=== PATIENT | male | born 1960 | race Two or more races ===

== ENCOUNTER 2020-07-09 10:08 | Outpatient (REF) | payer OTHER, SELFPAY ==
--- NOTE | 2020-07-09 10:15 | XR_ITS ---
EXAMINATION: XR SHOULDER, RIGHT CLINICAL INFORMATION: Right shoulder pain. COMPARISON: None. TECHNIQUE: Right shoulder is imaged in 4 views. FINDINGS: There is no fracture, dislocation, destructive process. Bony mineralization appears normal. The glenohumeral joint is unremarkable. The acromioclavicular alignment is normal. External rotation view shows some fine spurring in the greater tuberosity with questionable calcific tendinosis versus chondrocalcinosis articular cartilage superior humeral head. There is a tiny subcortical cyst greater tuberosity. XR/XR shoulder RT min 2V IMPRESSION: Fine spurring greater tuberosity with minor calcification and tiny cortical cyst. Findings may be associated with rotator cuff degeneration.
== END 2020-07-09 10:09 | disposition home or self-care (01) ==
LOC: HO.XRAY 10:08
PROVIDERS: PCP Internal Medicine Geriatric Medicine; Visit Provider Internal Medicine Geriatric Medicine
DX: M25.511 Pain in right shoulder (principal)
CPT/HCPCS: 73030

== ENCOUNTER 2020-09-03 11:10 | Outpatient (REF) | payer OTHER, SELFPAY | END 2020-09-03 11:11 | disposition home or self-care (01) | LOC: HO.HAP 11:10 | PROVIDERS: Visit Provider Internal Medicine Geriatric Medicine | DX: Z46.1 Encounter for fitting and adjustment of hearing aid (principal) | CPT/HCPCS: V5266 ==

== ENCOUNTER 2020-09-19 07:48 | Outpatient (REF) | payer OTHER, SELFPAY ==
--- NOTE | 2020-09-20 12:19 | MHC.AU.P13 ---
Adult Audiological Evaluation Date of Visit: 09/19/20 Optometric Technologist Used: Not Applicable Reason for Appointment: Audiologic re-evaluation to determine possible change in hearing ability. Kong reports several months ago he experienced left ear pain and was getting feedback from the left hearing aid. Due to the pain and feedback, he stopped wearing the left aid for a period of time until the ear pain resolved. Unfortunately he misplaced the left aid and has been unable to find the hearing aid. New hearing aid are needed. Previous Hearing Test Results: Borderline normal to mild low frequency, dropping to severe high frequency sensorineural hearing loss with the left ear being poorer at 250 and 500 Hz. 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 Unable to remove all cerumen today Tympanometry: Tympanometry performed due to: To assess integrity of the middle ear system Right Ear: Normal Middle Ear System (Type A) Left Ear: Normal Middle Ear System (Type A) Hearing Evaluation: Transducer(s) Used: Insert Earphones Bone Conduction Method: Conventional Audiometry Stimuli Used: Pure Tones Right Ear: Description of Hearing: Borderline normal thresholds at 250 and 500 Hz dropping to a severe high frequency sensorineural hearing loss Left Ear: Description of Hearing: Moderate sloping to severe mixed hearing loss Speech Recognition Threshold (SRT): Method Used: Monitored Live Voice Stimuli Used: Spondee Words Right Ear: 35 dB HL Left Ear: 50 dB HL Word Discrimination: Method: Recorded Lists Word Lists Used: NU-6 Right Ear: 88% at 85 dB HL Left Ear: 92% at 95 dB HL Most Comfortable Level (MCL): Right Ear: 85 dB HL Left Ear: 95 dB HL Comparison: Compared to the most recent evaluation: Thresholds have decreased in the left ear. Interpretation of Results: The low frequency conductive decrease for the left ear may be related to the remaining cerumen in that ear. Recommendations: Audiological re-evaluation in one year. Trial with amplification is recommended. Medical clearance from a physician is required before fitting. Hearing Aid Fitting will be scheduled when all materials arrive. Follow-up with physician for cerumen removal. Hearing aid maintenance performed today. * Advise cerumen removal for the left ear by a physician. When cerumen is removed, Kong needs to call this office to schedule an appointment for a Pure Tone Check and Earmold Impressions. Sending prior authorization for new hearing aids to insurance. When all paperwork and approval are received, will order the hearing aids and schedule a Hearing Aid Fitting appointment Diagnosis: Primary Diagnosis: H90.3 Bilateral Sensorineural Hearing Loss Secondary Diagnosis: H61.23 Impacted Cerumen, Bilateral Services Performed: Comprehensive Audiological Evaluation (CPT 39509) Tympanometry (CPT 26160) Signature: Provider: Dylon Botello, CCC-A
--- NOTE | 2020-09-20 12:22 | MHC.AU.MED ---
Medical Clearance for Hearing Instrumentation Date: 09/20/20 Patient Name: Kong Hogue Date of : 1960 Primary Care Provider: Referring Provider: Terrence Quintanilla MD We have seen your patient on 09/19/20 and have determined that they are a candidate for amplification (See accompanying report). Specifically, they would benefit from: Hearing aid use in both ears There is a statute that addresses Medical Evaluation Requirements prior to fitting a patient with a hearing aid. According to [place] statute 265 CMR:6.03(1), (a) General. Except as provided in 265 CMR 6.03(1)(b), a judicial assistant shall not sell a hearing aid unless the prospective user has presented to the judicial assistant a written statement signed by a licensed physician that states that the patient's hearing loss has been medically evaluated and the patient may be considered a candidate for a hearing aid. The medical evaluation must have taken place within the preceding six months. Please note: Due to the [place] Statute referenced above, we cannot accept a signature other than that of a licensed physician. PHOTOGRAPHER NEWS and PA signatures cannot be accepted. I am in agreement with the above recommendation. There is no medical contraindication for hearing instrumentation. Physician Signature Date Physician Name (Printed)
== END 2020-09-19 07:49 | disposition home or self-care (01) ==
LOC: HO.SH 07:48
PROVIDERS: Visit Provider Internal Medicine Geriatric Medicine
DX: H91.90 Unspecified hearing loss, unspecified ear (principal)
CPT/HCPCS: 92557; 92567; 92592; 99499

== ENCOUNTER 2020-09-28 09:32 | Outpatient (REF) | payer OTHER, SELFPAY ==
--- NOTE | 2020-09-28 12:51 | MHC.AU.MED ---
Medical Clearance for Hearing Instrumentation Date: 09/28/20 Patient Name: Kong Hogue Date of : 1960 Primary Care Provider: Referring Provider: Terrence Quintanilla MD We have seen your patient on 09/28/20 and have determined that they are a candidate for amplification (See accompanying report). Specifically, they would benefit from: Hearing aid use in the right ear Hearing aid use in the left ear Hearing aid use in both ears There is a statute that addresses Medical Evaluation Requirements prior to fitting a patient with a hearing aid. According to [place] statute 265 CMR:6.03(1), (a) General. Except as provided in 265 CMR 6.03(1)(b), a net development manager shall not sell a hearing aid unless the prospective user has presented to the net development manager a written statement signed by a licensed physician that states that the patient's hearing loss has been medically evaluated and the patient may be considered a candidate for a hearing aid. The medical evaluation must have taken place within the preceding six months. Please note: Due to the [place] Statute referenced above, we cannot accept a signature other than that of a licensed physician. STEMMER MACHINE and PA signatures cannot be accepted. I am in agreement with the above recommendation. There is no medical contraindication for hearing instrumentation. Physician Signature Date Physician Name (Printed)
--- NOTE | 2020-09-28 12:52 | MHC.AU.HAS ---
Hearing Aid Evaluation Date of Visit: 09/28/20 Ekg/Ecg Technician Used: Not Applicable Historical Information: Description of Hearing: Moderate to severe mixed hearing loss bilaterally. Pure tone check was performed today for the left ear following cerumen removal withe thresholds int he low frequencies improving 5-10 dB. Current personal amplification information, if applicable: Virto V 50-312, Left aid recently lost. No longer under warranty Summary: Due to the degree of hearing loss, as well as the significant communication trouble and difficulties understanding speech on the telephone, advise new binaural hearing aids with bluetooth capability as part of the remediation process. Hearing Aid Prescription: Based on the individual?s shared listening needs, communication environments, dexterity, desire for connectivity, and personal preferences, the following prescription for amplification has been made: Right ear: Public Service Officer: Phonak Model: Virto M 70-312 Battery Size: 312 Color: Mei Left ear: Left ear prescription to be same as Right Hearing Aid above: Public Service Officer: Phonak Model: Virto M 70-312 Battery Size: 312 Color: Mei Plan of Care: Patient wishes to purchase hearing aids as prescribed Action Taken/Action Needed: Earmold Impressions Taken Prior authorization to be requested Medical Clearance to be requested from PCP/ENT Hearing Fitting to be scheduled when materials arrive Primary Diagnosis: H90.6 Mixed Hearing Loss, Bilateral Signature: Provider: Dylon Botello, [facility]
== END 2020-09-28 09:33 | disposition home or self-care (01) ==
LOC: HO.HAP 09:32
PROVIDERS: Visit Provider Internal Medicine Geriatric Medicine
DX: Z46.1 Encounter for fitting and adjustment of hearing aid (principal); H90.6 Mixed conductive and sensorineural hearing loss, bilateral
CPT/HCPCS: 92591; V5275

== ENCOUNTER → 2020-10-22 07:52 | Outpatient (BNVA) | payer OTHER, SELFPAY | PROVIDERS: Visit Provider Internal Medicine Endocrinology, Diabetes & Metabolism | DX: E05.20 Thyrotoxicosis with toxic multinodular goiter without thyrotoxic crisis or storm (principal); E55.9 Vitamin D deficiency, unspecified | CPT/HCPCS: 99212 ==

== ENCOUNTER 2020-10-22 08:24 | Outpatient (REF) | payer OTHER, SELFPAY ==
[2020-10-22 11:07] LABS: Free T4 (Free Thyroxine) 0.88 ng/dL (0.71-1.85); Thyroid Stimulating Hormone 0.93 uIU/mL (0.32-4.0)
[2020-10-23 09:11] LABS: Triiodothyronine T3 Total 104 ng/dL (76-181)
== END 2020-10-22 08:25 | disposition home or self-care (01) ==
LOC: HO.10HDL 08:24
PROVIDERS: Visit Provider Internal Medicine Endocrinology, Diabetes & Metabolism
DX: E05.20 Thyrotoxicosis with toxic multinodular goiter without thyrotoxic crisis or storm (principal)
CPT/HCPCS: 36415; 84439; 84443; 84480

== ENCOUNTER 2020-11-02 09:39 | Outpatient (REF) | payer OTHER, SELFPAY | END 2020-11-02 09:40 | disposition home or self-care (01) | LOC: HO.HAP 09:39 | PROVIDERS: Visit Provider Internal Medicine Geriatric Medicine | DX: Z46.1 Encounter for fitting and adjustment of hearing aid (principal) | CPT/HCPCS: 92595; V5011; V5020; V5160; V5259 ==

== ENCOUNTER → 2020-11-15 08:09 | Outpatient (BNVA) | payer OTHER, SELFPAY | PROVIDERS: PCP Internal Medicine Geriatric Medicine; Visit Provider Urology | DX: Z13.89 Encounter for screening for other disorder (principal) | CPT/HCPCS: Q3014 ==

== ENCOUNTER 2020-11-20 12:15 | Outpatient (REF) | payer OTHER, SELFPAY | END 2020-11-20 12:16 | disposition home or self-care (01) | LOC: HO.HAP 12:15 | PROVIDERS: Visit Provider Pediatrics | DX: Z13.89 Encounter for screening for other disorder (principal) ==

== ENCOUNTER 2020-11-27 08:38 | Outpatient (REF) | payer OTHER, SELFPAY ==
[2020-11-27 13:38] LABS: Urine Cytology See Pathology rpt
== END 2020-11-27 08:39 | disposition home or self-care (01) ==
LOC: HO.LNP 08:38
PROVIDERS: PCP Internal Medicine Geriatric Medicine; Visit Provider Urology
DX: N40.0 Benign prostatic hyperplasia without lower urinary tract symptoms (principal); N52.9 Male erectile dysfunction, unspecified; R39.15 Urgency of urination; E55.9 Vitamin D deficiency, unspecified; E05.20 Thyrotoxicosis with toxic multinodular goiter without thyrotoxic crisis or storm; Z87.891 Personal history of nicotine dependence
CPT/HCPCS: 52000; 81002; 88112; 99212

== ENCOUNTER 2020-12-04 12:05 | Outpatient (REF) | payer OTHER, SELFPAY | END 2020-12-04 12:06 | disposition home or self-care (01) | LOC: HO.HAP 12:05 | PROVIDERS: Visit Provider Internal Medicine Geriatric Medicine | DX: Z13.89 Encounter for screening for other disorder (principal) ==

== ENCOUNTER 2020-12-21 12:19 | Outpatient (REF) | payer OTHER, SELFPAY | END 2020-12-21 12:20 | disposition home or self-care (01) | LOC: HO.HAP 12:19 | PROVIDERS: Visit Provider Internal Medicine Geriatric Medicine | DX: Z13.89 Encounter for screening for other disorder (principal) ==

== ENCOUNTER 2021-04-06 12:49 | Emergency (ER) | payer OTHER, SELFPAY ==
[2021-04-06 12:57] VITALS: BP 154/99; PULSE 82; RESP 18; TEMP 36.4; O2SAT 99; BMI 24.3
--- NOTE | 2021-04-06 14:44 | ED.GENADULT ---
HPI - General Adult General Chief complaint: General Medical Stated complaint: gout in knee Time Seen by Provider: 04/06/21 14:43 Source: patient Mode of arrival: ambulatory Limitations: no limitations History of Present Illness HPI narrative: 61-year-old male presents for redness swelling and warmth of left knee that started 4 days ago. Patient states this feels like gout, and he has had gout in this leg in the past. No fevers, patient is feeling well otherwise, no nausea, no vomiting, no chest pain, no shortness of breath. Related Data Home Medications Medication Instructions Recorded Confirmed lithium carbonate 300 mg 300 mg PO BID 10/22/20 10/22/20 tablet,extended release omega-3 fatty acids 1,000 mg 1,000 mg PO BEDTIME 10/22/20 10/22/20 capsule tadalafil 20 mg tablet 20 mg PO DAILY PRN 10/22/20 10/22/20 carbamide peroxide 6.5 % ear drops 0 drp OTIC (EARS) 11/15/20 diclofenac sodium 1 % topical gel 2 g TOPICAL BID 11/15/20 lisinopril 5 mg tablet 5 mg PO DAILY 11/15/20 Previous Rx's Medication Instructions Recorded cholecalciferol (vitamin D3) 25 25 mcg PO DAILY 90 Days #90 cap 10/22/20 mcg (1,000 unit) capsule methimazole 5 mg tablet 2.5 mg PO DAILY 90 Days #45 tab 10/22/20 tolterodine 4 mg capsule,extended 4 mg PO .Q.a.m. 30 Days #30 cap 11/15/20 release 24 hr oxybutynin chloride 15 mg 15 mg PO DAILY 90 Days #90 tab 11/27/20 tablet,extended release 24 hr prednisone 10 mg tablet 10 mg PO DAILY 12 Days #39 tab 04/06/21 Allergies Allergy/AdvReac Type Severity Reaction Status Date / Time No Known Allergies Allergy Verified 04/06/21 12:56 Review of Systems Constitutional: Constitutional: Denies body ache(s), Denies chills, Denies fatigue, Denies fever(s), Denies headache(s), Denies malaise and Denies weakness ENT: Denies vertigo, Denies dizziness, Denies headache(s) and Denies throat swelling Cardiovascular: Cardiovascular: Denies chest pain, Denies syncope, Denies leg edema, Denies lightheadedness, Denies Loss of Consciousness, Denies palpitations and Denies dyspnea Respiratory: Respiratory: Denies chest congestion, Denies cough and Denies dyspnea Gastrointestinal: Gastrointestinal: Reports abdominal pain, Denies hematochezia, Denies constipation, Denies diarrhea and Denies vomiting Musculoskeletal: Musculoskeletal: Reports arthralgias and Reports joint swelling Integumentary/Breasts: Comments: Redness and warmth over her left knee Neurologic: Denies confusion, Denies vertigo, Denies dizziness, Denies syncope, Denies headache(s) and Denies weakness Psychiatric: Psychiatric: Denies anxiety, Denies confusion and Denies depression Endocrine: Endocrine: Denies fatigue and Denies palpitations Allergic/Immunologic: Allergic/Immunologic: Denies throat swelling PMFSH Past Medical History Medical History Abdominal wall mass Bipolar disorder BPH w/o urinary obs/LUTS Erectile dysfunction Gout Myelopathy Toxic multinodular goiter Vitamin D deficiency Surgical History History of surgery Family History Family History Father Dementia Mother Diabetes Social History Social History Advance Directives: No Advance Directives Information Provided: Yes Physical Exam Vital Signs: Vital Signs: Last Vital Signs Temp 97.6 F 04/06/21 12:57 Pulse 82 04/06/21 12:57 Resp 18 04/06/21 12:57 BP 154/99 H 04/06/21 12:57 Pulse Ox 99 04/06/21 12:57 Body Mass Index 24.3 Const: General: No confusion Nutritional Appearance: well nourished Orientation/consciousness: No confusion Limitations: no limitations Eyes: Pupils: Equal, round and reactive pupils present Neck: Neck: Yes full ROM, Yes no lymphadenopathy and Yes supple Resp: Effort & Inspection: normal respiratory effort and able to speak in complete sentences Auscultation: clear to auscultation bilaterally, no crackles, no rales, no rhonchi and no wheezes Cardio: Rate: regular rate Rhythm: regular rhythm Heart sounds: S1 normal heart sound present and S2 normal heart sound present GI: Inspection: Yes normal to inspection Palpation (GI): Soft to palpation, nontender, no guarding and not rigid Percussion: Yes normal to percussion Auscultation: normal bowel sounds Skin: Other: Redness and warmth over left knee, no appreciable effusion Neuro: General: No confusion Cranial nerves: Yes Equal, round and reactive pupils present Extrem: Other: Patient can fully flex and extend his left knee Left lower extremity: full ROM, normal capillary refill and knee Details: tenderness, swelling and normal ROM Psych: Appearance: grossly normal Affect: normal affect Attitude: cooperative Thought process: Normal thought process present Course Course Course Narrative: 61-year-old male presents for pain in his left knee that feels like gout that he has gotten in his left leg before. Patient has full range of motion of his left knee. Left knee is exquisitely tender to touch, as red and swollen and warm. This looks like gout. However discussed with patient that if he is not better in 2 days, he must return to the emergency room, because this also could be infectious in nature. Patient verbalized agreement and understanding. The patient prednisone taper, counseled him to follow up with primary care provider Discharge Plan Discharge Clinical Impression: Gout Qualifiers: Gout site: knee Gout etiology: idiopathic Chronicity: acute Laterality: left Qualified Code(s): M10.062 - Idiopathic gout, left knee Patient Disposition: Home, Self-Care Instructions: Gout (ED) Additional Instructions: Please return to emergency room if you have fevers, if you cannot bend your knee, if you feel sick, or if you are not better in the next 2-3 days. Please fill the prescription for prednisone and take it as prescribed for the entire course. Please call your primary care provider for follow-up appointment, they may prescribe you medicine that will stop gout when it starts. As we discussed, this does not appear to be an infected knee, but please come back if you feel ill, have fevers, or cannot bend her knee Prescriptions: New prednisone 10 mg tablet 10 mg PO DAILY 12 Days Qty: 39 RF: 0 No Action tadalafil 20 mg tablet 20 mg PO DAILY PRNRF: 0 omega-3 fatty acids 1,000 mg capsule 1,000 mg PO BEDTIME RF: 0 lithium carbonate 300 mg tablet extended release 300 mg PO BID RF: 0 methimazole 5 mg tablet 2.5 mg PO DAILY 90 Days Qty: 45 RF: 2 cholecalciferol (vitamin D3) 25 mcg (1,000 unit) capsule 25 mcg PO DAILY 90 Days Qty: 90 RF: 3 tolterodine 4 mg capsule,extended release 24hr 4 mg PO .Q.a.m. 30 Days Qty: 30 RF: 1 oxybutynin chloride 15 mg tablet extended release 24 hr 15 mg PO DAILY 90 Days Qty: 90 RF: 2 Interventions: ED Discharge Assessment Last Done: 04/06/21 15:25 Discharge Date/Time: 04/06/21 15:26
== END 2021-04-06 15:26 | disposition home or self-care (01) ==
PROVIDERS: Emergency Provider Emergency Medicine Emergency Medical Services; PCP Internal Medicine Geriatric Medicine
DX: M10.062 Idiopathic gout, left knee (principal); M25.562 Pain in left knee; Z79.899 Other long term (current) drug therapy
CPT/HCPCS: 99283

== ENCOUNTER 2021-06-13 14:13 | Outpatient (REF) | payer OTHER, SELFPAY | END 2021-06-13 14:14 | disposition home or self-care (01) | LOC: HO.HAP 14:13 | PROVIDERS: Visit Provider Internal Medicine Geriatric Medicine | DX: Z46.1 Encounter for fitting and adjustment of hearing aid (principal); H90.3 Sensorineural hearing loss, bilateral | CPT/HCPCS: V5266 ==

== ENCOUNTER 2021-08-09 09:43 | Outpatient (REF) | payer SELFPAY | END 2021-08-09 09:44 | disposition home or self-care (01) | LOC: HO.HAP 09:43 | PROVIDERS: Visit Provider Internal Medicine Geriatric Medicine | DX: Z13.89 Encounter for screening for other disorder (principal) ==

== ENCOUNTER → 2021-08-29 12:15 | Outpatient (BNVA) | payer OTHER, SELFPAY | PROVIDERS: PCP Internal Medicine Geriatric Medicine; Visit Provider Internal Medicine | DX: E05.20 Thyrotoxicosis with toxic multinodular goiter without thyrotoxic crisis or storm (principal); E55.9 Vitamin D deficiency, unspecified; Z79.899 Other long term (current) drug therapy | CPT/HCPCS: 99212 ==

== ENCOUNTER 2021-08-30 10:35 | Outpatient (REF) | payer OTHER, SELFPAY ==
[2021-08-30 12:30] LABS: Albumin Level 4.3 g/dL (3.5-5.0); Phosphorus 2.6 mg/dL (2.7-4.5)
[2021-08-30 12:41] LABS: Free T4 (Free Thyroxine) 1.04 ng/dL (0.71-1.85); Thyroid Stimulating Hormone 0.44 uIU/mL (0.32-4.0); Vitamin D 25-OH Total 40.5 ng/mL (>30)
[2021-08-31 09:47] LABS: Thyroglobulin Antibodies <1 IU/mL (< or = 1); Thyroid Peroxidase Antibodies 1 IU/mL (<9)
[2021-08-31 10:02] LABS: Triiodothyronine T3 Total 109 ng/dL (76-181)
[2021-09-02 19:06] LABS: Thyrotropin Receptor Antibody <1.00 IU/L (<=2.00)
[2021-09-03 14:21] LABS: Calcium (PTHI) 9.8 mg/dL (8.6-10.3); PTHI 70 pg/mL (14-64)
[2021-09-04 15:56] LABS: Thyroid Stimulating Immunoglob <89 % baseline (<140)
== END 2021-08-30 10:36 | disposition home or self-care (01) ==
LOC: HO.LAB 10:35
PROVIDERS: Visit Provider Internal Medicine
DX: E05.20 Thyrotoxicosis with toxic multinodular goiter without thyrotoxic crisis or storm (principal); E55.9 Vitamin D deficiency, unspecified
CPT/HCPCS: 36415; 82040; 82306; 83520; 83970; 84100; 84439; 84443; 84445; 84480; 86376; 86800

== ENCOUNTER → 2021-09-03 15:09 | Outpatient (BNVA) | payer OTHER, SELFPAY | PROVIDERS: Visit Provider Urology | DX: N40.1 Benign prostatic hyperplasia with lower urinary tract symptoms (principal); R39.15 Urgency of urination | CPT/HCPCS: Q3014 ==

== ENCOUNTER 2021-09-30 15:02 | Outpatient (REF) | payer OTHER, SELFPAY ==
--- NOTE | ~2021-09-30 | US_ITS ---
EXAMINATION: US THYROID CLINICAL INFORMATION: Thyrotoxicosis with diffuse goiter without thyrotoxic crisis or storm. COMPARISON: Ultrasound soft tissue head/neck thyroid dated 12/26/2019 and 01/26/2019. TECHNIQUE: Linear transducer grayscale and color Doppler examination with attention to the region of the thyroid. FINDINGS: SIZE: Measurements of the thyroid lobes and nodules are given in sagittal, anteroposterior and transverse dimensions respectively. Right Thyroid Lobe: 6.7 x 2.2 x 2.7 cm, volume 21.1 mL. Previously 6.1 x 2.7 x 2.8 cm, volume 23.9 mL. Parenchyma: The gland echotexture is homogeneous. Thyroid vascularity is normal. Left Thyroid Lobe: 5.9 x 2.7 x 2.3 cm, volume 19.0 mL. Previously 6.0 x 2.4 x 2.8 cm, volume 20.4 mL. Parenchyma: The gland echotexture is homogeneous. Thyroid vascularity is normal. Isthmus: 0.4 cm in maximum AP dimension. Previously 0.6 cm. Estimated total number of nodules greater than or equal to 1 cm: 1. Seed Tester nodules are described as follows: 1. Location: Right inferior. Size: 0.6 x 0.3 x 0.5 cm, volume 0.05 mL. Previously: 0.6 x 0.3 x 0.6 cm, volume 0.06 mL. Nodule characteristics: Composition: Solid (2). Echogenicity: Hypoechoic (2). Shape: Not taller than wide (0). Margins: Ill-defined (0). Echogenic Foci: None (0). ACR TI-RADS total points: 4 ACR TI-RADS category: 4 Significant change in size (>/= 20% in 2 dimensions and minimal increase of 2 mm or 50% or greater increase in volume): None Change in features: None Change in ACR TI-RADS risk category: Not applicable 2. Location: Right inferior. Size: 0.4 x 0.3 x 0.3 cm, volume 0.02 mL. Previously: 0.4 x 0.3 x 0.4 cm, volume 0.03 mL. Nodule characteristics: Composition: Solid (2). Echogenicity: Anechoic (0). Shape: Not taller than wide (0). Margins: Ill-defined (0). Echogenic Foci: None (0). ACR TI-RADS total points: 2 ACR TI-RADS category: 2 Significant change in size (>/= 20% in 2 dimensions and minimal increase of 2 mm or 50% or greater increase in volume): None Change in features: None Change in ACR TI-RADS risk category: Not applicable 3. Location: Right inferior. Size: 1.6 x 1.5 x 1.7 cm, volume 2.1 mL. Previously: 2.0 x 1.1 x 1.5 cm, volume 1.7 mL. Nodule characteristics: Composition: Mixed cystic and solid (1). Echogenicity: Isoechoic (1). Shape: Not taller than wide (0). Margins: Smooth (0). Echogenic Foci: None (0). ACR TI-RADS total points: 2 ACR TI-RADS category: 2 Significant change in size (>/= 20% in 2 dimensions and minimal increase of 2 mm or 50% or greater increase in volume): None Change in features: Not applicable Change in ACR TI-RADS risk category: Not applicable 4. Location: Right inferior. Size: 0.7 x 0.5 x 0.6 cm, volume 0.1 mL. Previously: 0.4 x 0.5 x 0.6 cm, volume 0.06 mL. Nodule characteristics: Composition: Cystic(0). ACR TI-RADS total points: 0 ACR TI-RADS category: 1 Significant change in size (>/= 20% in 2 dimensions and minimal increase of 2 mm or 50% or greater increase in volume): None Change in features: None Change in ACR TI-RADS risk category: Not applicable 5. Location: Left superior. Size: 0.6 x 0.5 x 0.3 cm, volume 0.45 mL. Previously: Not documented on the prior study. Nodule characteristics: Composition: Cystic(0). ACR TI-RADS total points: 0 ACR TI-RADS category: 1 NODES: No lymphadenopathy is seen in the tissue surrounding the thyroid gland. US/US thyroid IMPRESSION: Enlarged thyroid gland with multiple thyroid nodules five on the right and one on the left. None of the nodules are suspicious at this time. Recommend continued follow-up. ACR TI-RADS RECOMMENDATION REFERENCE: Ultrasound-guided fine-needle aspiration, followup ultrasound, no further follow up. * TR1 (0 point) and TR 2 (2 points): No FNA or follow up * TR3 (3 points): FNA if more than or equal to 2.5 cm in maximum dimension, followup ultrasound in 1, 3 and 5 years if 1.5 to 2.4 cm in maximum dimension. * TR4 (4-6 points): FNA if more than or equal to 1.5 cm in maximum dimension, followup ultrasound in 1, 2, 3 and 5 years if 1 to 1.4 cm in maximum dimension. * TR5 (more than or equal to 7 points): FNA if more than or equal to 1 cm in maximum dimension, followup ultrasound every year for 5 years if 0.5 to 0.9 cm in maximum dimension. * TR3, TR4 or TR5 nodules that are below the size threshold for follow up receive no follow up.
== END 2021-09-30 15:03 | disposition home or self-care (01) ==
LOC: HO.US 15:02
PROVIDERS: Visit Provider Internal Medicine
DX: E05.20 Thyrotoxicosis with toxic multinodular goiter without thyrotoxic crisis or storm (principal)
CPT/HCPCS: 76536

== ENCOUNTER → 2021-11-04 10:40 | Outpatient (BNVA) | payer MEDICARE, MEDICAID, SELFPAY | PROVIDERS: PCP Internal Medicine Geriatric Medicine; Visit Provider Internal Medicine | DX: Z13.89 Encounter for screening for other disorder (principal) ==

== ENCOUNTER 2021-11-14 08:11 | Outpatient (REF) | payer MEDICARE, MEDICAID, SELFPAY ==
[2021-11-14 13:52] LABS: Alanine Aminotransferase 29 U/L (0-40); Albumin Level 4.1 g/dL (3.5-5.0); Alkaline Phosphatase 72 U/L (39-117); Anion Gap 13 (12-20); Aspartate Amino Transferase 22 U/L (5-37); Bilirubin Total 1.2 mg/dL (0.0-1.0); Blood Urea Nitrogen 15 mg/dL (9-16); Calcium 9.7 mg/dL (8.4-10.2); Carbon Dioxide 26 mmol/L (22-29); Chloride 105 mmol/L (96-108); Estimated Glomerular Filt Rate 57; Glucose Random 102 mg/dL (60-115); Phosphorus 2.6 mg/dL (2.7-4.5); Potassium 4.2 mmol/L (3.3-5.1); Sodium 140 mmol/L (135-145); Total Protein 6.8 g/dL (6.5-8.0)
[2021-11-14 14:12] LABS: Free T4 (Free Thyroxine) 1.03 ng/dL (0.71-1.85); Vitamin D 25-OH Total 35.2 ng/mL (>30)
[2021-11-15 12:46] LABS: Calcium (PTHI) 9.4 mg/dL (8.6-10.3); PTHI 90 pg/mL (16-77)
[2021-11-16 01:46] LABS: Triiodothyronine T3 Total 109 ng/dL (76-181)
[2021-11-18 22:07] LABS: Prot Elec - Albumin 4.1 g/dL (3.8-4.8); Prot Elec - Alpha1 0.2 g/dL (0.2-0.3); Prot Elec - Alpha2 0.6 g/dL (0.5-0.9); Prot Elec - Beta 1 0.4 g/dL (0.4-0.6); Prot Elec - Beta 2 0.4 g/dL (0.2-0.5); Prot Elec - Total Protein 6.7 g/dL (6.1-8.1)
== END 2021-11-14 08:12 | disposition home or self-care (01) ==
LOC: HO.LAB 08:11
PROVIDERS: PCP Internal Medicine Geriatric Medicine; Visit Provider Internal Medicine
DX: E05.20 Thyrotoxicosis with toxic multinodular goiter without thyrotoxic crisis or storm (principal); E21.3 Hyperparathyroidism, unspecified; E55.9 Vitamin D deficiency, unspecified
CPT/HCPCS: 36415; 80053; 82306; 83970; 84100; 84165; 84439; 84443; 84480; Q3014

== ENCOUNTER 2021-11-21 07:40 | Outpatient (REF) | payer MEDICARE, MEDICAID, SELFPAY ==
[2021-11-21 08:20] LABS: Creatinine, mg/dL 92.52
[2021-11-21 08:35] LABS: Creatinine, 24Hr Urine 0.8 G/Day (1.0-2.0); Total Volume 24 Hour Urine 900 mL
[2021-11-23 16:40] LABS: Calcium, 24 Hr Urine 77 mg/24 h; Calcium/Creatinine Ratio 91 mg/g creat (30-210); Creatinine 24Hr Urine 0.84 g/24 h (0.50-2.15)
== END 2021-11-21 07:41 | disposition home or self-care (01) ==
LOC: HO.LNP 07:40
PROVIDERS: Visit Provider Internal Medicine
DX: E21.3 Hyperparathyroidism, unspecified (principal)
CPT/HCPCS: 82340; 82570

== ENCOUNTER 2021-11-26 12:21 | Outpatient (REF) | payer MEDICARE, MEDICAID, SELFPAY | END 2021-11-26 12:22 | disposition home or self-care (01) | LOC: HO.HAP 12:21 | PROVIDERS: Visit Provider Internal Medicine Geriatric Medicine | DX: Z46.1 Encounter for fitting and adjustment of hearing aid (principal); H90.3 Sensorineural hearing loss, bilateral | CPT/HCPCS: V5266 ==

== ENCOUNTER → 2022-01-08 19:45 | Outpatient (REF) | payer MEDICARE, MEDICAID, SELFPAY | LOC: HO.SL 19:45 | PROVIDERS: Visit Provider Nurse Practitioner Family | DX: G47.00 Insomnia, unspecified (principal); R06.81 Apnea, not elsewhere classified | CPT/HCPCS: 95810 ==

== ENCOUNTER 2022-01-09 13:15 | Emergency (ER) | payer MEDICARE, MEDICAID, SELFPAY ==
[2022-01-09 13:47] VITALS: BP 169/66; PULSE 92; RESP 18; TEMP 36.7; O2SAT 97; BMI 27.5
[2022-01-09 14:22] LABS: Lithium 0.76 mmol/L (0.60-1.20)
--- NOTE | 2022-01-09 14:40 | ED_ITS ---
HPI - General Adult General Chief complaint: Psychiatric Symptoms Stated complaint: shakes /medical /crisis Time Seen by Provider: 01/09/22 14:40 Source: patient and family (daughter) Mode of arrival: ambulatory Limitations: no limitations History of Present Illness HPI narrative: Patient is a 61 year old male presenting to the emergency department today with insomnia. Patient states that a month ago, he went from 600mg lithium to 300mg and then he started to have issues sleeping. His psychiatrist then increased him back to 600mg and he is still having difficulty sleeping. Patient states that he has an appointment with his psychiatrist to address this issue next Thursday however, he is having increased anxiousness and is concerned he is going to have another manic episode. Patient denies any dizziness, lightheadedness, abdominal pain, nausea, vomiting, fever, chills, blurry vision, double vision, loss of vision, chest pain, difficulty breathing, shortness of breath, back pain, night sweats, pain with urination, increased urinary frequency, increased urinary urgency, blood in his urine or stool, syncope or a near syncopal episode, recent trauma or falls, bowel incontinence, bladder incontinence, bowel retention, bladder retention, or any other complaints at this time. Onset (ago): day(s) Severity: mild Relieving factors: none Exacerbating factors: none Associated symptoms: denies other symptoms Treatments prior to arrival: none Related Data Home Medications Medication Instructions Recorded Confirmed omega-3 fatty acids 1,000 mg 1,000 mg PO BEDTIME 10/22/20 11/14/21 capsule tadalafil 20 mg tablet 20 mg PO DAILY PRN 10/22/20 11/14/21 carbamide peroxide 6.5 % ear drops 0 drp otic (ears) 11/15/20 11/14/21 diclofenac sodium 1 % topical gel 2 g topical BID 11/15/20 11/14/21 lisinopril 5 mg tablet 5 mg PO DAILY 11/15/20 11/14/21 lithium carbonate 300 mg 300 mg PO DAILY 11/04/21 11/14/21 tablet,extended release Previous Rx's Medication Instructions Recorded oxybutynin chloride 10 mg 10 mg PO DAILY 90 days #90 tabs 09/03/21 tablet,extended release 24 hr cholecalciferol (vitamin D3) 25 25 mcg PO DAILY 90 days #90 caps 10/16/21 mcg (1,000 unit) capsule methimazole 5 mg tablet 2.5 mg PO DAILY 90 days #45 tabs 11/14/21 lorazepam 2 mg tablet (Ativan) 2 mg PO BEDTIME PRN sleep #3 tabs 01/09/22 Allergies Allergy/AdvReac Type Severity Reaction Status Date / Time No Known Allergies Allergy Verified 11/14/21 10:44 Review of Systems Constitutional: Constitutional: Reports no additional constitutional complaints, Denies chills, Denies fever(s) and Denies night sweats Eyes: Eyes: Reports no additional eye complaints, Denies blurry vision, Denies change in vision, Denies diplopia, Denies eye discharge, Denies loss of vision and Denies eye pain ENT: Denies dizziness Cardiovascular: Cardiovascular: Reports no additional cardiovascular complaints, Denies chest pain, Denies lightheadedness, Denies Loss of Consciousness and Denies dyspnea Respiratory: Respiratory: Reports no additional respiratory complaints and Denies dyspnea Gastrointestinal: Gastrointestinal: Reports no additional gastrointestinal complaints, Denies abdominal pain, Denies melena, Denies hematochezia, Denies change in bowel habits and Denies change in stool character Genitourinary: Genitourinary: Reports no additional male genitourinary complaints, Denies hematuria, Denies oliguria, Denies difficulty urinating, Denies dysuria, Denies urinary frequency, Denies urinary hesitancy, Denies urinary incontinence and Denies urinary urgency Musculoskeletal: Musculoskeletal: Reports no additional musculoskeletal complaints, Denies numbness and Denies tingling Neurologic: Denies dizziness, Denies loss of vision, Denies numbness and Denies tingling Psychiatric: Psychiatric: Reports no additional psychiatric complaints and Reports abnormal sleep pattern Endocrine: Endocrine: Reports no additional endocrine complaints Hematologic/Lymphatic: Hematologic/Lymphatic: Reports no additional hematologic/lymphatic complaints Allergic/Immunologic: Allergic/Immunologic: Reports no additional allergic/immunologic complaints [facility] Past Medical History Attestation statement: The following information was validated with the patient. Source: old records reviewed Medical History Abdominal wall mass Bipolar disorder BPH w/o urinary obs/LUTS Elevated blood pressure reading in office with white coat syndrome, with diagnosis of hypertension Erectile dysfunction Frequency of urination Gout Hearing problem Hyperparathyroidism Myelopathy Toxic multinodular goiter Vitamin D deficiency Surgical History History of surgery Family History Family History Father Dementia Mother Diabetes Social History Social History Alcohol intake: never Patient Tobacco Use Status: Former Tobacco user Advance Directives: No Advance Directives Information Provided: No Physical Exam ED Vital Signs: Vital Signs - 24 hr 01/09/22 13:47 Temperature 98.0 F Pulse Rate 92 Respiratory Rate 18 Blood Pressure 169/66 H Pulse Oximetry 97 Oxygen Delivery Method Room Air BMI result Body Mass Index 27.5 Const General: cooperative, no acute distress, alert and awake Nutritional Appearance: well nourished Orientation/consciousness: patient oriented x3 Limitations: no limitations HENMT Head: Yes normal to inspection and Yes atraumatic Ears: hearing grossly normal bilaterally and external ears normal General nose exam: Normal external nose present, no nasal discharge noted and no epistaxis Face and sinus: Yes normal facial exam, No abrasion and No laceration Mouth: Normal oral and palatal mucosa present, no drooling and no muffled voice Eyes General: appearance normal, both eyes and all related structures Periorbital: periorbital findings normal Eyelids: Yes eyelids normal Conjunctivae: conjunctivae normal Pupils: Equal, round and reactive pupils present EOM: EOMs intact bilaterally Neck Neck: Yes normal visual inspection, Yes full ROM and Yes no lymphadenopathy Chest Chest palpation & inspection: normal inspection of the chest Resp Effort & Inspection: normal respiratory effort and able to speak in complete sentences Auscultation: clear to auscultation bilaterally Cardio Rate: regular rate Rhythm: regular rhythm GI Inspection: Yes normal to inspection Neuro General: patient oriented x3 and moves all extremities Cranial nerves: Yes Equal, round and reactive pupils present Cognition (Neuro): normal cognition Motor exam (neuro): 5/5 motor strength present throughout Sensory Exam: Normal double simultaneous stimulation for sensation Coordination: [id number] test normal Extrem General: Yes normal to inspection, Yes full ROM and Yes capillary refill normal Psych Appearance: grossly normal Mental Status: mental status grossly normal Affect: normal affect Attitude: cooperative Thought process: Normal thought process present Thought content: Normal thought content present Insight: Good insight present (Psych) Medical Decision Making MDM Narrative Medical decision making narrative: Patient is a 61 year old male presenting to the emergency department today with insomnia. Patient's physical exam was unremarkable. Patient's lithium level was normal. I explained my physical exam findings as well as all test results to the patient and the patient's daughter. I answered all questions asked by the patient and the patient's daughter. I explained to the patient and his daughter that I was concerned about his lack of sleep and would prescribe just 3 tablets of Lorazepam to help him sleep over the next few nights. I explained to the patient and his daughter that this is not a python consultant solution and is a dangerous medication. I explained to them that they must keep the appointment with psychiatry and follow up with them for an appropriate python consultant solution. I stressed the importance of the patient taking his medication as prescribed. I stressed the importance of the patient following up with his primary care provider and psychiatrist. I stressed the importance of the patient returning to the emergency department immediately if his symptoms were to worsen or if he were to develop any dizziness, shortness of breath, difficulty breathing, chest pain, blurry vision, loss of vision, nausea, vomiting, abdominal pain, fever, chills, back pain, or any other complaints. Patient and the patient's daughter verbalized agreement and understanding with this treatment plan and discharge. Differential Diagnosis Differential Diagnosis: anxiety, insomnia Medical Records Medical records reviewed: Yes I reviewed the patient's medical records. Lab Data Lab results reviewed: Yes I reviewed the patient's lab results. Labs: Lab Results 01/09/22 Range/Units 14:01 [place] 0.76 (0.60-1.20) mmol/L Discharge Plan Discharge Clinical Impression: Insomnia Patient Disposition: Home, Self-Care Instructions: Insomnia (ED) Additional Instructions: Follow up with your primary care provider and psychiatrist. Return to the emergency department immediately if your symptoms worsen or if you develop any dizziness, shortness of breath, difficulty breathing, chest pain, blurry vision, loss of vision, nausea, vomiting, abdominal pain, fever, chills, back pain, or any other complaints. Prescriptions: New lorazepam [Ativan] 2 mg tablet 2 mg PO BEDTIME PRN (Reason: sleep) Qty: 3 0RF No Action cholecalciferol (vitamin D3) 25 mcg (1,000 unit) capsule 25 mcg PO DAILY 90 Days Qty: 90 0RF methimazole 5 mg tablet 2.5 mg PO DAILY 90 Days Qty: 45 10RF tadalafil 20 mg tablet 20 mg PO DAILY PRN omega-3 fatty acids 1,000 mg capsule 1,000 mg PO BEDTIME lithium carbonate 300 mg tablet extended release 300 mg PO DAILY diclofenac sodium 1 % gel 2 g topical BID carbamide peroxide 6.5 % drops 0 drp otic (ears) lisinopril 5 mg tablet 5 mg PO DAILY oxybutynin chloride 10 mg tablet extended release 24 hr 10 mg PO DAILY 90 Days Qty: 90 1RF Referrals: Terrence Quintanilla MD [Primary Care Provider] - (Follow up with your primary care provider. ) Interventions: ED Discharge Assessment Last Done: 01/09/22 15:21 Print Language: Albanian
== END 2022-01-09 15:21 | disposition home or self-care (01) ==
PROVIDERS: Emergency Provider Emergency Medicine; PCP Internal Medicine Geriatric Medicine
DX: G47.00 Insomnia, unspecified (principal); F41.9 Anxiety disorder, unspecified; F31.9 Bipolar disorder, unspecified; Z79.899 Other long term (current) drug therapy
CPT/HCPCS: 36415; 80178; 99283

== ENCOUNTER → 2022-02-13 13:48 | Outpatient (BNVA) | payer MEDICARE, MEDICAID, SELFPAY | PROVIDERS: PCP Internal Medicine Geriatric Medicine; Visit Provider Internal Medicine | DX: E05.20 Thyrotoxicosis with toxic multinodular goiter without thyrotoxic crisis or storm (principal); E21.3 Hyperparathyroidism, unspecified; E55.9 Vitamin D deficiency, unspecified | CPT/HCPCS: 99212 ==

== ENCOUNTER 2022-02-21 09:55 | Outpatient (REF) | payer MEDICARE, MEDICAID, SELFPAY ==
[2022-02-21 11:23] LABS: Alanine Aminotransferase 39 U/L (0-40); Albumin Level 4.3 g/dL (3.5-5.0); Alkaline Phosphatase 75 U/L (39-117); Anion Gap 15 (12-20); Aspartate Amino Transferase 25 U/L (5-37); Bilirubin Total 0.8 mg/dL (0.0-1.0); Blood Urea Nitrogen 11 mg/dL (9-16); Calcium 9.6 mg/dL (8.4-10.2); Carbon Dioxide 26 mmol/L (22-29); Chloride 104 mmol/L (96-108); Estimated Glomerular Filt Rate 59; Glucose Random 101 mg/dL (60-115); Phosphorus 3.3 mg/dL (2.7-4.5); Potassium 4.5 mmol/L (3.3-5.1); Sodium 140 mmol/L (135-145); Total Protein 7.2 g/dL (6.5-8.0)
[2022-02-21 11:44] LABS: Free T4 (Free Thyroxine) 0.91 ng/dL (0.71-1.85); Thyroid Stimulating Hormone 1.46 uIU/mL (0.32-4.0); Vitamin D 25-OH Total 34.8 ng/mL (>30)
[2022-02-24 17:06] LABS: Calcium (PTHI) 9.7 mg/dL (8.6-10.3); PTHI 87 pg/mL (16-77)
== END 2022-02-21 09:56 | disposition home or self-care (01) ==
LOC: HO.LAB 09:55
PROVIDERS: PCP Internal Medicine Geriatric Medicine; Visit Provider Internal Medicine
DX: E05.20 Thyrotoxicosis with toxic multinodular goiter without thyrotoxic crisis or storm (principal); E21.3 Hyperparathyroidism, unspecified; E55.9 Vitamin D deficiency, unspecified
CPT/HCPCS: 36415; 80053; 82306; 83970; 84100; 84439; 84443

== ENCOUNTER 2022-03-19 09:49 | Outpatient (REF) | payer MEDICARE, MEDICAID, SELFPAY | END 2022-03-19 09:50 | disposition home or self-care (01) | LOC: HO.LAB 09:49 | PROVIDERS: PCP Internal Medicine Geriatric Medicine; Visit Provider Internal Medicine | DX: Z13.89 Encounter for screening for other disorder (principal) ==

== ENCOUNTER 2022-05-29 09:38 | Outpatient (REF) | payer MEDICARE, MEDICAID, SELFPAY ==
[2022-05-29 14:17] LABS: Alanine Aminotransferase 41 U/L (0-40); Albumin Level 4.3 g/dL (3.5-5.0); Alkaline Phosphatase 72 U/L (39-117); Anion Gap 14 (12-20); Aspartate Amino Transferase 26 U/L (5-37); Bilirubin Total 1.6 mg/dL (0.0-1.0); Blood Urea Nitrogen 14 mg/dL (9-16); Calcium 9.9 mg/dL (8.4-10.2); Carbon Dioxide 25 mmol/L (22-29); Chloride 106 mmol/L (96-108); Estimated Glomerular Filt Rate 59; Glucose Random 103 mg/dL (60-115); Phosphorus 3.5 mg/dL (2.7-4.5); Potassium 4.6 mmol/L (3.3-5.1); Sodium 140 mmol/L (135-145); Thyroid Stimulating Hormone 1.65 uIU/mL (0.32-4.0); Total Protein 7.1 g/dL (6.5-8.0); Vitamin D 25-OH Total 41.1 ng/mL (>30)
[2022-05-30 12:22] LABS: PTHI 69 pg/mL (16-77)
== END 2022-05-29 09:39 | disposition home or self-care (01) ==
LOC: HO.LAB 09:38
PROVIDERS: PCP Internal Medicine Geriatric Medicine; Visit Provider Internal Medicine
DX: E55.9 Vitamin D deficiency, unspecified (principal); E21.3 Hyperparathyroidism, unspecified; E05.20 Thyrotoxicosis with toxic multinodular goiter without thyrotoxic crisis or storm
CPT/HCPCS: 36415; 80053; 82306; 83970; 84100; 84439; 84443

== ENCOUNTER 2022-06-03 09:09 | Outpatient (REF) | payer MEDICARE, MEDICAID, SELFPAY ==
[2022-06-03 10:26] LABS: Alanine Aminotransferase 37 U/L (0-40); Albumin Level 4.4 g/dL (3.5-5.0); Alkaline Phosphatase 75 U/L (39-117); Aspartate Amino Transferase 24 U/L (5-37); Bilirubin Direct 0.5 mg/dL (0.0-0.5); Bilirubin Total 1.5 mg/dL (0.0-1.0); Total Protein 7.1 g/dL (6.5-8.0)
== END 2022-06-03 09:10 | disposition home or self-care (01) ==
LOC: HO.LAB 09:09
PROVIDERS: PCP Internal Medicine Geriatric Medicine; Visit Provider Internal Medicine
DX: E05.20 Thyrotoxicosis with toxic multinodular goiter without thyrotoxic crisis or storm (principal)
CPT/HCPCS: 36415; 80076

== ENCOUNTER 2022-06-03 09:47 | Outpatient (REF) | payer MEDICARE, MEDICAID, SELFPAY | END 2022-06-03 09:48 | disposition home or self-care (01) | LOC: HO.HAP 09:47 | PROVIDERS: Visit Provider Internal Medicine Endocrinology, Diabetes & Metabolism | DX: Z46.1 Encounter for fitting and adjustment of hearing aid (principal); H90.3 Sensorineural hearing loss, bilateral | CPT/HCPCS: V5266 ==

== ENCOUNTER 2022-08-07 08:46 | Outpatient (REF) | payer MEDICARE, MEDICAID, SELFPAY ==
--- NOTE | 2022-08-07 10:08 | MHC.AU.HA3 ---
Hearing Instrument Follow-Up- Binaural Date of Visit: 08/07/22 Right Ear: Make, Model, Color, Serial Number: Elo Oakley [id number] SN: [id number] Color: Mei Software Reverse Engineer Repair Warranty: 11/18/2023 Software Reverse Engineer Loss and Damage Warranty: 11/18/2023 [facility] Service Plan: 11/02/2021 Battery Size: 312 Type of Wax Guard: CeruStop Dispensed By: [facility] Date of Fittin11/02/2020 Left Ear: Make, Model, Color, Serial Number: Elo Oakley [id number] SN: [id number] Color: Mei Software Reverse Engineer Repair Warranty: 11/18/2023 Software Reverse Engineer Loss and Damage Warranty: 11/18/2023 [facility] Service Plan: 11/02/2021 Battery Size: 312 Type of Wax Guard: CeruStop Dispensed By: [facility] Date of Fittin11/02/2020 Follow-Up Summary: Kong returned for routine hearing aid maintenance and reprogramming following an updated hearing evaluation. Cleaned both hearing aids, vacuumed microphones, and replaced both wax guards. A listening check demonstrated that the hearing aids are in good working order. Provided Kong with a vent heavy cleaner at his request; however, explained that he cannot thread the heavy cleaner all the way through the vent due to the vent plug needed to help manage feedback. Reran feedback career development manager and reprogrammed the hearing aids to today's audio, which showed a significant decrease of hearing in his left ear. Kong noted significant improvement in sound quality in office. Recommendations: Hearing instrument maintenance in 6 months, or sooner if needed. Please contact our clinic with any questions or concerns. Diagnosis Code(s): Primary Diagnosis: H90.3 Bilateral Sensorineural Hearing Loss Signature: Provider: Ottoniel Thomas, [facility]
== END 2022-08-07 08:47 | disposition home or self-care (01) ==
LOC: HO.SH 08:46
PROVIDERS: Visit Provider Internal Medicine Geriatric Medicine
DX: Z01.118 Encounter for examination of ears and hearing with other abnormal findings (principal); H90.3 Sensorineural hearing loss, bilateral
CPT/HCPCS: 92557; 92567; 92593; 99499

== ENCOUNTER 2022-08-07 14:50 | Outpatient (REF) | payer MEDICARE, MEDICAID, SELFPAY ==
[2022-08-07 18:15] LABS: Alanine Aminotransferase 36 U/L (0-40); Albumin Level 4.3 g/dL (3.5-5.0); Alkaline Phosphatase 73 U/L (39-117); Anion Gap 12 (12-20); Aspartate Amino Transferase 26 U/L (5-37); Bilirubin Total 0.7 mg/dL (0.0-1.0); Blood Urea Nitrogen 7 mg/dL (9-16); Calcium 9.9 mg/dL (8.4-10.2); Carbon Dioxide 26 mmol/L (22-29); Chloride 106 mmol/L (96-108); Estimated Glomerular Filt Rate > 60; Glucose Random 70 mg/dL (60-115); Phosphorus 2.1 mg/dL (2.7-4.5); Sodium 140 mmol/L (135-145); Total Protein 7.2 g/dL (6.5-8.0)
[2022-08-07 18:34] LABS: Prostate Specific Antigen 1.52 ng/mL (<0.05-4.0); Thyroid Stimulating Hormone 1.15 uIU/mL (0.32-4.0)
[2022-08-07 18:37] LABS: Free T4 (Free Thyroxine) 0.97 ng/dL (0.71-1.85); Vitamin D 25-OH Total 35.3 ng/mL (>30)
[2022-08-10 15:03] LABS: Triiodothyronine T3 Total 123 ng/dL (76-181)
[2022-08-11 13:23] LABS: Calcium (PTHI) 9.9 mg/dL (8.6-10.3); PTHI 99 pg/mL (16-77)
[2022-08-11 14:13] LABS: Thyroglobulin Antibodies <1 IU/mL (< or = 1); Thyroid Peroxidase Antibodies 1 IU/mL (<9)
[2022-08-13 08:39] LABS: Thyrotropin Receptor Antibody <1.00 IU/L (<=2.00)
[2022-08-13 16:07] LABS: Thyroid Stimulating Immunoglob <89 % baseline (<140)
== END 2022-08-07 14:51 | disposition home or self-care (01) ==
LOC: HO.LAB 14:50
PROVIDERS: Urology; PCP Internal Medicine Geriatric Medicine; Visit Provider Internal Medicine
DX: Z12.5 Encounter for screening for malignant neoplasm of prostate (principal); N13.8 Other obstructive and reflux uropathy; N40.1 Benign prostatic hyperplasia with lower urinary tract symptoms; E05.20 Thyrotoxicosis with toxic multinodular goiter without thyrotoxic crisis or storm; E55.9 Vitamin D deficiency, unspecified; E21.3 Hyperparathyroidism, unspecified
CPT/HCPCS: 36415; 80053; 82306; 83520; 83970; 84100; 84153; 84439; 84443; 84445; 84480; 86376; 86800; 99212

== ENCOUNTER → 2022-08-20 12:53 | Outpatient (BNVA) | payer MEDICARE, MEDICAID, SELFPAY | PROVIDERS: PCP Internal Medicine Geriatric Medicine; Visit Provider Internal Medicine | DX: E80.6 Other disorders of bilirubin metabolism (principal); E80.4 Gilbert syndrome | CPT/HCPCS: 99202 ==

== ENCOUNTER 2022-09-03 10:58 | Outpatient (REF) | payer MEDICARE, MEDICAID, SELFPAY ==
[2022-09-03 17:10] LABS: Urine Cytology See Pathology rpt
== END 2022-09-03 10:59 | disposition home or self-care (01) ==
LOC: HO.LAB 10:58
PROVIDERS: PCP Internal Medicine Geriatric Medicine; Visit Provider Urology
DX: R31.29 Other microscopic hematuria (principal); N40.1 Benign prostatic hyperplasia with lower urinary tract symptoms; R39.15 Urgency of urination; N52.9 Male erectile dysfunction, unspecified
CPT/HCPCS: 51798; 88112; 99212

== ENCOUNTER 2022-09-23 13:45 | Outpatient (REF) | payer MEDICARE, MEDICAID, SELFPAY | END 2022-09-23 13:46 | disposition home or self-care (01) | LOC: HO.HAP 13:45 | PROVIDERS: Visit Provider Internal Medicine Geriatric Medicine | DX: Z46.1 Encounter for fitting and adjustment of hearing aid (principal); Z90.3 Acquired absence of stomach [part of] | CPT/HCPCS: V5266 ==

== ENCOUNTER 2022-09-23 13:48 | Outpatient (REF) | payer MEDICARE, MEDICAID, SELFPAY ==
--- NOTE | ~2022-09-23 | US_ITS ---
EXAMINATION: US ABDOMEN COMPLETE CLINICAL INFORMATION: Other disorders of bilirubin metabolism. COMPARISON: CT abdomen and pelvis with contrast dated 12/21/2014. TECHNIQUE: Real-time imaging of the abdominal viscera. FINDINGS: PANCREAS: Visualized portions of the pancreas are unremarkable. The pancreatic tail is obscured by bowel gas. ABDOMINAL AORTA: The mid and distal segments are normal in caliber. INFERIOR VENA CAVA: Visualized portions are normal. LIVER: The liver is normal in size. The liver contour is normal. Diffuse increased echogenicity. No focal hepatic lesion. There is no intrahepatic biliary duct dilatation seen. GALLBLADDER: Normal. The gallbladder is physiologically distended without evidence of stones, sludge, polyps, wall thickening or pericholecystic fluid. COMMON BILE DUCT: Normal in caliber measuring 0.4 cm in diameter. RIGHT KIDNEY: Normal. No hydronephrosis. No renal calculi or focal parenchymal lesions. The kidney measures 10.8 cm in maximum dimension. LEFT KIDNEY: Normal. No hydronephrosis. No renal calculi or focal parenchymal lesions. The kidney measures 11.6 cm in maximum dimension. SPLEEN: Normal. The spleen measures 11.3 cm in maximum dimension. FREE FLUID: None. US/US abdomen complete IMPRESSION: Diffuse increased echogenicity of the hepatic parenchyma. This is a nonspecific finding but most commonly on the basis of diffuse hepatocellular disease such as hepatic steatosis.
== END 2022-09-23 13:49 | disposition home or self-care (01) ==
LOC: HO.US 13:48
PROVIDERS: PCP Internal Medicine Geriatric Medicine; Visit Provider Internal Medicine
DX: E80.6 Other disorders of bilirubin metabolism (principal)
CPT/HCPCS: 76700

== ENCOUNTER 2022-10-30 09:14 | Outpatient (REF) | payer MEDICARE, MEDICAID, SELFPAY ==
[2022-10-30 10:47] LABS: Alanine Aminotransferase 39 U/L (0-40); Albumin Level 4.3 g/dL (3.5-5.0); Alkaline Phosphatase 69 U/L (39-117); Anion Gap 13 (12-20); Aspartate Amino Transferase 24 U/L (5-37); Blood Urea Nitrogen 15 mg/dL (9-16); Calcium 9.6 mg/dL (8.4-10.2); Carbon Dioxide 25 mmol/L (22-29); Chloride 107 mmol/L (96-108); Estimated Glomerular Filt Rate 56; Glucose Random 91 mg/dL (60-115); Phosphorus 2.3 mg/dL (2.7-4.5); Potassium 4.8 mmol/L (3.3-5.1); Sodium 140 mmol/L (135-145); Total Protein 6.8 g/dL (6.5-8.0)
[2022-10-30 11:09] LABS: Free T4 (Free Thyroxine) 0.96 ng/dL (0.71-1.85); Thyroid Stimulating Hormone 1.58 uIU/mL (0.32-4.0)
[2022-11-01 08:58] LABS: Triiodothyronine T3 Total 114 ng/dL (76-181)
[2022-11-03 15:29] LABS: Calcium (PTHI) 9.8 mg/dL (8.6-10.3); PTHI 60 pg/mL (16-77)
== END 2022-10-30 09:15 | disposition home or self-care (01) ==
LOC: HO.LAB 09:14
PROVIDERS: PCP Internal Medicine Geriatric Medicine; Visit Provider Internal Medicine
DX: E21.3 Hyperparathyroidism, unspecified (principal); E05.20 Thyrotoxicosis with toxic multinodular goiter without thyrotoxic crisis or storm; E55.9 Vitamin D deficiency, unspecified
CPT/HCPCS: 36415; 80053; 82306; 83970; 84100; 84439; 84443; 84480

== ENCOUNTER 2023-01-04 17:08 | Emergency (ER) | payer MEDICARE, MEDICAID, SELFPAY ==
--- NOTE | ~2023-01-04 | XR_ITS ---
EXAMINATION: XR KNEE, RIGHT CLINICAL INFORMATION: Knee pain COMPARISON: None available. TECHNIQUE: Four views of the right knee. FINDINGS: A small to moderate joint effusion is present. Bones and soft tissues are otherwise unremarkable . No fracture . Alignment is anatomic. Joint spaces are well maintained. No abnormal soft tissue calcification. XR/XR knee RT 3V IMPRESSION: Small to moderate joint effusion. No evidence of an acute osseous injury.
[2023-01-04 18:33] VITALS: BP 148/83; PULSE 79; RESP 16; TEMP 36.7; O2SAT 99; BMI 22.1
[2023-01-04 19:41] LABS: MANUAL DIFF FLAG NO
[2023-01-04 19:43] LABS: Basophils Absolute Auto 0.1 X10*3/uL (0.0-0.2); Basophils Percent Auto 0.6 % (0-2); Eosinophils Absolute Auto 0.2 X10*3/uL (0.0-0.4); Eosinophils Percent Auto 1.5 % (0-4); Hematocrit 47.9 % (42.0-52.0); Hemoglobin 15.8 g/dl (14.0-18.0); Imm Gran Abs Auto 0.06 X10*3/uL (0.00-0.03); Imm Gran Pct Auto 0.5 % (0.0-0.4); Lymphocytes Absolute Auto 2.2 X10*3/uL (1.2-4.9); Lymphocytes Percent Auto 19.5 % (20-40); Mean Corpuscular Hemoglobin 29.9 pg (27.0-33.0); Mean Corpuscular Volume 90.7 fL (80.0-98.0); Mean Platelet Volume 7.7 fL (9.4-12.4); Monocytes Absolute Auto 1.2 X10*3/uL (0.1-1.2); Monocytes Percent Auto 11.1 % (2-11); Neutrophils Absolute Auto 7.4 x10*3/uL (2.0-8.3); Neutrophils Percent Auto 66.8 % (45-73); Platelet Count 354 X10*3/uL (160-400); Red Blood Count 5.28 X10*6/uL (4.60-5.80); Red Cell Distribution Width 12.7 % (11.0-16.0)
[2023-01-04 20:12] LABS: Alanine Aminotransferase 46 U/L (0-40); Albumin Level 4.1 g/dL (3.5-5.0); Alkaline Phosphatase 74 U/L (39-117); Anion Gap 13 (12-20); Aspartate Amino Transferase 37 U/L (5-37); Bilirubin Total 0.9 mg/dL (0.0-1.0); Blood Urea Nitrogen 17 mg/dL (9-16); Calcium 10.6 mg/dL (8.4-10.2); Carbon Dioxide 26 mmol/L (22-29); Chloride 105 mmol/L (96-108); Creatinine Clr Calc Pharmacy 51.2; Estimated Glomerular Filt Rate 51; Glucose Random 82 mg/dL (60-115); Magnesium 2.3 mg/dL (1.6-2.6); Sodium 139 mmol/L (135-145); Total Protein 7.7 g/dL (6.5-8.0)
[2023-01-04 20:14] LABS: Lithium 0.65 mmol/L (0.60-1.20)
--- NOTE | 2023-01-04 21:21 | ED_ITS ---
HPI - Weakness General Chief complaint: Weakness Stated complaint: Not feeling well/trembles in hands and feet Time Seen by Provider: 01/04/23 21:09 History of Present Illness HPI Narrative: Year old male present today with having 2 month history of weakness. Patient has a history of being lithium. Been compliant with medication. History of bipolar. Patient denies any chest pain. Denies any new medication. Denies any nausea vomiting. Positive pain to the right knee which is fairly chronic. There is no trauma. Patient feels that His knees feel weak. There is no back pain. There is no bowel urinary incontinence. There is no nausea no vomiting. There is no chest pain. There is no bloody stool. There has been no fever no chills. There has been no coughing , chills or upper respiratory symptoms. Patient is from home. Related Data Home Medications Medication Instructions Recorded Confirmed omega-3 fatty acids 1,000 mg 1,000 mg PO BEDTIME 10/22/20 09/03/22 capsule tadalafil 20 mg tablet 20 mg PO DAILY PRN 10/22/20 09/03/22 lithium carbonate 300 mg 600 mg PO DAILY 08/20/22 09/03/22 tablet,extended release Previous Rx's Medication Instructions Recorded lorazepam 2 mg tablet (Ativan) 2 mg PO BEDTIME PRN sleep #3 tabs 01/09/22 calcium carb,cit ER 600 mg-vit D3 1 tab PO BID 30 days #60 tabs 03/10/22 12.5 mcg (500 unit) tablet,ext.rel (Citracal-D3 Slow Release) cholecalciferol (vitamin D3) 25 25 mcg PO DAILY 90 days #90 caps 03/31/22 mcg (1,000 unit) capsule oxybutynin chloride 15 mg 15 mg PO DAILY 90 days #90 tabs 10/22/22 tablet,extended release 24 hr Allergies Allergy/AdvReac Type Severity Reaction Status Date / Time No Known Allergies Allergy Verified 01/04/23 18:33 Review of Systems Review of Systems: positive generalized malaise ongoing for 2 months Yes all other systems are reviewed and are negative [facility] Past Medical History Attestation statement: The following information was validated with the patient. Medical History Abdominal wall mass Bipolar disorder BPH w/o urinary obs/LUTS Elevated blood pressure reading in office with white coat syndrome, with diagnosis of hypertension Erectile dysfunction Frequency of urination Gout Hearing problem Hyperbilirubinemia Hyperparathyroidism Myelopathy Toxic multinodular goiter Vitamin D deficiency Surgical History History of surgery Family History Family History Father Dementia Mother Diabetes Social History Social History Household Members: Family and Children Household Members Other:: , daughters, grand children Alcohol intake: never Patient Tobacco Use Status: Former Tobacco user Advance Directives: No Advance Directives Information Provided: No Physical Exam Vital Signs: Vital Signs: Last Vital Signs Temp 97.7 F 01/04/23 22:25 Pulse 80 01/04/23 22:25 Resp 14 01/04/23 22:25 BP 133/78 01/04/23 22:25 Pulse Ox 99 01/04/23 22:25 O2 Del Method Room Air 01/04/23 22:25 BMI result Body Mass Index 22.1 Appearance: Alert. Oriented X3. No acute distress. Eyes: Pupils equal, round and reactive to light. ENT: Pharynx normal. Neck: Normal inspection. Neck supple. No lymph nodes noted. No crepitus CVS: Normal heart rate and rhythm. Pulses normal. Normal S1 and S2 Respiratory: No respiratory distress. Breath sounds normal. No Wheezing. No rales Abdomen: Soft and nontender. No rigidity. No distention. good BS x4 Skin: Skin warm and dry. Normal skin color. Normal skin turgor. Extremities: No lower extremity edema. Neurovascular intact to all extremities. No Lacerations. No Rash Neuro: Oriented X 3. No motor deficit. No sensory deficit. Moving all extermities. No slurred speech. Ambulates with normal gait. Bcrkxb-[id number] intact. Rapid alternating movement intact. Medical Decision Making Medical Decision Making MDM Narrative: patient neurologically intact. Electrolytes was normal. Patient's lithium level is therapeutic. TSH is normal there is no evidence for hypothyroid or hyperthyroid. Symptoms been ongoing for 2 months. X-ray of the knee showed no acute evidence of fracture. Likely related to gout or osteoarthritis. No redness no swelling. Will discharge patient home. Close follow-up on an outpatient basis Differential Diagnosis weakness, elevated lithium, hyperthyroid, electrolyte abnormalities, gout Lab Data MDM Lab Attestation statement: I reviewed the patient's lab results. 01/04/23 19:38 01/04/23 19:38 Labs: Lab Results 01/04/23 01/04/23 01/04/23 Range/Units 19:38 19:38 19:38 WBC 11.0 H (4.8-10.8) X10*3/uL RBC 5.28 (4.60-5.80) X10*6/uL Hgb 15.8 (14.0-18.0) g/dl Hct 47.9 (42.0-52.0) % MCV 90.7 (80.0-98.0) fL MCH 29.9 (27.0-33.0) pg MCHC 33.0 (31.0-36.0) g/dl RDW 12.7 (11.0-16.0) % Plt Count 354 (160-400) X10*3/uL MPV 7.7 L (9.4-12.4) fL Immature Gran % (Auto) 0.5 H (0.0-0.4) % Neut % (Auto) 66.8 (45-73) % Lymph % (Auto) 19.5 L (20-40) % [place] % (Auto) 11.1 H (2-11) % Eos % (Auto) 1.5 (0-4) % Baso % (Auto) 0.6 (0-2) % Lymph # (Auto) 2.2 (1.2-4.9) X10*3/uL [place] # (Auto) 1.2 (0.1-1.2) X10*3/uL Eos # (Auto) 0.2 (0.0-0.4) X10*3/uL Baso # (Auto) 0.1 (0.0-0.2) X10*3/uL Abs Immat Gran (auto) 0.06 H (0.00-0.03) X10*3/uL Absolute Neuts (auto) 7.4 (2.0-8.3) x10*3/uL Absolute Nucleated RBC 0.000 (0.0-0.012) X10*3/uL Nucleated RBC % (auto) 0.0 (0.0-0.2) /100WBC Sodium 139 (135-145) mmol/L Potassium 5.0 (3.3-5.1) mmol/L Chloride 105 (96-108) mmol/L Carbon Dioxide 26 (22-29) mmol/L Anion Gap 13 (12-20) BUN 17 H (9-16) mg/dL Creatinine 1.40 (0.5-1.4) mg/dL Estim Creat Clear Calc 51.2 Estimated GFR 51 Random Glucose 82 (60-115) mg/dL Calcium 10.6 H D (8.4-10.2) mg/dL Magnesium 2.3 (1.6-2.6) mg/dL Total Bilirubin 0.9 (0.0-1.0) mg/dL AST 37 (5-37) U/L ALT 46 H (0-40) U/L Alkaline Phosphatase 74 (39-117) U/L Total Protein 7.7 (6.5-8.0) g/dL Albumin 4.1 (3.5-5.0) g/dL TSH 0.69 (0.32-4.0) uIU/mL [place] 0.65 (0.60-1.20) mmol/L Independent Interpretation I performed an independent interpretation of an: Plain X-Ray Interpretation: x-ray the knee was grossly negative Radiology Impression Discussion of test interpretation with radiology: I have reviewed the radiologist's reading. Chronic Conditions bipolar Discharge Plan Discharge Clinical Impression: Dizziness Patient Disposition: Home, Self-Care Instructions: Dizziness (ED) Prescriptions: No Action calcium carb and citrate-vitD3 [Citracal-D3 Slow Release] 600 mg-12.5 mcg (500 unit) tablet extended release 1 tab PO BID 30 Days Qty: 60 11RF cholecalciferol (vitamin D3) 25 mcg (1,000 unit) capsule 25 mcg PO DAILY 90 Days Qty: 90 11RF oxybutynin chloride 15 mg tablet extended release 24hr 15 mg PO DAILY 90 Days Qty: 90 1RF lorazepam [Ativan] 2 mg tablet 2 mg PO BEDTIME PRN (Reason: sleep) Qty: 3 0RF tadalafil 20 mg tablet 20 mg PO DAILY PRN omega-3 fatty acids 1,000 mg capsule 1,000 mg PO BEDTIME lithium carbonate 300 mg tablet extended release 600 mg PO DAILY Referrals: Gina Yañez MD [Primary Care Provider] - 01/06/23
[2023-01-04 22:25] VITALS: BP 133/78; PULSE 80; RESP 14; TEMP 36.5; O2SAT 99
--- NOTE | 2023-01-04 22:30 | PC.NURSE ---
late entry- this rn to bedside. vss. pt at bedside. pt hungarian speaking
[2023-01-04 23:39] LABS: Thyroid Stimulating Hormone 0.69 uIU/mL (0.32-4.0)
--- NOTE | 2023-01-04 23:57 | PC.NURSE ---
discharge orders placed dr lynn attempted to discuss discharge plan with pt. pt eloped prior to discharge. supervisor propellant charge loading aware
== END 2023-01-05 00:03 | disposition left against medical advice (07) ==
PROVIDERS: Emergency Provider Emergency Medicine Emergency Medical Services; PCP Internal Medicine
DX: R42 Dizziness and giddiness (principal); M25.561 Pain in right knee; Z87.891 Personal history of nicotine dependence; Z79.899 Other long term (current) drug therapy
CPT/HCPCS: 36415; 73562; 80053; 80178; 83735; 84443; 85025; 99284

== ENCOUNTER 2023-01-20 10:05 | Outpatient (REF) | payer MEDICARE, MEDICAID, SELFPAY ==
--- NOTE | 2023-01-20 14:32 | MHC.AU.HA3 ---
Hearing Instrument Follow-Up- Binaural Date of Visit: 01/20/23 Right Ear: Make, Model, Color, Serial Number: Elo Oakley [id number] SN: [id number] Color: Mei Youth Director Repair Warranty: 11/18/2023 Youth Director Loss and Damage Warranty: 11/18/2023 [facility] Service Plan: 11/02/2021 Battery Size: 312 Type of Wax Guard: CeruStop Dispensed By: [facility] Date of Fittin11/02/2020 Left Ear: Make, Model, Color, Serial Number: Elo Oakley [id number] SN: [id number] Color: Mei Youth Director Repair Warranty: 11/18/2023 Youth Director Loss and Damage Warranty: 11/18/2023 [facility] Service Plan: 11/02/2021 Battery Size: 312 Type of Wax Guard: CeruStop Dispensed By: [facility] Date of Fittin11/02/2020 Follow-Up Summary: Patient dropped off both hearing aids, reporting they were . Both wax guards were blocked. Replaced wax guards, and hearing aids are now amplifying clearly. A crack was visible in the left shell. It will be sent to [facility] for repair under warranty. The right hearing aid can be picked up. Recommendations: Will contact patient to say he can hot die picker the right hearing aid, and we will call him when the left side returns. Diagnosis Code(s): Primary Diagnosis: H90.3 Bilateral Sensorineural Hearing Loss Signature: Provider: Ottoniel Rose, [facility]
== END 2023-01-20 10:06 | disposition home or self-care (01) ==
LOC: HO.HAP 10:05
PROVIDERS: Visit Provider Internal Medicine
DX: Z46.1 Encounter for fitting and adjustment of hearing aid (principal)
CPT/HCPCS: V5266

== ENCOUNTER 2023-01-21 12:24 | Outpatient (REF) | payer MEDICARE, MEDICAID, SELFPAY | END 2023-01-21 12:25 | disposition home or self-care (01) | LOC: HO.HAP 12:24 | PROVIDERS: Visit Provider Internal Medicine | DX: Z13.89 Encounter for screening for other disorder (principal) ==

== ENCOUNTER 2023-01-30 12:39 | Outpatient (REF) | payer MEDICARE, MEDICAID, SELFPAY | END 2023-01-30 12:40 | disposition home or self-care (01) | LOC: HO.HAP 12:39 | PROVIDERS: Visit Provider Internal Medicine | DX: Z13.89 Encounter for screening for other disorder (principal) ==

== ENCOUNTER 2023-03-02 08:21 | Outpatient (AMB) | payer MEDICARE, MEDICAID, SELFPAY ==
--- NOTE | 2023-03-02 08:22 | MHC.OFFVIS ---
Intake Intake Visit Reasons: F/U Hyperparathyroidism and Hyperthyroidism Intake Note: Hyperparathyroidism and Hyperthyroidism follow up visit. Dry End Operator Required: No Allergies No Known Allergies Allergy (Verified 03/02/23 08:45) Medication List - Last Reconciled 03/02/23 by Hannah Mcfarland, acetaminophen 500 mg PO Q8H PRN amoxicillin 500 mg PO Q8H calcium carb and citrate-vitD3 600 mg-12.5 mcg (500 unit) ER (Citracal-D3 Slow Release) 1 tab PO BID 30 days cholecalciferol (vitamin D3) 25 mcg PO DAILY 90 days colchicine (gout) 0 mg PO hydroxyzine HCl 50 mg PO BEDTIME lisinopril 5 mg PO DAILY lithium carbonate ER 600 mg PO DAILY omega-3 fatty acids 1,000 mg PO BEDTIME oxybutynin chloride ER 15 mg PO DAILY 90 days propranolol ER 60 mg PO DAILY quetiapine 25 mg PO BEDTIME tadalafil 20 mg PO DAILY PRN HPI HPI Comments History of Present Illness Details 63 YO Male with a PMHx of 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 He was previously followed by Dr. Ledbetter. He was initially diagnosed with hyperthyroidism in 2015, although his TSH was suppressed since back in 2002. In 2015 he underwent a thyroid uptake and scan with uptake WNL, but a pattern consistent with a toxic MNG. TSH was in the hyperthyroid range at that time. He underwent I131 ablation with 2.85 mCi of I131 on 06/09/2016. Not surprisingly, this was not successful and he remained hyperthyroid since that time, and has continued on daily methimazole 2.5 mg PO daily. He for unknown reasons underwent an additional thyroid uptake and scan in 2017, with results showing homogenously increased uptake of >40% at 24 hours. His TSI, TRAB and TPO antibodies are all negative. Dr. Ledbetter did attempt FNA biopsy of his RLP 2.0 cm thyroid nodule. This was unsuccessful. He also remains on lithium daily, and did have elevated PTH levels. He was started on Calcium citrate 1 tab PO BID and repeat labs were WNL. He states he has minimal calcium or dairy in his diet, not even 1 serving per day. He states he feels well today and has no complaints. He denies any compressive symptoms. He denies any symptoms of hyper or hypothyroidism. He is tolerating methimazole well without the development of rash, jaundice or frequent infection. Thyroid US: 09/30/2021 Right Thyroid Lobe: 6.7 x 2.2 x 2.7 cm, volume 21.1 mL. Previously 6.1 x 2.7 x 2.8 cm, volume 23.9 mL. Parenchyma: The gland echotexture is homogeneous. Thyroid vascularity is normal. Left Thyroid Lobe: 5.9 x 2.7 x 2.3 cm, volume 19.0 mL. Previously 6.0 x 2.4 x 2.8 cm, volume 20.4 mL. Parenchyma: The gland echotexture is homogeneous. Thyroid vascularity is normal. Isthmus: 0.4 cm in maximum AP dimension. Previously 0.6 cm. Estimated total number of nodules greater than or equal to 1 cm: 1. [place] Clerk nodules are described as follows: 1.? Location: Right inferior. ?? ? Size: 0.6 x 0.3 x 0.5 cm, volume 0.05 mL. ?? ? Previously: 0.6 x 0.3 x 0.6 cm, volume 0.06 mL. ?? ? Nodule characteristics: ?? ? Composition: Solid (2). ?? ? Echogenicity: Hypoechoic (2). ?? ? Shape: Not taller than wide (0). ?? ? Margins: Ill-defined (0). ?? ? Echogenic Foci: None (0). ? ACR TI-RADS total points: 4 ?? ? ACR TI-RADS category: 4 ? Significant change in size (>/= 20% in 2 dimensions and minimal increase of 2 mm or 50% or greater increase in volume): None ?? ? Change in features: None ?? ? Change in ACR TI-RADS risk category: Not applicable 2.? Location: Right inferior. ?? ? Size: 0.4 x 0.3 x 0.3 cm, volume 0.02 mL. ?? ? Previously: 0.4 x 0.3 x 0.4 cm, volume 0.03 mL. ?? ? Nodule characteristics: ?? ? Composition: Solid (2). ?? ? Echogenicity: Anechoic (0). ?? ? Shape: Not taller than wide (0). ?? ? Margins: Ill-defined (0). ?? ? Echogenic Foci: None (0).? ACR TI-RADS total points: 2 ?? ? ACR TI-RADS category: 2 ? Significant change in size (>/= 20% in 2 dimensions and minimal increase of 2 mm or 50% or greater increase in volume): None ?? ? Change in features: None ?? ? Change in ACR TI-RADS risk category: Not applicable 3.? Location: Right inferior. ?? ? Size: 1.6 x 1.5 x 1.7 cm, volume 2.1 mL. ?? ? Previously: 2.0 x 1.1 x 1.5 cm, volume 1.7 mL. ?? ? Nodule characteristics: ?? ? Composition: Mixed cystic and solid (1). ?? ? Echogenicity: Isoechoic (1). ?? ? Shape: Not taller than wide (0). ?? ? Margins: Smooth (0). ?? ? Echogenic Foci: None (0). ? ACR TI-RADS total points: 2 ?? ? ACR TI-RADS category: 2 ? Significant change in size (>/= 20% in 2 dimensions and minimal increase of 2 mm or 50% or greater increase in volume): None ?? ? Change in features: Not applicable ?? ? Change in ACR TI-RADS risk category: Not applicable 4.? Location: Right inferior. ?? ? Size: 0.7 x 0.5 x 0.6 cm, volume 0.1 mL. ?? ? Previously: 0.4 x 0.5 x 0.6 cm, volume 0.06 mL. ?? ? Nodule characteristics: ?? ? Composition: Cystic(0). ?? ? ACR TI-RADS total points: 0 ?? ? ACR TI-RADS category: 1 ? Significant change in size (>/= 20% in 2 dimensions and minimal increase of 2 mm or 50% or greater increase in volume): None ?? ? Change in features: None ?? ? Change in ACR TI-RADS risk category: Not applicable 5.? Location: Left superior. ?? ? Size: 0.6 x 0.5 x 0.3 cm, volume 0.45 mL. ?? ? Previously: Not documented on the prior study. ?? ? Nodule characteristics: ?? ? Composition: Cystic(0). ?? ? ACR TI-RADS total points: 0 ?? ? ACR TI-RADS category: 1 NODES: No lymphadenopathy is seen in the tissue surrounding the thyroid gland. Thyroid Uptake and Scan: 01/17/2016 FINDINGS: The uptake is 3.9% at 3 hours and 14.1% at 23 hours. The radioiodine uptake is normal. The radio pertechnetate thyroid scintigram shows the thyroid gland to be mildly enlarged approximately 1-1/2 times normal in size. There is marked heterogeneity within the gland, with multiple small rounded foci of relatively increased activity present bilaterally, and was relatively decreased activity present in the regions between these foci. A dominant focus is not present. A single radioiodine image obtained at the time of the 24 hour uptake measurement is similar in appearance to the radio pertechnetate image, but because of the small amount of activity within the gland, detail is not well delineated. IMPRESSION: In the clinical setting of a low TSH, these findings are most consistent with a toxic multinodular goiter (Bland's disease). The radioiodine uptake is normal. Thyroid UPTAKE AND sCAN: 11/19/2017 FINDINGS: The uptake is 17.1% at 4 hours and 46.9% at 24 hours. The radioiodine uptake is moderately elevated. The radiopertechnetate thyroid scintigram demonstrates the thyroid gland to be moderately enlarged, approximately 3 times normal in size. There is homogeneous distribution of activity within the gland with minimal heterogeneity present in the upper pole of the left lobe, an equivocal finding. A faint pyramidal lobe is visualized attaching 2 the upper pole of the right lobe. No other focal abnormalities are noted. The trapping function is moderately to markedly increased diffusely. A single anterior radioiodine image obtained at the time of the 24-hour uptake similar in appearance to the radio pertechnetate image. The thyroid ultrasound dated 06/30/2017 shows the gland to be similar in size several nodules present bilaterally, the largest measuring 1.6 x 0.9 x 1.6 cm in the lower pole of the right lobe. This is not delineated on this radionuclide scan. All the other nodules were subcentimeter in size, in which is small to be resolved on this radionuclide scan. IMPRESSION: Moderately enlarged diffuse goiter. The radioiodine uptake is moderately elevated, but in the absence of suppressed TSH levels, this is nonspecific and could be due to Graves' disease or North's thyroiditis. If this patient was recently treated with antithyroid drugs, these findings would be more consistent with Graves' disease. Nodules visualized on the previous ultrasound study are not apparent on these radionuclide images, but only the nodule identified in the right lower pole was large enough to be resolved on this radionuclide scan. Labs: Laboratory Tests 01/04/23 19:38 TSH 0.69 PFSH Medical History Abdominal wall mass Bipolar disorder BPH w/o urinary obs/LUTS Elevated blood pressure reading in office with white coat syndrome, with diagnosis of hypertension Erectile dysfunction Frequency of urination Gout Hearing problem Hyperbilirubinemia Hyperparathyroidism Myelopathy Toxic multinodular goiter Vitamin D deficiency Surgical History History of surgery Family History Father Dementia Mother Diabetes Social History Household Members: Family and Children Household Members Other:: , daughters, grand children Alcohol intake: never Patient Tobacco Use Status: Former Tobacco user Assessment & Plan Assessment & Plan (1) Toxic multinodular goiter: Code(s): E05.20 - Thyrotoxicosis with toxic multinodular goiter without thyrotoxic crisis or storm Plan: Patient with a toxic MNG which was diagnosed in 2015. He received I131 ablation with only 2.85 mCi of I131 which was unsuccessful. He remained on methimazole 2.5 mg daily, but this was stopped as of his last visit. His repeat TFTs remained at goal and he denies any symptoms of hyperthyroidism. Images of his thyroid US dated 09/30/2021 were independently reviewed. He does have a RLP 1.7 cm thyroid nodule which may actually be a parathyroid adenoma. He will F/U with Dr. Dash in 6 weeks time to determine if FNA biopsy is indicated. All of his questions were answered. He is in agreement with this plan of care. I spent 20 minutes in reviewing the record, seeing the patient and documenting in the medical record, including 5 minutes on the phone with the Patient. (2) Vitamin D deficiency: Code(s): E55.9 - Vitamin D deficiency, unspecified Plan: Will assess for hyperparathyroidism and Vitamin D deficiency. He is on [place] therapy. (3) Hyperparathyroidism: Code(s): E21.3 - Hyperparathyroidism, unspecified Plan: This was likely secondary as it has resolved on calcium supplementation. Telehealth Telehealth Location of provider rendering services: practice address Location of patient: address on file Patient Identification confirmed using: Name, : Yes Telehealth method: voice only Patient verbally consented to treatment: Yes Patient verbally consented to billing insurance company: Yes Patient informed of any privacy concerns related to visit: Yes Coding Level of Care Code Tele Est Pt Level 3 (48783) Diagnoses Toxic multinodular goiter E05.20 Vitamin D deficiency E55.9 Hyperparathyroidism E21.3
== END 2023-03-02 14:39 | disposition home or self-care (01) ==
LOC: HO.ENCR 08:21
PROVIDERS: PCP Internal Medicine; Visit Provider Internal Medicine
DX: E05.20 Thyrotoxicosis with toxic multinodular goiter without thyrotoxic crisis or storm (principal); E55.9 Vitamin D deficiency, unspecified; E21.3 Hyperparathyroidism, unspecified
CPT/HCPCS: 99441

== ENCOUNTER → 2023-03-02 08:21 | Outpatient (BNVA) | payer MEDICARE, MEDICAID, SELFPAY | PROVIDERS: PCP Internal Medicine; Visit Provider Internal Medicine ==

== ENCOUNTER 2023-03-05 12:47 | Outpatient (REF) | payer MEDICARE, MEDICAID, SELFPAY ==
[2023-03-05 17:16] LABS: Vitamin B12 436 pg/mL (200-900)
[2023-03-06 03:47] LABS: Syphilis Screen Nonreactive (Nonreactive)
[2023-03-06 21:13] LABS: Lyme Abs Screen <0.90 index
== END 2023-03-05 12:48 | disposition home or self-care (01) ==
LOC: HO.LAB 12:47
PROVIDERS: PCP Internal Medicine Geriatric Medicine; Visit Provider Psychiatry & Neurology Neurology
DX: G93.40 Encephalopathy, unspecified (principal)
CPT/HCPCS: 36415; 82607; 86617; 86618; 86780

== ENCOUNTER 2023-04-14 13:01 | Outpatient (REF) | payer MEDICARE, MEDICAID, SELFPAY | END 2023-04-14 13:02 | disposition home or self-care (01) | LOC: HO.HAP 13:01 | PROVIDERS: Visit Provider Internal Medicine Geriatric Medicine | DX: Z46.1 Encounter for fitting and adjustment of hearing aid (principal) | CPT/HCPCS: 92593; 99499 ==

== ENCOUNTER 2023-04-15 14:00 | Outpatient (REF) | payer SELFPAY | END 2023-04-15 14:01 | disposition home or self-care (01) | LOC: HO.HAP 14:00 | PROVIDERS: Visit Provider Internal Medicine Geriatric Medicine | DX: Z46.1 Encounter for fitting and adjustment of hearing aid (principal); H90.3 Sensorineural hearing loss, bilateral | CPT/HCPCS: 92593 ==

== ENCOUNTER 2023-04-30 11:16 | Outpatient (REF) | payer MEDICARE, MEDICAID, SELFPAY ==
--- NOTE | ~2023-04-30 | MR_ITS ---
EXAMINATION: MR BRAIN WITHOUT CONTRAST CLINICAL INFORMATION: Encephalopathy. COMPARISON: Head CT dated 03/16/2018. TECHNIQUE: Multiplanar, multisequence imaging of the brain was performed without contrast. FINDINGS: There are mild areas of encephalomalacia from chronic infarction affecting the cortical fang matter of the high right frontoparietal lobes in the right MCA vascular territory. Mild ex vacuo dilatation of the right lateral ventricle evident as a result of regional parenchymal volume loss. No diffusion abnormalities are identified to suggest an acute infarct. No mass effect or midline shift is seen. No extra-axial fluid collections are seen. The brainstem and cerebellum are normal. The gradient refocused acquisition is normal. The craniovertebral junction, marrow signal, and midline structures are normal. The right internal carotid artery is reduced in caliber as compared to the normal left internal carotid artery. The right MCA vasculature also appears reduced in caliber. The dural venous sinus flow voids are maintained. There is mild ethmoid sinus mucosal thickening. A small dependent right mastoid effusion is noted. MR/MR head/brain wo con IMPRESSION: No acute intracranial process. Chronic right MCA territorial infarction with mild scattered areas of encephalomalacia in the cortical fang matter of the right frontoparietal lobes. Reduced caliber of the right internal carotid artery and right MCA vasculature.
== END 2023-04-30 11:17 | disposition home or self-care (01) ==
LOC: HO.MRI 11:16
PROVIDERS: PCP Internal Medicine Geriatric Medicine; Visit Provider Psychiatry & Neurology Neurology
DX: G93.40 Encephalopathy, unspecified (principal)
CPT/HCPCS: 70551

== ENCOUNTER 2023-05-20 11:07 | Outpatient (AMB) | payer MEDICARE, MEDICAID, SELFPAY ==
--- NOTE | 2023-05-20 11:09 | MHC.OFFVIS ---
Intake Vital Signs 05/20/23 11:13 Weight 183 lb 10.321 oz BP 152/80 H Blood Pressure Location Lt brachial Position Sitting Pulse 71 Pulse Source Pulse Oximeter Intake Visit Reasons: Hyperparathyroidism and Hyperthyroidism Intake Note: Patient present today for Hyperparathyroidism and Hyperthyroidism follow up. 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 He was previously followed by Dr. Ledbetter. The patient last saw Dr. Veloz on 03/02/2023 He was initially diagnosed with hyperthyroidism in 2015, although his TSH was suppressed since back in 2002. In 2015 he underwent a thyroid uptake and scan with uptake WNL, but a pattern consistent with a toxic MNG. TSH was in the hyperthyroid range at that time. He underwent I131 ablation with 2.85 mCi of I131 on 06/09/2016. Not surprisingly, this was not successful and he remained hyperthyroid since that time, and has continued on daily methimazole 2.5 mg PO daily. He for unknown reasons underwent an additional thyroid uptake and scan in 2017, with results showing homogenously increased uptake of >40% at 24 hours. His TSI, TRAB and TPO antibodies are all negative. Dr. Ledbetter did attempt FNA biopsy of his RLP 2.0 cm thyroid nodule. This was unsuccessful. He also remains on lithium daily, and did have elevated PTH levels. He was started on Calcium citrate 1 tab PO BID and repeat labs were WNL. He states he has minimal calcium or dairy in his diet, not even 1 serving per day. He states he feels well today and has no complaints. He denies any compressive symptoms. He denies any symptoms of hyper or hypothyroidism. He is tolerating methimazole well without the development of rash, jaundice or frequent infection. Thyroid US: 09/30/2021 Right Thyroid Lobe: 6.7 x 2.2 x 2.7 cm, volume 21.1 mL. Previously 6.1 x 2.7 x 2.8 cm, volume 23.9 mL. Parenchyma: The gland echotexture is homogeneous. Thyroid vascularity is normal. Left Thyroid Lobe: 5.9 x 2.7 x 2.3 cm, volume 19.0 mL. Previously 6.0 x 2.4 x 2.8 cm, volume 20.4 mL. Parenchyma: The gland echotexture is homogeneous. Thyroid vascularity is normal. Isthmus: 0.4 cm in maximum AP dimension. Previously 0.6 cm. Estimated total number of nodules greater than or equal to 1 cm: 1. Reconditioner nodules are described as follows: 1.? Location: Right inferior. ?? ? Size: 0.6 x 0.3 x 0.5 cm, volume 0.05 mL. ?? ? Previously: 0.6 x 0.3 x 0.6 cm, volume 0.06 mL. ?? ? Nodule characteristics: ?? ? Composition: Solid (2). ?? ? Echogenicity: Hypoechoic (2). ?? ? Shape: Not taller than wide (0). ?? ? Margins: Ill-defined (0). ?? ? Echogenic Foci: None (0). ? ACR TI-RADS total points: 4 ?? ? ACR TI-RADS category: 4 ? Significant change in size (>/= 20% in 2 dimensions and minimal increase of 2 mm or 50% or greater increase in volume): None ?? ? Change in features: None ?? ? Change in ACR TI-RADS risk category: Not applicable 2.? Location: Right inferior. ?? ? Size: 0.4 x 0.3 x 0.3 cm, volume 0.02 mL. ?? ? Previously: 0.4 x 0.3 x 0.4 cm, volume 0.03 mL. ?? ? Nodule characteristics: ?? ? Composition: Solid (2). ?? ? Echogenicity: Anechoic (0). ?? ? Shape: Not taller than wide (0). ?? ? Margins: Ill-defined (0). ?? ? Echogenic Foci: None (0).? ACR TI-RADS total points: 2 ?? ? ACR TI-RADS category: 2 ? Significant change in size (>/= 20% in 2 dimensions and minimal increase of 2 mm or 50% or greater increase in volume): None ?? ? Change in features: None ?? ? Change in ACR TI-RADS risk category: Not applicable 3.? Location: Right inferior. ?? ? Size: 1.6 x 1.5 x 1.7 cm, volume 2.1 mL. ?? ? Previously: 2.0 x 1.1 x 1.5 cm, volume 1.7 mL. ?? ? Nodule characteristics: ?? ? Composition: Mixed cystic and solid (1). ?? ? Echogenicity: Isoechoic (1). ?? ? Shape: Not taller than wide (0). ?? ? Margins: Smooth (0). ?? ? Echogenic Foci: None (0). ? ACR TI-RADS total points: 2 ?? ? ACR TI-RADS category: 2 ? Significant change in size (>/= 20% in 2 dimensions and minimal increase of 2 mm or 50% or greater increase in volume): None ?? ? Change in features: Not applicable ?? ? Change in ACR TI-RADS risk category: Not applicable 4.? Location: Right inferior. ?? ? Size: 0.7 x 0.5 x 0.6 cm, volume 0.1 mL. ?? ? Previously: 0.4 x 0.5 x 0.6 cm, volume 0.06 mL. ?? ? Nodule characteristics: ?? ? Composition: Cystic(0). ?? ? ACR TI-RADS total points: 0 ?? ? ACR TI-RADS category: 1 ? Significant change in size (>/= 20% in 2 dimensions and minimal increase of 2 mm or 50% or greater increase in volume): None ?? ? Change in features: None ?? ? Change in ACR TI-RADS risk category: Not applicable 5.? Location: Left superior. ?? ? Size: 0.6 x 0.5 x 0.3 cm, volume 0.45 mL. ?? ? Previously: Not documented on the prior study. ?? ? Nodule characteristics: ?? ? Composition: Cystic(0). ?? ? ACR TI-RADS total points: 0 ?? ? ACR TI-RADS category: 1 NODES: No lymphadenopathy is seen in the tissue surrounding the thyroid gland. Thyroid Uptake and Scan: 01/17/2016 FINDINGS: The uptake is 3.9% at 3 hours and 14.1% at 23 hours. The radioiodine uptake is normal. The radio pertechnetate thyroid scintigram shows the thyroid gland to be mildly enlarged approximately 1-1/2 times normal in size. There is marked heterogeneity within the gland, with multiple small rounded foci of relatively increased activity present bilaterally, and was relatively decreased activity present in the regions between these foci. A dominant focus is not present. A single radioiodine image obtained at the time of the 24 hour uptake measurement is similar in appearance to the radio pertechnetate image, but because of the small amount of activity within the gland, detail is not well delineated. IMPRESSION: In the clinical setting of a low TSH, these findings are most consistent with a toxic multinodular goiter ([place]'s disease). The radioiodine uptake is normal. Thyroid UPTAKE AND sCAN: 11/19/2017 FINDINGS: The uptake is 17.1% at 4 hours and 46.9% at 24 hours. The radioiodine uptake is moderately elevated. The radiopertechnetate thyroid scintigram demonstrates the thyroid gland to be moderately enlarged, approximately 3 times normal in size. There is homogeneous distribution of activity within the gland with minimal heterogeneity present in the upper pole of the left lobe, an equivocal finding. A faint pyramidal lobe is visualized attaching 2 the upper pole of the right lobe. No other focal abnormalities are noted. The trapping function is moderately to markedly increased diffusely. A single anterior radioiodine image obtained at the time of the 24-hour uptake similar in appearance to the radio pertechnetate image. The thyroid ultrasound dated 06/30/2017 shows the gland to be similar in size several nodules present bilaterally, the largest measuring 1.6 x 0.9 x 1.6 cm in the lower pole of the right lobe. This is not delineated on this radionuclide scan. All the other nodules were subcentimeter in size, in which is small to be resolved on this radionuclide scan. IMPRESSION: Moderately enlarged diffuse goiter. The radioiodine uptake is moderately elevated, but in the absence of suppressed TSH levels, this is nonspecific and could be due to Graves' disease or North's thyroiditis. If this patient was recently treated with antithyroid drugs, these findings would be more consistent with Graves' disease. Nodules visualized on the previous ultrasound study are not apparent on these radionuclide images, but only the nodule identified in the right lower pole was large enough to be resolved on this radionuclide scan. Labs: Laboratory Tests 01/04/23 19:38 TSH 0.69 PFSH Medical History Abdominal wall mass Bipolar disorder BPH w/o urinary obs/LUTS Elevated blood pressure reading in office with white coat syndrome, with diagnosis of hypertension Erectile dysfunction Frequency of urination Gout Hearing problem Hyperbilirubinemia Hyperparathyroidism Myelopathy Toxic multinodular goiter Vitamin D deficiency Surgical History History of surgery Family History Father Dementia Mother Diabetes Social History Household Members: Family and Children Household Members Other:: , daughters, grand children Alcohol intake: never Patient Tobacco Use Status: Former Tobacco user Physical Exam Vital Signs: Last Vital Signs Pulse 71 05/20/23 11:13 BP 152/80 H 05/20/23 11:13 Const Other: Thyroid gland is of normal size weighs about 15 g. There are no thyroid nodules palpated Assessment & Plan Assessment & Plan (1) Toxic multinodular goiter: Code(s): E05.20 - Thyrotoxicosis with toxic multinodular goiter without thyrotoxic crisis or storm Plan: 63-year-old male with history of toxic multinodular goiter status post iodine 131 therapy 2016 with euthyroidism. Patient has a right lower pole nodule with attempted biopsy in the past that was unsuccessful. Plan is to talk to the patient via certified court/medical interpreter about potential biopsy of the right lower pole nodule. After a discussion with the patient's , we decided to sent to [facility] to Dr. Guzman for possible FNA guided biopsy of right lower pole nodule (2) Hyperparathyroidism: Code(s): E21.3 - Hyperparathyroidism, unspecified Plan: Secondary hyperparathyroidism now resolved with vitamin Dand calcium supplementation Orders: Referrals Endocrinology Referral E05.20 - Thyrotoxicosis with toxic multinodular goiter without thyrotoxic crisis or storm Coding Level of Care Code Est Pt Level 3 (64626) Diagnoses Toxic multinodular goiter E05.20 Hyperparathyroidism E21.3
[2023-05-20 11:13] VITALS: BP 152/80; PULSE 71
== END 2023-05-20 14:06 | disposition home or self-care (01) ==
PROVIDERS: PCP Internal Medicine Geriatric Medicine; Visit Provider Internal Medicine Endocrinology, Diabetes & Metabolism
DX: E05.20 Thyrotoxicosis with toxic multinodular goiter without thyrotoxic crisis or storm (principal); E21.3 Hyperparathyroidism, unspecified
CPT/HCPCS: 99213

== ENCOUNTER → 2023-05-20 11:07 | Outpatient (BNVA) | payer MEDICARE, MEDICAID, SELFPAY | PROVIDERS: PCP Internal Medicine Geriatric Medicine; Visit Provider Internal Medicine Endocrinology, Diabetes & Metabolism | DX: E05.20 Thyrotoxicosis with toxic multinodular goiter without thyrotoxic crisis or storm (principal); E21.3 Hyperparathyroidism, unspecified | CPT/HCPCS: 99212 ==

== ENCOUNTER 2023-05-25 11:45 | Outpatient (REF) | payer MEDICARE, MEDICAID, SELFPAY ==
[2023-05-25 14:05] LABS: Appearance Urine Clear; Color Urine Yellow; Glucose Urine UA Negative (Negative); Leukocyte Esterase Urine Negative (Negative); Nitrite Urine Negative (Negative); UMIC TRIGGER UACC YES; Urine Blood Trace (Negative); Urine Ketones Negative (Negative); Urine Protein Negative (Neg-Trace)
[2023-05-25 14:09] LABS: Bacteria Urine None Seen (None Seen); Hyaline Casts Urine 0-2 /LPF (0-2); Squamous Epithelial Cell Urine 0-2 /HPF (0-2); WBC Urine 0-5 /HPF (0-5)
== END 2023-05-25 11:46 | disposition home or self-care (01) ==
LOC: HO.HHCL 11:45
PROVIDERS: Visit Provider Internal Medicine Geriatric Medicine
DX: N40.0 Benign prostatic hyperplasia without lower urinary tract symptoms (principal)
CPT/HCPCS: 81001

== ENCOUNTER 2023-05-29 10:17 | Outpatient (REF) | payer MEDICARE, MEDICAID, SELFPAY ==
[2023-05-29 12:44] LABS: Blood Urea Nitrogen 13 mg/dL (9-16); Cholesterol 123 mg/dL (<200); Estimated Glomerular Filt Rate > 60; HDL Cholesterol 28 mg/dL (>40); LDL Cholesterol Calculated 75 mg/dL (<100); Triglycerides 103 mg/dL (<150)
== END 2023-05-29 10:18 | disposition home or self-care (01) ==
LOC: HO.LAB 10:17
PROVIDERS: PCP Internal Medicine Geriatric Medicine; Visit Provider Psychiatry & Neurology Neurology
DX: I63.9 Cerebral infarction, unspecified (principal)
CPT/HCPCS: 36415; 80061; 82565; 84520

== ENCOUNTER 2023-06-09 11:54 | Outpatient (REF) | payer MEDICARE, MEDICAID, SELFPAY ==
[2023-06-09 13:21] LABS: Free T4 (Free Thyroxine) 0.98 ng/dL (0.71-1.85); Thyroid Stimulating Hormone 0.06 uIU/mL (0.32-4.0)
== END 2023-06-09 11:55 | disposition home or self-care (01) ==
LOC: HO.LAB 11:54
PROVIDERS: PCP Internal Medicine Geriatric Medicine; Visit Provider Internal Medicine Endocrinology, Diabetes & Metabolism
DX: E05.20 Thyrotoxicosis with toxic multinodular goiter without thyrotoxic crisis or storm (principal)
CPT/HCPCS: 36415; 84439; 84443

== ENCOUNTER 2023-06-10 14:01 | Outpatient (REF) | payer MEDICARE, MEDICAID, SELFPAY ==
[2023-06-10 16:45] LABS: Alanine Aminotransferase 21 U/L (0-40); Albumin Level 4.1 g/dL (3.5-5.0); Alkaline Phosphatase 75 U/L (39-117); Anion Gap 11 (12-20); Aspartate Amino Transferase 22 U/L (5-37); Bilirubin Total 0.9 mg/dL (0.0-1.0); Blood Urea Nitrogen 15 mg/dL (9-16); Calcium 9.9 mg/dL (8.4-10.2); Carbon Dioxide 26 mmol/L (22-29); Chloride 108 mmol/L (96-108); Estimated Glomerular Filt Rate > 60; Glucose Random 119 mg/dL (60-115); Potassium 3.9 mmol/L (3.3-5.1); Sodium 141 mmol/L (135-145); Total Protein 7.4 g/dL (6.5-8.0)
[2023-06-10 17:00] LABS: Lithium 0.24 mmol/L (0.60-1.20)
== END 2023-06-10 14:02 | disposition home or self-care (01) ==
LOC: HO.HHCL 14:01
PROVIDERS: Internal Medicine Geriatric Medicine; Visit Provider Nurse Practitioner Family
DX: F31.70 Bipolar disorder, currently in remission, most recent episode unspecified (principal); I10 Essential (primary) hypertension; Z79.899 Other long term (current) drug therapy
CPT/HCPCS: 36415; 80053; 80178

== ENCOUNTER 2023-06-16 14:18 | Outpatient (AMB) | payer MEDICARE, MEDICAID, SELFPAY ==
--- NOTE | 2023-06-16 14:43 | MHC.OFFVIS ---
Intake Vital Signs 06/16/23 14:46 Height 5 ft 9 in Weight 185 lb 2 oz BMI 27.3 BP 150/72 H Blood Pressure Location Lt brachial Position Sitting Intake Visit Reasons: skin cyst mid back Intake Note: Patient is seen in office for evaluation and treatment of a skin cyst of the mid back. 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: No Accompanied by: Self / Same As Patient Allergies No Known Allergies Allergy (Verified 06/16/23 14:43) Medication List - Last Reconciled 06/16/23 by Panfilo Mccollum MD acetaminophen 500 mg PO Q8H PRN amlodipine 10 mg PO DAILY cholecalciferol (vitamin D3) 25 mcg PO DAILY 90 days [Citracal D Slow Rel Tab 80 1 tab PO BID] colchicine 0 mg PO hydroxyzine HCl 50 mg PO BEDTIME lisinopril 5 mg PO DAILY lisinopril 5 mg PO DAILY lithium carbonate 300 mg PO DAILY lithium carbonate ER 600 mg PO DAILY methimazole 2.5 mg (1/2 x 5 mg) PO DAILY omega-3 fatty acids 1,000 mg PO BEDTIME propranolol ER 60 mg PO DAILY quetiapine 25 mg PO BEDTIME tadalafil 20 mg PO DAILY PRN HPI HPI Comments History of Present Illness Details 63-year-old male patient presenting with a 1 year history of an enlarging cyst in the upper mid back. He has some discomfort when laying down on the cyst but otherwise reports no significant pain, bleeding or discharge. He denies a previous history of infection at this site. He denies a previous history of similar cysts in other parts of his body. He is requesting excision. [facility] Medical History Hyperbilirubinemia Hyperparathyroidism Hearing problem Frequency of urination Elevated blood pressure reading in office with white coat syndrome, with diagnosis of hypertension Gout Vitamin D deficiency Toxic multinodular goiter Bipolar disorder Erectile dysfunction BPH w/o urinary obs/LUTS Abdominal wall mass Myelopathy Surgical History History of surgery Family History Father Dementia Mother Diabetes Social History Household Members: Family and Children Household Members Other:: , daughters, grand children Alcohol intake: never Patient Tobacco Use Status: Former Tobacco user Review of Systems Const All systems reviewed & are unremarkable except as noted in HPI and below Denies chills, Denies fever(s), Denies headache(s), Denies poor appetite and Denies weakness ENT Denies headache(s) Card Denies chest pain, Denies irregular heart rhythm, Denies palpitations and Denies dyspnea Resp Denies cough, Denies excessive phlegm production and Denies dyspnea GI Denies abdominal pain, Denies bloating, Denies change in bowel habits, Denies constipation, Denies heartburn, Denies diarrhea, Denies nausea and Denies vomiting Denies difficulty urinating and Denies urinary frequency Musc Denies back pain, Denies muscle weakness and Denies numbness Skin/Breast Denies changing lesions and Denies unusual bruising Neuro Denies headache(s), Denies numbness, Denies paresthesias and Denies weakness Psych Denies anxiety and Denies depression Endo Denies palpitations Jack/Lymph Denies lymphadenopathy Physical Exam Const General: cooperative and no acute distress Nutritional Appearance: well nourished Orientation/consciousness: patient oriented x3 Limitations: no limitations HEENT Head: Yes normocephalic and Yes atraumatic Ears: hearing grossly normal bilaterally Resp Effort & Inspection: normal respiratory effort, no audible wheezes, no cough and no respiratory distress Cardio Jugular venous distension: no JVD GI Inspection: Yes normal to inspection Back/Spine/Pelvis Back/spine/pelvis image: 1. 2 cm epidermal inclusion cyst with no overlying redness or tenderness. Central punctum identified. Skin Other: Warm, dry, no rash Neuro General: patient oriented x3 Extrem General: Yes no clubbing, cyanosis or edema Assessment & Plan Assessment & Plan (1) Epidermal inclusion cyst: Code(s): L72.0 - Epidermal cyst Plan 63-year-old male patient presenting with an enlarging epidermal inclusion cyst of the upper midback. He has requested excision the lesion. On examination is measures approximately 2 cm in diameter and is nontender to palpation. There is no evidence of acute infection. I recommended an excision under local anesthesia as a office procedure. After discussion of procedure, risks, and alternatives, he consents to the surgery. Coding Level of Care Code New Pt Level 4 (97699) Diagnoses Epidermal inclusion cyst L72.0
[2023-06-16 14:46] VITALS: BP 150/72; BMI 27.3
== END 2023-06-16 14:54 | disposition home or self-care (01) ==
PROVIDERS: PCP Internal Medicine Geriatric Medicine; Visit Provider Surgery
DX: L72.0 Epidermal cyst (principal)
CPT/HCPCS: 99204

== ENCOUNTER → 2023-06-16 14:18 | Outpatient (BNVA) | payer MEDICARE, MEDICAID, SELFPAY | PROVIDERS: PCP Internal Medicine Geriatric Medicine; Visit Provider Surgery | DX: L72.0 Epidermal cyst (principal) | CPT/HCPCS: 99202 ==

== ENCOUNTER 2023-06-30 13:32 | Outpatient (REF) | payer SELFPAY | END 2023-06-30 13:33 | disposition home or self-care (01) | LOC: HO.HAP 13:32 | PROVIDERS: Visit Provider Internal Medicine Geriatric Medicine | DX: Z46.1 Encounter for fitting and adjustment of hearing aid (principal); H90.3 Sensorineural hearing loss, bilateral | CPT/HCPCS: V5266 ==

== ENCOUNTER 2023-07-10 10:47 | Outpatient (AMB) | payer MEDICARE, MEDICAID, SELFPAY ==
[2023-07-10 10:47] VITALS: BP 126/78; BMI 27.0
--- NOTE | 2023-07-10 10:47 | A.OFFVIS_ITS ---
Intake Vital Signs 3 07/10/23 10:47 Height 5 ft 9 in Weight 182 lb 15.739 oz BMI 27.0 BP 126/78 Blood Pressure Location Lt brachial Position Sitting Intake Visit Reasons: Exc skin cyst mid back-in office Intake Note: Patient is seen for office procedure, excision of skin cyst of the mid back. Pt c/o: reports no changes at this time. Air Tester Required: Yes Air Tester Language: Bond Underwriter Name: Blaise Information Interpreted: non-clinical & clinical Accompanied by: Self / Same As Patient Allergies No Known Allergies Allergy (Verified 07/10/23 11:01) Medication List - Last Reconciled 07/10/23 by Panfilo Mccollum MD acetaminophen 500 mg PO Q8H PRN amlodipine 10 mg PO DAILY cholecalciferol (vitamin D3) 25 mcg PO DAILY 90 days [Citracal D Slow Rel Tab 80 1 tab PO BID] colchicine 0 mg PO hydroxyzine HCl 50 mg PO BEDTIME lisinopril 5 mg PO DAILY lisinopril 5 mg PO DAILY lithium carbonate 300 mg PO DAILY lithium carbonate ER 600 mg PO DAILY methimazole 2.5 mg (1/2 x 5 mg) PO DAILY omega-3 fatty acids 1,000 mg PO BEDTIME propranolol ER 60 mg PO DAILY quetiapine 25 mg PO BEDTIME tadalafil 20 mg PO DAILY PRN HPI HPI Comments 2 History of Present Illness0 Details 63-year-old male patient returning today for excision of an epidermal inclusion cyst of the midback. Denies any changes since his last visit. After discussion of the procedure, risks, and alternatives, he consents to the excision of midback inclusion cyst. [facility] Medical History Hyperbilirubinemia Hyperparathyroidism Hearing problem Frequency of urination Elevated blood pressure reading in office with white coat syndrome, with diagnosis of hypertension Gout Vitamin D deficiency Toxic multinodular goiter Bipolar disorder Erectile dysfunction BPH w/o urinary obs/LUTS Abdominal wall mass Myelopathy Surgical History History of removal of cyst (~07/10/23) History of surgery Family History Father Dementia Mother Diabetes Social History Household Members: Family and Children Household Members Other:: , daughters, grand children Alcohol intake: never Patient Tobacco Use Status: Former Tobacco user Physical Exam Vital Signs: Last Vital Signs BP 126/78 07/10/23 10:47 BMI result Body Mass Index 27.0 Back/Spine/Pelvis Back/spine/pelvis image: 2 1. 2 cm epidermal inclusion cyst midback to the left midline Office Procedures Excision Details: Preoperative diagnosis: Epidermal inclusion cyst upper mid back Postoperative diagnosis: Same Procedure: Excision of epidermal inclusion cyst upper mid back Surgeon: Panfilo Mccollum MD Communication Skills Instructor: None Anesthesia: Lidocaine 1% with epinephrine Indications for procedure: 63-year-old male patient presenting with a gradually enlarging epidermal inclusion cyst of the upper mid back measuring approximately 2 cm in diameter. Operative findings: 2 cm epidermal inclusion cyst without evidence of abscess. Specimen: Epidermal inclusion cyst midback Estimated blood loss: 5 mL Complications: None Procedure details: The patient was placed in a supine position in the procedure room. The site of surgery was confirmed by the patient in the upper mid back. After assuring informed consent the skin was prepped with Betadine and draped in a sterile fashion. Local was then infiltrated circumferentially around the lesion. An elliptical incision oriented transversely was then created around the cyst. This carried out through subcutaneous tissue and around the cyst wall. Sharp dissection was continued around the cyst and the cyst excised completely. This was then sent to pathology for further examination. Light pressure was held to maintain hemostasis. Dermis was then reapproximated using interrupted 3-0 Polysorb sutures. Skin was closed using interrupted 4-0 nylon sutures. Sterile dressings consisting of 2 x 2 gauze and Tegaderm were then applied. The patient tolerated the procedure well. Sponge, instrument, needle counts reported as correct. The patient was discharged in stable condition. [id number]-lusgg/arms/legs 1.1-2cm Procedure code (CPT) selection complete Assessment & Plan Assessment & Plan (1) Epidermal inclusion cyst: Code(s): L72.0 - Epidermal cyst Plan 63-year-old male patient status post excision of an epidermal inclusion cyst of the upper midback. He tolerated the procedure well and will return in 1 week for suture removal. He was instructed to remove the Tegaderm dressing in 3 days. He is welcome to call sooner for any concerns. Orders: Orders 2 Surgical Today L72.0 - Epidermal cyst Coding Level of Care Code Procedure Only Diagnoses Epidermal inclusion cyst L72.0 CPT Codes Trunk/Arms/Legs - CPT: 06955-eutfn/arms/legs 1.1-2cm ([id number])
== END 2023-07-10 11:34 | disposition home or self-care (01) ==
PROVIDERS: PCP Internal Medicine Geriatric Medicine; Visit Provider Surgery
DX: L72.0 Epidermal cyst (principal)
CPT/HCPCS: 11402

== ENCOUNTER 2023-07-10 10:47 | Outpatient (REF) | payer MEDICARE, MEDICAID, SELFPAY | END 2023-07-10 10:48 | disposition home or self-care (01) | LOC: HO.LNP 10:47 | PROVIDERS: PCP Internal Medicine Geriatric Medicine; Visit Provider Surgery | DX: L72.0 Epidermal cyst (principal) | CPT/HCPCS: 11402; 88304 ==

== ENCOUNTER 2023-07-16 13:20 | Outpatient (REF) | payer MEDICARE, MEDICAID, SELFPAY | END 2023-07-16 13:21 | disposition home or self-care (01) | LOC: HO.US 13:20 | PROVIDERS: PCP Internal Medicine Geriatric Medicine; Visit Provider Internal Medicine Endocrinology, Diabetes & Metabolism | DX: E05.20 Thyrotoxicosis with toxic multinodular goiter without thyrotoxic crisis or storm (principal) | CPT/HCPCS: 76536 ==

== ENCOUNTER 2023-07-17 10:29 | Outpatient (AMB) | payer MEDICARE, MEDICAID, SELFPAY ==
--- NOTE | 2023-07-17 10:45 | MHC.OFFVIS ---
Intake Vital Signs 07/17/23 10:52 Height 5 ft 9 in Weight 183 lb 4 oz BMI 27.1 BP 136/61 Blood Pressure Location Lt brachial Position Sitting Pulse 70 Intake Visit Reasons: s/p excision skin cyst mid back Intake Note: Pt is seen in office for post op assessment post excision of skin cyst of the mid back. Pt c/o:denies any concerns at the time of visit, sutures removed at visit off proc:07/10/23 Pharmacist In Charge Owner Required: No Accompanied by: Spouse Allergies No Known Allergies Allergy (Verified 07/17/23 10:52) HPI HPI Comments History of Present Illness Details Patient returns following excision of a epidermal inclusion cyst of the midback. He tolerated the procedure well and returns today for suture removal. Pathology confirmed an epidermal inclusion cyst. [facility] Medical History (Updated 07/17/23 @ 11:01 by Panfilo Mccollum MD) Hyperbilirubinemia Hyperparathyroidism Hearing problem Frequency of urination Elevated blood pressure reading in office with white coat syndrome, with diagnosis of hypertension Gout Vitamin D deficiency Toxic multinodular goiter Bipolar disorder Erectile dysfunction BPH w/o urinary obs/LUTS Abdominal wall mass Myelopathy Surgical History (Updated 07/15/23 @ 17:02 by RADHA Rahman) History of removal of cyst (07/10/23) History of surgery Family History Father Dementia Mother Diabetes Social History Household Members: Family and Children Household Members Other:: , daughters, grand children Alcohol intake: never Patient Tobacco Use Status: Former Tobacco user Physical Exam Const General: comfortable and no acute distress Nutritional Appearance: well nourished Orientation/consciousness: patient oriented x3 Resp Effort & Inspection: normal respiratory effort Back/Spine/Pelvis Other: Excision site in the mid back is clean and intact. There is some inflammatory changes consistent with prior surgery. Sutures removed and Steri-Strips applied. Neuro General: patient oriented x3 Extrem General: Yes no clubbing, cyanosis or edema Assessment & Plan Assessment & Plan (1) Epidermal inclusion cyst: Code(s): L72.0 - Epidermal cyst Plan 63-year-old male patient status post excision of an epidermal inclusion cyst returning 1 week for suture removal. His wounds are well healed without evidence of infection. He should follow up as needed. Coding Level of Care Code Global (55105) Diagnoses Epidermal inclusion cyst L72.0
[2023-07-17 10:52] VITALS: BP 136/61; PULSE 70; BMI 27.1
== END 2023-07-17 10:56 | disposition home or self-care (01) ==
PROVIDERS: PCP Internal Medicine Geriatric Medicine; Visit Provider Surgery
DX: L72.0 Epidermal cyst (principal)
CPT/HCPCS: 99024

== ENCOUNTER → 2023-07-17 10:29 | Outpatient (BNVA) | payer MEDICARE, MEDICAID, SELFPAY | PROVIDERS: PCP Internal Medicine Geriatric Medicine; Visit Provider Surgery | DX: Z48.817 Encounter for surgical aftercare following surgery on the skin and subcutaneous tissue (principal); Z98.890 Other specified postprocedural states | CPT/HCPCS: 99212 ==

== ENCOUNTER 2023-07-29 07:33 | Outpatient (REF) | payer MEDICARE, MEDICAID, SELFPAY ==
--- NOTE | ~2023-07-29 | CT_ITS ---
EXAMINATION: CT HEAD WITHOUT CONTRAST CT ANGIOGRAM HEAD CT ANGIOGRAM NECK CLINICAL INFORMATION: Reason for Exam CEREBRAL INFARCTION COMPARISON: MR brain 04/30/2023 TECHNIQUE: Initial noncontrast dry wall installations mechanic imaging of the head and neck was performed. Noncontrast head CT was also performed. Test bolus sequences followed by intravenous administration 70 mL of Omnipaque 350. Helical imaging was performed in the axial plane from the aortic arch to the skull vertex. Delayed postcontrast imaging of the head was also performed. The data was processed at the electroneurodiagnostic technologist's workstation for generation of MIP sequences. Angled MIPs and volume rendered reformatted images were also generated at an offline 3D workstation. Stenoses are assessed in accordance with Talbot et al. Quantification of Carotid Stenosis on CT Angiography. AJR 2006. 27(1):13-19. This CT examination was performed using dose optimization techniques as appropriate, variously including the following: *Automated exposure control *Adjustment of mA and/or kV according to patient size (this includes techniques or standardized protocols for targeted exams where dose is matched to indication/reason for exam; i.e. extremities or head) *Use of iterative reconstruction technique DLP: 3124 mGy-cm FINDINGS: CT HEAD: There is no evidence of acute intracranial hemorrhage. No mass-effect or ventricular shift is noted. No acute, territorial loss of fang-white differentiation. Hypodensity in the right MCA territory corresponding to encephalomalacia on prior MRI. The ventricles and sulci are appropriate in size and configuration for the patient's stated age. No abnormal intracranial enhancement. No depressed calvarial fracture. Trace scattered paranasal sinus mucosal thickening. Soft tissue in the external auditory canals, likely cerumen. The mastoid air cells are well-aerated. CTA HEAD: Anterior circulation: Right internal carotid artery: Diffuse mildly diminished caliber compared to the left. Right middle cerebral artery: Occluded M1 segment with numerous small collateral vessels noted. There is preserved, but diffusely diminished flow throughout the M2 and M3 segments Right anterior cerebral artery: Partially occluded A1 segment with surrounding small collateral vessels noted. Left internal carotid artery: No hemodynamically significant stenosis. Patent posterior communicating artery. Left middle cerebral artery: No hemodynamically significant stenosis. Left anterior cerebral artery: No hemodynamically significant stenosis. Posterior circulation: Right vertebral artery: No hemodynamically significant stenosis. Left vertebral artery: No hemodynamically significant stenosis. Basilar artery: No hemodynamically significant stenosis. Right posterior cerebral artery: No hemodynamically significant stenosis. Left posterior cerebral artery: No hemodynamically significant stenosis. No high flow vascular malformation or significant aneurysmal dilatation is visualized. The major dural venous sinuses are grossly within normal limits given arterial technique. CTA NECK: Aortic arch: Normal anatomy. Right common carotid artery: No hemodynamically significant stenosis. Right proximal internal carotid artery: Noncalcified atherosclerosis at the carotid bulb without flow-limiting stenosis. Right mid/distal internal carotid artery: No hemodynamically significant stenosis. Left common carotid artery: No hemodynamically significant stenosis. Left proximal internal carotid artery: Atherosclerosis without significant stenosis. Left mid/distal internal carotid artery: No hemodynamically significant stenosis. Right vertebral artery: No hemodynamically significant stenosis. Left vertebral artery: No hemodynamically significant stenosis. CT NECK: Hypodense right thyroid nodule measuring up to 1.5 cm. Additional subcentimeter hypodense nodule along the left thyroid isthmus. Findings are better characterized on prior dedicated thyroid ultrasound. Multilevel degenerative changes of the cervical spine. CT/CT angio head neck IMPRESSION: CT HEAD: No acute intracranial hemorrhage or territorial loss of fang-white differentiation. Redemonstrated encephalomalacia/gliosis in the right middle cerebral artery territory. CTA NECK: Atherosclerosis at the right greater than left carotid bulbs without flow-limiting stenosis. CTA HEAD: Diffuse mildly diminished caliber of the right internal carotid artery compared to the left. There is occlusion of the right M1 segment and proximal right A1 segment with multiple pial collateral vessels noted suggesting chronic occlusion with moyamoya pattern collateralization. There is preserved, but diffusely diminished flow throughout the right MCA territory. Results discussed with Dr. Martines at 11:30 on 07/30/23.
[2023-07-29] MEDS: iohexoL 350 MG/ML 75 ML INFUS..BTL 70 ML IV (08:52)
[2023-07-29 13:54] LABS: Creatinine POC 0.6 mg/dL (0.5-1.4); GFR POC > 60
== END 2023-07-29 07:34 | disposition home or self-care (01) ==
LOC: HO.CT 07:33
PROVIDERS: PCP Internal Medicine Geriatric Medicine; Visit Provider Psychiatry & Neurology Neurology
DX: Z86.73 Personal history of transient ischemic attack (TIA), and cerebral infarction without residual deficits (principal)
CPT/HCPCS: 70496; 70498; 82565; Q9967

== ENCOUNTER 2023-08-19 12:28 | Outpatient (REF) | payer MEDICARE, MEDICAID, SELFPAY ==
--- NOTE | ~2023-08-19 | US_ITS ---
EXAMINATION: US VENOUS ULTRASOUND WITH DOPPLER LOWER EXTREMITY, BILATERAL CLINICAL INFORMATION: Bilateral leg edema COMPARISON: None available. TECHNIQUE: Ultrasound of the deep veins is performed from the hip to the calf with compression sonography and color and pulse Doppler assessment. Spectral analysis with color-flow imaging is performed. FINDINGS: RIGHT: There is normal venous compression and respiratory variation and augmented flow. The visualized common femoral vein, superficial femoral vein, profunda femoral vein, popliteal vein, and the trifurcation region shows no evidence of deep venous thrombosis. There is no significant popliteal fossa cyst. LEFT: There is normal venous compression and respiratory variation and augmented flow. The visualized common femoral vein, superficial femoral vein, profunda femoral vein, popliteal vein, and the trifurcation region shows no evidence of deep venous thrombosis. There is no significant popliteal fossa cyst. If the patient's symptoms persist, followup ultrasound in 5 days 7 days might be of value to exclude proximal propagation from a non-visualized calf vein. US/US venous duplex LE BI IMPRESSION: No DVT demonstrated in the right and left lower extremity.
[2023-08-19 15:17] LABS: B Type Natriuretic Peptide 99 pg/mL (<100)
[2023-08-19 15:35] LABS: Creatinine Urine 59.78 mg/dL; Microalbum/Creatinine Ratio Ur 138.8 ug/mg cr (<30)
[2023-08-19 15:37] LABS: Anion Gap 9 (12-20); Blood Urea Nitrogen 7 mg/dL (9-16); Calcium 9.4 mg/dL (8.4-10.2); Carbon Dioxide 30 mmol/L (22-29); Chloride 107 mmol/L (96-108); Estimated Glomerular Filt Rate > 60; Glucose Random 95 mg/dL (60-115); Sodium 142 mmol/L (135-145)
== END 2023-08-19 12:29 | disposition home or self-care (01) ==
LOC: HO.US 12:28
PROVIDERS: PCP Internal Medicine Geriatric Medicine; Visit Provider Internal Medicine Geriatric Medicine
DX: R60.0 Localized edema (principal); I10 Essential (primary) hypertension
CPT/HCPCS: 36415; 80048; 82043; 82570; 83880; 93970

== ENCOUNTER 2023-09-04 13:12 | Outpatient (AMB) | payer MEDICARE, MEDICAID, SELFPAY ==
--- NOTE | 2023-09-04 13:33 | A.OFFVIS_ITS ---
Intake Intake Visit Reasons: 1Y PVR Intake Note: Patient presents today for a follow-up Meds- Tadalafil Allergies to Antibiotic- No Known Allergies Blood Thinner- None Post Void Residual:176 Patient Symptoms: Patient stated he is having frequent leaking, and he thinks is caused because he is been put in other non GI medications. I reviewed the medication list with patient and he is unsure what medications he is taking or does not remember the names of the medications. Edge Trimmer Required: No Accompanied by: Self / Same As Patient Allergies No Known Allergies Allergy (Verified 09/04/23 13:41) HPI HPI Comments History of Present Illness Details Kong is a very pleasant male. He is a patient of Dr Quintanilla. He is seen for the following issues - erectile dysfunction - lower urinary tract symptoms - urinary urgency frequency Yearly follow-up PVR 150 cc Had stroke 5 months ago was taken off oxybutynin Restart with terazosin Erectile dysfunction Effective management with Cialis 5 mg daily Had discussed use of vacuum pump for penile shortening No longer an issue - had cancer Lower urinary tract symptoms Laser procedure on prostate 2017 Did develop urgency frequency Background bipolar with long-term lithium Prior medications - tolterodine not effective PSA 08/04 1.52 Current medications oxybutynin 10 mg daily Cystoscopy 2020 open bladder neck with minimal erythema in bladder [facility] Medical History (Updated 07/17/23 @ 11:01 by Panfilo Mccollum MD) Hyperbilirubinemia Hyperparathyroidism Hearing problem Frequency of urination Elevated blood pressure reading in office with white coat syndrome, with diagnosis of hypertension Gout Vitamin D deficiency Toxic multinodular goiter Bipolar disorder Erectile dysfunction BPH w/o urinary obs/LUTS Abdominal wall mass Myelopathy Surgical History History of removal of cyst (07/10/23) History of surgery Family History Father Dementia Mother Diabetes Social History Household Members: Family and Children Household Members Other:: , daughters, grand children Alcohol intake: never Patient Tobacco Use Status: Former Tobacco user Review of Systems Const Denies chills and Denies fever(s) Card Reports no additional complaints and Denies syncope Resp Denies cough GI Denies abdominal pain and Denies heartburn Reports as per HPI and Denies change in libido Neuro Denies syncope Psych Denies change in libido Endo Denies change in libido Physical Exam Const General: cooperative, healthy appearing, comfortable and no acute distress Orientation/consciousness: patient oriented x3 HEENT Face and sinus: Yes normal facial exam Mouth: moist mucous membranes Neck Neck: Yes normal visual inspection, Yes full ROM and Yes trachea midline Chest Chest palpation & inspection: normal inspection of the chest Resp Effort & Inspection: normal respiratory effort, able to speak in complete sentences and no respiratory distress GI Inspection: Yes normal to inspection Back/Spine/Pelvis Cervical Spine: normal cervical lordosis Thoracic/Lumbar Spine: thoracic and lumbar spine normal to inspection Skin General skin exam: no rashes or lesions noted Neuro General: patient oriented x3, gait normal, tone normal and moves all extremities Extrem General: Yes normal to inspection and Yes capillary refill normal Office Procedures Post Void Residual Post Residual Void Post Void Residual (PVR): 176 [id number] Void Residual by ultrasound Assessment & Plan Assessment & Plan (1) BPH w/o urinary obs/LUTS: Code(s): N40.0 - Benign prostatic hyperplasia without lower urinary tract symptoms (2) Erectile dysfunction: Code(s): N52.9 - Male erectile dysfunction, unspecified Plan Trial alpha-nely Three-month follow-up Orders: Orders AMB Post Void Residual by ultrasound Today N40.0 - Benign prostatic hyperplasia without lower urinary tract symptoms, R33.9 - Retention of urine, unspecified Medications: New terazosin 5 mg PO BEDTIME 30 caps 2RF 30 days N40.0 - Benign prostatic hyperplasia without lower urinary tract symptoms, N40.1 - Benign prostatic hyperplasia with lower urinary tract symptoms, R35.0 - Frequency of micturition Patient Instructions: Imaging studies, laboratory and physical exam results were discussed and reviewed in detail. No major barriers to patient understanding were identified. An opportunity to ask questions regarding the treatment plan was provided. All questions were answered. The patient expressed understanding and agreement with the above treatment plan. The patient is aware they should contact our office by phone for worsening of their current condition or the appearance of new urologic symptoms. Compliance is encouraged with any medications and followup testing that is ordered. It is a privilege to participate in the urologic care of your patient. If you have any questions or concerns regarding treatment for the above conditions, or other urologic issues, please do not hesitate to contact me. The office telephone contact is [phone]. This note is constructed using voice recognition software. While every effort has been made to ensure accuracy lapper errors may have been included. Yours sincerely, Dr Mal Nelson MD, [facility] - Urology Providers of Expert, Compassionate Care for the Genitourinary System Coding Level of Care Code Est Pt Level 4 (90749) Diagnoses BPH w/o urinary obs/LUTS N40.0 Erectile dysfunction N52.9 CPT Codes Post Residual Void - PVR CPT Code: 36907-Btmi Void Residual by ultrasound ([id number])
== END 2023-09-04 13:50 | disposition home or self-care (01) ==
PROVIDERS: Visit Provider Urology
DX: N40.0 Benign prostatic hyperplasia without lower urinary tract symptoms (principal); N52.9 Male erectile dysfunction, unspecified
CPT/HCPCS: 99213

== ENCOUNTER → 2023-09-04 13:12 | Outpatient (BNVA) | payer MEDICARE, MEDICAID, SELFPAY | PROVIDERS: Visit Provider Urology | DX: N40.0 Benign prostatic hyperplasia without lower urinary tract symptoms (principal); N52.9 Male erectile dysfunction, unspecified | CPT/HCPCS: 51798; 99212 ==

== ENCOUNTER 2023-09-22 13:56 | Outpatient (REF) | payer MEDICARE, MEDICAID, SELFPAY | END 2023-09-22 13:57 | disposition home or self-care (01) | LOC: HO.HAP 13:56 | PROVIDERS: Visit Provider Internal Medicine Geriatric Medicine | DX: Z46.1 Encounter for fitting and adjustment of hearing aid (principal); H90.3 Sensorineural hearing loss, bilateral | CPT/HCPCS: 92593; 99499 ==

== ENCOUNTER → 2023-10-20 09:37 | Outpatient (REF) | payer MEDICARE, MEDICAID, SELFPAY | LOC: HO.SL 09:37 | PROVIDERS: PCP Internal Medicine Geriatric Medicine; Visit Provider Internal Medicine Geriatric Medicine | DX: G47.33 Obstructive sleep apnea (adult) (pediatric) (principal) | CPT/HCPCS: 95806 ==

== ENCOUNTER → 2023-10-20 19:00 | Outpatient (BNV) | payer MEDICARE, MEDICAID, SELFPAY | PROVIDERS: PCP Internal Medicine Geriatric Medicine; Visit Provider Internal Medicine | DX: G47.33 Obstructive sleep apnea (adult) (pediatric) (principal) | CPT/HCPCS: 95806 ==

== ENCOUNTER 2023-11-25 12:44 | Outpatient (REF) | payer MEDICARE, MEDICAID, SELFPAY ==
--- NOTE | ~2023-11-25 | US_ITS ---
Ultrasound-guided thyroid nodule fine needle aspiration Indication: Right lobe thyroid nodule Procedure: Informed consent was obtained from the patient prior to the procedure. During this process, the procedure and potential alternatives were explained, along with the intended outcome and benefits. The risks of the procedure, as well as the risks of not doing the procedure, were discussed. The patient was given the opportunity to ask questions regarding the procedure and appeared competent to make medical decisions. A signed consent form which documents this discussion was placed in the medical record. A timeout was performed in the room. The patient was placed in a supine position with the neck extended. The right side of the neck and chest was prepped and draped in routine sterile fashion. 1% lidocaine was used as anesthetic. Under real-time ultrasound guidance, a 25-gauge needle was placed into the nodule and aspiration was performed. A total of 3 aspirations were performed. The specimens were placed in CytoLyt and and the Affirma bottle. Postprocedure images showed no hematoma. A Band-Aid was applied to the access site. The patient tolerated the procedure well with no immediate complications. Permanent ultrasound images were archived to the procedure. US/US biopsy thyroid Impression: Right thyroid nodule fine-needle aspiration This procedure was performed by Martín Bailon PA-C, and directly supervised by Dr. Hickey
[2023-11-25] MEDS: Lidocaine HCl 1 % MPF 5 ML VIAL SUBCUT (14:36)
== END 2023-11-25 12:45 | disposition home or self-care (01) ==
LOC: HO.US 12:44
PROVIDERS: PCP Internal Medicine Geriatric Medicine; Visit Provider Internal Medicine Endocrinology, Diabetes & Metabolism
DX: E05.20 Thyrotoxicosis with toxic multinodular goiter without thyrotoxic crisis or storm (principal)
CPT/HCPCS: 10005; 88173; 88305

== ENCOUNTER → 2023-11-25 12:47 | Outpatient (BNV) | payer MEDICARE, MEDICAID, SELFPAY | PROVIDERS: PCP Internal Medicine Geriatric Medicine; Visit Provider Physician Assistant Surgical | DX: E04.1 Nontoxic single thyroid nodule (principal) | CPT/HCPCS: 10005 ==

== ENCOUNTER 2023-12-04 12:57 | Outpatient (AMB) | payer MEDICARE, MEDICAID, SELFPAY ==
--- NOTE | 2023-12-04 13:42 | A.OFFVIS_ITS ---
Intake Visit Reasons: 3m/PVR Intake Note: Patient presents today for a follow-up PVR Meds- Tadalafil Allergies to Antibiotic- No Known Allergies Blood Thinner- None Post Void Residual: 43 mL Fuselage Framer Required: No Accompanied by: Self / Same As Patient Allergies No Known Allergies Allergy (Verified 12/16/23 14:45) HPI Comments Details: Kong is a very pleasant male. He is a patient of Dr Quintanilla. He is seen for the following issues - erectile dysfunction - lower urinary tract symptoms - urinary urgency frequency Prior PVR 150 cc, Current PVR 40 cc Good response to terazosin 10 mg Still with urinary urgency Trial Toviaz Erectile dysfunction Effective management with Cialis 5 mg daily Had discussed use of vacuum pump for penile shortening No longer an issue - had cancer Lower urinary tract symptoms Laser procedure on prostate 2016 Did develop urgency frequency Background bipolar with long-term lithium PSA 08/04 1.52 Prior medications oxybutynin 10 mg daily, tolterodine Cystoscopy 2020 open bladder neck with minimal erythema in bladder PFSH Medical History Hyperbilirubinemia Hyperparathyroidism Hearing problem Frequency of urination Elevated blood pressure reading in office with white coat syndrome, with diagnosis of hypertension Gout Vitamin D deficiency Toxic multinodular goiter Bipolar disorder Erectile dysfunction BPH w/o urinary obs/LUTS Abdominal wall mass Myelopathy Surgical History History of removal of cyst (07/10/23) History of surgery Family History Father Dementia Mother Diabetes Social History Household Members: Family and Children Household Members Other:: , daughters, grand children Alcohol intake: never Patient Tobacco Use Status: Former Tobacco user Review of Systems Const Denies chills and Denies fever(s) Card Reports no additional complaints and Denies syncope Resp Denies cough GI Denies abdominal pain and Denies heartburn Reports as per HPI and Denies change in libido Neuro Denies syncope Psych Denies change in libido Endo Denies change in libido Physical Exam Const General: cooperative, healthy appearing, comfortable and no acute distress Orientation/consciousness: patient oriented x3 HEENT Face and sinus: Yes normal facial exam Mouth: moist mucous membranes Neck Neck: Yes normal visual inspection, Yes full ROM and Yes trachea midline Chest Chest palpation & inspection: normal inspection of the chest Resp Effort & Inspection: normal respiratory effort, able to speak in complete sentences and no respiratory distress GI Inspection: Yes normal to inspection Back/Spine/Pelvis Cervical Spine: normal cervical lordosis Thoracic/Lumbar Spine: thoracic and lumbar spine normal to inspection Skin General skin exam: no rashes or lesions noted Neuro General: patient oriented x3, gait normal, tone normal and moves all extremities Extrem General: Yes normal to inspection and Yes capillary refill normal Office Procedures Post Void Residual Post Residual Void Post Void Residual (PVR): 43 [id number] Void Residual by ultrasound Assessment & Plan Assessment & Plan (1) Bladder instability: Code(s): N32.89 - Other specified disorders of bladder Category: Medical Plan Trial Toviaz Orders: Orders AMB Post Void Residual by ultrasound 12/04/23 N39.8 - Other specified disorders of urinary system Medications: New fesoterodine ER (Toviaz) 4 mg PO DAILY 30 tabs 1RF 30 days N32.89 - Other specified disorders of bladder, N39.41 - Urge incontinence Patient Instructions: Imaging studies, laboratory and physical exam results were discussed and reviewed in detail. No major barriers to patient understanding were identified. An opportunity to ask questions regarding the treatment plan was provided. All questions were answered. The patient expressed understanding and agreement with the above treatment plan. The patient is aware they should contact our office by phone for worsening of their current condition or the appearance of new urologic symptoms. Compliance is encouraged with any medications and followup testing that is ordered. It is a privilege to participate in the urologic care of your patient. If you have any questions or concerns regarding treatment for the above conditions, or other urologic issues, please do not hesitate to contact me. The office telephone contact is [phone]. This note is constructed using voice recognition software. While every effort has been made to ensure accuracy learning and development officer errors may have been included. Yours sincerely, Dr Mal Nelson MD, [facility] - Urology Providers of Expert, Compassionate Care for the Genitourinary System Coding Level of Care Code Est Pt Level 4 (13464) Diagnoses Bladder instability N32.89 CPT Codes Post Residual Void - PVR CPT Code: 12757-[id number] Void Residual by ultrasound ([id number])
== END 2023-12-04 14:29 | disposition home or self-care (01) ==
PROVIDERS: PCP Internal Medicine Geriatric Medicine; Visit Provider Urology
DX: N32.89 Other specified disorders of bladder (principal)
CPT/HCPCS: 99214

== ENCOUNTER → 2023-12-04 12:57 | Outpatient (BNVA) | payer MEDICARE, MEDICAID, SELFPAY | PROVIDERS: PCP Internal Medicine Geriatric Medicine; Visit Provider Urology | DX: N32.89 Other specified disorders of bladder (principal) | CPT/HCPCS: 51798; 99212 ==

== ENCOUNTER 2023-12-14 09:47 | Outpatient (REF) | payer MEDICARE, MEDICAID, SELFPAY ==
[2023-12-14 10:01] LABS: MANUAL DIFF FLAG NO
[2023-12-14 10:44] LABS: Basophils Percent Auto 0.5 % (0-2); Eosinophils Absolute Auto 0.2 X10*3/uL (0.0-0.4); Eosinophils Percent Auto 2.4 % (0-4); Hematocrit 48.3 % (42.0-52.0); Hemoglobin 16.1 g/dl (14.0-18.0); Imm Gran Abs Auto 0.03 X10*3/uL (0.00-0.03); Imm Gran Pct Auto 0.3 % (0.0-0.4); Lymphocytes Absolute Auto 2.2 X10*3/uL (1.2-4.9); Lymphocytes Percent Auto 25.7 % (20-40); Mean Corpuscular HGB Conc 33.3 g/dl (31.0-36.0); Mean Corpuscular Hemoglobin 29.6 pg (27.0-33.0); Mean Corpuscular Volume 88.8 fL (80.0-98.0); Mean Platelet Volume 8.4 fL (9.4-12.4); Monocytes Absolute Auto 0.8 X10*3/uL (0.1-1.2); Monocytes Percent Auto 9.6 % (2-11); Neutrophils Absolute Auto 5.3 x10*3/uL (2.0-8.3); Neutrophils Percent Auto 61.5 % (45-73); Platelet Count 276 X10*3/uL (160-400); Red Blood Count 5.44 X10*6/uL (4.60-5.80); Red Cell Distribution Width 13.4 % (11.0-16.0); White Blood Count 8.7 X10*3/uL (4.8-10.8)
[2023-12-14 11:27] LABS: Alanine Aminotransferase 28 U/L (0-40); Albumin Level 4.2 g/dL (3.5-5.0); Alkaline Phosphatase 92 U/L (39-117); Aspartate Amino Transferase 20 U/L (5-37); Bilirubin Direct 0.5 mg/dL (0.0-0.5); Bilirubin Total 1.9 mg/dL (0.0-1.0); Total Protein 7.2 g/dL (6.5-8.0)
[2023-12-14 11:30] LABS: Free T4 (Free Thyroxine) 1.18 ng/dL (0.71-1.85); Thyroid Stimulating Hormone 0.11 uIU/mL (0.32-4.0)
[2023-12-16 08:29] LABS: Triiodothyronine T3 Free 3.6 pg/mL (2.3-4.2)
== END 2023-12-14 09:48 | disposition home or self-care (01) ==
LOC: HO.LAB 09:47
PROVIDERS: PCP Internal Medicine Geriatric Medicine; Visit Provider Internal Medicine Endocrinology, Diabetes & Metabolism
DX: E05.20 Thyrotoxicosis with toxic multinodular goiter without thyrotoxic crisis or storm (principal)
CPT/HCPCS: 36415; 80076; 84439; 84443; 84481; 85025

== ENCOUNTER 2023-12-16 14:31 | Outpatient (AMB) | payer MEDICARE, MEDICAID, SELFPAY ==
[2023-12-16 14:36] VITALS: BP 140/78; PULSE 88; BMI 27.8
--- NOTE | 2023-12-16 14:36 | MHC.OFFVIS ---
Vital Signs 12/16/23 14:36 Height 5 ft 9 in Weight 188 lb 4.396 oz BMI 27.8 BP 140/78 H Blood Pressure Location Lt brachial Position Sitting Pulse 88 Pulse Source Pulse Oximeter Intake Visit Reasons: FNA results/lvm Intake Note: Patient present today for FNA results follow up visit. Mattress Filling Machine Tender Required: Yes Mattress Filling Machine Tender Language: Cupola Liner Name: Sj Information Interpreted: non-clinical & clinical Accompanied by: Self / Same As Patient Allergies No Known Allergies Allergy (Verified 12/16/23 14:45) Medication List - Last Reconciled 12/16/23 by Ulises Dash MD acetaminophen 500 mg PO Q8H PRN amlodipine 10 mg PO DAILY cholecalciferol (vitamin D3) 25 mcg PO DAILY 90 days [Citracal D Slow Rel Tab 80 1 tab PO BID] colchicine 0 mg PO fesoterodine ER (Toviaz) 4 mg PO DAILY 30 days hydroxyzine HCl 50 mg PO BEDTIME lisinopril 5 mg PO DAILY lisinopril 5 mg PO DAILY lithium carbonate 300 mg PO DAILY lithium carbonate ER 600 mg PO DAILY methimazole 2.5 mg (1/2 x 5 mg) PO DAILY omega-3 fatty acids 1,000 mg PO BEDTIME propranolol ER 60 mg PO DAILY quetiapine 25 mg PO BEDTIME tadalafil 20 mg PO DAILY PRN terazosin 5 mg PO BEDTIME 30 days HPI Comments Details: 63 YO Male with a PMHx of 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 He was initially diagnosed with hyperthyroidism in 2015, although his TSH was suppressed since back in 2002. In 2015 he underwent a thyroid uptake and scan with uptake WNL, but a pattern consistent with a toxic MNG. TSH was in the hyperthyroid range at that time. He underwent I131 ablation with 2.85 mCi of I131 on 06/09/2016. Not surprisingly, this was not successful and he remained hyperthyroid since that time, and has continued on daily methimazole 2.5 mg PO daily. He for unknown reasons underwent an additional thyroid uptake and scan in 2017, with results showing homogenously increased uptake of >40% at 24 hours. His TSI, TRAB and TPO antibodies are all negative. Dr. Ledbetter did attempt FNA biopsy of his RLP 2.0 cm thyroid nodule. This was unsuccessful. He also remains on lithium daily, and did have elevated PTH levels. He was started on Calcium citrate 1 tab PO BID and repeat labs were WNL. He states he has minimal calcium or dairy in his diet, not even 1 serving per day. He states he feels well today and has no complaints. He denies any compressive symptoms. He denies any symptoms of hyper or hypothyroidism. He is tolerating methimazole well without the development of rash, jaundice or frequent infection. Thyroid US: 09/30/2021 Right Thyroid Lobe: 6.7 x 2.2 x 2.7 cm, volume 21.1 mL. Previously 6.1 x 2.7 x 2.8 cm, volume 23.9 mL. Parenchyma: The gland echotexture is homogeneous. Thyroid vascularity is normal. Left Thyroid Lobe: 5.9 x 2.7 x 2.3 cm, volume 19.0 mL. Previously 6.0 x 2.4 x 2.8 cm, volume 20.4 mL. Parenchyma: The gland echotexture is homogeneous. Thyroid vascularity is normal. Isthmus: 0.4 cm in maximum AP dimension. Previously 0.6 cm. Estimated total number of nodules greater than or equal to 1 cm: 1. Orthopedic Nurse Practitioner nodules are described as follows: 1.? Location: Right inferior. ?? ? Size: 0.6 x 0.3 x 0.5 cm, volume 0.05 mL. ?? ? Previously: 0.6 x 0.3 x 0.6 cm, volume 0.06 mL. ?? ? Nodule characteristics: ?? ? Composition: Solid (2). ?? ? Echogenicity: Hypoechoic (2). ?? ? Shape: Not taller than wide (0). ?? ? Margins: Ill-defined (0). ?? ? Echogenic Foci: None (0). ? ACR TI-RADS total points: 4 ?? ? ACR TI-RADS category: 4 ? Significant change in size (>/= 20% in 2 dimensions and minimal increase of 2 mm or 50% or greater increase in volume): None ?? ? Change in features: None ?? ? Change in ACR TI-RADS risk category: Not applicable 2.? Location: Right inferior. ?? ? Size: 0.4 x 0.3 x 0.3 cm, volume 0.02 mL. ?? ? Previously: 0.4 x 0.3 x 0.4 cm, volume 0.03 mL. ?? ? Nodule characteristics: ?? ? Composition: Solid (2). ?? ? Echogenicity: Anechoic (0). ?? ? Shape: Not taller than wide (0). ?? ? Margins: Ill-defined (0). ?? ? Echogenic Foci: None (0).? ACR TI-RADS total points: 2 ?? ? ACR TI-RADS category: 2 ? Significant change in size (>/= 20% in 2 dimensions and minimal increase of 2 mm or 50% or greater increase in volume): None ?? ? Change in features: None ?? ? Change in ACR TI-RADS risk category: Not applicable 3.? Location: Right inferior. ?? ? Size: 1.6 x 1.5 x 1.7 cm, volume 2.1 mL. ?? ? Previously: 2.0 x 1.1 x 1.5 cm, volume 1.7 mL. ?? ? Nodule characteristics: ?? ? Composition: Mixed cystic and solid (1). ?? ? Echogenicity: Isoechoic (1). ?? ? Shape: Not taller than wide (0). ?? ? Margins: Smooth (0). ?? ? Echogenic Foci: None (0). ? ACR TI-RADS total points: 2 ?? ? ACR TI-RADS category: 2 ? Significant change in size (>/= 20% in 2 dimensions and minimal increase of 2 mm or 50% or greater increase in volume): None ?? ? Change in features: Not applicable ?? ? Change in ACR TI-RADS risk category: Not applicable 4.? Location: Right inferior. ?? ? Size: 0.7 x 0.5 x 0.6 cm, volume 0.1 mL. ?? ? Previously: 0.4 x 0.5 x 0.6 cm, volume 0.06 mL. ?? ? Nodule characteristics: ?? ? Composition: Cystic(0). ?? ? ACR TI-RADS total points: 0 ?? ? ACR TI-RADS category: 1 ? Significant change in size (>/= 20% in 2 dimensions and minimal increase of 2 mm or 50% or greater increase in volume): None ?? ? Change in features: None ?? ? Change in ACR TI-RADS risk category: Not applicable 5.? Location: Left superior. ?? ? Size: 0.6 x 0.5 x 0.3 cm, volume 0.45 mL. ?? ? Previously: Not documented on the prior study. ?? ? Nodule characteristics: ?? ? Composition: Cystic(0). ?? ? ACR TI-RADS total points: 0 ?? ? ACR TI-RADS category: 1 NODES: No lymphadenopathy is seen in the tissue surrounding the thyroid gland. Thyroid Uptake and Scan: 01/17/2016 FINDINGS: The uptake is 3.9% at 3 hours and 14.1% at 23 hours. The radioiodine uptake is normal. The radio pertechnetate thyroid scintigram shows the thyroid gland to be mildly enlarged approximately 1-1/2 times normal in size. There is marked heterogeneity within the gland, with multiple small rounded foci of relatively increased activity present bilaterally, and was relatively decreased activity present in the regions between these foci. A dominant focus is not present. A single radioiodine image obtained at the time of the 24 hour uptake measurement is similar in appearance to the radio pertechnetate image, but because of the small amount of activity within the gland, detail is not well delineated. IMPRESSION: In the clinical setting of a low TSH, these findings are most consistent with a toxic multinodular goiter (Rogelio's disease). The radioiodine uptake is normal. Thyroid UPTAKE AND sCAN: 11/19/2017 FINDINGS: The uptake is 17.1% at 4 hours and 46.9% at 24 hours. The radioiodine uptake is moderately elevated. The radiopertechnetate thyroid scintigram demonstrates the thyroid gland to be moderately enlarged, approximately 3 times normal in size. There is homogeneous distribution of activity within the gland with minimal heterogeneity present in the upper pole of the left lobe, an equivocal finding. A faint pyramidal lobe is visualized attaching 2 the upper pole of the right lobe. No other focal abnormalities are noted. The trapping function is moderately to markedly increased diffusely. A single anterior radioiodine image obtained at the time of the 24-hour uptake similar in appearance to the radio pertechnetate image. The thyroid ultrasound dated 06/30/2017 shows the gland to be similar in size several nodules present bilaterally, the largest measuring 1.6 x 0.9 x 1.6 cm in the lower pole of the right lobe. This is not delineated on this radionuclide scan. All the other nodules were subcentimeter in size, in which is small to be resolved on this radionuclide scan. IMPRESSION: Moderately enlarged diffuse goiter. The radioiodine uptake is moderately elevated, but in the absence of suppressed TSH levels, this is nonspecific and could be due to Graves' disease or North's thyroiditis. If this patient was recently treated with antithyroid drugs, these findings would be more consistent with Graves' disease. Nodules visualized on the previous ultrasound study are not apparent on these radionuclide images, but only the nodule identified in the right lower pole was large enough to be resolved on this radionuclide scan. Labs: Laboratory Tests 01/04/23 19:38 TSH 0.69 PFSH Medical History Hyperbilirubinemia Hyperparathyroidism Hearing problem Frequency of urination Elevated blood pressure reading in office with white coat syndrome, with diagnosis of hypertension Gout Vitamin D deficiency Toxic multinodular goiter Bipolar disorder Erectile dysfunction BPH w/o urinary obs/LUTS Abdominal wall mass Myelopathy Surgical History History of removal of cyst (07/10/23) History of surgery Family History Father Dementia Mother Diabetes Social History Household Members: Family and Children Household Members Other:: , daughters, grand children Alcohol intake: never Patient Tobacco Use Status: Former Tobacco user Physical Exam Vital Signs: Last Vital Signs Pulse 88 12/16/23 14:36 BP 140/78 H 12/16/23 14:36 BMI result Body Mass Index 27.8 Const Other: Thyroid gland is of normal size weighs about 15 g. There are no thyroid nodules palpated Assessment & Plan Assessment & Plan (1) Toxic multinodular goiter: Code(s): E05.20 - Thyrotoxicosis with toxic multinodular goiter without thyrotoxic crisis or storm Category: Medical Plan: 63-year-old male with history of toxic multinodular goiter status post iodine 131 therapy 2016 with euthyroidism. Status post FNA of right lower pole nodule with benign cytology. Recent TSH level was suppressed on methimazole 2.5 mg Plan is to increase the methimazole to 5 mg. We will recheck thyroid function studies, liver enzymes as well as CBC in 4 weeks time and adjust methimazole. Went over potential treatment options including continuation methimazole versus radioactive iodine vs surgery and the patient is opting stay on the methimazole the current time Orders: Orders Triiodothyronine T3 Free 4 Weeks E05.20 - Thyrotoxicosis with toxic multinodular goiter without thyrotoxic crisis or storm Complete Blood Count Auto Diff 4 Weeks E05.20 - Thyrotoxicosis with toxic multinodular goiter without thyrotoxic crisis or storm Free T4 (Free Thyroxine) 4 Weeks E05.20 - Thyrotoxicosis with toxic multinodular goiter without thyrotoxic crisis or storm Thyroid Stimulating Hormone 4 Weeks E05.20 - Thyrotoxicosis with toxic multinodular goiter without thyrotoxic crisis or storm Liver Panel 4 Weeks E05.20 - Thyrotoxicosis with toxic multinodular goiter without thyrotoxic crisis or storm Medications: Changed From methimazole 2.5 mg (1/2 x 5 mg) PO DAILY 45 tabs 9RF E05.20 - Thyrotoxicosis with toxic multinodular goiter without thyrotoxic crisis or storm To methimazole 5 mg PO DAILY 30 tabs 9RF E05.20 - Thyrotoxicosis with toxic multinodular goiter without thyrotoxic crisis or storm Coding Level of Care Code Est Pt Level 3 (80153) Diagnoses Toxic multinodular goiter E0.
== END 2023-12-16 15:08 | disposition home or self-care (01) ==
PROVIDERS: PCP Internal Medicine Geriatric Medicine; Visit Provider Internal Medicine Endocrinology, Diabetes & Metabolism
DX: E05.20 Thyrotoxicosis with toxic multinodular goiter without thyrotoxic crisis or storm (principal)
CPT/HCPCS: 99213

== ENCOUNTER → 2023-12-16 14:31 | Outpatient (BNVA) | payer MEDICARE, MEDICAID, SELFPAY | PROVIDERS: PCP Internal Medicine Geriatric Medicine; Visit Provider Internal Medicine Endocrinology, Diabetes & Metabolism | DX: E05.20 Thyrotoxicosis with toxic multinodular goiter without thyrotoxic crisis or storm (principal) | CPT/HCPCS: 99212 ==

== ENCOUNTER 2024-01-08 08:08 | Outpatient (REF) | payer MEDICARE, MEDICAID, SELFPAY ==
--- NOTE | 2024-01-08 11:23 | MHC.AU.HA3 ---
Hearing Instrument Follow-Up- Binaural Date of Visit: 01/08/24 Right Ear: Make, Model, Color, Serial Number: Elo Oakley [id number] SN: [id number] Color: Mei Preflight Mechanic Repair Warranty: 11/18/2023 Preflight Mechanic Loss and Damage Warranty: 11/18/2023 [facility] Service Plan: 11/02/2021 Battery Size: 312 Type of Wax Guard: CeruStop Dispensed By: [facility] Date of Fittin11/02/2020 Left Ear: Make, Model, Color, Serial Number: Elo Oakley [id number] SN: [id number] Color: Mei Preflight Mechanic Repair Warranty: 11/18/2023 Preflight Mechanic Loss and Damage Warranty: 11/18/2023 [facility] Service Plan: 11/02/2021 Battery Size: 312 Type of Wax Guard: CeruStop Dispensed By: [facility] Date of Fittin11/02/2020 Follow-Up Summary: Returned for updated hearing test and routine hearing aid maintenance. Could not perform hearing test due to occluding cerumen in left ear. Recommend wax removal by PCP then rescheduling hearing test. In meantime, cleaned both hearing aids. Replaced wax guards. Right hearing aid had hole in shell, had been using scotch tape over it. Patched in office with band-aid and fotoblast gel. Explained unsure how long it will last but able to use in the meantime, as hearing aid out of warranty. *After appointment, eddie Triana no longer has an insurance plan that covers hearing aid services. Did not charge for today's cleaning. Will need to discuss fees for services at next appointment. Recommendations: Hearing instrument follow-up or maintenance as needed. Please contact our clinic with any questions or concerns. Diagnosis Code(s): Primary Diagnosis: H90.3 Bilateral Sensorineural Hearing Loss Signature: Provider: Ottoniel Thomas, [facility]
== END 2024-01-08 08:09 | disposition home or self-care (01) ==
LOC: HO.SH 08:08
PROVIDERS: Visit Provider Internal Medicine Geriatric Medicine
DX: Z01.118 Encounter for examination of ears and hearing with other abnormal findings (principal); H90.3 Sensorineural hearing loss, bilateral
CPT/HCPCS: 92567

== ENCOUNTER 2024-01-20 08:28 | Outpatient (REF) | payer MEDICARE, MEDICAID, SELFPAY ==
--- NOTE | 2024-01-20 09:32 | MHC.AU.HA3 ---
Hearing Instrument Follow-Up- Binaural Date of Visit: 01/20/24 Right Ear: Make, Model, Color, Serial Number: Elo Oakley [id number] SN: [id number] Color: Mei Visual Supervisor Repair Warranty: 11/18/2023 Visual Supervisor Loss and Damage Warranty: 11/18/2023 [facility] Service Plan: 11/02/2021 Battery Size: 312 Type of Wax Guard: CeruStop Dispensed By: [facility] Date of Fittin11/02/2020 Left Ear: Make, Model, Color, Serial Number: Elo Oakley [id number] SN: [id number] Color: Mei Visual Supervisor Repair Warranty: 11/18/2023 Visual Supervisor Loss and Damage Warranty: 11/18/2023 [facility] Service Plan: 11/02/2021 Battery Size: 312 Type of Wax Guard: CeruStop Dispensed By: [facility] Date of Fittin11/02/2020 Follow-Up Summary: Routine hearing test following left-sided cerumen removal. Hearing is stable. Discussed insurance ([employer]) which does not cover hearing aid services. Kong is unsure why his insurance changed. Hearing aids recently repaired and cleaned on 01/08/2024 so Kong opted to forgo any hearing aid services today. Advised that any future appointments for hearing aid services will incur a [id number]. He reported he will look into his insurance and try to change it to a plan that covers hearing aid services. Recommendations: Hearing instrument follow-up or maintenance as needed. Please contact our clinic with any questions or concerns. Diagnosis Code(s): Primary Diagnosis: H90.3 Bilateral Sensorineural Hearing Loss Signature: Provider: Ottoniel Thomas, [facility]
== END 2024-01-20 08:29 | disposition home or self-care (01) ==
LOC: HO.SH 08:28
PROVIDERS: Visit Provider Internal Medicine Geriatric Medicine
DX: Z01.118 Encounter for examination of ears and hearing with other abnormal findings (principal); H90.3 Sensorineural hearing loss, bilateral
CPT/HCPCS: 92552; 92556; 92567

== ENCOUNTER 2024-02-03 12:58 | Outpatient (AMB) | payer MEDICARE, MEDICAID, SELFPAY ==
--- NOTE | 2024-02-03 13:09 | MHC.OFFVIS ---
Intake Visit Reasons: 2M Follow Up-PVR Intake Note: Patient is Present for PVR/Med Review Urology Med: Toviaz, Terazosin, Tadalafil Antibiotic Allergy:None Blood Thinner:None Last PVR: 43 Todays PVR: 54 Patient has been on toviaz for a month and states that medication is working well Allergies No Known Allergies Allergy (Verified 02/03/24 13:15) HPI Comments Details: Kong is a very pleasant male. He is a patient of Dr Quintanilla. He is seen for the following issues - erectile dysfunction - lower urinary tract symptoms - urinary urgency frequency Two month follow-up urge frequency Good response to Toviaz Continue with terazosin and tadalafil for erection Erectile dysfunction Effective management with Cialis 5 mg daily Had discussed use of vacuum pump for penile shortening No longer an issue - had cancer Lower urinary tract symptoms Laser procedure on prostate 2016 Did develop urgency frequency Background bipolar with long-term lithium PSA 08/04 1.52 Prior medications oxybutynin 10 mg daily, tolterodine Cystoscopy 2020 open bladder neck with minimal erythema in bladder PFSH Medical History Hyperbilirubinemia Hyperparathyroidism Hearing problem Frequency of urination Elevated blood pressure reading in office with white coat syndrome, with diagnosis of hypertension Gout Vitamin D deficiency Toxic multinodular goiter Bipolar disorder Erectile dysfunction BPH w/o urinary obs/LUTS Abdominal wall mass Myelopathy Surgical History History of removal of cyst (07/10/23) History of surgery Family History Father Dementia Mother Diabetes Social History Household Members: Family and Children Household Members Other:: , daughters, grand children Alcohol intake: never Patient Tobacco Use Status: Former Tobacco user Review of Systems Const Denies chills and Denies fever(s) Card Reports no additional complaints and Denies syncope Resp Denies cough GI Denies abdominal pain and Denies heartburn Reports as per HPI and Denies change in libido Neuro Denies syncope Psych Denies change in libido Endo Denies change in libido Physical Exam Const General: cooperative, healthy appearing, comfortable and no acute distress Orientation/consciousness: patient oriented x3 HEENT Face and sinus: Yes normal facial exam Mouth: moist mucous membranes Neck Neck: Yes normal visual inspection, Yes full ROM and Yes trachea midline Chest Chest palpation & inspection: normal inspection of the chest Resp Effort & Inspection: normal respiratory effort, able to speak in complete sentences and no respiratory distress GI Inspection: Yes normal to inspection Back/Spine/Pelvis Cervical Spine: normal cervical lordosis Thoracic/Lumbar Spine: thoracic and lumbar spine normal to inspection Skin General skin exam: no rashes or lesions noted Neuro General: patient oriented x3, gait normal, tone normal and moves all extremities Extrem General: Yes normal to inspection and Yes capillary refill normal Office Procedures Post Void Residual Post Residual Void Post Void Residual (PVR): 54 [id number] Void Residual by ultrasound Assessment & Plan Assessment & Plan (1) Bladder instability: Code(s): N32.89 - Other specified disorders of bladder Category: Medical (2) Urinary urgency: Code(s): R39.15 - Urgency of urination Category: Medical (3) BPH w/o urinary obs/LUTS: Code(s): N40.0 - Benign prostatic hyperplasia without lower urinary tract symptoms Category: Medical (4) Erectile dysfunction: Code(s): N52.9 - Male erectile dysfunction, unspecified Category: Medical Plan Six-month follow-up Orders: Orders AMB Post Void Residual by ultrasound Today R39.15 - Urgency of urination Medications: Changed From terazosin 5 mg PO BEDTIME 30 days 30 caps 2RF N40.0 - Benign prostatic hyperplasia without lower urinary tract symptoms, N40.1 - Benign prostatic hyperplasia with lower urinary tract symptoms, R35.0 - Frequency of micturition To terazosin 5 mg PO BEDTIME 90 days 90 caps 1RF N40.0 - Benign prostatic hyperplasia without lower urinary tract symptoms, N40.1 - Benign prostatic hyperplasia with lower urinary tract symptoms, R35.0 - Frequency of micturition From fesoterodine ER (Toviaz) 4 mg PO DAILY 30 days 30 tabs 1RF N32.89 - Other specified disorders of bladder, N39.41 - Urge incontinence To fesoterodine ER (Toviaz) 4 mg PO DAILY 90 days 90 tabs 1RF N32.89 - Other specified disorders of bladder, N39.41 - Urge incontinence Patient Instructions: Imaging studies, laboratory and physical exam results were discussed and reviewed in detail. No major barriers to patient understanding were identified. An opportunity to ask questions regarding the treatment plan was provided. All questions were answered. The patient expressed understanding and agreement with the above treatment plan. The patient is aware they should contact our office by phone for worsening of their current condition or the appearance of new urologic symptoms. Compliance is encouraged with any medications and followup testing that is ordered. It is a privilege to participate in the urologic care of your patient. If you have any questions or concerns regarding treatment for the above conditions, or other urologic issues, please do not hesitate to contact me. The office telephone contact is [phone]. This note is constructed using voice recognition software. While every effort has been made to ensure accuracy heel nailing machine operator errors may have been included. Yours sincerely, Dr Mal Nelson MD, [facility] - Urology Providers of Expert, Compassionate Care for the Genitourinary System Coding Level of Care Code Est Pt Level 3 (41916) Diagnoses Bladder instability N32.89 Urinary urgency R39.15 BPH w/o urinary obs/LUTS N40.0 Erectile dysfunction N52.9 CPT Codes Post Residual Void - PVR CPT Code: 65489-Zcqd Void Residual by ultrasound ([id number])
== END 2024-02-03 13:38 | disposition home or self-care (01) ==
PROVIDERS: PCP Internal Medicine Geriatric Medicine; Visit Provider Urology
DX: N32.89 Other specified disorders of bladder (principal); R39.15 Urgency of urination; N40.0 Benign prostatic hyperplasia without lower urinary tract symptoms; N52.9 Male erectile dysfunction, unspecified
CPT/HCPCS: 99213

== ENCOUNTER → 2024-02-03 12:58 | Outpatient (BNVA) | payer MEDICARE, MEDICAID, SELFPAY | PROVIDERS: PCP Internal Medicine Geriatric Medicine; Visit Provider Urology | DX: N32.89 Other specified disorders of bladder (principal); N40.0 Benign prostatic hyperplasia without lower urinary tract symptoms; N52.9 Male erectile dysfunction, unspecified; R39.15 Urgency of urination | CPT/HCPCS: 51798; 99212 ==

== ENCOUNTER 2024-04-14 14:41 | Outpatient (AMB) | payer MEDICARE, MEDICAID, SELFPAY ==
--- NOTE | 2024-04-14 14:43 | MHC.OFFVIS ---
Vital Signs 04/14/24 14:44 Height 5 ft 9 in Weight 196 lb 3.382 oz BMI 29.0 BP 160/80 H Blood Pressure Location Lt brachial Position Sitting Pulse 80 Pulse Source Pulse Oximeter Intake Visit Reasons: toxic multinodular goiter Intake Note: Patient present today for toxic multi nodular goiter office visit. [employer] Head Required: No Accompanied by: Daughter Allergies No Known Allergies Allergy (Verified 04/14/24 14:47) Medication List - Last Reconciled 04/14/24 by Ulises Dash MD acetaminophen 500 mg PO Q8H PRN amlodipine 10 mg PO DAILY cholecalciferol (vitamin D3) 25 mcg PO DAILY 90 days [Citracal D Slow Rel Tab 80 1 tab PO BID] colchicine 0 mg PO fesoterodine ER (Toviaz) 4 mg PO DAILY 90 days hydroxyzine HCl 50 mg PO BEDTIME lisinopril 5 mg PO DAILY lisinopril 5 mg PO DAILY lithium carbonate 300 mg PO DAILY lithium carbonate ER 600 mg PO DAILY methimazole 5 mg PO DAILY omega-3 fatty acids 1,000 mg PO BEDTIME propranolol ER 60 mg PO DAILY quetiapine 25 mg PO BEDTIME tadalafil 20 mg PO DAILY PRN terazosin 5 mg PO BEDTIME 90 days HPI Comments Details: 64 YO Male with a PMHx of 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 He was initially diagnosed with hyperthyroidism in 2015, although his TSH was suppressed since back in 2002. In 2015 he underwent a thyroid uptake and scan with uptake WNL, but a pattern consistent with a toxic MNG. TSH was in the hyperthyroid range at that time. He underwent I131 ablation with 2.85 mCi of I131 on 06/09/2016. Not surprisingly, this was not successful and he remained hyperthyroid since that time, and has continued on daily methimazole 2.5 mg PO daily. He for unknown reasons underwent an additional thyroid uptake and scan in 2017, with results showing homogenously increased uptake of >40% at 24 hours. His TSI, TRAB and TPO antibodies are all negative. Dr. Ledbetter did attempt FNA biopsy of his RLP 2.0 cm thyroid nodule. This was unsuccessful. He also remains on lithium daily, and did have elevated PTH levels. He was started on Calcium citrate 1 tab PO BID and repeat labs were WNL. He states he has minimal calcium or dairy in his diet, not even 1 serving per day. He states he feels well today and has no complaints. He denies any compressive symptoms. He denies any symptoms of hyper or hypothyroidism. He is tolerating methimazole well without the development of rash, jaundice or frequent infection. Thyroid US: 09/30/2021 Right Thyroid Lobe: 6.7 x 2.2 x 2.7 cm, volume 21.1 mL. Previously 6.1 x 2.7 x 2.8 cm, volume 23.9 mL. Parenchyma: The gland echotexture is homogeneous. Thyroid vascularity is normal. Left Thyroid Lobe: 5.9 x 2.7 x 2.3 cm, volume 19.0 mL. Previously 6.0 x 2.4 x 2.8 cm, volume 20.4 mL. Parenchyma: The gland echotexture is homogeneous. Thyroid vascularity is normal. Isthmus: 0.4 cm in maximum AP dimension. Previously 0.6 cm. Estimated total number of nodules greater than or equal to 1 cm: 1. Belt Brander nodules are described as follows: 1.? Location: Right inferior. ?? ? Size: 0.6 x 0.3 x 0.5 cm, volume 0.05 mL. ?? ? Previously: 0.6 x 0.3 x 0.6 cm, volume 0.06 mL. ?? ? Nodule characteristics: ?? ? Composition: Solid (2). ?? ? Echogenicity: Hypoechoic (2). ?? ? Shape: Not taller than wide (0). ?? ? Margins: Ill-defined (0). ?? ? Echogenic Foci: None (0). ? ACR TI-RADS total points: 4 ?? ? ACR TI-RADS category: 4 ? Significant change in size (>/= 20% in 2 dimensions and minimal increase of 2 mm or 50% or greater increase in volume): None ?? ? Change in features: None ?? ? Change in ACR TI-RADS risk category: Not applicable 2.? Location: Right inferior. ?? ? Size: 0.4 x 0.3 x 0.3 cm, volume 0.02 mL. ?? ? Previously: 0.4 x 0.3 x 0.4 cm, volume 0.03 mL. ?? ? Nodule characteristics: ?? ? Composition: Solid (2). ?? ? Echogenicity: Anechoic (0). ?? ? Shape: Not taller than wide (0). ?? ? Margins: Ill-defined (0). ?? ? Echogenic Foci: None (0).? ACR TI-RADS total points: 2 ?? ? ACR TI-RADS category: 2 ? Significant change in size (>/= 20% in 2 dimensions and minimal increase of 2 mm or 50% or greater increase in volume): None ?? ? Change in features: None ?? ? Change in ACR TI-RADS risk category: Not applicable 3.? Location: Right inferior. ?? ? Size: 1.6 x 1.5 x 1.7 cm, volume 2.1 mL. ?? ? Previously: 2.0 x 1.1 x 1.5 cm, volume 1.7 mL. ?? ? Nodule characteristics: ?? ? Composition: Mixed cystic and solid (1). ?? ? Echogenicity: Isoechoic (1). ?? ? Shape: Not taller than wide (0). ?? ? Margins: Smooth (0). ?? ? Echogenic Foci: None (0). ? ACR TI-RADS total points: 2 ?? ? ACR TI-RADS category: 2 ? Significant change in size (>/= 20% in 2 dimensions and minimal increase of 2 mm or 50% or greater increase in volume): None ?? ? Change in features: Not applicable ?? ? Change in ACR TI-RADS risk category: Not applicable 4.? Location: Right inferior. ?? ? Size: 0.7 x 0.5 x 0.6 cm, volume 0.1 mL. ?? ? Previously: 0.4 x 0.5 x 0.6 cm, volume 0.06 mL. ?? ? Nodule characteristics: ?? ? Composition: Cystic(0). ?? ? ACR TI-RADS total points: 0 ?? ? ACR TI-RADS category: 1 ? Significant change in size (>/= 20% in 2 dimensions and minimal increase of 2 mm or 50% or greater increase in volume): None ?? ? Change in features: None ?? ? Change in ACR TI-RADS risk category: Not applicable 5.? Location: Left superior. ?? ? Size: 0.6 x 0.5 x 0.3 cm, volume 0.45 mL. ?? ? Previously: Not documented on the prior study. ?? ? Nodule characteristics: ?? ? Composition: Cystic(0). ?? ? ACR TI-RADS total points: 0 ?? ? ACR TI-RADS category: 1 NODES: No lymphadenopathy is seen in the tissue surrounding the thyroid gland. Thyroid Uptake and Scan: 01/17/2016 FINDINGS: The uptake is 3.9% at 3 hours and 14.1% at 23 hours. The radioiodine uptake is normal. The radio pertechnetate thyroid scintigram shows the thyroid gland to be mildly enlarged approximately 1-1/2 times normal in size. There is marked heterogeneity within the gland, with multiple small rounded foci of relatively increased activity present bilaterally, and was relatively decreased activity present in the regions between these foci. A dominant focus is not present. A single radioiodine image obtained at the time of the 24 hour uptake measurement is similar in appearance to the radio pertechnetate image, but because of the small amount of activity within the gland, detail is not well delineated. IMPRESSION: In the clinical setting of a low TSH, these findings are most consistent with a toxic multinodular goiter (Ellston's disease). The radioiodine uptake is normal. Thyroid UPTAKE AND sCAN: 11/19/2017 FINDINGS: The uptake is 17.1% at 4 hours and 46.9% at 24 hours. The radioiodine uptake is moderately elevated. The radiopertechnetate thyroid scintigram demonstrates the thyroid gland to be moderately enlarged, approximately 3 times normal in size. There is homogeneous distribution of activity within the gland with minimal heterogeneity present in the upper pole of the left lobe, an equivocal finding. A faint pyramidal lobe is visualized attaching 2 the upper pole of the right lobe. No other focal abnormalities are noted. The trapping function is moderately to markedly increased diffusely. A single anterior radioiodine image obtained at the time of the 24-hour uptake similar in appearance to the radio pertechnetate image. The thyroid ultrasound dated 06/30/2017 shows the gland to be similar in size several nodules present bilaterally, the largest measuring 1.6 x 0.9 x 1.6 cm in the lower pole of the right lobe. This is not delineated on this radionuclide scan. All the other nodules were subcentimeter in size, in which is small to be resolved on this radionuclide scan. IMPRESSION: Moderately enlarged diffuse goiter. The radioiodine uptake is moderately elevated, but in the absence of suppressed TSH levels, this is nonspecific and could be due to Graves' disease or North's thyroiditis. If this patient was recently treated with antithyroid drugs, these findings would be more consistent with Graves' disease. Nodules visualized on the previous ultrasound study are not apparent on these radionuclide images, but only the nodule identified in the right lower pole was large enough to be resolved on this radionuclide scan. Labs: Laboratory Tests 01/04/23 19:38 TSH 0.69 Currently on 5 mg of methimazole for several mos PFSH Medical History Hyperbilirubinemia Hyperparathyroidism Hearing problem Frequency of urination Elevated blood pressure reading in office with white coat syndrome, with diagnosis of hypertension Gout Vitamin D deficiency Toxic multinodular goiter Bipolar disorder Erectile dysfunction BPH w/o urinary obs/LUTS Abdominal wall mass Myelopathy Surgical History History of removal of cyst (07/10/23) History of surgery Family History Father Dementia Mother Diabetes Social History Household Members: Family and Children Household Members Other:: , daughters, grand children Alcohol intake: never Patient Tobacco Use Status: Former Tobacco user Physical Exam Const Other: Thyroid gland is of normal size weighs about 15 g. There are no thyroid nodules palpated Assessment & Plan Assessment & Plan (1) Toxic multinodular goiter: Code(s): E05.20 - Thyrotoxicosis with toxic multinodular goiter without thyrotoxic crisis or storm Category: Medical Plan: 63-year-old male with history of toxic multinodular goiter status post iodine 131 therapy 2016 with euthyroidism. Status post FNA of right lower pole nodule with benign cytology. Recent TSH level was suppressed 3 mos ago on methimazole 5 mg Plan is to recheck thyroid function studies, liver enzymes adjust methimazole. Went over potential treatment options including continuation methimazole versus radioactive iodine vs surgery and the patient is opting stay on the methimazole the current time. We will schedule patient for follow-up ultrasound with Dr. Baig library information technician to join our practice with expertise a thyroid ultrasound to determine if right nodule needs biopsy Coding Level of Care Code Est Pt Level 3 (44378) Diagnoses Toxic multinodular goiter E05.20
[2024-04-14 14:44] VITALS: BP 160/80; PULSE 80; BMI 29.0
== END 2024-04-14 15:01 | disposition home or self-care (01) ==
PROVIDERS: PCP Internal Medicine Geriatric Medicine; Visit Provider Internal Medicine Endocrinology, Diabetes & Metabolism
DX: E05.20 Thyrotoxicosis with toxic multinodular goiter without thyrotoxic crisis or storm (principal)
CPT/HCPCS: 99213

== ENCOUNTER → 2024-04-14 14:41 | Outpatient (BNVA) | payer MEDICARE, MEDICAID, SELFPAY | PROVIDERS: PCP Internal Medicine Geriatric Medicine; Visit Provider Internal Medicine Endocrinology, Diabetes & Metabolism | DX: E05.20 Thyrotoxicosis with toxic multinodular goiter without thyrotoxic crisis or storm (principal); E03.9 Hypothyroidism, unspecified | CPT/HCPCS: 99212 ==

== ENCOUNTER 2024-04-18 11:05 | Outpatient (REF) | payer MEDICARE, MEDICAID, SELFPAY ==
[2024-04-18 12:22] LABS: Alanine Aminotransferase 33 U/L (0-40); Albumin Level 4.3 g/dL (3.5-5.0); Alkaline Phosphatase 94 U/L (39-117); Aspartate Amino Transferase 24 U/L (5-37); Bilirubin Direct 0.4 mg/dL (0.0-0.5); Bilirubin Total 1.2 mg/dL (0.0-1.0); Total Protein 7.5 g/dL (6.5-8.0)
[2024-04-18 12:37] LABS: Free T4 (Free Thyroxine) 0.89 ng/dL (0.71-1.85); Thyroid Stimulating Hormone 0.84 uIU/mL (0.32-4.0)
[2024-04-18 12:39] LABS: ~HepC Num1 0.18 S/CO (0.00-0.79); ~Hepatitis C Antibody Nonreactive (Nonreactive)
[2024-04-19 08:49] LABS: Triiodothyronine T3 Free 3.4 pg/mL (2.3-4.2)
== END 2024-04-18 11:06 | disposition home or self-care (01) ==
LOC: HO.LAB 11:05
PROVIDERS: Absent Provider Internal Medicine Endocrinology, Diabetes & Metabolism; PCP Internal Medicine Geriatric Medicine; Visit Provider Internal Medicine Geriatric Medicine
DX: E05.20 Thyrotoxicosis with toxic multinodular goiter without thyrotoxic crisis or storm (principal); Z11.59 Encounter for screening for other viral diseases
CPT/HCPCS: 36415; 80076; 84439; 84443; 84481; 86803

== ENCOUNTER 2024-06-13 13:07 | Outpatient (REF) | payer MEDICARE, MEDICAID, SELFPAY | END 2024-06-13 13:08 | disposition home or self-care (01) | LOC: HO.HAP 13:07 | PROVIDERS: Visit Provider Internal Medicine Geriatric Medicine | DX: Z13.89 Encounter for screening for other disorder (principal) ==

== ENCOUNTER 2024-06-15 11:35 | Outpatient (REF) | payer SELFPAY | END 2024-06-15 11:36 | disposition home or self-care (01) | LOC: HO.SH 11:35 | PROVIDERS: Visit Provider Internal Medicine Geriatric Medicine | DX: Z01.118 Encounter for examination of ears and hearing with other abnormal findings (principal); H90.3 Sensorineural hearing loss, bilateral | CPT/HCPCS: 92593 ==

== ENCOUNTER 2024-06-16 13:35 | Outpatient (AMB) | payer MEDICARE, MEDICAID, SELFPAY ==
[2024-06-16 13:37] VITALS: BP 126/72; PULSE 79; BMI 29.5
--- NOTE | 2024-06-16 13:37 | A.OFFVIS_ITS ---
Vital Signs 3 06/16/24 13:37 Height 5 ft 9 in Weight 199 lb 8.293 oz BMI 29.5 BP 126/72 Blood Pressure Location Lt brachial Position Sitting Pulse 79 Pulse Source Pulse Oximeter Intake Visit Reasons: MNG-confirmed Intake Note: Patient present today for MNG office visit. Notereader Required: No Accompanied by: Self / Same As Patient Allergies No Known Allergies Allergy (Verified 06/16/24 13:40) Medication List - Last Reconciled 06/16/24 by Amarilys Baig MD acetaminophen 500 mg PO Q8H PRN amlodipine 10 mg PO DAILY cholecalciferol (vitamin D3) 25 mcg PO DAILY 90 days [Citracal D Slow Rel Tab 80 1 tab PO BID] colchicine 0 mg PO fesoterodine ER (Toviaz) 4 mg PO DAILY 90 days hydroxyzine HCl 50 mg PO BEDTIME lisinopril 5 mg PO DAILY lisinopril 5 mg PO DAILY lithium carbonate 300 mg PO DAILY lithium carbonate ER 600 mg PO DAILY methimazole 5 mg PO DAILY omega-3 fatty acids 1,000 mg PO BEDTIME propranolol ER 60 mg PO DAILY quetiapine 25 mg PO BEDTIME tadalafil 20 mg PO DAILY PRN tadalafil 5 mg PO DAILY 30 days terazosin 5 mg PO BEDTIME 90 days HPI Comments Details: 64 YO Male with a PMHx of 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 HPI from prior visit He was initially diagnosed with hyperthyroidism in 2015, although his TSH was suppressed since back in 2002. In 2015 he underwent a thyroid uptake and scan with uptake WNL, but a pattern consistent with a toxic MNG. TSH was in the hyperthyroid range at that time. He underwent I131 ablation with 2.85 mCi of I131 on 06/09/2016. Not surprisingly, this was not successful and he remained hyperthyroid since that time, and has continued on daily methimazole daily. He for unknown reasons underwent an additional thyroid uptake and scan in 2017, with results showing homogenously increased uptake of >40% at 24 hours. His TSI, TRAB and TPO antibodies are all negative. Dr. Ledbetter did attempt FNA biopsy of his RLP 2.0 cm thyroid nodule. Notes dont mention what year, This was unsuccessful. Most recent thyroid ultrasound in July 2023 showed increase in the size of the right inferior nodule now measuring 1.9 cm in the maximum dimension up from 1.6 cm in the maximum dimension, status post FNA in November 2023, with benign cytology. He also remains on lithium daily, and did have elevated PTH levels. He was started on Calcium citrate 1 tab PO BID and repeat labs were WNL. Calcium levels most recently 09/05 normal Drinks milk every day, cheese 5 times a week , yogurt no Currently on methimazole 5 mg daily He states he feels well today. Reports some chnage in bowel movements has to defecaye after food . No palpitations. No tremors. Gained 10 lbs since summer 2023 He denies any compressive symptoms. He is tolerating methimazole well without the development of rash, jaundice or frequent infection. Laboratory Tests 08/30/21 08/07/22 06/09/23 10:50 15:43 12:04 Calcium Albumin TSH 0.06 L Free T4 0.98 Free T3 Thyroid Stim Immunoglob <89 <89 Thyroglobulin Antibody <1 <1 Thyroid Peroxidase Ab 1 1 TSH Receptor Ab <1.00 <1.00 06/10/23 08/19/23 12/14/23 14:06 13:51 09:59 Calcium 9.9 D 9.4 Albumin 4.1 TSH 0.11 L Free T4 1.18 Free T3 3.6 Thyroid Stim Immunoglob Thyroglobulin Antibody Thyroid Peroxidase Ab TSH Receptor Ab 04/18/24 11:12 Calcium Albumin TSH 0.84 Free T4 0.89 Free T3 3.4 Thyroid Stim Immunoglob Thyroglobulin Antibody Thyroid Peroxidase Ab TSH Receptor Ab Imaging US THYROID Jul 2023 CLINICAL INFORMATION: Thyrotoxicosis with toxic multinodular goiter without thyrotoxic crisis or storm. COMPARISON: Ultrasound soft tissue head/neck thyroid dated 09/30/2021 and 12/26/2019, 05/31/2018 TECHNIQUE: Linear transducer grayscale and color Doppler examination with attention to the region of the thyroid. FINDINGS: SIZE: Measurements of the thyroid lobes and nodules are given in sagittal, anteroposterior and transverse dimensions respectively. Right Thyroid Lobe: 6.3 x 2.6 x 3.1 cm, volume 26 mL. Previously 6.7 x 2.2 x 2.7 cm, volume 21.1 mL. Parenchyma: The gland echotexture is homogeneous. Thyroid vascularity is normal. Left Thyroid Lobe: 5.5 x 2.7 x 2.7 cm, volume 22 mL. Previously 5.9 x 2.7 x 2.3 cm, volume 19 mL. Parenchyma: The gland echotexture is homogeneous. Thyroid vascularity is normal. Isthmus: 0.4 cm in maximum AP dimension. Previously 0.4 cm. Estimated total number of nodules greater than or equal to 1 cm: 1. Lasting Room Machine Operator nodules are described as follows: 1. Location: Isthmus. Size: 0.8 x 0.4 x 0.8 cm, volume 0.14 mL. Previously: Not seen on the previous study. Nodule characteristics: Composition: Cystic(0). ACR TI-RADS total points: 0 ACR TI-RADS category: 1 2. Location: Right mid. Size: 0.4 x 0.2 x 0.4 cm, volume 0.016 mL. Previously: Not seen on the previous study. Nodule characteristics: Composition: Solid (2). Echogenicity: Isoechoic (1). Shape: Not taller than wide (0). Margins: Ill-defined (0). Echogenic Foci: None (0). ACR TI-RADS total points: 3 ACR TI-RADS category: 3 3. Location: Right inferior. Size: 0.5 x 0.3 x 0.4 cm, volume 0.03 mL. Previously: Not seen on the previous study. Nodule characteristics: Composition: Mixed cystic and solid (1). Echogenicity: Isoechoic (1). Shape: Not taller than wide (0). Margins: Ill-defined (0). Echogenic Foci: None (0). ACR TI-RADS total points: 2 ACR TI-RADS category: 2 4. Location: Right inferior. Size: 1.9 x 1.3 x 1.8 cm, volume 2.4 mL. Previously: 1.6 x 1.5 x 1.7 cm, volume 2.1 mL. This measured 1.6 x 0.9 x 1.6 cm in 2018. Nodule characteristics: Composition: Mixed cystic and solid (1). Echogenicity: Hypoechoic (2). Shape: Not taller than wide (0). Margins: Smooth (0). Echogenic Foci: None (0). ACR TI-RADS total points: 3 ACR TI-RADS category: 3 Significant change in size (>/= 20% in 2 dimensions and minimal increase of 2 mm or 50% or greater increase in volume): Recent prior however increased from remote prior. Change in features: No not when accounting for differences in interobserver variability as previously appeared slightly hypoechoic. NODES: No lymphadenopathy is seen in the tissue surrounding the thyroid gland. US/US thyroid IMPRESSION: A 1.9 cm TR 3 right thyroid nodule is not increased in size from recent prior however is increased in size from remote prior therefore consider one-year follow-up thyroid ultrasound. Thyroid US: 09/30/2021 Right Thyroid Lobe: 6.7 x 2.2 x 2.7 cm, volume 21.1 mL. Previously 6.1 x 2.7 x 2.8 cm, volume 23.9 mL. Parenchyma: The gland echotexture is homogeneous. Thyroid vascularity is normal. Left Thyroid Lobe: 5.9 x 2.7 x 2.3 cm, volume 19.0 mL. Previously 6.0 x 2.4 x 2.8 cm, volume 20.4 mL. Parenchyma: The gland echotexture is homogeneous. Thyroid vascularity is normal. Isthmus: 0.4 cm in maximum AP dimension. Previously 0.6 cm. Estimated total number of nodules greater than or equal to 1 cm: 1. Lasting Room Machine Operator nodules are described as follows: 1.? Location: Right inferior. ?? ? Size: 0.6 x 0.3 x 0.5 cm, volume 0.05 mL. ?? ? Previously: 0.6 x 0.3 x 0.6 cm, volume 0.06 mL. ?? ? Nodule characteristics: ?? ? Composition: Solid (2). ?? ? Echogenicity: Hypoechoic (2). ?? ? Shape: Not taller than wide (0). ?? ? Margins: Ill-defined (0). ?? ? Echogenic Foci: None (0). ? ACR TI-RADS total points: 4 ?? ? ACR TI-RADS category: 4 ? Significant change in size (>/= 20% in 2 dimensions and minimal increase of 2 mm or 50% or greater increase in volume): None ?? ? Change in features: None ?? ? Change in ACR TI-RADS risk category: Not applicable 2.? Location: Right inferior. ?? ? Size: 0.4 x 0.3 x 0.3 cm, volume 0.02 mL. ?? ? Previously: 0.4 x 0.3 x 0.4 cm, volume 0.03 mL. ?? ? Nodule characteristics: ?? ? Composition: Solid (2). ?? ? Echogenicity: Anechoic (0). ?? ? Shape: Not taller than wide (0). ?? ? Margins: Ill-defined (0). ?? ? Echogenic Foci: None (0).? ACR TI-RADS total points: 2 ?? ? ACR TI-RADS category: 2 ? Significant change in size (>/= 20% in 2 dimensions and minimal increase of 2 mm or 50% or greater increase in volume): None ?? ? Change in features: None ?? ? Change in ACR TI-RADS risk category: Not applicable 3.? Location: Right inferior. ?? ? Size: 1.6 x 1.5 x 1.7 cm, volume 2.1 mL. ?? ? Previously: 2.0 x 1.1 x 1.5 cm, volume 1.7 mL. ?? ? Nodule characteristics: ?? ? Composition: Mixed cystic and solid (1). ?? ? Echogenicity: Isoechoic (1). ?? ? Shape: Not taller than wide (0). ?? ? Margins: Smooth (0). ?? ? Echogenic Foci: None (0). ? ACR TI-RADS total points: 2 ?? ? ACR TI-RADS category: 2 ? Significant change in size (>/= 20% in 2 dimensions and minimal increase of 2 mm or 50% or greater increase in volume): None ?? ? Change in features: Not applicable ?? ? Change in ACR TI-RADS risk category: Not applicable 4.? Location: Right inferior. ?? ? Size: 0.7 x 0.5 x 0.6 cm, volume 0.1 mL. ?? ? Previously: 0.4 x 0.5 x 0.6 cm, volume 0.06 mL. ?? ? Nodule characteristics: ?? ? Composition: Cystic(0). ?? ? ACR TI-RADS total points: 0 ?? ? ACR TI-RADS category: 1 ? Significant change in size (>/= 20% in 2 dimensions and minimal increase of 2 mm or 50% or greater increase in volume): None ?? ? Change in features: None ?? ? Change in ACR TI-RADS risk category: Not applicable 5.? Location: Left superior. ?? ? Size: 0.6 x 0.5 x 0.3 cm, volume 0.45 mL. ?? ? Previously: Not documented on the prior study. ?? ? Nodule characteristics: ?? ? Composition: Cystic(0). ?? ? ACR TI-RADS total points: 0 ?? ? ACR TI-RADS category: 1 NODES: No lymphadenopathy is seen in the tissue surrounding the thyroid gland. Thyroid Uptake and Scan: 01/17/2016 FINDINGS: The uptake is 3.9% at 3 hours and 14.1% at 23 hours. The radioiodine uptake is normal. The radio pertechnetate thyroid scintigram shows the thyroid gland to be mildly enlarged approximately 1-1/2 times normal in size. There is marked heterogeneity within the gland, with multiple small rounded foci of relatively increased activity present bilaterally, and was relatively decreased activity present in the regions between these foci. A dominant focus is not present. A single radioiodine image obtained at the time of the 24 hour uptake measurement is similar in appearance to the radio pertechnetate image, but because of the small amount of activity within the gland, detail is not well delineated. IMPRESSION: In the clinical setting of a low TSH, these findings are most consistent with a toxic multinodular goiter (Rogelio's disease). The radioiodine uptake is normal. Thyroid UPTAKE AND sCAN: 11/19/2017 FINDINGS: The uptake is 17.1% at 4 hours and 46.9% at 24 hours. The radioiodine uptake is moderately elevated. The radiopertechnetate thyroid scintigram demonstrates the thyroid gland to be moderately enlarged, approximately 3 times normal in size. There is homogeneous distribution of activity within the gland with minimal heterogeneity present in the upper pole of the left lobe, an equivocal finding. A faint pyramidal lobe is visualized attaching 2 the upper pole of the right lobe. No other focal abnormalities are noted. The trapping function is moderately to markedly increased diffusely. A single anterior radioiodine image obtained at the time of the 24-hour uptake similar in appearance to the radio pertechnetate image. The thyroid ultrasound dated 06/30/2017 shows the gland to be similar in size several nodules present bilaterally, the largest measuring 1.6 x 0.9 x 1.6 cm in the lower pole of the right lobe. This is not delineated on this radionuclide scan. All the other nodules were subcentimeter in size, in which is small to be resolved on this radionuclide scan. IMPRESSION: Moderately enlarged diffuse goiter. The radioiodine uptake is moderately elevated, but in the absence of suppressed TSH levels, this is nonspecific and could be due to Graves' disease or North's thyroiditis. If this patient was recently treated with antithyroid drugs, these findings would be more consistent with Graves' disease. Nodules visualized on the previous ultrasound study are not apparent on these radionuclide images, but only the nodule identified in the right lower pole was large enough to be resolved on this radionuclide scan. [facility] Medical History Hyperbilirubinemia Hyperparathyroidism Hearing problem Frequency of urination Elevated blood pressure reading in office with white coat syndrome, with diagnosis of hypertension Gout Vitamin D deficiency Toxic multinodular goiter Bipolar disorder Erectile dysfunction BPH w/o urinary obs/LUTS Abdominal wall mass Myelopathy Surgical History History of removal of cyst (07/10/23) History of surgery Family History Father Dementia Mother Diabetes Social History Household Members: Family and Children Household Members Other:: , daughters, grand children Alcohol intake: never Patient Tobacco Use Status: Former Tobacco user Physical Exam Vital Signs: Last Vital Signs Pulse 79 06/16/24 13:37 BP 126/72 06/16/24 13:37 BMI result Body Mass Index 29.5 Assessment & Plan Assessment & Plan (1) Toxic multinodular goiter: Code(s): E05.20 - Thyrotoxicosis with toxic multinodular goiter without thyrotoxic crisis or storm Category: Medical Plan: 64-year-old male with history of toxic multinodular goiter status post iodine 131 therapy 2016 who failed radioactive iodine ablation and subsequently has been on methimazole currently at 5 mg daily. Given he has been on therapy with methimazole for about 8 years now, I discussed with him definitive therapy options radioactive iodine versus surgery. Given that he has failed radioactive iodine ablation in the past, I recommended total thyroidectomy to him. We also discussed the option of continuing on methimazole. He is interested in meeting with a surgeon to discuss possible surgery. I will place refer for Dr. Kenisha Garcia at [facility] in [place]. Otherwise he is euthyroid on methimazole 5 mg daily. We will continue for now. Plan to repeat labs before his follow up in 4 months. Given he is on lithium I will also check his calcium, PTH levels. We will also check a vitamin-D level as he might need neck surgery. Status post FNA in November 2023 of right lower pole nodule with benign cytology. The following were discussed as potential side effects of methimazole: - Serious skin rashes - nausea, vomiting, or severe hepatic injury - Agranulocytosis: a rare side effect of methimazole involves a severe decrease in the production of white blood cells. This condition is extremely serious, but affects only one out of every 200 to 500 people who take an antithyroid drug. Agranulocytosis more commonly occurs within the first three months of starting treatment with an antithyroid drug, but can occur at any time. If patient develops a fever (temperature above 100.5F), or other signs or symptoms of infection, she should stop taking the tapazole and immediately have a complete blood count (CBC) done. Serious and potentially life threatening infections, or even , can occur before agranulocytosis resolves. However, once the antithyroid drug is stopped, agranulocytosis usually resolves within a week. - Arthralgias, myalgias - Renal: Nephritis - Fever Patient will stop medication and call our office if these occur. Plan: -referral placed to Dr. Kenisha Garcia to be evaluated for total thyroidectomy -continue methimazole 5 mg daily -ordered TSH, free T4, LFTs, CBC with diff to be done prior to 4 months appointment Plan I spent 30 minutes in reviewing the record, seeing the patient and documenting in the medical record. Orders: Orders 2 Free T4 (Free Thyroxine) 4 Months E05.20 - Thyrotoxicosis with toxic multinodular goiter without thyrotoxic crisis or storm Complete Blood Count Auto Diff 4 Months E05.20 - Thyrotoxicosis with toxic multinodular goiter without thyrotoxic crisis or storm Liver Panel 4 Months E05.20 - Thyrotoxicosis with toxic multinodular goiter without thyrotoxic crisis or storm Albumin Level 4 Months E05.20 - Thyrotoxicosis with toxic multinodular goiter without thyrotoxic crisis or storm Calcium 4 Months E05.20 - Thyrotoxicosis with toxic multinodular goiter without thyrotoxic crisis or storm Thyroid Stimulating Hormone 4 Months E05.20 - Thyrotoxicosis with toxic multinodular goiter without thyrotoxic crisis or storm Parathyroid Hormone Intact 4 Months E05.20 - Thyrotoxicosis with toxic multinodular goiter without thyrotoxic crisis or storm Vitamin D 25-OH Total 4 Months E05.20 - Thyrotoxicosis with toxic multinodular goiter without thyrotoxic crisis or storm, E55.9 - Vitamin D deficiency, unspecified Referrals 2 General Surgery Referral E05.20 - Thyrotoxicosis with toxic multinodular goiter without thyrotoxic crisis or storm Patient Instructions: Continue taking 2-3 servings fo calcium rich foods daily such as milk, cheese , yogurt Meet with Dr. Garcia at [facility] to talk about thyroid surgery Continue methimazole 5 mg daily If you get scheduled for surgery pls let our office know Otherwise follow up in 4 months with blood work 3-4 days before your appointment , orders are at the lab If you ever have fever, flu like symptoms , sore throat or rash or nausea or vomiting, stop methimazole and call our office during office hours Contin?e tomando 2 o 3 porciones diarias de alimentos ricos en calcio, vanda leche, queso y yogur. Re?nase con el Dr. Garcia en [facility] para hablar sobre la cirug?a de tiroides Continuar con metimazol 5 mg al d?a. Si tiene mikey cirug?a programada, inf?rmeselo a nuestra oficina. De lo contrario, candelaria un seguimiento en 4 meses con an?lisis de mariya 3-4 d?as antes de willard morena, las ?rdenes est?n en el laboratorio. Si alguna vez tiene fiebre, s?ntomas similares a los de la estelae, dolor de garganta, sarpullido, n?useas o v?mitos, suspenda el metimazol y llame a nuestra oficina jamison el horario de oficina. Coding Level of Care Code Est Pt Level 4 (62025) Diagnoses Toxic multinodular goiter E05.20 Time Spent (min) 30
== END 2024-06-16 14:32 | disposition home or self-care (01) ==
PROVIDERS: PCP Internal Medicine Geriatric Medicine; Visit Provider Student in an Organized Health Care Education/Training Program
DX: E05.20 Thyrotoxicosis with toxic multinodular goiter without thyrotoxic crisis or storm (principal)
CPT/HCPCS: 99214

== ENCOUNTER → 2024-06-16 13:35 | Outpatient (BNVA) | payer MEDICARE, MEDICAID, SELFPAY | PROVIDERS: PCP Internal Medicine Geriatric Medicine; Visit Provider Student in an Organized Health Care Education/Training Program | DX: E05.20 Thyrotoxicosis with toxic multinodular goiter without thyrotoxic crisis or storm (principal); E55.9 Vitamin D deficiency, unspecified | CPT/HCPCS: 99212 ==

== ENCOUNTER 2024-07-05 10:00 | Outpatient (REF) | payer MEDICARE, MEDICAID, SELFPAY ==
[2024-07-05 11:09] LABS: MANUAL DIFF FLAG NO
[2024-07-05 11:11] LABS: Basophils Percent Auto 0.5 % (0-2); Eosinophils Absolute Auto 0.1 X10*3/uL (0.0-0.4); Eosinophils Percent Auto 1.4 % (0-4); Hematocrit 45.8 % (42.0-52.0); Hemoglobin 15.6 g/dl (14.0-18.0); Imm Gran Abs Auto 0.03 X10*3/uL (0.00-0.03); Imm Gran Pct Auto 0.4 % (0.0-0.4); Lymphocytes Absolute Auto 2.3 X10*3/uL (1.2-4.9); Lymphocytes Percent Auto 27.3 % (20-40); Mean Corpuscular HGB Conc 34.1 g/dl (31.0-36.0); Mean Corpuscular Hemoglobin 29.6 pg (27.0-33.0); Mean Corpuscular Volume 86.9 fL (80.0-98.0); Mean Platelet Volume 8.7 fL (9.4-12.4); Monocytes Absolute Auto 0.6 X10*3/uL (0.1-1.2); Monocytes Percent Auto 7.2 % (2-11); Neutrophils Absolute Auto 5.4 x10*3/uL (2.0-8.3); Neutrophils Percent Auto 63.2 % (45-73); Platelet Count 257 X10*3/uL (160-400); Red Blood Count 5.27 X10*6/uL (4.60-5.80); White Blood Count 8.6 X10*3/uL (4.8-10.8)
[2024-07-05 11:53] LABS: Alanine Aminotransferase 36 U/L (0-40); Alkaline Phosphatase 83 U/L (39-117); Anion Gap 10 (12-20); Aspartate Amino Transferase 30 U/L (5-37); Bilirubin Total 1.1 mg/dL (0.0-1.0); Blood Urea Nitrogen 17 mg/dL (9-16); Calcium 8.9 mg/dL (8.4-10.2); Carbon Dioxide 23 mmol/L (22-29); Chloride 111 mmol/L (96-108); Cholesterol 91 mg/dL (<200); Estimated Glomerular Filt Rate > 60; Glucose Random 120 mg/dL (60-115); HDL Cholesterol 26 mg/dL (>40); LDL Cholesterol Calculated 51 mg/dL (<100); Potassium 4.3 mmol/L (3.3-5.1); Sodium 140 mmol/L (135-145); Triglycerides 74 mg/dL (<150)
[2024-07-05 11:59] LABS: Lithium 0.15 mmol/L (0.60-1.20)
== END 2024-07-05 10:01 | disposition home or self-care (01) ==
LOC: HO.HHCL 10:00
PROVIDERS: Visit Provider Internal Medicine Geriatric Medicine
DX: E05.90 Thyrotoxicosis, unspecified without thyrotoxic crisis or storm (principal); F31.9 Bipolar disorder, unspecified; I10 Essential (primary) hypertension; Z79.899 Other long term (current) drug therapy
CPT/HCPCS: 36415; 80053; 80061; 80178; 85025

== ENCOUNTER 2024-07-26 09:29 | Outpatient (REF) | payer MEDICARE, MEDICAID, SELFPAY ==
--- NOTE | ~2024-07-26 | US_ITS ---
EXAMINATION: BILATERAL CAROTID ULTRASOUND WITH DOPPLER HISTORY: CEREBRAL INFARCTION COMPARISON: There are no prior studies for comparison. TECHNIQUE: Real time and Color and Spectral doppler ultrasonography of the carotid and vertebral arteries was performed in multiple planes. FINDINGS: There is mild noncalcified plaque at the right carotid bulb. VERTEBRAL FLOW DIRECTION: Antegrade bilaterally. PEAK SYSTOLIC VELOCITIES (in cm/sec): RIGHT: CCA: Prox: 120 Dist: 72 ICA: Prox: 31 Mid: 70 Dist: 46 ICA/CCA Ratio: 0.58 ECA: 117 Peak ICA EDV: 14 LEFT: CCA: Prox: 136 Dist: 89 ICA: Prox: 107 Mid: 114 Dist: 102 ICA/CCA Ratio: 0.4 ECA: 155 Peak ICA EDV: 42 US/US carotid duplex BI IMPRESSION: Findings consistent with 1-29% stenosis of the proximal internal carotid arteries by criteria similar to NASCET. Electronically signed by: Ulises Portillo MD 07/27/2024 09:02 AM EST
== END 2024-07-26 09:30 | disposition home or self-care (01) ==
LOC: HO.US 09:29
PROVIDERS: PCP Internal Medicine Geriatric Medicine; Visit Provider Psychiatry & Neurology Neurology
DX: I65.23 Occlusion and stenosis of bilateral carotid arteries (principal); I63.9 Cerebral infarction, unspecified
CPT/HCPCS: 93880

== ENCOUNTER → 2024-07-26 09:31 | Outpatient (BNV) | payer MEDICARE, MEDICAID, SELFPAY | PROVIDERS: PCP Internal Medicine Geriatric Medicine; Visit Provider Radiology Diagnostic Radiology | DX: I63.9 Cerebral infarction, unspecified (principal) | CPT/HCPCS: 93880 ==

== ENCOUNTER 2024-09-13 13:54 | Outpatient (REF) | payer SELFPAY ==
--- OUTSIDE RECORDS SUMMARY | 2024-09-13 17:31 | XMS_ITS | Encounter Summary ---
Author Organization [employer] Address [address] [facility] [address] [place] [address] Care Team Providers Care Metal Bonding Helper Name Role Phone Name, Terrence YOON Primary Care Provider [phone] Jimmy Lua Unavailable Unavailable Reason for Visit * Reason Comments Med Refill Encounter Details Date Type Department Care Team (Late Contact Info) Description 04/07/2023 Refill [facility] [address] [place], [place] [phone] Jimmy Lua FNP Bipolar affective disorder in remission (CMS/FORMERLY [facility]) Social History Tobacco Use Types Packs/Day Years Used Date Smoking Tobacco: Former Cigarettes Passive Smoke Exposure: Never Smokeless Tobacco: Never Alcohol Use Standard Drinks/Week Comments Never 0 (1 standard drink = 0.6 oz pur e alcohol) Depression Answer Date Recorded Patient Health Questionnaire-9 Score 3 03/26/2023 Depression Answer Date Recorded Patient Health Questionnaire-2 Score 2 03/26/2023 Sex and Gender Information Value Date Recorded Sex Assigned at Male 05/12/2022 10:25 AM EDT Legal Sex Male 10:25 AM EDT Gender Identity Male 05/12/2022 10:25 AM EDT Sexual Orientation Straight 05/12/2022 10 :25 AM EDT documented as of this encounter Plan of Treatment Upcoming Encounters Date Type Department Care Team (Late Contact Info) Description 10/05/2024 3:00 PM EDT Office Visit [facility] [address] [place], [place] [phone] Ulises Saunders DDS [address] [place], [place] [phone] 12/16/2024 3:00 PM EDT Office Visit [facility] [address] [place] [address] Brandon Adkinsaris [address] [place] [address] documented as of this encounter Visit Diagnoses Diagnosis Bipolar affective disorder in remission (CMS/HCC) documented in this encounter Additional Health Concerns Assessment Noted Time PHQ-9 Depression Total Score: 3 03/26/20 23 11:40 AM EDT documented as of this encounter Care Teams Metal Bonding Helper Relationship Specialty Start Date End Date Name, MD Terrence [address] [place] [address] PCP - General Family Medicine 09/14/15 Jimmy Lua FNP [address] [place] [id number] Nurse Practitioner Family Medicine 05/26/23 documented as of this encounter
--- OUTSIDE RECORDS SUMMARY | 2024-09-13 17:31 | XMS_ITS | Encounter Summary ---
Author Organization [employer] [facility] Address [address] [facility] [address] [place] [address] Care Team Providers Care Editorial Assistant Name Role Phone Name, Terrence YOON Primary Care Provider [phone] Jimmy Lua Unavailable Unavailable Encounter Details Date Type Department Care Team (Late st Contact Info) Description 01/06/2023 Orders Only [facility] [address] [place] [address] Karmen Ulrich LPN Social History Tobacco Use Types Packs/Day Years Used Date Smoking Tobacco: Never Passive Smoke Exposure: Never Smokeless Tobacco: Never PHQ-2 Answer Date Recorded Patient Health Questionnaire-2 Score 0 10/20/2022 Sex and Gender Information Value Date Recorded Sex Assigned at Male 05/12/2022 10:25 AM EDT Legal Sex Male 10:25 AM EDT Gender Identity Male 05/12/2022 10:25 AM EDT Sexual Orientation Straight 05/12/2022 10 :25 AM EDT documented as of this encounter Plan of Treatment Upcoming Encounters Date Type Department Care Team (Late st Contact Info) Description 10/05/2024 3:00 PM EDT Office Visit [facility] [address] [place] [address] Ulises Saunders DDS [address] [place], [place] [phone] 12/16/2024 3:00 PM EDT Office Visit [facility] [address] [place] [address] Aliyah Adkins [address] [place] [address] documented as of this encounter Visit Diagnoses Not on filedocumented in this encounter Additional Health Concerns Assessment Noted Time PHQ-9 Depression Total Score: 0 10/21/19 23 2:06 PM EDT documented as of this encounter Care Teams Editorial Assistant Relationship Specialty Start Date End Date Name, MD Terrence [address] [place] [address] PCP - General Family Medicine 09/14/15 Jimmy Lua FNP [address] [place] [address] Nurse Practitioner Family Medicine 05/26/23 documented as of this encounter
--- OUTSIDE RECORDS SUMMARY | 2024-09-13 17:31 | XMS_ITS | Encounter Summary ---
Author Organization [employer] Address [address] [facility] [address] [place] [address] Care Team Providers Care Osteopathy Doctor Name Role Phone Name, Terrence YOON Primary Care Provider [phone] Jimmy Lua Unavailable Unavailable Reason for Visit * Reason Onset Date Comments October recalls 09/06/2024 Encounter Details Date Type Department Care Team (Late st Contact Info) Description 09/06/2024 Telephone [facility] [address] [place] [address] Tracy Wright [place] October recalls Social History Tobacco Use Types Packs/Day Years Used Date Smoking Tobacco: Former Cigarettes Passive Smoke Exposure: Never Smokeless Tobacco: Never Alcohol Use Standard Drinks/Week Comments Never 0 (1 standard drink = 0.6 oz pur e alcohol) Depression Answer Date Recorded Patient Health Questionnaire-9 Score 0 09/22/2023 Patient Health Questionnaire-9 Score 0 09/22/2023 Last PHQ-9: Questionnaire Data Not on file 0 09/22/2023 Housing Stability Answer Date Recorded What is your housing situation today? I have vinh iqbal 06/28/[address] you li ve. Do you have problems with any of the following? None of the above 06/28/2024 Food Insecurity Answer Date Recorded Within the past 12 months, y ou worried that your food would run out before you got money to buy more: Never True 06/28/2024 Within the past 12 months,th e food you bought just didn't last and you didn't have enough money to get more: Never True Transportation Answer Date Recorded In the past 12 months, has l ack of transportation kept you from medical appts, meetings, work or from getting things needed for daily living? No 06/28/2024 Utilities Answer Date Recorded In the past 12 months, has t he electric, gas, oil or water company threatened to shut off services in your home? No 06/28/2024 Depression Answer Date Recorded Patient Health Questionnaire-2 Score 0 09/22/2023 Internet Access Answer Date Recorded Internet Access Q1 Yes 06/28/2024 Internet Access Q2 Not on file 06/28/2024 Sex and Gender Information Value Date Recorded Sex Assigned at Male 05/12/2022 10:25 AM EDT Legal Sex Male 10:25 AM EDT Gender Identity Male 05/12/2022 10:25 AM EDT Sexual Orientation Straight 05/12/2022 10 :25 AM EDT documented as of this encounter Miscellaneous Notes * Telephone Encounter - Tracy Wright [place] - 09/06/2024 1:46 PM EST Telephone call to patient to schedule a recall appointment. No answer, Left voicemail to return call to clinic.. Recall letter sent. Visit type: Follow up Appointment notes: HTN due: October With: Name Please schedule appointment above if patient returns call documented in this encounter Plan of Treatment Upcoming Encounters Date Type Department Care Team (Late st Contact Info) Description 10/05/2024 3:00 PM EDT Office Visit [facility] [address] [place] [address] Ulises Saunders DDS [address] [place] [address] 12/16/2024 3:00 PM EDT Office Visit [facility] [address] [place] [address] Aliyah Adkins [address] [place] [address] documented as of this encounter Visit Diagnoses Not on filedocumented in this encounter Additional Health Concerns Assessment Noted Time PHQ-9 Depression Total Score: 0 09/22/19 24 11:18 AM EDT documented as of this encounter Care Teams Osteopathy Doctor Relationship Specialty Start Date End Date Name, MD Terrence [address] [place] [address] PCP - General Family Medicine 09/14/15 Jimmy Lua FNP [address] [place] [address] Nurse Practitioner Family Medicine 05/26/23 documented as of this encounter
--- OUTSIDE RECORDS SUMMARY | 2024-09-13 17:31 | XMS_ITS | Encounter Summary ---
Author Organization [employer] Address [address] [facility] [address] [place] [address] Care Team Providers Care Road Worker Name Role Phone Name, Terrence YOON Primary Care Provider [phone] Jimmy Lua Unavailable Unavailable Reason for Visit * Reason Comments [place] post and core #20 Encounter Details Date Type Department Care Team ([facility] st Contact Info) Description 08/19/2024 8:00 AM EST Office Visit [facility] [address] [place] [address] Opal Al DDS [address] [place] [address] Dental caries (Primary Dx); Full coverage crown needed for root canal-treated tooth Social History Tobacco Use Types Packs/Day Years [...] AM EDT documented as of this encounter Last Filed Vital Signs Vital Sign Reading Time Taken Comments Blood Pressure 140/82 08/19/2024 8:07 AM EST Pulse 69 08/19/2024 8:07 AM EST Temperature - - Respiratory Rate - - Oxygen Saturation - - Inhaled Oxygen Concentration - - Weight - - Height - - Body Mass Index - - documented in this encounter Progress Notes * Opal Al, LISSA - 08/19/2024 8:00 AM EST Patient ID: Kong Hogue is a 64 y.o. male. Time Out: Timeout Date: 08/19/24, Timeout Time: 810 (post core and crown #20) Location: [facility] Tooth: #20 Procedure: [place] and Post & Core Verified the above with patient, assistant restaurant general manager, and provider. Confirmed via patient's chart, intraorally and by radiographs. Acid Patroller: not applicable Chief Complaint Patient presents with [place] post and core #20 Medical Hx: Vitals: Blood pressure (!) 140/82, pulse 69. Medications, Med Hx reviewed with patient and updated in chart. Consent Obtained: The risks, benefits, indications, potential complications, and alternatives were explained to the patient and informed consent was obtained with good understanding. Treatment Provided: Dental procedures in this visit D2954 - PREFABRICATED POST AND CORE IN ADDITION TO CROWN 20 (Completed) Service provider: Opal Al DDS Billing provider: Opal Al DDS D2700.1 - CROWN PREP 20 (Completed) Service provider: Opal Al DDS Billing provider: Opal Al DDS [id number] - INTRAORAL - PERIAPICAL FIRST RADIOGRAPHIC IMAGE (Completed) Service provider: Opal Al DDS Billing provider: Opal Al DDS [id number] - ADJUNCTIVE GENERAL SERVICES - PROFESSIONAL VISITS - CASE PRESENTATION, SUBSEQUENT TO DETAILED AND EXTENSIVE TREATMENT PLANNING (Completed) Service provider: Opal Al DDS Billing provider: Opal Al DDS Topical: 20% Benzocaine Anesthesia: 2% Lidocaine (Xylocaine) w/ 1:100,000 epinephrine Number of Cartridges: 1 Injection Type: Buccal infiltration, Long buccal nerve block, and LI nerve infiltration Confirmed profound anesthesia. Isolation: high speed suction and cotton rolls Post and Core: Temporary yazidism removed. Canal length: 26 mm Teddy-percha removed using Goodwin Troup Post space made: 15 mm Peeso reamer used size: 0-yellow Post type used: Flexipost Post size used: 0-yellow PA taken to confirm post size and length. Irrigation: Chlorhexidine Post space dried using paper points. Etch: 37% Phosphoric Acid Etch Castaneda: I-Castaneda Post cemented with: Relyx Unicem Core: Filtek [place] Flowable Composite PA taken to confirm fit. Occlusion checked with articulating paper and adjustments made as needed. Core smoothed and polished. [place] Prep: Prepared tooth for: Ceramic crown Gingival Retraction: Traxodent and Retraction cap Final Impression taken with: [employer] Body Bite Registration taken with: Gillian BARTLETT Provisional fabricated with: Paradigm Temp Material and cemented with: TempBond Shade: A3.5 Lab used: [facility] Lab Due Date: 09/01/2024 POI given to patient with instructions for homecare, to avoid sticky or crunchy foods, and to call if temp crown becomes dislodged. All questions answered. Patient tolerated procedure well, and was discharged alert, oriented, and in stable condition. NV: [place] sales and in home delivery specialist: TANYA Rey Dentist: Opal Al DDS documented in this encounter Plan of Treatment Upcoming Encounters Date Type Department Care Team (Late st Contact Info) Description 10/05/2024 3:00 PM EDT Office Visit [facility] [address] [place] [address] Ulises Saunders DDS [address] [place] [address] 12/16/2024 3:00 PM EDT Office Visit [facility] [address] [place] [address] Aliyah Adkins [address] [place] [address] Scheduled Orders Name Type Priority Associated Diagnoses Orde r Schedule DENTAL LAB FIXED Dental Routine Ordered: 08/19/2024 documented as of this encounter Procedures Procedure Name Priority Date/Time Associated Diagnosis Comments 20 CROWN PREP Routine 08/19/2024 8:00 AM EST Dental caries Full coverage crown needed for root canal-treated tooth 20 PREFABRICATED POST AND CORE IN ADDITION TO CROWN Routine 08/19/2024 8:00 AM EST Dental caries Full coverage crown needed for root canal-treated tooth INTRAORAL - PERIAPICAL FIRST RADIOGRAPHIC IMAGE Routine 08/19/2024 8:00 AM EST Dental caries Full coverage crown needed for root canal-treated tooth CASE PRESENTATION, DETAILED AND EXTENSIVE TREATMENT PLANNING Routine 08/19/2024 8:00 AM EST Dental caries Full coverage crown needed for root canal-treated tooth documented in this encounter Visit Diagnoses Diagnosis Dental caries- Primary Unspecified dental caries Full coverage crown needed for root canal-treated tooth documented in this encounter Additional Health Concerns Assessment Noted Time PHQ-9 Depression Total Score: 0 09/22/19 24 11:18 AM EDT documented as of this encounter Care Teams Road Worker Relationship Specialty Start Date End Date Name, MD Terrence [address] [place] [id number] PCP - General Family Medicine 09/14/15 Jimmy Lua FNP [address] [place] [address] Nurse Practitioner Family Medicine 05/26/23 documented as of this encounter
--- OUTSIDE RECORDS SUMMARY | 2024-09-13 17:31 | XMS_ITS | Clinical Summary ---
Author Organization [employer] Address [address] [facility] [address] [place] [address] Care Team Providers Care Operating Room Manager Name Role Phone Name, Terrence YOON Primary Care Provider [phone] Jimmy Lua Unavailable Unavailable Allergies No known active allergies Medications * This document contains information received from the source organization and may not represent a complete record from that organization. Calcium-Magnesiu m-Vitamin D (CITRACAL CALCIUM+D PO) Take 1 tablet by mouth 2 times daily. 02/02/2023 Active oxybutynin XL (Ditropan-XL) 15 MG 24 hr tablet Take 15 mg by mouth in the morning. 01/14/2023 Active methIMAzole (Tapazole) 5 MG tablet Take 2.5 mg by mouth in the morning. 07/01/2023 Active Vitamin D High Potency 25 MCG (1000 UT) capsule TAKE 1 CAPSULE BY MOUTH EVERY MORNING 90 capsule 1 08/17/2023 Active hydrALAZINE (Apresoline) 25 MG tablet Take 1 tablet (25 mg) by mouth 2 times daily. 60 tablet 11 08/19/2023 Active lithium 300 MG tabletIndication s:Bipolar affective disorder in remission (CMS/HCC) Take 1 tablet (300 mg) by mouth Once daily. 90 tablet 3 11/26/2023 Active QUEtiapine (SEROquel) 25 MG tablet Take 3 tablets (75 mg) by mouth at bedtime. 270 tablet 3 11/26/2023 Active hydrOXYzine HCl (Atarax) 50 MG tablet TAKE 1 TABLET BY MOUTH DAILY AT BEDTIME NEEDED 60 tablet 2 02/16/2024 Active atorvastatin (Lipitor) 80 MG tabletIndication s:Cerebrovascula r accident (CVA), unspecified mechanism (CMS/HCC) Take 1 tablet (80 mg) by mouth Once per day. 30 tablet 11 06/03/2024 06/03/20 25 Active Active Problems Problem Noted Date Diagnosed Date Open fracture of tooth 05/13/2024 Cerebrovascular accident (CVA) 05/26/2023 Overview (05/26/2023): Patient has started on meds for secondary prevetion of CVA. He will continue on the baby ASA, I will double his lisinopril and started him on high dose atorvast Dental calculus 05/15/2023 Localized gingival recession, minimal 05/15/2023 Dental abscess 03/20/2023 Family history of dementia 02/25/2023 Memory problem 02/25/2023 Chronic gout without tophus 12/05/2022 Severe dental caries 09/29/2022 Bipolar affective disorder in remission 07/22/19 23 Assessment & Plan (11/26/2023 3:17 PM EDT): Had been stable on [place] 600 mg daily for a long time, seemed to continue well-controlled with decreased [place] 300 mg. However developed marked insomnia and hypomania. He resumed [place] 300 mg 2 tabs daily but developed tremor. Pt was extremely resistant to change in medications, but did agree to gradual uptaper of Seroquel now 75 mg at bedtime and decreased [place] 300 mg once at bedtime. Pt says the tremor has resolved and his mood is fine. Continue Seroquel 75 mg at bedtime, [place] 300 mg 1 at bedtime. Since this provider will be retiring, he will be transferred to new psychiatric prescriber. Meanwhile, prescriptions were sent for his medications with 1 year of refills. Any issues or concerns, contact [facility]. All his questions were answered. I have wished him well. Pt agrees with the plan. Assessment & Plan (09/22/2023 12:27 PM EDT): Had been stable on [place] 600 mg daily for a long time, seemed to continue well-controlled with decreased [place] 300 mg. However developed marked insomnia and hypomania. He resumed [place] 300 mg 2 tabs daily but developed tremor. Pt was extremely resistant to change in medications, but did agree to gradual uptaper of Seroquel now 75 mg at bedtime and decreased [place] 300 mg once at bedtime. Pt says the tremor has resolved and his mood is fine. Continue Seroquel 75 mg at bedtime, [place] 300 mg 1 at bedtime. On 06/25/2023 provider informed the patient and caregiver that I would be retiring, and we would make every effort to plan smooth transition of care. Meanwhile, F/U with me in 2 months. Pt agrees with the plan. Assessment & Plan (07/28/2023 1:35 PM EST): Had been stable on [place] 600 mg daily for a long time, seemed to continue well-controlled with decreased [place] 300 mg. However developed marked insomnia and hypomania. He resumed [place] 300 mg 2 tabs daily but developed tremor. Pt was extremely resistant to change in medications, but did agree to gradual uptaper of Seroquel now 75 mg at bedtime and decreased [place] 300 mg once at bedtime. Pt says the tremor has resolved and his mood is fine. Continue Seroquel 75 mg at bedtime, [place] 300 mg 1 at bedtime. On 06/25/2023 provider informed the patient and caregiver that I would be retiring, and we would make every effort to plan smooth transition of care. Meanwhile, F/U with me in 6-8 weeks. Pt agrees with the plan. Assessment & Plan (01/26/2023 9:45 AM EDT): Progress Note: Kong is a 62-year-old, [place] speaking male that was referred for a behavioral health consult in the walk in clinic. Kong was accompanied by his Cara. Kong reported a history of Bipolar (documented in the medical chart) and increased depression symptoms over the last 4 months (depressed mood, tearfulness, irritability, racing thoughts, decreased motivation, and frequent waking when asleep). Cara reported that Kong appears to be having nightmares when sleeping and will talk and scream in his sleep. She additionally reported Kong will stay in bed all day at times and expressed concern for the increased irritability. Kong endorsed concern for increased arm and leg tremors and his reported that he will often loose his balance and catch himself. Symptoms are affected by biopsychosocial stressors. Kong and Cara were engaged with active, reflective listening and open-ended questions. Assessed symptoms risks, and social supports with direct questions. Discussed current symptoms intensity and frequency. Emotions were normalized and validated. Reviewed medical record and discussed missed visits with psychopharmacology clinic and PCP. Cara reported that at those times she was out of the country and that Kong has a difficult time managing his schedule without her. Provided psychoeducation around Bipolar diagnosis and the importance of follow up care. Recommended OP therapy and Kong declined at this time. Planned for case consult with [facility] psychopharmacology clinic. Assessment: Patient with history of Bipolar (documented in the medical chart) and increased depression symptoms over the last 4 months (depressed mood, tearfulness, irritability, racing thoughts, decreased motivation, and frequent waking when asleep). Symptoms are in the context of bio-psychosocial stressors. Patient will benefit from OP therapy, referral was declined at this time. At this time Kong Hogue meets criteria for Visit Diagnoses: Problem List Items Addressed This Visit Other Bipolar affective disorder in remission (CMS/HCC) Patient ready to address current needs Yes Strengths-strong family support PLAN: 1. Follow up with [facility]: Recommended for follow-up: Post [facility] psychopharmacology consult 2. Patient goal is to reengage in medication management services 3. Behavioral Recommendations a. Break tasks down to smaller goals b. Slowly increase goals c. PTSD jed- deep breathing, progressive muscle relaxation Assessment & Plan (10/20/2022 3:33 PM EDT): Had been stable on [place] 600 mg daily for a long time, seemed to continue well-controlled with decreased [place] 300 mg. However developed marked insomnia and hypomania which is now improved with resumption of [place] 300 mg 2 tabs daily. Unfortunately, new onset of tremor has worsened, and he feels unstable. Although I explained that this could be a S/E of the lithium, he is absolutely certain he does not want to consider any med changes. Will have short term F/U 2-3 weeks. If symptoms worsen, seek care immediately. He agrees with the plan. Assessment & Plan (07/22/2022 3:11 PM EST): Had been stable on [place] 600 mg daily for a long time, seemed to continue well-controlled with decreased [place] 300 mg. However developed marked insomnia and hypomania which is now improved with resumption of [place] 300 mg 2 tabs daily. Had also been taking Quetiapine 25 mg at bedtime but that was not dispensed by the pharmacy since May and he is still doing well without it, with adequate sleep. Unfortunately has developed tremor of the right hand, which may be a S/E of the lithium. Will do labs arlen for [place] level and metabolic profile. Meanwhile continue medications as usual. F/U 2 months. He agrees with the plan. Hyperparathyroidism 02/19/2022 Hyperthyroidism 02/19/2022 Chronic infective otitis externa 10/16/2017 Vitamin D deficiency 06/26/2017 Multinodular goiter 01/08/2016 Essential hypertension 12/21/2015 Assessment & Plan (01/25/2023 5:32 PM EDT): ?? Initial and repeat BP elevation ?? Asymptomatic, no red flag symptoms ?? Consider relationship to current emotional distress ?? Continue with lisinopril 5mg daily ?? Continue with lifestyle interventions ?? Record BP readings at home and call office with 3+ elevations >140/90 mmHg ?? ED/urgent care precautions reviewed Bipolar affective disorder, current episode louise c 12/12/2015 Radicular pain 12/12/2015 Increased frequency of urination 11/29/2013 Erectile dysfunction 10/12/2013 Resolved Problems Problem Noted Date Diagnosed Date Resolved Date Bipolar disorder 09/06/2020 04/21/2024 Assessment & Plan (06/25/2023 11:46 AM EST): Had been stable on [place] 600 mg daily for a long time, seemed to continue well-controlled with decreased [place] 300 mg. However developed marked insomnia and hypomania. He resumed [place] 300 mg 2 tabs daily but developed tremor. Pt was extremely resistant to change in medications, but did agree to gradual uptaper of Seroquel now 75 mg at bedtime and decreased [place] 300 mg once at bedtime. Pt says the tremor has resolved and his mood is fine. His agrees that the tremor is now controlled, and his behavior is fine. Last time mentioned new onset abnormal movements of mouth, but that seems to have resolved. Continue Seroquel 75 mg at bedtime, [place] 300 mg 1 at bedtime. Today 06/25/2023 provider informed the patient and caregiver that I would be retiring in approx 1/2 year. F/U with me in 1 month. Pt and Caregiver agree with plan. Assessment & Plan (05/26/2023 11:33 AM EST): Had been stable on [place] 600 mg daily for a long time, seemed to continue well-controlled with decreased [place] 300 mg. However developed marked insomnia and hypomania. He resumed [place] 300 mg 2 tabs daily but developed tremor. Pt was extremely resistant to change in medications, but did agree to gradual uptaper of Seroquel now 75 mg at bedtime and decreased [place] 300 mg once at bedtime. Pt says the tremor has resolved, says it is better but not gone. Mood is clearly much improved. Today he mentions new onset of abnormal movements of mouth when starting to speak, has happened several times over the last week. This is concerning for possible S/E of the antipsychotic. He was also recently discovered to have had previous CVA(s), and PCP increased his lisinopril to 10 mg daily. Lisinopril has potential serious drug interaction with lithium, causing increased lithium levels. We have ordered lithium level and will consult PCP about possible alternate treatment for Htn. For now, continue Seroquel 75 mg at bedtime, [place] 300 mg 1 at bedtime. F/U with me in 1 month. Pt and Caregiver agree with plan. Assessment & Plan (03/26/2023 12:08 PM EDT): Had been stable on [place] 600 mg daily for a long time, seemed to continue well-controlled with decreased [place] 300 mg. However developed marked insomnia and hypomania. He resumed [place] 300 mg 2 tabs daily but developed tremor, which has persisted. Patient has simultaneously developed problems with memory and cognition, with concern for onset of Alzheimer's or other dementia. He has seen Neurologist Dr. Martines who ordered labs and imaging, but notes are not available in chart. Pt gave me permission to speak with his , who is his primary caregiver. She reports that his mood has improved with the increased Quetiapine 50 mg at bedtime, and he is less angry and aggressive. Memory is very problematical, and he has been overeating. At this time will increase again to Seroquel 75 mg at bedtime. He now understands that he will need to stop taking [place]. Will decrease to [place] 300 mg 1 at bedtime. F/U for Neurological evaluation as soon as can be arranged. F/U with me in 3 weeks. Pt and Caregiver agree with plan. Assessment & Plan (03/05/2023 12:35 PM EDT): Had been stable on [place] 600 mg daily for a long time, seemed to continue well-controlled with decreased [place] 300 mg. However developed marked insomnia and hypomania. He resumed [place] 300 mg 2 tabs daily but developed tremor, which has persisted. He also has experienced marked worsening of mood with anhedonia, tearfulness, low motivation. Patient has simultaneously developed problems with memory and cognition, with concern for onset of Alzheimer's or other dementia. He has seen Neurologist Dr. Martines who ordered labs and imaging, but notes are not available in chart. Pt gave me permission to speak with his , who is his primary caregiver. She reports that he has been taking the new Quetiapine 25 mg at bedtime wihtout problems, but sleep and behavior are still not good, and she is concerned that his anger may lead to aggressiveness. At this time will increase to Seroquel 50 mg at bedtime. Although the tremor is almost certainly r/t the [place], will not stop the [place] until mood is better controlled, so continue [place] 300 mg 2 at bedtime. For any safety concerns call 911. F/U with me in 3 weeks. Pt and Caregiver agree with plan. Assessment & Plan (01/27/2023 3:00 PM EDT): Had been stable on [place] 600 mg daily for a long time, seemed to continue well-controlled with decreased [place] 300 mg. However developed marked insomnia and hypomania. He resumed [place] 300 mg 2 tabs daily but developed tremor, which has persisted. He also has experienced marked worsening of mood with anhedonia, tearfulness, low motivation. Patient's presentation today is markedly incongruent with presentation at various [facility] and ED visits recently, and with reports of his , clinician, and providers. Pt expresses strong desire not to stop [place]. Suspect he is denying symptoms in order to discourage provider from changing his medication. Reviewed with the patient that the tremor was almost certainly a S/E of lithium. Also, his mood was not adequately controlled. In conjunction with patient, developed plan to start new medication: Seroquel 25 mg 1/2 tab at bedtime for a few nights then 1 full tab at bedtime. Continue [place] as usual for now. Expect to titrate up the Seroquel until mood was stable, then we would gradually decrease the [place]. He is agreeable to this plan. It was also reviewed with his . F/U 2-3 weeks. Call sooner as needed. He agrees with the plan. Assessment & Plan (01/25/2023 5:22 PM EDT): ?? Previously following in [facility] Psychopharm clinic with TIFF Lua. Last appt October 2022, pt did not show to appt in November 2022 ?? Continues on lithium 300mg BID ?? [place] level therapeutic during ED visit in December 2022 ?? Continues hydroxyzine 50mg at bedtime PRN ?? Previously prescribed Seroquel by PCP, No longer taking medication ?? Not currently following with therapist. Declines referral. Denies SI/HI/thoughts of self harm ?? BE conducted prior to today's appt by Britany Keenan, please see documentation for further details ?? Pt interested in re-establishing with pyschopharm clinic, will send a message to RADHA Barry ?? Safety planning reviewed Encounters Date Type Department Care Team Description 09/06/2024 Telephone [facility] [address] [place] [address] Tracy Wright MA October recalls 09/02/2024 9:30 AM EST Office Visit [facility] ADULT DENTAL [address] [place] [address] Opal Al, DDS Full coverage crown needed for root canal-treated tooth (Primary Dx) 08/19/2024 8:00 AM EST Office Visit [facility] [address] [place] [address] Fernandes-Soares, Opal, DDS Dental caries (Primary Dx); Full coverage crown needed for root canal-treated tooth 07/26/2024 Orders Only [facility] External Provider, [facility] 07/22/2024 10:00 AM EST Office Visit [facility] ADULT [facility] [address] [place] [address] Fernandes-Soares, Opal, DDS Dental caries (Primary Dx); Asymptomatic irreversible pulpitis 07/05/2024 10:00 AM EST Office Visit [facility] [address] [place] [id number] Terrence Quintanilla MD Essential hypertension (Primary Dx); Hyperthyroidism; On statin therapy; Bipolar affective disorder, remission status unspecified ([facility]); Encounter for immunization 07/05/2024 Travel 07/04/2024 Telephone [facility] [address] [place] [id number] Teresa Nciole MA Chart Prep 06/28/2024 Patient Outreach [facility] [address] [place] [address] Terrence Quintanilla MD Pre-visit Planning (SDOH negative, Tobacco screening negative. ) 06/16/2024 3:00 PM EST Office Visit [facility] ADULT [facility] [address] [place] [phone] Aliyah Adkins Dental plaque (Primary Dx); Localized gingival recession, minimal; Encounter for dental examination; Dental caries from Last 3 Months Immunizations Name Administration Dates Next Due Influenza High-dose Quadriva lent Preservative Free 05/25/2023 Influenza injectable quadriv alent IIV4 with preservative 03/31/2018,04/07/2017,04/23/2016,2014 Influenza injectable quadriv alent preservative free 04/19/2021,04/19/2020 Influenza, High Dose Seasona l, Preservative Free 07/05/2024 Influenza, IIV3, injectable 05/12/2014 Pneumococcal Conjugate PCV 20 03/28/2024 Tdap 03/03/2017 Zoster, Recombinant 11/28/2021,09/12/2021 Social History Tobacco Use Types Packs/Day Years Used Date Smoking Tobacco: Former Cigarettes Passive Smoke Exposure: Never Smokeless Tobacco: Never Tobacco Cessation:Counseling Given: Not Answered Alcohol Use Standard Drinks/Week Comments Never 0 (1 standard drink = 0.6 oz pur e alcohol) Depression Answer Date Recorded Patient Health Questionnaire-9 Score 0 09/22/2023 Patient Health Questionnaire-9 Score 0 09/22/2023 Last PHQ-9: Questionnaire Data Not on file 0 09/22/2023 Housing Stability Answer Date Recorded What is your housing situation today? I have vinh farida 06/28/[address] you li [...] Orientation Straight 05/12/2022 10 :25 AM EDT Last Filed Vital Signs Vital Sign Reading Time Taken Comments Blood Pressure 140/82 08/19/2024 8:07 AM EST Pulse 69 08/19/2024 8:07 AM EST Temperature 36.8 ??C (98.2 ??F) 07/05/2024 9:36 AM ES T Respiratory Rate 18 07/05/2024 9:36 AM EST Oxygen Saturation 98% 03/28/2024 11:10 AM EDT Inhaled Oxygen Concentration - - Weight 88.7 kg (195 lb 9.6 oz) 07/05/2024 9:36 A M EST Height 167.6 cm (5' 6 ) 07/05/2024 9:36 AM EST Body Mass Index 31.57 07/05/2024 9:36 AM EST Plan of Treatment Upcoming Encounters Date Type Department Care Team (Late st Contact Info) Description 10/05/2024 3:00 PM EDT Office Visit [facility] ADULT DENT[facility] [address] [place] [address] Ulises Saunders, DDS [address] [place] [address] 12/16/2024 3:00 PM EDT Office Visit [facility] ADULT [facility] [address] [place] [address] Lucille, Aliyah [address] [place] [address] Health Maintenance Due Date Last Done Comments CT Colonography 1958 FIT DNA/Cologuard 1958 FIT 1958 FOBT 1960 Sigmoidoscopy 1958 COVID-19 Vaccine ( season) 2024 05/22/2021, 11/17/2020, 10/27/2020 Depression Screening 09/21/2024 09/22/2023, 09/22/19 Dental Oral Exam 12/16/2024 06/16/2024, 02/11/2023 Dental Prophylaxis 12/16/2024 06/16/2024, 05/15/2023 SDOH Screening 06/28/2025 06/28/2024 Alcohol/Substance Use Screening 07/05/2025 07/05/2024 Tobacco Screening 09/02/2025 09/02/2024 Dental X-Ray: Bitewings 09/03/2025 09/02/19, 06/16/2024, 04/21/2024, Additional history exists Dental X-Ray: Full Mouth 03/21/2026 03/20/2023, 0808/2022 DTaP/Tdap/Td Vaccines (2 - Td or Tdap) 03/03/2027 03/03/2017 Colonoscopy 05/08/2029 05/08/2019 Colorectal Cancer Screening 05/08/2029 Lipid Panel 07/05/2029 07/05/2024, 09/18/2021 RSV Patients and Patients Aged 60 years or older (1 - 1-dose 75+ series) 2033 Zoster Vaccines Completed 11/28/2021, 09/12/2021 Pneumococcal Vaccine: 50+ Years Completed 03/28/2024 Hepatitis C Screening Completed 04/18/2024 Influenza Vaccine Completed 07/05/2024, , 04/19/2021, Additional history exists HIB Vaccines Aged Out No longer eligi ble based on patient's age to complete this topic HPV Vaccines Aged Out No longer eligi ble based on patient's age to complete this topic Hepatitis A Vaccines Aged Out No long er eligible based on patient's age to complete this topic Hepatitis B Vaccines Aged Out No long er eligible based on patient's age to complete this topic IPV Vaccines Aged Out No longer eligi ble based on patient's age to complete this topic Meningococcal Vaccine Aged Out No shana shilo eligible based on patient's age to complete this topic RSV under 20 months Aged Out No longe r eligible based on patient's age to complete this topic Rotavirus Vaccines Aged Out No longer eligible based on patient's age to complete this topic Procedures Procedure Name Priority Date/Time Associated Diagnosis Comments CASE PRESENTATION, DETAILED AND EXTENSIVE TREATMENT PLANNING Routine 09/02/2024 9:30 AM EST Full coverage crown needed for root canal-treated tooth BITEWING - SINGLE RADIOGRAPHIC IMAGE Routine 09/02/2024 9:30 AM EST Full coverage crown needed for root canal-treated tooth 20 CROWN - PORCELAIN/CERAMIC Routine 09/02/2024 9:30 AM EST Full coverage crown needed for root canal-treated tooth CASE PRESENTATION, DETAILED AND EXTENSIVE TREATMENT PLANNING Routine 08/19/2024 8:00 AM EST Dental caries Full coverage crown needed for root canal-treated tooth INTRAORAL - PERIAPICAL FIRST RADIOGRAPHIC IMAGE Routine 08/19/2024 8:00 AM EST Dental caries Full coverage crown needed for root canal-treated tooth 20 CROWN PREP Routine 08/19/2024 8:00 AM EST Dental caries Full coverage crown needed for root canal-treated tooth 20 PREFABRICATED POST AND CORE IN ADDITION TO CROWN Routine 08/19/2024 8:00 AM EST Dental caries Full coverage crown needed for root canal-treated tooth VASC US CAROTID ARTERY DUPLEX BILATERAL Routine 07/26/2024 9:36 AM EST 20 ENDODONTIC THERAPY, PREMOLAR TOOTH Routine 07/22/2024 10:00 AM EST Dental caries Asymptomatic irreversible pulpitis CASE PRESENTATION, DETAILED AND EXTENSIVE TREATMENT PLANNING Routine 07/22/2024 10:00 AM EST Dental caries Asymptomatic irreversible pulpitis LIPID PANEL, STANDARD Routine 07/05/2024 10:03 AM EST On statin therapy LITHIUM Routine 07/05/2024 10:03 AM EST Bipolar affective disorder, remission status unspecified (CMS/HCC) COMPREHENSIVE METABOLIC PANEL Routine 07/05/2024 10:03 AM EST Essential hypertension Hyperthyroidism On statin therapy CBC WITH AUTO DIFFERENTIAL Routine 07/05/2024 10:03 AM EST Hyperthyroidism Bipolar affective disorder, remission status unspecified (CMS/HCC) COMPREHENSIVE PERIODONTAL EVALUATION - NEW OR ESTABLISHED PATIENT Routine 06/16/2024 3:00 PM EST PERIODIC ORAL EVALUATION - ESTABLISHED PATIENT Routine 06/16/2024 3:00 PM EST CASE PRESENTATION, DETAILED AND EXTENSIVE TREATMENT PLANNING Routine 06/16/2024 3:00 PM EST Dental plaque Localized gingival recession, minimal ORAL HYGIENE INSTRUCTIONS Routine 06/16/2024 3:00 PM EST Dental plaque Localized gingival recession, minimal PROPHYLAXIS - ADULT Routine 06/16/2024 3 :00 PM EST Dental plaque Localized gingival recession, minimal INTRAORAL - PERIAPICAL EACH ADDITIONAL RADIOGRAPHIC IMAGE Routine 06/16/2024 3:00 PM EST Dental plaque Localized gingival recession, minimal INTRAORAL - PERIAPICAL EACH ADDITIONAL RADIOGRAPHIC IMAGE Routine 06/16/2024 3:00 PM EST Dental plaque Localized gingival recession, minimal INTRAORAL - PERIAPICAL FIRST RADIOGRAPHIC IMAGE Routine 06/16/2024 3:00 PM EST Dental plaque Localized gingival recession, minimal BITEWINGS - 4 RADIOGRAPHIC IMAGES Routine 06/16/2024 3:00 PM EST Dental plaque 10 ROOT CANAL Routine 06/16/2024 12:00 AM EST 7 MDL COMPOSITE FILLING Routine 06/16/2024 12:00 AM EST 17 O AMALGAM FILLING Routine 06/16/2024 12:00 AM EST 11 FIXED PARTIAL DENTURE - PONTIC Routine 06/16/2024 12:00 AM EST 12 FIXED PARTIAL DENTURE - ABUTMENT CROWN Routine 06/16/2024 12:00 AM EST 29 O AMALGAM FILLING Routine 06/16/2024 12:00 AM EST 10 FIXED PARTIAL DENTURE - ABUTMENT CROWN Routine 06/16/2024 12:00 AM EST HEPATITIS C AB W/REFL TO HCV RNA, QN, PCR Routine 04/18/2024 11:12 AM EDT Need for hepatitis C screening test PANORAMIC RADIOGRAPHIC IMAGE Routine 03/20/2023 2:30 PM EDT HM COLONOSCOPY Routine 05/08/2019 2:51 PM EDT from Last 3 Months or Most Recently Relevant to Health Maintenance Results * VASC US Carotid Artery Duplex Bilateral (07/26/2024 9:36 AM EST) 07/26/2024 9:36 AM EST Narrative [facility] - 07/27/2024 9:04 AM EST ? [facility] ?[address] ?[place] [address] ? Ultrasound Report ? Signed ? Patient: Mykel,Kong ?MR#: [id number] ?? 8 ? : 1960 ?Acct:[id number] ? Age/Sex: 64 / M ?ADM Date: 07/26/24 ? Loc: HO.US ? Attending Dr: Miryam Martines MD ? Ordering Physician: Miryam Martines MD ?? Date of Service: 07/26/24 ?? Procedure(s): US carotid duplex BI ?? Accession Number(s): [id number] ? cc: Miryam Martines MD; [place],Terrence YOON ? EXAMINATION: ??BILATERAL CAROTID ULTRASOUND WITH DOPPLER ? HISTORY: ??CEREBRAL INFARCTION ? COMPARISON: There are no prior studies for comparison. ? TECHNIQUE: Real time and Color and Spectral doppler ultrasonography of ?? the carotid and vertebral arteries was performed in multiple planes. ? FINDINGS: ??There is mild noncalcified plaque at the right carotid bulb. ? VERTEBRAL FLOW DIRECTION: Antegrade bilaterally. ? PEAK SYSTOLIC VELOCITIES (in cm/sec): ? RIGHT: ? CCA: ?? Prox: ??120 ?? Dist: ??72 ?? ICA: ?? Prox: 31 ?? Mid: 70 ?? Dist: 46 ? ICA/CCA Ratio: 0.58 ? ECA: ??117 ? Peak ICA EDV: 14 ? LEFT: ? CCA: ?? Prox: 136 ?? Dist: 89 ?? ICA: ?? Prox: 107 ?? Mid: 114 ?? Dist: 102 ? ICA/CCA Ratio: 0.4 ? ECA: ??155 ? Peak ICA EDV: 42 ? US/US carotid duplex BI ?? IMPRESSION: ?? Findings consistent with 1-29% stenosis of the proximal internal ?? carotid arteries by criteria similar to NASCET. ? Electronically signed by: ??Ulises Portillo MD ??07/27/2024 09:02 AM EST ? Dictated By: ?Ulises Portillo MD ? Signed By: ?<Electronically signed by Ulises Portillo MD in OV> ?07/27/24 0902 ? DD/ 0936 ? TD/TT: 07/26/24 0947 ? Bi Technical Lead: ? Procedure Note [place], [facility] - 07/27/[address] [address] Ultrasound Report Signed Patient: Anh Hogue#: [id number] 8 : 8Acct:[id number] Age/Sex: 64 / MADM Date: 07/26/24 Loc: HO. Attending Dr: Miryam Martines MD Ordering Physician: Miryam Martines MD Date of Service: 07/26/24 Procedure(s): US carotid duplex BI Accession Number(s): [id number] cc: Miryam Martines MD; Name,Terrence YOON EXAMINATION: BILATERAL CAROTID ULTRASOUND WITH DOPPLER HISTORY: CEREBRAL INFARCTION COMPARISON: There are no prior studies for comparison. TECHNIQUE: Real time and Color and Spectral doppler ultrasonography of the carotid and vertebral arteries was performed in multiple planes. FINDINGS: There is mild noncalcified plaque at the right carotid bulb. VERTEBRAL FLOW DIRECTION: Antegrade bilaterally. PEAK SYSTOLIC VELOCITIES (in cm/sec): RIGHT: CCA: Prox: 120 Dist: 72 ICA: Prox: 31 Mid: 70 Dist: 46 ICA/CCA Ratio: 0.58 ECA: 117 Peak ICA EDV: 14 LEFT: CCA: Prox: 136 Dist: 89 ICA: Prox: 107 Mid: 114 Dist: 102 ICA/CCA Ratio: 0.4 ECA: 155 Peak ICA EDV: 42 US/US carotid duplex BI IMPRESSION: Findings consistent with 1-29% stenosis of the proximal internal carotid arteries by criteria similar to NASCET. Electronically signed by: Ulises Portillo MD 07/27/2024 09:02 AM EST Dictated By: Ulises Portillo MD Signed By: <Electronically signed by Ulises Portillo MD in OV> 07/27/24 0902 DD/ TD/TT: 07/26/24 0947 Bi Technical Lead: [facility] External Provider CV VASC ULAR PROCEDURES Final Result [facility] [address] [place] [phone] * (ABNORMAL) CBC auto differential (07/05/2024 10:03 AM EST) White Blood Count 8.6 4.8 - 10.8 X10*3/uL [facility] Red Blood Count 5.27 4.60 - 5.80 X10*6/uL [facility] Hemoglobin 15.6 14.0 - 18.0 g/dl [facility] Hematocrit 45.8 42.0 - 52.0 % [facility] Mean Corpuscular Volume 86.9 80.0 - 98.0 fL [facility] Mean Corpuscular Hemoglobin 29.6 27.0 - 33.0 pg [facility] Mean Corpuscular HGB Conc 34.1 31.0 - 36.0 g/dl [facility] Red Cell Distribution Width 13.0 11.0 - 16.0 % [facility] Platelet Count 257 160 - 400 X10*3/uL [facility] Mean Platelet Volume 8.7(L) 9.4 - 12.4 fL [facility] Neutrophils Percent Auto 63.2 45 - 73 % [facility] Imm Gran Pct Auto 0.4 0.0 - 0.4 % [facility] Lymphocytes Percent Auto 27.3 20 - 40 % [facility] Monocytes Percent Auto 7.2 2 - 11 % [facility] Eosinophils Percent Auto 1.4 0 - 4 % [facility] Basophils Percent Auto 0.5 0 - 2 % [facility] NRBC Pct Auto 0.0 0.0 - 0.2 /100WBC [facility] Neutrophils Absolute Auto 5.4 2.0 - 8.3 x10*3/uL [facility] Imm Gran Abs Auto 0.03 0.00 - 0.03 X10*3/uL [facility] Lymphocytes Absolute Auto 2.3 1.2 - 4.9 X10*3/uL [facility] Monocytes Absolute Auto 0.6 0.1 - 1.2 X10*3/uL [facility] Eosinophils Absolute Auto 0.1 0.0 - 0.4 X10*3/uL [facility] Basophils Absolute Auto 0.0 0.0 - 0.2 X10*3/uL [facility] NRBC Abs Auto 0.000 0.0 - 0.012 X10*3/uL [facility] Blood Venous blood specimen / Unknown 07/05/2024 10:03 AM EST 07/05/2024 11:02 AM EST us Terrence Quintanilla MD LAB BLOOD ORDERABLES Final Resul t Performing Organization Address City/[facility]/ZIP Co de Phone Number [facility] [address] [place] [phone] * (ABNORMAL) [place] (07/05/2024 10:03 AM EST) [place] 0.15(L) 0.60 - 1.20 mmol/L [facility] Blood Venous blood specimen / Unknown 07/05/2024 10:03 AM EST 07/05/2024 11:02 AM EST us Terrence Quintanilla MD LAB BLOOD ORDERABLES Final Resul t Performing Organization Address City/[facility] Co de Phone Number [facility] [address] [place] [phone] * (ABNORMAL) Lipid Panel, Standard (07/05/2024 10:03 AM EST) Triglycerides 74 <150 mg/dL [facility] Comment:Desirable Triglyceri de: less than 150 mg/dLBorderline High Triglyceride 150-199 mg/dLHigh Triglyceride: 200-499 mg/dLVery High Triglyceride: greater than or equal to 5OO mg/dL Cholesterol 91 <200 mg/dL [facility] Comment:Desirable Cholestero l: less than 200 mg/dLBorderline High Cholesterol: 200-239 mg/dLHigh Cholesterol: greater than 239 mg/dL LDL Cholesterol Calculated 51 <100 mg/dL [facility] Comment:Desirable LDL: less than 100 mg/dLNear Optimal/Above Optimal LDL: 110- 129 mg/dLBorderline High LDL: 130-159 mg/dLHigh LDL: 160-189 mg/dLVery High LDL: greater than or equal to 190 mg/dL HDL Cholesterol 26(L) >40 mg/dL [facility] Comment:Desirable HDL: great er than 40 mg/dL Note: This HDL assay may give artificially low results in patients with liver disease. Blood Venous blood specimen / Unknown 07/05/2024 10:03 AM EST 07/05/2024 11:02 AM EST us Terrence Quintanilla MD LAB BLOOD ORDERABLES Final Resul t [facility] [address] [place] [address] [phone] * (ABNORMAL) Comprehensive Metabolic Panel (07/05/2024 10:03 AM EST) Sodium 140 135 - 145 mmol/L [facility] Potassium 4.3 3.3 - 5.1 mmol/L [facility] Chloride 111(H) 96 - 108 mmol/L [facility] Carbon Dioxide 23 22 - 29 mmol/L [facility] Anion Gap 10(L) 12 - 20 [facility] Urea Nitrogen (BUN) 17(H) 9 - 16 mg/dL [facility] Creatinine, Serum 1.14 0.5 - 1.4 mg/dL [facility] Estimated Glomerular Filt Rate >60 [facility] Comment:Chronic Kidney Disea se: Estimated GFR < 60 mL/min/1.72g4Xluogn Kidney Disease: Estimated GFR < 15 mL/min/1.73m2 Glucose 120(H) 60 - 115 mg/dL [facility] Calcium 8.9 8.4 - 10.2 mg/dL [facility] Bilirubin, Total 1.1(H) 0.0 - 1.0 mg/dL [facility] Aspartate Amino Transferase 30 5 - 37 U/L [facility] Alanine Aminotransferase 36 0 - 40 U/L [facility] Total Protein 7.0 6.5 - 8.0 g/dL [facility] Albumin Level 4.0 3.5 - 5.0 g/dL [facility] Alkaline Phosphatase 83 39 - 117 U/L [facility] Blood Venous blood specimen / Unknown 07/05/2024 10:03 AM EST 07/05/2024 11:02 AM EST us Terrence Quintanilla MD LAB BLOOD ORDERABLES Final Resul t Performing Organization Address [facility] Co de Phone Number [facility] [address] [place] [address] [phone] * Hepatitis C Antibody with Reflex to HCV, RNA, Quantitative, Real-Time PCR (04/18/2024 11:12 AM EDT) Hepatitis C Antibody Nonreactive Nonreactive [facility] Comment:Antibodies to HCV no t detected; does not exclude early acuteHCV infection. Blood Venous blood specimen / Unknown 04/18/2024 11:12 AM EDT 04/18/2024 11:17 AM EDT Terrence Quintanilla MD LAB BLOOD ORDERABLES Final Resul t Performing Organization Address [facility] Co de Phone Number [facility] [address] [place] [address] [phone] * Hm Colonoscopy (05/08/2019 2:51 PM EDT) Colonoscopy Normal Normal Narrative Airam Delgado - 05/08/2019 2:51 PM EDT Recommended 10 year follow up [facility] Provider HEALTH MAINTENANCE Final Result from Last 3 Months or Most Recently Relevant to Health Maintenance Insurance [facility] STANDARD MEDICARE HSN FULL DENTAL - HSN FULL (MEDICAID) Care Teams Operating Room Manager Relationship Specialty Start Date End Date Name, MD Terrence [address] [place] [address] PCP - General Family Medicine 09/14/15 Jimmy Lua FNP [address] [place] [address] Nurse Practitioner Family Medicine 05/26/23
--- OUTSIDE RECORDS SUMMARY | 2024-09-13 17:31 | XMS_ITS | Encounter Summary ---
Author Organization [employer] Address [address] [facility] [address] [place] [address] Care Team Providers Care Converting Technician Name Role Phone Name, Terrence YOON Primary Care Provider [phone] Jimmy Lua Unavailable Unavailable Encounter Details Date Type Department Care Team (Late st Contact Info) Description 10/01/2022 Orders Only [facility] [address] [place], [place] [phone] Kaity Seymour LPN Social History Tobacco Use Types Packs/Day Years Used Date Smoking Tobacco: Never Passive Smoke Exposure: Never Smokeless Tobacco: Never PHQ-2 Answer Date Recorded Patient Health Questionnaire-2 Score 0 07/22/2022 Sex and Gender Information Value Date Recorded Sex Assigned at Male 05/12/2022 10:25 AM EDT Legal Sex Male 10:25 AM EDT Gender Identity Male 05/12/2022 10:25 AM EDT Sexual Orientation Straight 05/12/2022 10 :25 AM EDT COVID-19 Exposure Response Date Recorded In the last 10 days, have yo u been in contact with someone who was confirmed or suspected to have Coronavirus/COVID-19? No / Unsure 09/29/2022 2:28 PM EDT documented as of this encounter Plan of Treatment Upcoming Encounters Date Type Department Care Team (Late st Contact Info) Description 10/05/2024 3:00 PM EDT Office Visit [facility] ADULT DENTAL [address] [place], [place] [phone] Ulises Saunders DDS [address] [place], [place] [phone] 12/16/2024 3:00 PM EDT Office Visit [facility] ADULT DENTAL [address] [place] [address] Aliyah Adkins [address] [place] [address] documented as of this encounter Visit Diagnoses Not on filedocumented in this encounter Additional Health Concerns Assessment Noted Time PHQ-9 Depression Total Score: 0 07/22/19 1:53 PM EST documented as of this encounter Care Teams Converting Technician Relationship Specialty Start Date End Date Name, MD Terrence [address] [place] [phone] PCP - General Family Medicine 09/14/15 Jimmy Lua FNP [address] [place] [phone] Nurse Practitioner Family Medicine 05/26/23 documented as of this encounter
--- OUTSIDE RECORDS SUMMARY | 2024-09-13 17:31 | XMS_ITS | Encounter Summary ---
Author Organization [employer] Address [address] [facility] [address]t [place] [address] Care Team Providers Care Receivable Executive Name Role Phone Name, Terrence YOON Primary Care Provider [phone] Jimmy Lua Unavailable Unavailable Reason for Visit * Reason Comments crown insert #20 Encounter Details Date Type Department Care Team ([facility] st Contact Info) Description 09/02/2024 9:30 AM EST Office Visit [facility] ADULT DENTAL [address] [place] [address] Opal Al DDS [address], [place] [phone] Full coverage crown needed for root canal-treated tooth (Primary Dx) Social History Tobacco Use Types Packs/Day Years [...] AM EDT documented as of this encounter Progress Notes * Opal Al DDS - 09/02/2024 9:30 AM EST Patient ID: Kong Hogue is a 64 y.o. male. Time Out: Timeout Date: 09/02/24, Timeout Time: 927 (crown insert) Location: [facility] Tooth: #20 Procedure: [place] delivery Verified the above with patient, engineer third assistant, and provider. Confirmed via patient's chart, intraorally and by radiographs. Can Reforming Machine Operator: not applicable Chief Complaint Patient presents with crown insert #20 Medical Hx: Vitals: There were no vitals taken for this visit. Medications, Med Hx reviewed with patient and updated in chart. Consent Obtained: The risks, benefits, indications, potential complications, and alternatives were explained to the patient and informed consent was obtained with good understanding. Treatment Provided: Dental procedures in this visit D2740 - CROWN - PORCELAIN/CERAMIC 20 (Completed) Service provider: Opal Al DDS Billing provider: Opal Al DDS [id number] - BITEWING - SINGLE RADIOGRAPHIC IMAGE (Completed) Service provider: Opal Al DDS Billing provider: Opal Al DDS [id number] - CASE PRESENTATION, DETAILED AND EXTENSIVE TREATMENT PLANNING (Completed) Service provider: Opal Al DDS Billing provider: Opal Al DDS Isolation: high speed suction and cotton rolls Removed Provisional and cleaned excess cement, pumiced tooth as needed. Tried on final spiritism Verified interproximal contacts and margins BW taken to confirm margins and contacts Occlusion adjusted as needed Tooth Treatment: 37% Phosphoric Acid Etch and Refrigerator Car Icer applied Cemented with: Relyx Unicem Cleaned excess cement, flossed Patient satisfied with comfort and esthetics. POI given. Patient discharged alert, oriented, and in stable condition NV: [employer] Manager: Zully Reese Dentist: Opal Al DDS documented in this encounter Plan of Treatment Upcoming Encounters Date Type Department Care Team (Late st Contact Info) Description 10/05/2024 3:00 PM EDT Office Visit [facility] ADULT DENTAL [address] [place] [address] Ulises Saunders DDS [address] [place] [address] 12/16/2024 3:00 PM EDT Office Visit [facility] ADULT DENT[facility] [address] [place] [address] Aliyah Adkins [address] [place] [address] documented as of this encounter Procedures Procedure Name Priority Date/Time Associated Diagnosis Comments 20 CROWN - PORCELAIN/CERAMIC Routine 09/02/2024 9:30 AM EST Full coverage crown needed for root canal-treated tooth CASE PRESENTATION, DETAILED AND EXTENSIVE TREATMENT PLANNING Routine 09/02/2024 9:30 AM EST Full coverage crown needed for root canal-treated tooth BITEWING - SINGLE RADIOGRAPHIC IMAGE Routine 09/02/2024 9:30 AM EST Full coverage crown needed for root canal-treated tooth documented in this encounter Visit Diagnoses Diagnosis Full coverage crown needed for root canal-treated tooth- Primary documented in this encounter Additional Health Concerns Assessment Noted Time PHQ-9 Depression Total Score: 0 03/12/20 24 11:18 AM EDT documented as of this encounter Care Teams Receivable Executive Relationship Specialty Start Date End Date Name, MD Terrence [address] [facility] [place] [address] PCP - General Family Medicine 09/14/15 Jimmy Lua FNP [address] [facility] [place] [address] Nurse Practitioner Family Medicine 05/26/23 documented as of this encounter
--- OUTSIDE RECORDS SUMMARY | 2024-09-13 17:31 | XMS_ITS | Encounter Summary ---
Author Organization [employer] Address [address] [facility] [address] [place] [address] Care Team Providers Care Fashion Artist Name Role Phone Name, Terrence YOON Primary Care Provider [phone] Jimmy Lua Unavailable Unavailable Encounter Details Date Type Department Care Team (Late st Contact Info) Description 11/28/2022 Abstract [facility] MEDICINE [address] [place] [address] Name, MD Terrence [address] [place] [address] Social History Tobacco Use Types Packs/Day Years [...] Description 10/05/2024 3:00 PM EDT Office Visit [facility] ADULT DENTAL [address] [place] [address] Ulises Saunders DDS [address] [place] [address] 12/16/2024 3:00 PM EDT Office Visit [facility] ADULT DENTAL [address] [place] [address] Aliyah Adkins [address] [place] [address] documented as of this encounter Procedures Procedure Name Priority Date/Time Associated Diagnosis Comments COLONOSCOPY Routine 05/08/2019 2:51 PM EDT documented in this encounter Results * Colonoscopy (05/08/2019 2:51 PM EDT) Colonoscopy Normal Normal Narrative Airam Delgado - 05/08/2019 2:51 PM EDT Recommended 10 year follow up Historical Provider HEALTH MAINTENANCE Final Result documented in this encounter Visit Diagnoses Not on filedocumented in this encounter Additional Health Concerns Assessment Noted Time PHQ-9 Depression Total Score: 0 10/21/19 23 2:06 PM EDT documented as of this encounter Care Teams Fashion Artist Relationship Specialty Start Date End Date Name, MD Terrence [address] [place] [address] PCP - General Family Medicine 09/14/15 Jimmy Lua FNP [address] [place] [address] Nurse Practitioner Family Medicine 05/26/23 documented as of this encounter
--- OUTSIDE RECORDS SUMMARY | 2024-09-13 17:31 | XMS_ITS | Encounter Summary ---
Author Organization [employer] Address [address] [facility] [address] [place] [address] Care Team Providers Care Lacquer Mixer Name Role Phone Name, Terrence YOON Primary Care Provider [phone] Jimmy Lua Unavailable Unavailable Reason for Visit * Reason Comments Med Refill Encounter Details Date Type Department Care Team ([facility] Contact Info) Description 05/29/2023 Refill [facility] MEDICINE [address] [place] [address] Name, MD Terrence [address] [place] [address] Social History Tobacco Use Types Packs/Day Years Used Date Smoking Tobacco: Former Cigarettes Passive Smoke Exposure: Never Smokeless Tobacco: Never Alcohol Use Standard Drinks/Week Comments Never 0 (1 standard drink = 0.6 oz pur e alcohol) Depression Answer Date Recorded Patient Health Questionnaire-9 Score 0 05/26/2023 Patient Health Questionnaire-9 Score 0 05/26/2023 Last PHQ-9: Questionnaire Data Not on file 1 07/26/2022 Housing Stability Answer Date Recorded What is your housing situation today? I have vinh iqbal 04/29/[address] you li ve. Do you have problems with any of the following? None of the above 04/29/2023 Food Insecurity Answer Date Recorded Within the past 12 months, y ou worried that your food would run out before you got money to buy more: Never True 04/29/2023 Within the past 12 months,th e food you bought just didn't last and you didn't have enough money to get more: Never True Transportation Answer Date Recorded In the past 12 months, has l ack of transportation kept you from medical appts, meetings, work or from getting things needed for daily living? No 04/29/2023 Utilities Answer Date Recorded In the past 12 months, has t he electric, gas, oil or water company threatened to shut off services in your home? No 04/29/2023 Depression Answer Date Recorded Patient Health Questionnaire-2 Score 0 05/26/2023 Sex and Gender Information Value Date Recorded Sex Assigned at Male 05/12/2022 10:25 AM EDT Legal Sex Male 10:25 AM EDT Gender Identity Male 05/12/2022 10:25 AM EDT Sexual Orientation Straight 05/12/2022 10 :25 AM EDT documented as of this encounter Plan of Treatment Upcoming Encounters Date Type Department Care Team (Late st Contact Info) Description 10/05/2024 3:00 PM EDT Office Visit [facility] ADULT DENTAL [address] [place] [address] Ulises Saunders DDS [address] [place] [address] 12/16/2024 3:00 PM EDT Office Visit [facility] ADULT DENTAL [address] [place] [address] Aliyah Adkins [address] [place] [address] documented as of this encounter Visit Diagnoses Not on filedocumented in this encounter Additional Health Concerns Assessment Noted Time PHQ-9 Depression Total Score: 0 05/26/20 23 10:22 AM EST documented as of this encounter Care Teams Lacquer Mixer Relationship Specialty Start Date End Date Name, MD Terrence [address] [place] [phone] PCP - General Family Medicine 09/14/15 Jimmy Lua FNP [address] [place] [phone] Nurse Practitioner Family Medicine 05/26/23 documented as of this encounter
--- OUTSIDE RECORDS SUMMARY | 2024-09-13 17:31 | XMS_ITS | Encounter Summary ---
Author Organization [employer] Address [address] [facility] [address] [place] [address] Care Team Providers Care Vegetable Grower Name Role Phone Name, Terrence YOON Primary Care Provider [phone] Jimmy Lua Unavailable Unavailable Reason for Visit * Reason Comments Med Refill Encounter Details Date Type Department Care Team ([facility] Contact Info) Description 06/02/2024 Refill [facility] [address] [place] [address] Name, MD Terrence [address] [place] [address] Cerebrovascular accident (CVA), unspecified mechanism (CMS/HCC) Social History Tobacco Use Types Packs/Day Years [...] is your housing situation today? I have vinhdenilson iqbal 04/29/[address] you [...] Recorded Patient Health Questionnaire-2 Score 0 09/22/2023 Sex and Gender Information Value Date Recorded Sex Assigned at Male 05/12/2022 10:25 AM EDT Legal Sex Male 10:25 AM EDT Gender Identity Male 05/12/2022 10:25 AM EDT Sexual Orientation Straight 05/12/2022 10 :25 AM EDT documented as of this encounter Plan of Treatment Upcoming Encounters Date Type Department Care Team (Late st Contact Info) Description 10/05/2024 3:00 PM EDT Office Visit [facility] [address] [place] [address] Ulises Saunders DDS [address] [place] [address] 12/16/2024 3:00 PM EDT Office Visit [facility] [address] [place] [address] LucilleAliyah [address] [place] [address] documented as of this encounter Visit Diagnoses Diagnosis Cerebrovascular accident (CVA), unspecified mechanism (CMS/HCC) documented in this encounter Additional Health Concerns Assessment Noted Time PHQ-9 Depression Total Score: 0 09/22/19 24 11:18 AM EDT documented as of this encounter Care Teams Vegetable Grower Relationship Specialty Start Date End Date Name, MD Terrence [address] [place] [id number] PCP - General Family Medicine 09/14/15 Jimmy Lua FNP [address] [place] [id number] Nurse Practitioner Family Medicine 05/26/23 documented as of this encounter
== END 2024-09-13 13:55 | disposition home or self-care (01) ==
LOC: HO.HAP 13:54
PROVIDERS: Visit Provider Internal Medicine Geriatric Medicine
DX: Z46.1 Encounter for fitting and adjustment of hearing aid (principal)
CPT/HCPCS: V5266

== ENCOUNTER 2024-09-14 13:39 | Outpatient (REF) | payer SELFPAY | END 2024-09-14 13:40 | disposition home or self-care (01) | LOC: HO.SH 13:39 | PROVIDERS: Visit Provider Internal Medicine Geriatric Medicine | DX: Z01.118 Encounter for examination of ears and hearing with other abnormal findings (principal); Z46.1 Encounter for fitting and adjustment of hearing aid; H90.3 Sensorineural hearing loss, bilateral | CPT/HCPCS: 92593 ==

== ENCOUNTER 2024-09-29 16:23 | Outpatient (REF) | payer SELFPAY ==
--- OUTSIDE RECORDS SUMMARY | 2024-09-29 18:06 | XMS_ITS | Clinical Summary ---
Author Organization [employer] Address [address] [facility] [address] [place] [address] Care Team Providers Care Tank House Supervisor Name Role Phone Name, Terrence YOON Primary Care Provider [phone] Jimmy Lua Unavailable Unavailable Allergies No known active allergies Medications * This document contains information received from the source organization and may not represent a complete record from that organization. Calcium-Magnesi um-Vitamin D (CITRACAL CALCIUM+D PO) Take 1 tablet by mouth 2 times daily. 3 Active oxybutynin XL (Ditropan-XL) 15 MG 24 hr tablet Take 15 mg by mouth in the morning. 3 Active methIMAzole (Tapazole) 5 MG tablet Take 2.5 mg by mouth in the morning. 3 Active Vitamin D High Potency 25 MCG (1000 UT) capsule TAKE 1 CAPSULE BY MOUTH EVERY MORNING 90 capsule 1 4 Active lithium 300 MG tabletIndicatio ns:Bipolar affective disorder in remission (CMS/HCC) Take 1 tablet (300 mg) by mouth Once daily. 90 tablet 3 4 Active QUEtiapine (SEROquel) 25 MG tablet Take 3 tablets (75 mg) by mouth at bedtime. 270 tablet 3 4 Active hydrOXYzine HCl (Atarax) 50 MG tablet TAKE 1 TABLET BY MOUTH DAILY AT BEDTIME NEEDED 60 tablet 2 4 Active atorvastatin (Lipitor) 80 MG tabletIndicatio ns:Cerebrovascu lar accident (CVA), unspecified mechanism (CMS/HCC) Take 1 tablet (80 mg) by mouth Once per day. 30 tablet 11 4 025 Active hydrALAZINE (Apresoline) 25 MG tablet TAKE 1 TABLET BY MOUTH TWICE DAILY 60 tablet 11 5 Active hydrALAZINE (Apresoline) 25 MG tablet Take 1 tablet (25 mg) by mouth 2 times daily. 60 tablet 11 4 025 Discontinued Active Problems Problem Noted Date Diagnosed Date Open fracture of tooth 05/13/2024 Cerebrovascular accident (CVA) 05/26/2023 Overview (05/26/2023): Patient has started on meds for secondary prevetion of CVA. He will continue on the baby ASA, I will double his lisinopril and started him on high dose atorvast Localized gingival recession, minimal 05/15/2023 Family history of dementia 02/25/2023 Memory problem 02/25/2023 Chronic gout without tophus 12/05/2022 Severe dental caries 09/29/2022 Bipolar affective disorder in remission 07/22/19 23 Assessment & Plan (11/26/2023 3:17 PM EDT): Had been stable on Seven Devils 600 mg daily for a long time, seemed to continue well-controlled with decreased Seven Devils 300 mg. However developed marked insomnia and hypomania. He resumed Seven Devils 300 mg 2 tabs daily but developed tremor. Pt was extremely resistant to change in medications, but did agree to gradual uptaper of Seroquel now 75 mg at bedtime and decreased Seven Devils 300 mg once at bedtime. Pt says the tremor has resolved and his mood is fine. Continue Seroquel 75 mg at bedtime, Seven Devils 300 mg 1 at bedtime. Since this provider will be retiring, he will be transferred to new psychiatric prescriber. Meanwhile, prescriptions were sent for his medications with 1 year of refills. Any issues or concerns, contact [facility]. All his questions were answered. I have wished him well. Pt agrees with the plan. Assessment & Plan (09/22/2023 12:27 PM EDT): Had been stable on Seven Devils 600 mg daily for a long time, seemed to continue well-controlled with decreased Seven Devils 300 mg. However developed marked insomnia and hypomania. He resumed Seven Devils 300 mg 2 tabs daily but developed tremor. Pt was extremely resistant to change in medications, but did agree to gradual uptaper of Seroquel now 75 mg at bedtime and decreased Seven Devils 300 mg once at bedtime. Pt says the tremor has resolved and his mood is fine. Continue Seroquel 75 mg at bedtime, Seven Devils 300 mg 1 at bedtime. On 06/25/2023 provider informed the patient and caregiver that I would be retiring, and we would make every effort to plan smooth transition of care. Meanwhile, F/U with me in 2 months. Pt agrees with the plan. Assessment & Plan (07/28/2023 1:35 PM EST): Had been stable on Seven Devils 600 mg daily for a long time, seemed to continue well-controlled with decreased Seven Devils 300 mg. However developed marked insomnia and hypomania. He resumed Seven Devils 300 mg 2 tabs daily but developed tremor. Pt was extremely resistant to change in medications, but did agree to gradual uptaper of Seroquel now 75 mg at bedtime and decreased Seven Devils 300 mg once at bedtime. Pt says the tremor has resolved and his mood is fine. Continue Seroquel 75 mg at bedtime, Seven Devils 300 mg 1 at bedtime. On 06/25/2023 provider informed the patient and caregiver that I would be retiring, and we would make every effort to plan smooth transition of care. Meanwhile, F/U with me in 6-8 weeks. Pt agrees with the plan. Assessment & Plan (01/26/2023 9:45 AM EDT): Progress Note: Kong is a 62-year-old, [place]an speaking male that was referred for a [...] this time. Planned for case consult with [facility] psychopharmacology clinic. Assessment: Patient with history of [...] Visit Other Bipolar affective disorder in remission ([facility]) Patient ready to address current needs Yes Strengths-strong family support PLAN: 1. Follow up with [facility]: Recommended for follow-up: Post [facility] psychopharmacology consult 2. Patient goal is to reengage in medication management services 3. Behavioral Recommendations a. Break tasks down to smaller goals b. Slowly increase goals c. PTSD jed- deep breathing, progressive muscle relaxation Assessment & Plan (10/20/2022 3:33 PM EDT): Had been stable on Seven Devils 600 mg daily for a long time, seemed to continue well-controlled with decreased Seven Devils 300 mg. However developed marked insomnia and hypomania which is now improved with resumption of Seven Devils 300 mg 2 tabs daily. Unfortunately, new [...] 3:11 PM EST): Had been stable on Seven Devils 600 mg daily for a long time, seemed to continue well-controlled with decreased Seven Devils 300 mg. However developed marked insomnia and hypomania which is now improved with resumption of Seven Devils 300 mg 2 tabs daily. Had also been taking Quetiapine 25 mg at bedtime but that was not dispensed by the pharmacy since May and he is still doing well without it, with adequate sleep. Unfortunately has developed tremor of the right hand, which may be a S/E of the lithium. Will do labs arlen for Seven Devils level and metabolic profile. Meanwhile continue medications as usual. F/U 2 months. He agrees with the plan. Hyperparathyroidism 02/19/2022 Hyperthyroidism 02/19/2022 Vitamin D deficiency 06/26/2017 Multinodular goiter 01/08/2016 [...] >140/90 mmHg ?? ED/urgent care precautions reviewed Radicular pain 12/12/2015 Erectile dysfunction 10/12/2013 Resolved Problems Problem Noted Date Diagnosed Date Resolved Date Dental calculus 05/15/2023 09/29/2024 Dental abscess 03/20/2023 09/29/2024 Bipolar disorder 09/06/2020 04/21/2024 Assessment & Plan (06/25/2023 11:46 AM EST): Had been stable on Seven Devils 600 mg daily for a long time, seemed to continue well-controlled with decreased Seven Devils 300 mg. However developed marked insomnia and hypomania. He resumed Seven Devils 300 mg 2 tabs daily but developed tremor. Pt was extremely resistant to change in medications, but did agree to gradual uptaper of Seroquel now 75 mg at bedtime and decreased Seven Devils 300 mg once at bedtime. Pt says the tremor has resolved and his mood is fine. His agrees that the tremor is now controlled, and his behavior is fine. Last time mentioned new onset abnormal movements of mouth, but that seems to have resolved. Continue Seroquel 75 mg at bedtime, Seven Devils 300 mg 1 at bedtime. Today 06/25/2023 provider informed the patient and caregiver that I would be retiring in approx 1/2 year. F/U with me in 1 month. Pt and Caregiver agree with plan. Assessment & Plan (05/26/2023 11:33 AM EST): Had been stable on Seven Devils 600 mg daily for a long time, seemed to continue well-controlled with decreased Seven Devils 300 mg. However developed marked insomnia and hypomania. He resumed Seven Devils 300 mg 2 tabs daily but developed tremor. Pt was extremely resistant to change in medications, but did agree to gradual uptaper of Seroquel now 75 mg at bedtime and decreased Seven Devils 300 mg once at bedtime. Pt says [...] now, continue Seroquel 75 mg at bedtime, Seven Devils 300 mg 1 at bedtime. F/U with me in 1 month. Pt and Caregiver agree with plan. Assessment & Plan (03/26/2023 12:08 PM EDT): Had been stable on Seven Devils 600 mg daily for a long time, seemed to continue well-controlled with decreased Seven Devils 300 mg. However developed marked insomnia and hypomania. He resumed Seven Devils 300 mg 2 tabs daily but developed [...] that he will need to stop taking Seven Devils. Will decrease to Seven Devils 300 mg 1 at bedtime. F/U for Neurological evaluation as soon as can be arranged. F/U with me in 3 weeks. Pt and Caregiver agree with plan. Assessment & Plan (03/05/2023 12:35 PM EDT): Had been stable on Seven Devils 600 mg daily for a long time, seemed to continue well-controlled with decreased Seven Devils 300 mg. However developed marked insomnia and hypomania. He resumed Seven Devils 300 mg 2 tabs daily but developed [...] the tremor is almost certainly r/t the Seven Devils, will not stop the Seven Devils until mood is better controlled, so continue Seven Devils 300 mg 2 at bedtime. For any safety concerns call 911. F/U with me in 3 weeks. Pt and Caregiver agree with plan. Assessment & Plan (01/27/2023 3:00 PM EDT): Had been stable on Seven Devils 600 mg daily for a long time, seemed to continue well-controlled with decreased Seven Devils 300 mg. However developed marked insomnia and hypomania. He resumed Seven Devils 300 mg 2 tabs daily but developed tremor, which has persisted. He also has experienced marked worsening of mood with anhedonia, tearfulness, low motivation. Patient's presentation today is markedly incongruent with presentation at various [facility] and ED visits recently, and with reports of his , clinician, and providers. Pt expresses strong desire not to stop Seven Devils. Suspect he is denying symptoms in order to discourage provider from changing his medication. Reviewed with the patient that the tremor was almost certainly a S/E of lithium. Also, his mood was not adequately controlled. In conjunction with patient, developed plan to start new medication: Seroquel 25 mg 1/2 tab at bedtime for a few nights then 1 full tab at bedtime. Continue Seven Devils as usual for now. Expect to titrate up the Seroquel until mood was stable, then we would gradually decrease the Seven Devils. He is agreeable to this plan. It was also reviewed with his . F/U 2-3 weeks. Call sooner as needed. He agrees with the plan. Assessment & Plan (01/25/2023 5:22 PM EDT): ?? Previously following in [facility] Psychopharm clinic with TIFF Lua. Last appt October 2022, pt did not show to appt in November 2022 ?? Continues on lithium 300mg BID ?? Seven Devils level therapeutic during ED visit in December [...] to RADHA Barry ?? Safety planning reviewed Chronic infective otitis externa 10/16/2017 09/29/2024 Bipolar affective disorder, current episode manic 12/12/2015 09/29/2024 Increased frequency of urination 11/29/2013 09/29/2024 Encounters Date Type Department Care Team Description 09/29/2024 4:00 PM EDT Office Visit [facility] [address] [place] [phone] Dizziness (Primary Dx); Other fatigue; Other symptoms and signs concerning food and fluid intake; Body mass index (BMI) 31.0-31.9, adult 09/29/2024 Telephone [facility] [address] [place] [phone] Kaity Amador DO Nurse Triage 09/20/[address] [address] Terrence Quintanilla MD 09/06/[address] [address] Tracy Wright MA October recalls 09/02/2024 9:30 AM EST Office Visit [facility] [address] [place] [address] Fernandes-Soares, Opal, DDS Full coverage crown needed for root canal-treated tooth (Primary Dx) 08/19/2024 8:00 AM EST Office Visit [facility] [address] [place] [phone] Fernandes-Soares, Opal, DDS Dental caries (Primary Dx); Full coverage crown needed for root canal-treated tooth 07/26/2024 Orders Only [facility] External Provider, [facility] 07/22/2024 10:00 AM EST Office Visit [facility] [address] [place] [phone] Fernandes-Soares, Opal, DDS Dental caries (Primary Dx); Asymptomatic irreversible pulpitis 07/05/2024 10:00 AM EST Office Visit [address] [address] Terrence Quintanilla MD Essential hypertension (Primary Dx); Hyperthyroidism; On statin therapy; Bipolar affective disorder, remission status unspecified ([facility]); Encounter for immunization 07/05/2024 Travel 07/04/[address] [address] Teresa Nicole MA Chart Prep from Last 3 Months Immunizations Name Administration [...] Sign Reading Time Taken Comments Blood Pressure 113/71 09/29/2024 4:16 PM EDT Pulse 80 09/29/2024 3:48 PM EDT Temperature 36.6 ??C (97.8 ??F) 09/29/2024 3:48 PM ED T Respiratory Rate 18 09/29/2024 3:48 PM EDT Oxygen Saturation 96% 09/29/2024 3:48 PM EDT Inhaled Oxygen Concentration - - Weight 88.7 kg (195 lb 9.6 oz) 07/05/2024 9:36 A M EST Height 167.6 cm (5' 6 ) 07/05/2024 9:36 AM EST Body Mass Index 31.57 07/05/2024 9:36 AM EST Plan of Treatment Upcoming Encounters Date Type Department Care Team (Late st Contact Info) Description 10/05/2024 3:00 PM EDT Office Visit [facility] [address] [place] [address] Ulises Saunders DDS [address] [place] [address] 12/15/2024 9:45 AM EDT Office Visit [facility] [address] [place] [address] Name, MD Terrence [address] [place] [address] 12/16/2024 3:00 PM EDT Office Visit [facility] [address] [place] [address] Aliyah Adkins [address] [place] [address] Health Maintenance Due Date Last Done Comments [...] exists Dental X-Ray: Full Mouth 03/21/2026 03/20/2023, 08/2022 DTaP/Tdap/Td Vaccines (2 - Td or Tdap) [...] Bipolar affective disorder, remission status unspecified (CMS/HCC) PROPHYLAXIS - ADULT Routine 06/16/2024 3 :00 PM EST Dental plaque Localized gingival recession, minimal PERIODIC ORAL EVALUATION - ESTABLISHED PATIENT Routine 06/16/2024 3:00 PM EST HEPATITIS C AB W/REFL TO HCV [...] AM EST) 07/26/2024 9:36 AM EST Narrative [facility] - 07/27/2024 9:04 AM EST ? [facility] ?[address] ?[place] [address] ? Ultrasound Report ? Signed ? Patient: Hogue,Kong ?MR#: [id number] ?? 8 ? : 1960 ?Acct:[id number] ? Age/Sex: 64 / M ?ADM Date: 07/26/24 ? Loc: HO.US ? Attending Dr: Miryam Martines MD ? Ordering Physician: Miryam Martines MD ?? Date of Service: 07/26/24 ?? Procedure(s): US carotid duplex BI ?? Accession Number(s): [id number] ? cc: Miryam Martines MD; Name,Terrence YOON ? EXAMINATION: ??BILATERAL CAROTID ULTRASOUND WITH [...] ??Ulises Portillo MD ??07/27/2024 09:02 AM EST ?? RP ? Dictated By: ?Ulises Portillo MD ? Signed By: ?<Electronically signed by Ulises Portillo MD in OV> ?07/27/24 0902 ? DD/ 0936 ? TD/TT: 07/26/2447 ? [employer] Supervisor: ? Procedure Note [place], Yulia - 07/27/2024 [place] [address] Ultrasound Report Signed Patient: Anh Hogue#: [id number] 8 : 8Acct:[id number] Age/Sex: 64 / MADM Date: 07/26/24 Loc: HO. Attending Dr: Miryam Martines MD Ordering Physician: Miryam Martines MD Date of Service: 07/26/24 Procedure(s): US carotid duplex BI Accession Number(s): [id number] cc: Miryam Martines MD; Name,Terrence YOON EXAMINATION: [...] Ulises Portillo MD 07/27/2024 09:02 AM EST RP Dictated By: Ulises Portillo MD Signed By: <Electronically signed by Ulises Portillo MD in OV> 07/27/[address] DD/ 5 TD/TT: 07/26/24946 [employer] Supervisor: [facility] External Provider CV VASC ULAR PROCEDURES Final Result [facility] [address] [place] [phone] * (ABNORMAL) CBC auto differential (07/05/2024 10:03 AM EST) White Blood Count 8.6 4.8 - 10.8 X10*3/uL [facility] Red Blood Count 5.27 4.60 - 5.80 X10*6/uL [facility] Hemoglobin 15.6 14.0 - 18.0 g/dl [facility] Hematocrit 45.8 42.0 - 52.0 % [facility] Mean Corpuscular Volume 86.9 80.0 - 98.0 fL [facility] Mean Corpuscular Hemoglobin 29.6 27.0 - 33.0 pg [facility] Mean Corpuscular HGB Conc 34.1 31.0 - 36.0 g/dl [facility] Red Cell Distribution Width 13.0 11.0 - 16.0 % [facility] Platelet Count 257 160 - 400 X10*3/uL [facility] Mean Platelet Volume 8.7(L) 9.4 - 12.4 fL [facility] Neutrophils Percent Auto 63.2 45 - 73 % [facility] Imm Gran Pct Auto 0.4 0.0 - 0.4 % [facility] Lymphocytes Percent Auto 27.3 20 - 40 % [facility] Monocytes Percent Auto 7.2 2 - 11 % [facility] Eosinophils Percent Auto 1.4 0 - 4 % [facility] Basophils Percent Auto 0.5 0 - 2 % [facility] NRBC Pct Auto 0.0 0.0 - 0.2 /100WBC [facility] Neutrophils Absolute Auto 5.4 2.0 - 8.3 x10*3/uL [facility] Imm Gran Abs Auto 0.03 0.00 - 0.03 X10*3/uL [facility] Lymphocytes Absolute Auto 2.3 1.2 - 4.9 X10*3/uL [facility] Monocytes Absolute Auto 0.6 0.1 - 1.2 X10*3/uL [facility] Eosinophils Absolute Auto 0.1 0.0 - 0.4 X10*3/uL [facility] Basophils Absolute Auto 0.0 0.0 - 0.2 X10*3/uL [facility] NRBC Abs Auto 0.000 0.0 - 0.012 X10*3/uL [facility] Blood Venous blood specimen / Unknown 07/05/2024 10:03 AM EST 07/05/2024 11:02 AM EST us Terrence Name LAB BLOOD ORDERABLES Final Resul t [facility] [address] [place] [address] [phone] * (ABNORMAL) Seven Devils (07/05/2024 10:03 AM EST) Seven Devils 0.15(L) 0.60 - 1.20 mmol/L [facility] Blood Venous blood specimen / Unknown 07/05/2024 10:03 AM EST 07/05/2024 11:02 AM EST us Terrence Quintanilla MD LAB BLOOD ORDERABLES Final Resul t Performing Organization Address [facility] de Phone Number [facility] [address] [place] [phone] * (ABNORMAL) Lipid Panel, Standard (07/05/2024 10:03 AM EST) Triglycerides 74 <150 mg/dL [facility] Comment:Desirable Triglyceri de: less than 150 mg/dLBorderline High Triglyceride 150-199 mg/dLHigh Triglyceride: 200-499 mg/dLVery High Triglyceride: greater than or equal to 5OO mg/dL Cholesterol 91 <200 mg/dL [facility] Comment:Desirable Cholestero l: less than 200 mg/dLBorderline High Cholesterol: 200-239 mg/dLHigh Cholesterol: greater than 239 mg/dL LDL Cholesterol Calculated 51 <100 mg/dL [facility] Comment:Desirable LDL: less than 100 mg/dLNear Optimal/Above Optimal LDL: 110- 129 mg/dLBorderline High LDL: 130-159 mg/dLHigh LDL: 160-189 mg/dLVery High LDL: greater than or equal to 190 mg/dL HDL Cholesterol 26(L) >40 mg/dL [facility] Comment:Desirable HDL: great er than 40 mg/dL Note: This HDL assay may give artificially low results in patients with liver disease. Blood Venous blood specimen / Unknown 07/05/2024 10:03 AM EST 07/05/2024 11:02 AM EST us Terrence Quintanilla MD LAB BLOOD ORDERABLES Final Resul t Performing Organization Address [facility] Co de Phone Number [facility] [address] [place] [phone] * (ABNORMAL) Comprehensive Metabolic Panel (07/05/2024 10:03 AM EST) Sodium 140 135 - 145 mmol/L [facility] Potassium 4.3 3.3 - 5.1 mmol/L [facility] Chloride 111(H) 96 - 108 mmol/L [facility] Carbon Dioxide 23 22 - 29 mmol/L [facility] Anion Gap 10(L) 12 - 20 [facility] Urea Nitrogen (BUN) 17(H) 9 - 16 mg/dL [facility] Creatinine, Serum 1.14 0.5 - 1.4 mg/dL [facility] Estimated Glomerular Filt Rate >60 [facility] Comment:Chronic Kidney Disea se: Estimated GFR < 60 mL/min/1.86b0Ruelsa Kidney Disease: Estimated GFR < 15 mL/min/1.73m2 Glucose 120(H) 60 - 115 mg/dL [facility] Calcium 8.9 8.4 - 10.2 mg/dL [facility] Bilirubin, Total 1.1(H) 0.0 - 1.0 mg/dL [facility] Aspartate Amino Transferase 30 5 - 37 U/L [facility] Alanine Aminotransferase 36 0 - 40 U/L [facility] Total Protein 7.0 6.5 - 8.0 g/dL [facility] Albumin Level 4.0 3.5 - 5.0 g/dL [facility] Alkaline Phosphatase 83 39 - 117 U/L [facility] Blood Venous blood specimen / Unknown 07/05/2024 10:03 AM EST 07/05/2024 11:02 AM EST us Terrence Name LAB BLOOD ORDERABLES Final Resul t [facility] [address] [place] [phone] * Hepatitis C Antibody with Reflex to HCV, RNA, Quantitative, Real-Time PCR (04/18/2024 11:12 AM EDT) Hepatitis C Antibody Nonreactive Nonreactive [facility] Comment:Antibodies to HCV no t detected; does not exclude early acuteHCV infection. Blood Venous blood specimen / Unknown 04/18/2024 11:12 AM EDT 04/18/2024 11:17 AM EDT us Terrence Quintanilla MD LAB BLOOD ORDERABLES Final Resul t [facility] [address] [place] [phone] [phone] * Hm Colonoscopy (05/08/2019 2:51 PM EDT) Colonoscopy Normal Normal Narrative Airam Delgado - 05/08/2019 2:51 PM EDT Recommended 10 year follow up us Historical Provider HEALTH MAINTENANCE Final Result from Last 3 Months or Most Recently Relevant to Health Maintenance Insurance [address] [place] [address] STANDARD MEDICARE [facility] FULL DENTAL - [facility] FULL (MEDICAID) Care Teams [employer] Supervisor Relationship Specialty Start Date End Date Name, MD Terrence [address] [place] [phone] PCP - General Family Medicine 09/14/15 Jimmy Lua FNP [address] [place] [phone] Nurse Practitioner Family Medicine 05/26/23
--- OUTSIDE RECORDS SUMMARY | 2024-09-29 18:06 | XMS_ITS | Encounter Summary ---
Author Organization [employer] Address 75 [facility] [address] 7t [place] [address] Care Team Providers Care Skiver Hand Name Role Phone Name, Terrence YOON Primary Care Provider [phone] Jimmy Lua Unavailable Unavailable Reason for Visit * Reason Onset Date Comments Nurse Triage 09/29/2024 Encounter Details Date Type Department Care Team ([facility] st Contact Info) Description 09/29/2024 Telephone [facility] WALK-IN CENTER [address] [place], [place] [phone] Kaity Amador DO 230 [place], [place] [phone] Nurse Triage Social History Tobacco Use Types Packs/Day Years [...] encounter Miscellaneous Notes * Telephone Encounter - Sarina Olivier RN - 09/29/2024 4:03 PM EDT orchid hand Assessment: Patient presents to walk-in center with dizziness x 2 weeks. Patient reports he feels off balance and as though he will fall when he is walking. Not positional in nature. No associated chest pain, palpitations, SOB, focal weakness. Compliant with all his medications, with the exception of hydralazine as he reports running out a couple days ago. His reports he had a stroke a few years ago. Last visit with PCP 07/05/2024 Vitals: BP 119/69 HR 80 RR 18 SpO2 96% on room air Temp 97.8 (oral) Plan: Report to Dr. Amador Provider in to see patient at this time documented in this encounter Plan of Treatment Upcoming Encounters Date Type Department Care Team (Late st Contact Info) Description 10/05/2024 3:00 PM EDT Office Visit [facility] ADULT DENTAL [address] [place], [place] [phone] Ulises Saunders DDS [address] [place], [place] [phone] 12/15/2024 9:45 AM EDT Office Visit [facility] MEDICINE [address] [place] [address] Name, MD Terrence [address] [place] [address] 12/16/2024 3:00 PM EDT Office Visit [facility] ADULT DENTAL [address] [place], [place] [phone] Brandon Adkinsaris [address] [place] [address] documented as of this encounter Visit Diagnoses Not on filedocumented in this encounter Additional Health Concerns Assessment Noted Time PHQ-9 Depression Total Score: 0 09/22/19 24 11:18 AM EDT documented as of this encounter Care Teams Skiver Hand Relationship Specialty Start Date End Date Name, MD Terrence [address] [place] [address] PCP - General Family Medicine 09/14/15 Jimmy Lua FNP [address] [place] [address] Nurse Practitioner Family Medicine 05/26/23 documented as of this encounter
--- OUTSIDE RECORDS SUMMARY | 2024-09-29 18:06 | XMS_ITS | Encounter Summary ---
Author Organization [employer] Address 75 [facility] 7t [place] [address] Care Team Providers Care Ems Driver Name Role Phone Name, Terrence YOON Primary Care Provider Jimmy Lua Unavailable Unavailable Encounter Details Date Type Department Care Team (Late st Contact Info) Description 10/01/2022 Orders Only [facility] CHC MED & PEDS [address] [place], [place] [phone] Kaity Seymour LPN Social History Tobacco Use [...] Description 10/05/2024 3:00 PM EDT Office Visit [facility] ADULT DENTAL 230 [place], [place] [phone] Ulises Saunders DDS [address] [place], [place] [phone] 12/15/2024 9:45 AM EDT Office Visit [facility] MEDICINE [address] [place] [address] Name, MD Terrence 230 [place] [address] 12/16/2024 3:00 PM EDT Office Visit [facility] ADULT DENTAL [address] [place] [address] Lucille, Aliyah [address] [place] [address] documented as of this encounter Visit Diagnoses Not on filedocumented in this encounter Additional Health Concerns Assessment Noted Time PHQ-9 Depression Total Score: 0 07/22/19 1:53 PM EST documented as of this encounter Care Teams Ems Driver Relationship Specialty Start Date End Date Name, MD Terrence [address] [place] [address] PCP - General Family Medicine 09/14/15 Jimmy Lua FNP [address] [place] [address] Nurse Practitioner Family Medicine 05/26/23 documented as of this encounter
--- OUTSIDE RECORDS SUMMARY | 2024-09-29 18:06 | XMS_ITS | Encounter Summary ---
Author Organization [employer] Address 75 [facility] 7t [place] [address] Care Team Providers Care Crop Ranch Hand Name Role Phone Name, Terrence YOON Primary Care Provider [phone] Jimmy Lua Unavailable Unavailable Reason for Visit * Reason Comments Med Refill Encounter Details Date Type Department Care Team ([facility] Contact Info) Description 06/02/[address] [facility] MEDICINE [address] [place] [address] Name, MD Terrence 230 [place] [address] Cerebrovascular accident (CVA), unspecified mechanism (CMS/HCC) Social [...] 3:00 PM EDT Office Visit [facility] ADULT DENTAL [address] [place] [address] Ulises Saunders DDS [address] [place] [address] 12/15/2024 9:45 AM EDT Office Visit [facility] MEDICINE [address] [place] [address] Terrence Quintanilla MD [address] [place] [address] 12/16/2024 3:00 PM EDT Office Visit [facility] ADULT DENTAL [address] [place] [address] Aliyah Adkins [address] [place] [address] documented as of this encounter Visit Diagnoses Diagnosis Cerebrovascular accident (CVA), unspecified mechanism (CMS/HCC) documented in this encounter Additional Health Concerns Assessment Noted Time PHQ-9 Depression Total Score: 0 09/22/19 24 11:18 AM EDT documented as of this encounter Care Teams Crop Ranch Hand Relationship Specialty Start Date End Date Terrence Quintanilla MD [address] [place] [address] PCP - General Family Medicine 09/14/15 Jimmy Lua FNP 230 [place] [address] Nurse Practitioner Family Medicine 05/26/23 documented as of this encounter
--- OUTSIDE RECORDS SUMMARY | 2024-09-29 18:06 | XMS_ITS | Encounter Summary ---
Author Organization [employer] Address [address] [facility] [address] 7t [place] [address] Care Team Providers Care Water Filtration Technician Name Role Phone Name, Terrence YOON Primary Care Provider [phone] Jimmy Lua Unavailable Unavailable Reason for Visit * Reason Onset Date Comments October recalls 09/06/2024 Encounter Details Date Type Department Care Team (Late st Contact Info) Description 09/06/2024 Telephone [facility] MEDICINE [address] [place] [address] Tracy Wright [place] October recalls Social History Tobacco Use Types [...] Upcoming Encounters Date Type Department Care Team ([facility] st Contact Info) Description 10/05/2024 3:00 PM EDT Office Visit [facility] ADULT DENTAL [address] [place] [address] Ulises Saunders DDS [address] [place] [address] 12/15/2024 9:45 AM EDT Office Visit [facility] MEDICINE [address] [place] [address] Name, MD Terrence 230 [place] [address] 12/16/2024 3:00 PM EDT Office Visit [facility] ADULT DENTAL [address] [place] [address] Aliyah Adkins [address] [place] [address] documented as of this encounter Visit Diagnoses Not on filedocumented in this encounter Additional Health Concerns Assessment Noted Time PHQ-9 Depression Total Score: 0 09/22/19 24 11:18 AM EDT documented as of this encounter Care Teams Water Filtration Technician Relationship Specialty Start Date End Date Name, MD Terrence 230 [place] [address] PCP - General Family Medicine 09/14/15 Jimmy Lua FNP 230 [place] [address] Nurse Practitioner Family Medicine 05/26/23 documented as of this encounter
--- OUTSIDE RECORDS SUMMARY | 2024-09-29 18:06 | XMS_ITS | Encounter Summary ---
Author Organization [employer] Address [address] [facility] [address] 7t [place] [address] Care Team Providers Care Welfare Adviser Name Role Phone Name, Terrence YOON Primary Care Provider [phone] Jimmy Lua Unavailable Unavailable Reason for Visit * Reason Comments Med Refill Encounter Details Date Type Department Care Team ([facility] st Contact Info) Description 09/20/2024 Refill [facility] MEDICINE [address] [place] [address] Name, MD Terrence 230 [place] [address] Social History Tobacco Use Types Packs/Day Years [...] EDT Office Visit [facility] ADULT DENTAL [address] [place] [address] Ulises Saunders DDS 230 [place] [address] 12/15/2024 9:45 AM EDT Office Visit [facility] MEDICINE [address] [place] [address] Terrence Quintanilla MD [address] [place] [address] 12/16/2024 3:00 PM EDT Office Visit [facility] ADULT DENTAL [address] [place] [address] Aliyah Adkins 230 [place] [address] documented as of this encounter Visit Diagnoses Not on filedocumented in this encounter Additional Health Concerns Assessment Noted Time PHQ-9 Depression Total Score: 0 09/22/19 24 11:18 AM EDT documented as of this encounter Care Teams Welfare Adviser Relationship Specialty Start Date End Date Terrence Quintanilla MD [address] [place] [address] PCP - General Family Medicine 09/14/15 Jimmy Lua FNP 230 [place] [address] Nurse Practitioner Family Medicine 05/26/23 documented as of this encounter
--- OUTSIDE RECORDS SUMMARY | 2024-09-29 18:06 | XMS_ITS | Encounter Summary ---
Author Organization [employer] Address [address] [facility] [address] 7t [place] [address] Care Team Providers Care Health Safety Engineer Name Role Phone Name, Terrence YOON Primary Care Provider [phone] Jimmy Lua Unavailable Unavailable Reason for Visit * Reason Comments Med Refill Encounter Details Date Type Department Care Team ([facility] Contact Info) Description 05/29/2023 Refill [facility] MEDICINE 230 [place] [address] Name, MD Terrence 230 [place] [address] Social History Tobacco Use Types Packs/Day Years [...] Description 10/05/2024 3:00 PM EDT Office Visit [facility] ADULT DENTAL [address] [place] [address] Ulises Saunders DDS [address] [place] [address] 12/15/2024 9:45 AM EDT Office Visit [facility] MEDICINE [address] [place] [address] NameTerrence MD [address] [place] [address] 12/16/2024 3:00 PM EDT Office Visit [facility] ADULT DENTAL [address] [place] [address] Aliyah Adkins [address] [place] [address] documented as of this encounter Visit Diagnoses Not on filedocumented in this encounter Additional Health Concerns Assessment Noted Time PHQ-9 Depression Total Score: 0 05/26/20 23 10:22 AM EST documented as of this encounter Care Teams Health Safety Engineer Relationship Specialty Start Date End Date NameTerrence MD [address] [place] [address] PCP - General Family Medicine 09/14/15 Jimmy Lua FNP 230 [place] [address] Nurse Practitioner Family Medicine 05/26/23 documented as of this encounter
--- OUTSIDE RECORDS SUMMARY | 2024-09-29 18:06 | XMS_ITS | Encounter Summary ---
Author Organization [facility] Address 75 [facility] 7t [place] [address] Care Team Providers Care Manager Statistical Programming Name Role Phone Name, Terrence YOON Primary Care Provider [phone] Jimmy Lua Unavailable Unavailable Encounter Details Date Type Department Care Team (Late st Contact Info) Description 01/06/2023 Orders Only [address] [address] Karmen Ulrich LPN Social History Tobacco Use [...] Description 10/05/2024 3:00 PM EDT Office Visit [facility] ADULT DENTAL [address] [place] [address] Ulises Saunders DDS 230 [place], [place] [phone] 12/15/2024 9:45 AM EDT Office Visit [facility] MEDICINE [address] [place] [address] Name, MD Terrence [address] [place] [address] 12/16/2024 3:00 PM EDT Office Visit [facility] ADULT DENTAL 230 [place], [place] [phone] Aliyah Adkins 230 [place], [place] [phone] documented as of this encounter Visit Diagnoses Not on filedocumented in this encounter Additional Health Concerns Assessment Noted Time PHQ-9 Depression Total Score: 0 10/21/19 2:06 PM EDT documented as of this encounter Care Teams Manager Statistical Programming Relationship Specialty Start Date End Date Name, MD Terrence [place], [place] [phone] PCP - General Family Medicine 09/14/15 Jimmy [place] [address] Nurse Practitioner Family Medicine 05/26/23 documented as of this encounter
--- OUTSIDE RECORDS SUMMARY | 2024-09-29 18:06 | XMS_ITS | Encounter Summary ---
Author Organization [email or web address] [facility] Address 75 [facility] 7t [place] [address] Care Team Providers Care Warm In Worker Name Role Phone NameTerrence MD Primary Care Provider [phone] Jimmy Lua Unavailable Unavailable Encounter Details Date Type Department Care Team (Late st Contact Info) Description 11/28/2022 Abstract [facility] MEDICINE [address] [place] [address] Terrence Quintanilla MD [address] [place] [address] Social History Tobacco Use Types Packs/Day Years [...] Description 10/05/2024 3:00 PM EDT Office Visit [facility] ADULT DENTAL [address] [place] [address] [phone] Ulises Saunders DDS 230 [place], [place] [phone] 12/15/2024 9:45 AM EDT Office Visit [facility] MEDICINE [address] [place] [address] Terrence Quintanilla MD 230 [facility] [place] [address] 12/16/2024 3:00 PM EDT Office Visit [facility] ADULT DENTAL [facility] [place], [place] [phone] Aliyah Adkins 230 [place] [address] documented as of this encounter Procedures Procedure Name Priority Date/Time Associated Diagnosis Comments HM COLONOSCOPY Routine 05/08/2019 2:51 PM EDT documented in this encounter Results * Hm Colonoscopy (05/08/2019 2:51 PM EDT) Colonoscopy Normal Normal Narrative Airam Delgado - 05/08/2019 2:51 PM EDT Recommended 10 year follow up us Historical Provider HEALTH MAINTENANCE Final Result documented in this encounter Visit Diagnoses Not on filedocumented in this encounter Additional Health Concerns Assessment Noted Time PHQ-9 Depression Total Score: 0 10/21/19 23 2:06 PM EDT documented as of this encounter Care Teams Warm In Worker Relationship Specialty Start Date End Date Name, MD Terrence [facility] [place] [address] PCP - General Family Medicine 09/14/15 [place] [address] Nurse Practitioner Family Medicine 05/26/23 documented as of this encounter
--- OUTSIDE RECORDS SUMMARY | 2024-09-29 18:06 | XMS_ITS | Encounter Summary ---
Author Organization [facility] Address 75 [facility] 7t [place] [address] Care Team Providers Care Repeat Photocomposing Machine Operator Name Role Phone Name, Terrence YOON Primary Care Provider [phone] Jimmy Lua Unavailable Unavailable Reason for Visit * Reason Comments crown insert #20 Encounter Details Date Type Department Care Team ([facility] st Contact Info) Description 09/02/2024 9:30 AM EST Office Visit [facility] ADULT DENTAL 230 [place] [address] Opal Al DDS [address] [place], [place] [phone] Full coverage crown needed for root canal-treated [...] 09/02/24, Timeout Time: 927 (crown insert) Location: [facility] Tooth: #20 Procedure: Roby delivery Verified the above with patient, assistant unit forester, and provider. Confirmed via patient's chart, intraorally and by radiographs. Boat Builder: not applicable Chief Complaint Patient presents with [...] pumiced tooth as needed. Tried on final denominational Verified interproximal contacts and margins BW taken to confirm margins and contacts Occlusion adjusted as needed Tooth Treatment: 37% Phosphoric Acid Etch and Skills Auditor applied Cemented with: Relyx Unicem Cleaned excess cement, flossed Patient satisfied with comfort and esthetics. POI given. Patient discharged alert, oriented, and in stable condition NV: Kb Saunders Open Hearth Furnace Operator Helper: Zully Reese Dentist: pOal Al DDS documented in this encounter Plan of Treatment Upcoming Encounters Date Type Department Care Team (Late st Contact Info) Description 10/05/2024 3:00 PM EDT Office Visit [facility] ADULT DENTAL [address] [place] [address] Ulises Saunders DDS [address] [place] [address] 12/15/2024 9:45 AM EDT Office Visit [facility] MEDICINE [address] [place] [address] Name, MD Terrence 230 [place] [address] 12/16/2024 3:00 PM EDT Office Visit [facility] ADULT DENTAL [address] [place] [address] Aliyah Adkins 230 [place] [address] documented as of this encounter Procedures Procedure [...] documented as of this encounter Care Teams Repeat Photocomposing Machine Operator Relationship Specialty Start Date End Date Name, MD Terrence 230 [place] [address] PCP - General Family Medicine 09/14/15 Jimmy Lua FNP 230 [place] [address] Nurse Practitioner Family Medicine 05/26/23 documented as of this encounter
--- OUTSIDE RECORDS SUMMARY | 2024-09-29 18:06 | XMS_ITS | Encounter Summary ---
Author Organization [employer] Address [address] [facility] [address] 7t [place] [address] Care Team Providers Care Planing Machine Operator Name Role Phone Name, Terrence YOON Primary Care Provider [phone] Jimmy Lua Unavailable Unavailable Reason for Visit * Reason Comments Dizziness Encounter Details Date Type Department Care Team ([facility] st Contact Info) Description 09/29/2024 4:00 PM EDT Office Visit [facility] WALK-IN CENTER [address] [place] [address] Dizziness (Primary Dx); Other fatigue; Other symptoms and signs concerning food and fluid intake; Body mass index (BMI) 31.0-31.9, adult Social History Tobacco Use Types Packs/Day Years [...] EDT Inhaled Oxygen Concentration - - Weight - - Height - - Body Mass Index - - documented in this encounter Plan of Treatment Upcoming Encounters Date Type Department Care Team (Late st Contact Info) Description 10/05/2024 3:00 PM EDT Office Visit [facility] ADULT DENTAL [address] [place] [address] Ulises Saunders DDS [address] [place] [address] 12/15/2024 9:45 AM EDT Office Visit [facility] MEDICINE [address] [place] [address] Name, MD Terrence 230 [place] [address] 12/16/2024 3:00 PM EDT Office Visit [facility] ADULT DENTAL [address] [place] [address] Aliyah Adkins [address] [place] [address] Scheduled Orders Name Type Priority Associated Diagnoses Orde r Schedule T4, Free Lab Routine Dizziness Other fatigue Expected: 09/29/2024 (Approximate), Expires: 09/29/2025 TSH Lab Routine Dizziness Other fatigue Expected: 09/29/2024 (Approximate), Expires: 09/29/2025 Vitamin D, 25-Hydroxy, Total, Immunoassay Lab Routine Dizziness Body mass index (BMI) 31.0-31.9, adult Expected: 09/29/2024 (Approximate), Expires: 09/29/2025 CBC Lab Routine Dizziness Expected: 09/29/2024, Expires: 09/29/2025 Basic Metabolic Panel Lab Routine Dizziness Expected: 09/29/2024 (Approximate), Expires: 09/29/2025 Vitamin B12 (Cobalamin) and Folate Panel, Serum Lab Routine Dizziness Expected: 09/29/2024, Expires: 09/29/2025 Ferritin Lab Routine Dizziness Other symptoms and signs concerning food and fluid intake Expected: 09/29/2024, Expires: 09/29/2025 Iron And Total Iron Binding Capacity Lab Routine Dizziness Other symptoms and signs concerning food and fluid intake Expected: 09/29/2024, Expires: 09/29/2025 documented as of this encounter Visit Diagnoses Diagnosis Dizziness- Primary Dizziness and giddiness Other fatigue Other symptoms and signs concerning food and fluid intake Body mass index (BMI) 31.0-31.9, adult documented in this encounter Additional Health Concerns Assessment Noted Time PHQ-9 Depression Total Score: 0 09/22/19 24 11:18 AM EDT documented as of this encounter Care Teams Planing Machine Operator Relationship Specialty Start Date End Date Name, MD Terrence 230 [place] [address] PCP - General Family Medicine 09/14/15 Jimmy Lua FNP 230 [place] [address] Nurse Practitioner Family Medicine 05/26/23 documented as of this encounter
--- OUTSIDE RECORDS SUMMARY | 2024-09-29 18:06 | XMS_ITS | Encounter Summary ---
Author Organization [employer] Address 75 [facility] 7t [place] [address] Care Team Providers Care Party Plan Dealer Name Role Phone Name, Terrence YOON Primary Care Provider [phone] Jimmy Lua Unavailable Unavailable Reason for Visit * Reason Comments Med Refill Encounter Details Date Type Department Care Team (Late Contact Info) Description 04/07/2023 Refill [facility] CHC MED & PEDS [address] [place], [place] [phone] Jimmy Lua FNP Bipolar affective disorder in remission (CMS/[facility]) Social History Tobacco Use Types Packs/Day Years [...] Description 10/05/2024 3:00 PM EDT Office Visit [facility] ADULT DENTAL 230 [place], [place] [phone] Ulises Saunders DDS 230 [place], [place] [phone] 12/15/2024 9:45 AM EDT Office Visit [facility] MEDICINE 230 [place] [address] Name, MD Terrence 230 [place] [address] 12/16/2024 3:00 PM EDT Office Visit [facility] ADULT DENTAL 230 [place] [address] Brandon Adkinsaris 230 [place] [address] documented as of this encounter Visit Diagnoses Diagnosis Bipolar affective disorder in remission (CMS/[facility]) documented in this encounter Additional Health Concerns Assessment Noted Time PHQ-9 Depression Total Score: 3 03/26/20 11:40 AM EDT documented as of this encounter Care Teams Party Plan Dealer Relationship Specialty Start Date End Date Name, MD Terrence [address] [place] [address] PCP - General Family Medicine 09/14/15 Jimym Lua FNP [address] [place] [address] Nurse Practitioner Family Medicine 05/26/23 documented as of this encounter
[2024-09-29 18:23] LABS: MANUAL DIFF FLAG NO
[2024-09-29 18:34] LABS: Basophils Absolute Auto 0.1 X10*3/uL (0.0-0.2); Basophils Percent Auto 0.7 % (0-2); Eosinophils Absolute Auto 0.1 X10*3/uL (0.0-0.4); Eosinophils Percent Auto 1.7 % (0-4); Hematocrit 48.5 % (42.0-52.0); Hemoglobin 16.2 g/dl (14.0-18.0); Imm Gran Abs Auto 0.04 X10*3/uL (0.00-0.03); Imm Gran Pct Auto 0.5 % (0.0-0.4); Lymphocytes Absolute Auto 2.6 X10*3/uL (1.2-4.9); Lymphocytes Percent Auto 30.1 % (20-40); Mean Corpuscular HGB Conc 33.4 g/dl (31.0-36.0); Mean Corpuscular Hemoglobin 29.1 pg (27.0-33.0); Mean Corpuscular Volume 87.2 fL (80.0-98.0); Mean Platelet Volume 8.5 fL (9.4-12.4); Monocytes Absolute Auto 0.8 X10*3/uL (0.1-1.2); Monocytes Percent Auto 9.3 % (2-11); Neutrophils Absolute Auto 4.9 x10*3/uL (2.0-8.3); Neutrophils Percent Auto 57.7 % (45-73); Platelet Count 292 X10*3/uL (160-400); Red Blood Count 5.56 X10*6/uL (4.60-5.80); Red Cell Distribution Width 12.9 % (11.0-16.0); White Blood Count 8.5 X10*3/uL (4.8-10.8)
[2024-09-29 19:16] LABS: Alanine Aminotransferase 52 U/L (0-40); Albumin Level 4.1 g/dL (3.5-5.0); Alkaline Phosphatase 88 U/L (39-117); Aspartate Amino Transferase 36 U/L (5-37); Bilirubin Direct 0.5 mg/dL (0.0-0.5); Bilirubin Total 1.6 mg/dL (0.0-1.0); Calcium 9.5 mg/dL (8.4-10.2); Parathyroid Hormone Intact 107.2 pg/mL (8.7-77.1); Total Protein 7.6 g/dL (6.5-8.0)
[2024-09-29 19:32] LABS: Free T4 (Free Thyroxine) 0.98 ng/dL (0.71-1.85); Vitamin D 25-OH Total 42.7 ng/mL (>30)
== END 2024-09-29 16:24 | disposition home or self-care (01) ==
LOC: HO.HHCL 16:23
PROVIDERS: Visit Provider Student in an Organized Health Care Education/Training Program
DX: E55.9 Vitamin D deficiency, unspecified (principal); E05.20 Thyrotoxicosis with toxic multinodular goiter without thyrotoxic crisis or storm
CPT/HCPCS: 36415; 80076; 82306; 82310; 83970; 84439; 84443; 85025

== ENCOUNTER 2024-10-13 12:46 | Outpatient (AMB) | payer MEDICARE, MEDICAID, SELFPAY ==
--- NOTE | 2024-10-13 12:48 | MHC.OFFVIS ---
Vital Signs 10/13/24 12:49 Height 5 ft 9 in Weight 194 lb 0.108 oz BMI 28.6 BP 116/72 Blood Pressure Location Rt brachial Position Sitting Pulse 71 Pulse Source Pulse Oximeter Pulse Oximetry (%) 97 Oxygen Delivery Method Room Air Intake Visit Reasons: MNG Intake Note: Patient present today for MNG office visit. Patient reports dizziness every day. Mold Blower Required: Yes Mold Blower Language: Anesthesiology Crna Services: Mold Blower Offered & Declined Accompanied by: Significant Other Allergies No Known Allergies Allergy (Verified 10/13/24 12:50) Medication List - Last Reconciled 10/13/24 by Amarilys Baig MD acetaminophen 500 mg PO Q8H PRN amlodipine 10 mg PO DAILY cholecalciferol (vitamin D3) 25 mcg PO DAILY 90 days [Citracal D Slow Rel Tab 80 1 tab PO BID] colchicine 0 mg PO fesoterodine ER (Toviaz) 4 mg PO DAILY 90 days hydroxyzine HCl 50 mg PO BEDTIME lisinopril 5 mg PO DAILY lisinopril 5 mg PO DAILY lithium carbonate 300 mg PO DAILY lithium carbonate ER 600 mg PO DAILY methimazole 5 mg PO DAILY omega-3 fatty acids 1,000 mg PO BEDTIME propranolol ER 60 mg PO DAILY quetiapine 25 mg PO BEDTIME tadalafil 5 mg PO DAILY 30 days tadalafil 20 mg PO DAILY PRN terazosin 5 mg PO BEDTIME 90 days HPI Comments Details: 64 YO Male with a PMHx of 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 HPI from prior visit He was initially diagnosed with hyperthyroidism in 2015, although his TSH was suppressed since back in 2002. In 2015 he underwent a thyroid uptake and scan with uptake WNL, but a pattern consistent with a toxic MNG. TSH was in the hyperthyroid range at that time. He underwent I131 ablation with 2.85 mCi of I131 on 06/09/2016. Not surprisingly, this was not successful and he remained hyperthyroid since that time, and has continued on daily methimazole daily. He for unknown reasons underwent an additional thyroid uptake and scan in 2017, with results showing homogenously increased uptake of >40% at 24 hours. His TSI, TRAB and TPO antibodies are all negative. Dr. Ledbetter did attempt FNA biopsy of his RLP 2.0 cm thyroid nodule. Notes dont mention what year, This was unsuccessful. Most recent thyroid ultrasound in July 2023 showed increase in the size of the right inferior nodule now measuring 1.9 cm in the maximum dimension up from 1.6 cm in the maximum dimension, status post FNA in November 2023, with benign cytology. He also remains on lithium daily, and did have elevated PTH levels. He was started on Calcium citrate 1 tab PO BID and repeat labs were WNL. Calcium levels most recently 09/05 normal Drinks milk every day, cheese 5 times a week , yogurt no Currently on methimazole 5 mg daily He states he feels well today. Reports some chnage in bowel movements has to defecaye after food . No palpitations. No tremors. Gained 10 lbs since summer 2023 He denies any compressive symptoms. He is tolerating methimazole well without the development of rash, jaundice or frequent infection. Interval history Accompanied by his today. Labs 09/29/2024 showed normal thyroid function, showed normal calcium of 9.5, albumin off 4.1, corrected calcium would be 9.4, PTH intact elevated at 107.2, vitamin-D of 42.7. Patient was seen by Dr. Kenisha Garcia at [facility] for surgical evaluation in July 2024, I do not have the visit notes available to me at the time of this visit, have requested them. Per patient he was given the option of surgery versus medical management and at this time he chooses to stay on methimazole and would like to defer surgery. Otherwise no loose stools. No palpitations, no tremors. Overall feels well. Physical exam General: sitting comfortably in no acute distress HEENT: normocephalic/atraumatic, EOM intact, moist oral mucosa Neck: supple, Cardiac: normal heart sounds Pulm: normal breath sounds B/L, no added breath sounds Abd: not distended, no tenderness Extremities: no edema, no signs of myxedema Neuro: AAO x3, Speech: normal, no facial droop, moving all 4 extremities Laboratory Tests 08/30/21 08/07/22 06/09/23 10:50 15:43 12:04 Calcium Albumin TSH 0.06 L Free T4 0.98 Free T3 Thyroid Stim Immunoglob <89 <89 Thyroglobulin Antibody <1 <1 Thyroid Peroxidase Ab 1 1 TSH Receptor Ab <1.00 <1.00 06/10/23 08/19/23 12/14/23 14:06 13:51 09:59 Calcium 9.9 D 9.4 Albumin 4.1 TSH 0.11 L Free T4 1.18 Free T3 3.6 Thyroid Stim Immunoglob Thyroglobulin Antibody Thyroid Peroxidase Ab TSH Receptor Ab 04/18/24 11:12 Calcium Albumin TSH 0.84 Free T4 0.89 Free T3 3.4 Thyroid Stim Immunoglob Thyroglobulin Antibody Thyroid Peroxidase Ab TSH Receptor Ab Laboratory Tests 09/29/24 16:25 Calcium 9.5 D Albumin 4.1 25-OH Vitamin D Total 42.7 TSH 0.70 Free T4 0.98 PTH Intact 107.2 H Imaging US THYROID Jul 2023 CLINICAL INFORMATION: Thyrotoxicosis with toxic multinodular goiter without thyrotoxic crisis or storm. COMPARISON: Ultrasound soft tissue head/neck thyroid dated 09/30/2021 and 12/26/2019, 05/31/2018 TECHNIQUE: Linear transducer grayscale and color Doppler examination with attention to the region of the thyroid. FINDINGS: SIZE: Measurements of the thyroid lobes and nodules are given in sagittal, anteroposterior and transverse dimensions respectively. Right Thyroid Lobe: 6.3 x 2.6 x 3.1 cm, volume 26 mL. Previously 6.7 x 2.2 x 2.7 cm, volume 21.1 mL. Parenchyma: The gland echotexture is homogeneous. Thyroid vascularity is normal. Left Thyroid Lobe: 5.5 x 2.7 x 2.7 cm, volume 22 mL. Previously 5.9 x 2.7 x 2.3 cm, volume 19 mL. Parenchyma: The gland echotexture is homogeneous. Thyroid vascularity is normal. Isthmus: 0.4 cm in maximum AP dimension. Previously 0.4 cm. Estimated total number of nodules greater than or equal to 1 cm: 1. Welfare Administrator nodules are described as follows: 1. Location: Isthmus. Size: 0.8 x 0.4 x 0.8 cm, volume 0.14 mL. Previously: Not seen on the previous study. Nodule characteristics: Composition: Cystic(0). ACR TI-RADS total points: 0 ACR TI-RADS category: 1 2. Location: Right mid. Size: 0.4 x 0.2 x 0.4 cm, volume 0.016 mL. Previously: Not seen on the previous study. Nodule characteristics: Composition: Solid (2). Echogenicity: Isoechoic (1). Shape: Not taller than wide (0). Margins: Ill-defined (0). Echogenic Foci: None (0). ACR TI-RADS total points: 3 ACR TI-RADS category: 3 3. Location: Right inferior. Size: 0.5 x 0.3 x 0.4 cm, volume 0.03 mL. Previously: Not seen on the previous study. Nodule characteristics: Composition: Mixed cystic and solid (1). Echogenicity: Isoechoic (1). Shape: Not taller than wide (0). Margins: Ill-defined (0). Echogenic Foci: None (0). ACR TI-RADS total points: 2 ACR TI-RADS category: 2 4. Location: Right inferior. Size: 1.9 x 1.3 x 1.8 cm, volume 2.4 mL. Previously: 1.6 x 1.5 x 1.7 cm, volume 2.1 mL. This measured 1.6 x 0.9 x 1.6 cm in 2018. Nodule characteristics: Composition: Mixed cystic and solid (1). Echogenicity: Hypoechoic (2). Shape: Not taller than wide (0). Margins: Smooth (0). Echogenic Foci: None (0). ACR TI-RADS total points: 3 ACR TI-RADS category: 3 Significant change in size (>/= 20% in 2 dimensions and minimal increase of 2 mm or 50% or greater increase in volume): Recent prior however increased from remote prior. Change in features: No not when accounting for differences in interobserver variability as previously appeared slightly hypoechoic. NODES: No lymphadenopathy is seen in the tissue surrounding the thyroid gland. US/US thyroid IMPRESSION: A 1.9 cm TR 3 right thyroid nodule is not increased in size from recent prior however is increased in size from remote prior therefore consider one-year follow-up thyroid ultrasound. Thyroid US: 09/30/2021 Right Thyroid Lobe: 6.7 x 2.2 x 2.7 cm, volume 21.1 mL. Previously 6.1 x 2.7 x 2.8 cm, volume 23.9 mL. Parenchyma: The gland echotexture is homogeneous. Thyroid vascularity is normal. Left Thyroid Lobe: 5.9 x 2.7 x 2.3 cm, volume 19.0 mL. Previously 6.0 x 2.4 x 2.8 cm, volume 20.4 mL. Parenchyma: The gland echotexture is homogeneous. Thyroid vascularity is normal. Isthmus: 0.4 cm in maximum AP dimension. Previously 0.6 cm. Estimated total number of nodules greater than or equal to 1 cm: 1. Welfare Administrator nodules are described as follows: 1.? Location: Right inferior. ?? ? Size: 0.6 x 0.3 x 0.5 cm, volume 0.05 mL. ?? ? Previously: 0.6 x 0.3 x 0.6 cm, volume 0.06 mL. ?? ? Nodule characteristics: ?? ? Composition: Solid (2). ?? ? Echogenicity: Hypoechoic (2). ?? ? Shape: Not taller than wide (0). ?? ? Margins: Ill-defined (0). ?? ? Echogenic Foci: None (0). ? ACR TI-RADS total points: 4 ?? ? ACR TI-RADS category: 4 ? Significant change in size (>/= 20% in 2 dimensions and minimal increase of 2 mm or 50% or greater increase in volume): None ?? ? Change in features: None ?? ? Change in ACR TI-RADS risk category: Not applicable 2.? Location: Right inferior. ?? ? Size: 0.4 x 0.3 x 0.3 cm, volume 0.02 mL. ?? ? Previously: 0.4 x 0.3 x 0.4 cm, volume 0.03 mL. ?? ? Nodule characteristics: ?? ? Composition: Solid (2). ?? ? Echogenicity: Anechoic (0). ?? ? Shape: Not taller than wide (0). ?? ? Margins: Ill-defined (0). ?? ? Echogenic Foci: None (0).? ACR TI-RADS total points: 2 ?? ? ACR TI-RADS category: 2 ? Significant change in size (>/= 20% in 2 dimensions and minimal increase of 2 mm or 50% or greater increase in volume): None ?? ? Change in features: None ?? ? Change in ACR TI-RADS risk category: Not applicable 3.? Location: Right inferior. ?? ? Size: 1.6 x 1.5 x 1.7 cm, volume 2.1 mL. ?? ? Previously: 2.0 x 1.1 x 1.5 cm, volume 1.7 mL. ?? ? Nodule characteristics: ?? ? Composition: Mixed cystic and solid (1). ?? ? Echogenicity: Isoechoic (1). ?? ? Shape: Not taller than wide (0). ?? ? Margins: Smooth (0). ?? ? Echogenic Foci: None (0). ? ACR TI-RADS total points: 2 ?? ? ACR TI-RADS category: 2 ? Significant change in size (>/= 20% in 2 dimensions and minimal increase of 2 mm or 50% or greater increase in volume): None ?? ? Change in features: Not applicable ?? ? Change in ACR TI-RADS risk category: Not applicable 4.? Location: Right inferior. ?? ? Size: 0.7 x 0.5 x 0.6 cm, volume 0.1 mL. ?? ? Previously: 0.4 x 0.5 x 0.6 cm, volume 0.06 mL. ?? ? Nodule characteristics: ?? ? Composition: Cystic(0). ?? ? ACR TI-RADS total points: 0 ?? ? ACR TI-RADS category: 1 ? Significant change in size (>/= 20% in 2 dimensions and minimal increase of 2 mm or 50% or greater increase in volume): None ?? ? Change in features: None ?? ? Change in ACR TI-RADS risk category: Not applicable 5.? Location: Left superior. ?? ? Size: 0.6 x 0.5 x 0.3 cm, volume 0.45 mL. ?? ? Previously: Not documented on the prior study. ?? ? Nodule characteristics: ?? ? Composition: Cystic(0). ?? ? ACR TI-RADS total points: 0 ?? ? ACR TI-RADS category: 1 NODES: No lymphadenopathy is seen in the tissue surrounding the thyroid gland. Thyroid Uptake and Scan: 01/17/2016 FINDINGS: The uptake is 3.9% at 3 hours and 14.1% at 23 hours. The radioiodine uptake is normal. The radio pertechnetate thyroid scintigram shows the thyroid gland to be mildly enlarged approximately 1-1/2 times normal in size. There is marked heterogeneity within the gland, with multiple small rounded foci of relatively increased activity present bilaterally, and was relatively decreased activity present in the regions between these foci. A dominant focus is not present. A single radioiodine image obtained at the time of the 24 hour uptake measurement is similar in appearance to the radio pertechnetate image, but because of the small amount of activity within the gland, detail is not well delineated. IMPRESSION: In the clinical setting of a low TSH, these findings are most consistent with a toxic multinodular goiter (Rockford's disease). The radioiodine uptake is normal. Thyroid UPTAKE AND sCAN: 11/19/2017 FINDINGS: The uptake is 17.1% at 4 hours and 46.9% at 24 hours. The radioiodine uptake is moderately elevated. The radiopertechnetate thyroid scintigram demonstrates the thyroid gland to be moderately enlarged, approximately 3 times normal in size. There is homogeneous distribution of activity within the gland with minimal heterogeneity present in the upper pole of the left lobe, an equivocal finding. A faint pyramidal lobe is visualized attaching 2 the upper pole of the right lobe. No other focal abnormalities are noted. The trapping function is moderately to markedly increased diffusely. A single anterior radioiodine image obtained at the time of the 24-hour uptake similar in appearance to the radio pertechnetate image. The thyroid ultrasound dated 06/30/2017 shows the gland to be similar in size several nodules present bilaterally, the largest measuring 1.6 x 0.9 x 1.6 cm in the lower pole of the right lobe. This is not delineated on this radionuclide scan. All the other nodules were subcentimeter in size, in which is small to be resolved on this radionuclide scan. IMPRESSION: Moderately enlarged diffuse goiter. The radioiodine uptake is moderately elevated, but in the absence of suppressed TSH levels, this is nonspecific and could be due to Graves' disease or North's thyroiditis. If this patient was recently treated with antithyroid drugs, these findings would be more consistent with Graves' disease. Nodules visualized on the previous ultrasound study are not apparent on these radionuclide images, but only the nodule identified in the right lower pole was large enough to be resolved on this radionuclide scan. [facility] Medical History Hyperbilirubinemia Hyperparathyroidism Hearing problem Frequency of urination Elevated blood pressure reading in office with white coat syndrome, with diagnosis of hypertension Gout Vitamin D deficiency Toxic multinodular goiter Bipolar disorder Erectile dysfunction BPH w/o urinary obs/LUTS Abdominal wall mass Myelopathy Surgical History History of removal of cyst (07/10/23) History of surgery Family History Father Dementia Mother Diabetes Social History Household Members: Family and Children Household Members Other:: , daughters, grand children Alcohol intake: never Patient Tobacco Use Status: Former Tobacco user Physical Exam Vital Signs: Last Vital Signs Pulse 71 10/13/24 12:49 BP 116/72 10/13/24 12:49 Pulse Ox 97 10/13/24 12:49 Oxygen Delivery Method Room Air 10/13/24 12:49 BMI result Body Mass Index 28.6 Assessment & Plan Assessment & Plan (1) Toxic multinodular goiter: Code(s): E05.20 - Thyrotoxicosis with toxic multinodular goiter without thyrotoxic crisis or storm Category: Medical Plan: 64-year-old male with history of toxic multinodular goiter status post iodine 131 therapy 2016 who failed radioactive iodine ablation and subsequently has been on methimazole currently at 5 mg daily. Given he has been on therapy with methimazole for about 8 years now, I discussed with him definitive therapy options radioactive iodine versus surgery. Given that he has failed radioactive iodine ablation in the past, I recommended total thyroidectomy to him. We also discussed the option of continuing on methimazole. He met with Dr. Kenisha Garcia at [facility] on 08/04/2023, I do not have the visit notes available to me at this time, however per patient he would like to defer surgery for now and stay on the medicine. Otherwise he is euthyroid on methimazole 5 mg daily. We will continue for now. Plan to repeat labs in 6 months. Given he is on lithium I also checked his calcium, PTH levels. Status post FNA in November 2023 of right lower pole nodule with benign cytology. Labs 09/29/2024 showed normal thyroid function, showed normal calcium of 9.5, albumin off 4.1, corrected calcium would be 9.4, PTH intact elevated at 107.2, vitamin-D of 42.7. I have recently noticed some variations in the PTH assay. Given he has normal calcium levels, I would like to verify his PTH level at another lab. The following were discussed as potential side effects of methimazole: - Serious skin rashes - nausea, vomiting, or severe hepatic injury - Agranulocytosis: a rare side effect of methimazole involves a severe decrease in the production of white blood cells. This condition is extremely serious, but affects only one out of every 200 to 500 people who take an antithyroid drug. Agranulocytosis more commonly occurs within the first three months of starting treatment with an antithyroid drug, but can occur at any time. If patient develops a fever (temperature above 100.5F), or other signs or symptoms of infection, she should stop taking the tapazole and immediately have a complete blood count (CBC) done. Serious and potentially life threatening infections, or even , can occur before agranulocytosis resolves. However, once the antithyroid drug is stopped, agranulocytosis usually resolves within a week. - Arthralgias, myalgias - Renal: Nephritis - Fever Patient will stop medication and call our office if these occur. Plan: -obtain office notes from Dr. Kenisha Garcia office visit from July 2024 -continue methimazole 5 mg daily -ordered calcium, albumin, PTH, creatinine to be done at [facility] [[email or web address]] -follow up in 8 weeks to discuss results Plan See above Orders: Orders Albumin Level Today E21.3 - Hyperparathyroidism, unspecified Calcium Today E21.3 - Hyperparathyroidism, unspecified Phosphorus Today E21.3 - Hyperparathyroidism, unspecified Parathyroid Hormone Intact Today E21.3 - Hyperparathyroidism, unspecified Creatinine Today E21.3 - Hyperparathyroidism, unspecified Calcium, Ionized Today E21.3 - Hyperparathyroidism, unspecified Medications: Refilled methimazole 5 mg PO DAILY 30 tabs 9RF E05.20 - Thyrotoxicosis with toxic multinodular goiter without thyrotoxic crisis or storm Patient Instructions: Continue methimazole 5 mg daily If you change your mind about surgery let us know Do blood work paper given at [facility] Follow up in 8 weeks to discuss results Coding Level of Care Code Est Pt Level 3 (62805) Diagnoses Toxic multinodular goiter E05.20
[2024-10-13 12:49] VITALS: BP 116/72; PULSE 71; O2SAT 97; BMI 28.6
--- OUTSIDE RECORDS SUMMARY | 2024-10-13 13:50 | XMS_ITS | Encounter Summary ---
Author Organization [employer] Address [address] [facility] [place] [address] Care Team Providers Care Meteorological Technician Name Role Phone Name, Terrence YOON Primary Care Provider [phone] Jimmy Lua Unavailable Unavailable Reason for Visit * Reason Comments Med Refill Encounter Details Date Type Department Care Team ([facility] Contact Info) Description 05/29/2023 Refill [facility] [address] [place] [address] Name, MD Terrence [address] [place] [address] Social History Tobacco Use Types Packs/Day Years [...] Care Team (Late st Contact Info) Description 12/15/2024 9:45 AM EDT Office Visit [facility] [address] [place] [phone] Name, MD Terrence [address] [place] [id number] 12/16/2024 3:00 PM EDT Office Visit [facility] [address] [place] [address] Aliyah Adkins [address] [place] [address] documented as of this encounter Visit Diagnoses Not on filedocumented in this encounter Additional Health Concerns Assessment Noted Time PHQ-9 Depression Total Score: 0 05/26/20 23 10:22 AM EST documented as of this encounter Care Teams Meteorological Technician Relationship Specialty Start Date End Date Name, MD Terrence [address] [place] [id number] PCP - General Family Medicine 09/14/15 Jimmy Lua FNP [address] [place] [id number] Nurse Practitioner Family Medicine 05/26/23 documented as of this encounter
--- OUTSIDE RECORDS SUMMARY | 2024-10-13 13:50 | XMS_ITS | Encounter Summary ---
Author Organization [employer] Address [address] [facility] [address] [place] [address] Care Team Providers Care Metal Mockup Maker Name Role Phone Name, Terrence YOON Primary Care Provider [phone] Jimmy Lua Unavailable Unavailable Reason for Visit * Reason Comments Med Refill Encounter Details Date Type Department Care Team (Late Contact Info) Description 04/07/2023 Refill [facility] [address] [place] [address] Jimmy Lua FNP Bipolar affective disorder in remission (CMS/[facility]) Social History Tobacco Use Types Packs/Day Years [...] Department Care Team (Late Contact Info) Description 12/15/2024 9:45 AM EDT Office Visit [facility] [address] [place], [place] [phone] Name, MD Terrence [address] [place] [address] 12/16/2024 3:00 PM EDT Office Visit [facility] [address] [place] [address] Aliyah Adkins [address] [place] [address] documented as of this encounter Visit Diagnoses Diagnosis Bipolar affective disorder in remission (CMS/[facility]) documented in this encounter Additional Health Concerns Assessment Noted Time PHQ-9 Depression Total Score: 3 03/26/20 11:40 AM EDT documented as of this encounter Care Teams Metal Mockup Maker Relationship Specialty Start Date End Date Name, MD Terrence [address] [place] [address] PCP - General Family Medicine 09/14/15 Jimmy Lua FNP [address] [place] [id number] Nurse Practitioner Family Medicine 05/26/23 documented as of this encounter
--- OUTSIDE RECORDS SUMMARY | 2024-10-13 13:50 | XMS_ITS | Encounter Summary ---
Author Organization [employer] [facility] Address [address] [facility] [address] [place] [address] Care Team Providers Care Networking Engineer Name Role Phone Name, Terrence YOON Primary Care Provider [phone] Jimmy Lua Unavailable Unavailable Encounter Details Date Type Department Care Team (Late st Contact Info) Description 01/06/2023 Orders Only [facility] [address] [place] [id number] Karmen Ulrich LPN Social History Tobacco Use [...] Description 12/15/2024 9:45 AM EDT Office Visit [facility] [address] [place] [address] Name, MD Terrence [address] [place] [address] 12/16/2024 3:00 PM EDT Office Visit [facility] [address] [place] [address] Aliyah Adkins [address] [place] [address] documented as of this encounter Visit Diagnoses Not on filedocumented in this encounter Additional Health Concerns Assessment Noted Time PHQ-9 Depression Total Score: 0 10/21/19 23 2:06 PM EDT documented as of this encounter Care Teams Networking Engineer Relationship Specialty Start Date End Date Name, MD Terrence [address] [place] [address] PCP - General Family Medicine 09/14/15 Jimmy Lua FNP [address] [place] [address] Nurse Practitioner Family Medicine 05/26/23 documented as of this encounter
--- OUTSIDE RECORDS SUMMARY | 2024-10-13 13:50 | XMS_ITS | Clinical Summary ---
Author Organization [employer] Address [address] [facility] 7t [place] [address] Care Team Providers Care Associate Professor Of Art Name Role Phone Name, Terrence YOON Primary Care Provider [phone] Jimmy Lua Unavailable Unavailable Allergies No known [...] problem 02/25/2023 Chronic gout without tophus 12/05/2022 Dental caries 09/29/2022 Bipolar affective disorder in remission 07/22/19 23 Assessment & Plan (11/26/2023 3:17 PM EDT): Had been stable on Chiawuli Tak 600 mg daily for a long time, seemed to continue well-controlled with decreased Chiawuli Tak 300 mg. However developed marked insomnia and hypomania. He resumed Chiawuli Tak 300 mg 2 tabs daily but developed tremor. Pt was extremely resistant to change in medications, but did agree to gradual uptaper of Seroquel now 75 mg at bedtime and decreased Chiawuli Tak 300 mg once at bedtime. Pt says the tremor has resolved and his mood is fine. Continue Seroquel 75 mg at bedtime, Chiawuli Tak 300 mg 1 at bedtime. Since this provider will be retiring, he will be transferred to new psychiatric prescriber. Meanwhile, prescriptions were sent for his medications with 1 year of refills. Any issues or concerns, contact [facility]. All his questions were answered. I have wished him well. Pt agrees with the plan. Assessment & Plan (09/22/2023 12:27 PM EDT): Had been stable on Chiawuli Tak 600 mg daily for a long time, seemed to continue well-controlled with decreased Chiawuli Tak 300 mg. However developed marked insomnia and hypomania. He resumed Chiawuli Tak 300 mg 2 tabs daily but developed tremor. Pt was extremely resistant to change in medications, but did agree to gradual uptaper of Seroquel now 75 mg at bedtime and decreased Chiawuli Tak 300 mg once at bedtime. Pt says the tremor has resolved and his mood is fine. Continue Seroquel 75 mg at bedtime, Chiawuli Tak 300 mg 1 at bedtime. On 06/25/2023 provider informed the patient and caregiver that I would be retiring, and we would make every effort to plan smooth transition of care. Meanwhile, F/U with me in 2 months. Pt agrees with the plan. Assessment & Plan (07/28/2023 1:35 PM EST): Had been stable on Chiawuli Tak 600 mg daily for a long time, seemed to continue well-controlled with decreased Chiawuli Tak 300 mg. However developed marked insomnia and hypomania. He resumed Chiawuli Tak 300 mg 2 tabs daily but developed tremor. Pt was extremely resistant to change in medications, but did agree to gradual uptaper of Seroquel now 75 mg at bedtime and decreased Chiawuli Tak 300 mg once at bedtime. Pt says the tremor has resolved and his mood is fine. Continue Seroquel 75 mg at bedtime, Chiawuli Tak 300 mg 1 at bedtime. On 06/25/2023 provider informed the patient and caregiver that I would be retiring, and we would make every effort to plan smooth transition of care. Meanwhile, F/U with me in 6-8 weeks. Pt agrees with the plan. Assessment & Plan (01/26/2023 9:45 AM EDT): Progress Note: Kong is a 62-year-old, Italian speaking male that was referred for a [...] this time. Planned for case consult with [facility] psychopharmacology clinic. Assessment: Patient with history of [...] Visit Other Bipolar affective disorder in remission (CMS/[facility]) Patient ready to address current needs Yes Strengths-strong family support PLAN: 1. Follow up with [facility]: Recommended for follow-up: Post [facility] psychopharmacology consult 2. Patient goal is to reengage in medication management services 3. Behavioral Recommendations a. Break tasks down to smaller goals b. Slowly increase goals c. PTSD jed- deep breathing, progressive muscle relaxation Assessment & Plan (10/20/2022 3:33 PM EDT): Had been stable on Chiawuli Tak 600 mg daily for a long time, seemed to continue well-controlled with decreased Chiawuli Tak 300 mg. However developed marked insomnia and hypomania which is now improved with resumption of Chiawuli Tak 300 mg 2 tabs daily. Unfortunately, new [...] 3:11 PM EST): Had been stable on Chiawuli Tak 600 mg daily for a long time, seemed to continue well-controlled with decreased Chiawuli Tak 300 mg. However developed marked insomnia and hypomania which is now improved with resumption of Chiawuli Tak 300 mg 2 tabs daily. Had also been taking Quetiapine 25 mg at bedtime but that was not dispensed by the pharmacy since May and he is still doing well without it, with adequate sleep. Unfortunately has developed tremor of the right hand, which may be a S/E of the lithium. Will do labs arlen for Chiawuli Tak level and metabolic profile. Meanwhile continue medications [...] 11:46 AM EST): Had been stable on Chiawuli Tak 600 mg daily for a long time, seemed to continue well-controlled with decreased Chiawuli Tak 300 mg. However developed marked insomnia and hypomania. He resumed Chiawuli Tak 300 mg 2 tabs daily but developed tremor. Pt was extremely resistant to change in medications, but did agree to gradual uptaper of Seroquel now 75 mg at bedtime and decreased Chiawuli Tak 300 mg once at bedtime. Pt says the tremor has resolved and his mood is fine. His agrees that the tremor is now controlled, and his behavior is fine. Last time mentioned new onset abnormal movements of mouth, but that seems to have resolved. Continue Seroquel 75 mg at bedtime, Chiawuli Tak 300 mg 1 at bedtime. Today 06/25/2023 provider informed the patient and caregiver that I would be retiring in approx 1/2 year. F/U with me in 1 month. Pt and Caregiver agree with plan. Assessment & Plan (05/26/2023 11:33 AM EST): Had been stable on Chiawuli Tak 600 mg daily for a long time, seemed to continue well-controlled with decreased Chiawuli Tak 300 mg. However developed marked insomnia and hypomania. He resumed Chiawuli Tak 300 mg 2 tabs daily but developed tremor. Pt was extremely resistant to change in medications, but did agree to gradual uptaper of Seroquel now 75 mg at bedtime and decreased Chiawuli Tak 300 mg once at bedtime. Pt says [...] now, continue Seroquel 75 mg at bedtime, Chiawuli Tak 300 mg 1 at bedtime. F/U with me in 1 month. Pt and Caregiver agree with plan. Assessment & Plan (03/26/2023 12:08 PM EDT): Had been stable on Chiawuli Tak 600 mg daily for a long time, seemed to continue well-controlled with decreased Chiawuli Tak 300 mg. However developed marked insomnia and hypomania. He resumed Chiawuli Tak 300 mg 2 tabs daily but developed [...] that he will need to stop taking Chiawuli Tak. Will decrease to Chiawuli Tak 300 mg 1 at bedtime. F/U for Neurological evaluation as soon as can be arranged. F/U with me in 3 weeks. Pt and Caregiver agree with plan. Assessment & Plan (03/05/2023 12:35 PM EDT): Had been stable on Chiawuli Tak 600 mg daily for a long time, seemed to continue well-controlled with decreased Chiawuli Tak 300 mg. However developed marked insomnia and hypomania. He resumed Chiawuli Tak 300 mg 2 tabs daily but developed [...] the tremor is almost certainly r/t the Chiawuli Tak, will not stop the Chiawuli Tak until mood is better controlled, so continue Chiawuli Tak 300 mg 2 at bedtime. For any safety concerns call 911. F/U with me in 3 weeks. Pt and Caregiver agree with plan. Assessment & Plan (01/27/2023 3:00 PM EDT): Had been stable on Chiawuli Tak 600 mg daily for a long time, seemed to continue well-controlled with decreased Chiawuli Tak 300 mg. However developed marked insomnia and hypomania. He resumed Chiawuli Tak 300 mg 2 tabs daily but developed tremor, which has persisted. He also has experienced marked worsening of mood with anhedonia, tearfulness, low motivation. Patient's presentation today is markedly incongruent with presentation at various [facility] and ED visits recently, and with reports of his , clinician, and providers. Pt expresses strong desire not to stop Chiawuli Tak. Suspect he is denying symptoms in order to discourage provider from changing his medication. Reviewed with the patient that the tremor was almost certainly a S/E of lithium. Also, his mood was not adequately controlled. In conjunction with patient, developed plan to start new medication: Seroquel 25 mg 1/2 tab at bedtime for a few nights then 1 full tab at bedtime. Continue Chiawuli Tak as usual for now. Expect to titrate up the Seroquel until mood was stable, then we would gradually decrease the Chiawuli Tak. He is agreeable to this plan. It was also reviewed with his . F/U 2-3 weeks. Call sooner as needed. He agrees with the plan. Assessment & Plan (01/25/2023 5:22 PM EDT): ?? Previously following in [facility] Psychopharm clinic with TIFF Lua. Last appt October 2022, pt did not show to appt in November 2022 ?? Continues on lithium 300mg BID ?? Chiawuli Tak level therapeutic during ED visit in December [...] Encounters Date Type Department Care Team Description 10/05/2024 3:00 PM EDT Office Visit [facility] ADULT DENTAL [address] [place] [address] Ulises Saunders DDS Dental caries (Primary Dx) 09/29/2024 4:00 PM EDT Office Visit [facility] WALK-IN CENTER [address] [place] [phone] Dizziness (Primary Dx); Other fatigue; Other symptoms and signs concerning food and fluid intake; Body mass index (BMI) 31.0-31.9, adult 09/29/2024 Telephone [facility] WALK[facility]IN CENTER [address] [place] [address] Kaity Amador DO Nurse Triage 09/20/[address] [address] Terrence Quintanilla MD 09/06/[address] [address] Tracy Wright MA October recalls 09/02/2024 9:30 AM EST Office Visit [facility] ADULT DENTAL [address] [place] [phone] Fernandes-Soares, Opal, DDS Full coverage crown needed for root canal-treated tooth (Primary Dx) 08/19/2024 8:00 AM EST Office Visit [facility] ADULT DENTAL [address] [place] [phone] Fernandes-Soares, Opal, DDS Dental caries (Primary Dx); Full coverage crown needed for root canal-treated tooth 07/26/2024 Orders Only [facility] External Provider, [facility] 07/22/2024 10:00 AM EST Office Visit [facility] ADULT DENTAL [address] [place] [phone] Fernandes-Soares, Opal, DDS Dental caries (Primary Dx); Asymptomatic irreversible pulpitis from Last 3 Months Immunizations Name Administration [...] Sign Reading Time Taken Comments Blood Pressure 132/76 10/05/2024 2:54 PM EDT Pulse 80 09/29/2024 3:48 PM [...] Description 12/15/2024 9:45 AM EDT Office Visit [facility] MEDICINE [address] [place] [address] Name, MD Terrence [address] [place] [address] 12/16/2024 3:00 PM EDT Office Visit [facility] ADULT DENTAL [address] [place] [address] Aliyah Adkins [address] [place] [address] Health Maintenance Due Date Last Done Comments CT Colonography 1960 FIT DNA/Cologuard 1960 FIT 1960 FOBT 1960 Sigmoidoscopy 1960 COVID-19 Vaccine ( season) 2024 05/22/2021, 11/17/2020, 10/27/2020 Depression Screening 09/21/2024 09/22/2023, 09/22/19 Dental Oral Exam 12/16/2024 06/16/2024, 02/11/2023 Dental Prophylaxis 12/16/2024 06/16/2024, 05/15/2023 SDOH Screening 06/28/2025 06/28/2024 Alcohol/Substance Use Screening 07/05/2025 07/05/2024 Dental X-Ray: Bitewings 09/03/2025 09/02/19, 06/16/2024, 04/21/2024, Additional history exists Tobacco Screening 10/05/2025 10/05/2024 Dental X-Ray: Full Mouth 03/21/2026 03/20/2023, 08/08/2022 DTaP/Tdap/Td Vaccines (2 - Td or Tdap) [...] PRESENTATION, DETAILED AND EXTENSIVE TREATMENT PLANNING Routine 10/05/2024 3:00 PM EDT 6 MIFL RESIN-BASED COMPOSITE - 4 OR MORE SURFACES (ANTERIOR) Routine 10/05/2024 3:00 PM EDT 29 DB(V) RESIN-BASED COMPOSITE - 2 SURF, POSTERIOR Routine 10/05/2024 3:00 PM EDT CASE PRESENTATION, DETAILED AND EXTENSIVE TREATMENT PLANNING [...] coverage crown needed for root canal-treated tooth [facility] CAROTID ARTERY DUPLEX BILATERAL Routine 07/26/2024 9:36 AM EST 20 ENDODONTIC THERAPY, PREMOLAR TOOTH Routine 07/22/2024 10:00 AM EST Dental caries Asymptomatic irreversible pulpitis CASE PRESENTATION, DETAILED AND EXTENSIVE TREATMENT PLANNING Routine 07/22/2024 10:00 AM EST Dental caries Asymptomatic irreversible pulpitis LIPID PANEL, STANDARD Routine 07/05/2024 10:03 AM EST On statin therapy PROPHYLAXIS - ADULT Routine 06/16/2024 3 :00 [...] Recently Relevant to Health Maintenance Results * [facility] Carotid Artery Duplex Bilateral (07/26/2024 9:36 AM EST) 07/26/2024 9:36 AM EST Narrative [facility] - 07/27/2024 9:04 AM EST ? [facility] ?[address] ?[place] [address] ? Ultrasound Report ? Signed ? Patient: Hogue,Kong ?MR#: [id number] ?? 8 ? : 1960 ?Acct:[id number] ? Age/Sex: 64 / M ?ADM Date: 07/26/24 ? Loc: HO.US ? Attending Dr: Miryam Matrines MD ? Ordering Physician: Miryam Martines MD ?? Date of Service: 07/26/24 ?? Procedure(s): US carotid duplex BI ?? Accession Number(s): [id number] ? cc: Miryam Martines MD; Name,Terrence YOON [...] DD/ 0936 ? TD/TT: 07/26/24 0947 ? Adult Live In Caregiver: ? Procedure Note Jasmineter, Image - 07/27/2024 [place] [address] Ultrasound Report Signed Patient: Anh Hogue#: [id number] : 8Acct:[id number] Age/Sex: 64 / MADM Date: 07/26/24 Loc: HO.US Attending Dr: Miryam Martines MD Ordering Physician: Miryam Martines MD Date of Service: 07/26/24 Procedure(s): US carotid duplex BI Accession Number(s): [id number] cc: Miryam Martines MD; Name,Terrence YOON EXAMINATION: [...] signed by Ulises Portillo MD in OV> 07/27/2402 DD/ 0936 TD/TT: 07/26/2447 Adult Live In Caregiver: [facility] External Provider CV VASC ULAR PROCEDURES Final Result Performing Organization Address City/[facility]/ZIP Co de Phone Number [facility] [address] [place] [address] * (ABNORMAL) Lipid Panel, Standard (07/05/2024 10:03 AM EST) Triglycerides 74 <150 mg/dL [facility] Comment:Desirable Triglyceri de: less than 150 mg/dLBorderline High Triglyceride 150-199 mg/dLHigh Triglyceride: 200-499 mg/dLVery High Triglyceride: greater than or equal to 5OO mg/dL Cholesterol 91 <200 mg/dL [facility] Comment:Desirable Cholestero l: less than 200 mg/dLBorderline High Cholesterol: 200-239 mg/dLHigh Cholesterol: greater than 239 mg/dL LDL Cholesterol Calculated 51 <100 mg/dL [facility] Comment:Desirable LDL: less than 100 mg/dLNear Optimal/Above Optimal LDL: 110- 129 mg/dLBorderline High LDL: 130-159 mg/dLHigh LDL: 160-189 mg/dLVery High LDL: greater than or equal to 190 mg/dL HDL Cholesterol 26(L) >40 mg/dL [facility] Comment:Desirable HDL: great er than 40 mg/dL Note: This HDL assay may give artificially low results in patients with liver disease. Blood Venous blood specimen / Unknown 07/05/2024 10:03 AM EST 07/05/2024 11:02 AM EST Terrence Quintanilla MD LAB BLOOD ORDERABLES Final Resul t Performing Organization Address City/[facility]/ZIP Co de Phone Number [facility] [address] [place] [address] [phone] * Hepatitis C Antibody with Reflex to HCV, RNA, Quantitative, Real-Time PCR (04/18/2024 11:12 AM EDT) Hepatitis C Antibody Nonreactive Nonreactive [facility] Comment:Antibodies to HCV no t detected; does not exclude early acuteHCV infection. Blood Venous blood specimen / Unknown 04/18/2024 11:12 AM EDT 04/18/2024 11:17 AM EDT us Terrence Name LAB BLOOD ORDERABLES Final Resul t [facility] [address] [place] [address] [phone] * Hm Colonoscopy (05/08/2019 2:51 PM EDT) Colonoscopy Normal Normal Narrative Airam Delgado - 05/08/2019 2:51 PM EDT Recommended 10 year follow up us Historical Provider HEALTH MAINTENANCE Final Result from Last 3 Months or Most Recently Relevant to Health Maintenance [place] [address] [place] [address] STANDARD MEDICARE N FULL DENTAL - HSN FULL (MEDICAID) Care Teams Associate Professor Of Art Relationship Specialty Start Date End Date Name, MD Terrence [address] [place] [phone] PCP - General Family Medicine 09/14/15 Jimmy Lua FNP [address] [place] [address] Nurse Practitioner Family Medicine 05/26/23
--- OUTSIDE RECORDS SUMMARY | 2024-10-13 13:50 | XMS_ITS | Encounter Summary ---
Author Organization [employer] Address [address] [facility] 7t [place] [address] Care Team Providers Care Door Glass Installer Name Role Phone Name, Terrence YOON Primary Care Provider [phone] Jimmy Lua Unavailable Unavailable Reason for Visit * Reason Comments Med Refill Encounter Details Date Type Department Care Team ([facility] Contact Info) Description 06/02/2024 Refill [facility] MEDICINE [address] [place] [address] Name, MD Terrence [address] [place] [address] Cerebrovascular accident (CVA), unspecified mechanism (CMS/HCC) Social [...] Description 12/15/2024 9:45 AM EDT Office Visit [facility] MEDICINE [address] [place] [phone] Name, MD Terrence [address] [place] [address] 12/16/2024 3:00 PM EDT Office Visit [facility] ADULT DENTAL [address] [place] [address] Lucille, Aliyah [address] [place] [address] documented as of this encounter Visit Diagnoses Diagnosis Cerebrovascular accident (CVA), unspecified mechanism (CMS/HCC) documented in this encounter Additional Health Concerns Assessment Noted Time PHQ-9 Depression Total Score: 0 09/22/19 24 11:18 AM EDT documented as of this encounter Care Teams Door Glass Installer Relationship Specialty Start Date End Date Name, MD Terrence [address] [place] [address] PCP - General Family Medicine 09/14/15 Jimmy Lua FNP [address] [place] [address] Nurse Practitioner Family Medicine 05/26/23 documented as of this encounter
--- OUTSIDE RECORDS SUMMARY | 2024-10-13 13:50 | XMS_ITS | Encounter Summary ---
Author Organization [employer] [facility] Address [address] [facility] 7t [place] [address] Care Team Providers Care Rim Buster Name Role Phone Name, Terrence YOON Primary Care Provider [phone] Jimmy Lua Unavailable Unavailable Encounter Details Date Type Department Care Team (Late Contact Info) Description 10/01/2022 Orders Only [facility] [address] [place], [place] [phone] Kaity Seymour LPN Social History Tobacco Use [...] Description 12/15/2024 9:45 AM EDT Office Visit [facility] MEDICINE [address] [place], [place] [phone] Name, MD Terrence [address] [place] [address] 12/16/2024 3:00 PM EDT Office Visit [facility] ADULT DENTAL [address] [place] [address] Aliyah Adkins [address] [place] [address] documented as of this encounter Visit Diagnoses Not on filedocumented in this encounter Additional Health Concerns Assessment Noted Time PHQ-9 Depression Total Score: 0 07/22/19 1:53 PM EST documented as of this encounter Care Teams Rim Buster Relationship Specialty Start Date End Date Name, [place] [address] PCP - General Family Medicine 09/14/15 Jimmy Lua FNP [address] [place] [address] Nurse Practitioner Family Medicine 05/26/23 documented as of this encounter
--- OUTSIDE RECORDS SUMMARY | 2024-10-13 13:50 | XMS_ITS | Encounter Summary ---
Author Organization [employer] [facility] Address [address] [facility] 7t [place] [address] Care Team Providers Care Tour Actor Name Role Phone Name, Terrence YOON Primary Care Provider Jimmy Lua Unavailable Unavailable Encounter Details Date Type Department Care Team (Late st Contact Info) Description 11/28/2022 Abstract [facility] MEDICINE [address] [place] [phone] NameTerrence MD [address] [place] [phone] Social History Tobacco Use Types Packs/Day Years [...] Description 12/15/2024 9:45 AM EDT Office Visit [facility] MEDICINE [address] [place] [phone] Terrence Quintanilla MD [address] [place] [phone] 12/16/2024 3:00 PM EDT Office Visit [facility] ADULT DENTAL [address] [place] [phone] Aliyah Adkins [address] [place] [address] documented as of this encounter Procedures Procedure [...] documented as of this encounter Care Teams Tour Actor Relationship Specialty Start Date End Date Name, MD Terrence [address] [place] [address] PCP - General Family Medicine 09/14/15 Jimmy Lua FNP [address] [place] [address] Nurse Practitioner Family Medicine 05/26/23 documented as of this encounter
== END 2024-10-13 13:11 | disposition home or self-care (01) ==
LOC: HO.ENCR 12:47
PROVIDERS: PCP Internal Medicine Geriatric Medicine; Visit Provider Student in an Organized Health Care Education/Training Program
DX: E05.20 Thyrotoxicosis with toxic multinodular goiter without thyrotoxic crisis or storm (principal)
CPT/HCPCS: 99213

== ENCOUNTER → 2024-10-13 12:46 | Outpatient (BNVA) | payer MEDICARE, MEDICAID, SELFPAY | PROVIDERS: PCP Internal Medicine Geriatric Medicine; Visit Provider Student in an Organized Health Care Education/Training Program | DX: E05.20 Thyrotoxicosis with toxic multinodular goiter without thyrotoxic crisis or storm (principal); E21.3 Hyperparathyroidism, unspecified | CPT/HCPCS: 99212 ==

== ENCOUNTER 2024-11-04 13:51 | Outpatient (AMB) | payer MEDICARE, MEDICAID, SELFPAY ==
--- NOTE | 2024-11-04 13:56 | MHC.OFFVIS ---
Intake Visit Reasons: 6m/PVR Intake Note: Patient is present for 6M/PVR Urology Medication:TERAZOSIN,FESOTERODINE Antibiotic Allergy:NONE Blood Thinner:NONE TODAY'S PVR: 83ML'S Windows Migration Technician Required: No Allergies No Known Allergies Allergy (Verified 11/04/24 14:08) HPI Comments Details: Kong is a very pleasant male. He is a patient of Dr Quintanilla. He is seen for the following issues - erectile dysfunction - lower urinary tract symptoms - urinary urgency frequency Last seen January 2024 Prior good response to Toviaz for urinary urgency and frequency Continue with terazosin and tadalafil for erection and bladder stability Erectile dysfunction Effective management with Cialis 5 mg daily Had discussed use of vacuum pump for penile shortening No longer an issue - had cancer Lower urinary tract symptoms Laser procedure on prostate 2016 Did develop urgency frequency Background bipolar with long-term lithium PSA 08/04 1.52 Prior medications oxybutynin 10 mg daily, tolterodine Cystoscopy 2020 open bladder neck with minimal erythema in bladder PFSH Medical History Hyperbilirubinemia Hyperparathyroidism Hearing problem Frequency of urination Elevated blood pressure reading in office with white coat syndrome, with diagnosis of hypertension Gout Vitamin D deficiency Toxic multinodular goiter Bipolar disorder Erectile dysfunction BPH w/o urinary obs/LUTS Abdominal wall mass Myelopathy Surgical History History of removal of cyst (07/10/23) History of surgery Family History Father Dementia Mother Diabetes Social History Household Members: Family and Children Household Members Other:: , daughters, grand children Alcohol intake: never Patient Tobacco Use Status: Former Tobacco user Review of Systems Const Denies chills and Denies fever(s) Card Reports no additional complaints and Denies syncope Resp Denies cough GI Denies abdominal pain and Denies heartburn Reports as per HPI and Denies change in libido Neuro Denies syncope Psych Denies change in libido Endo Denies change in libido Physical Exam Const General: cooperative, healthy appearing, comfortable and no acute distress Orientation/consciousness: patient oriented x3 HEENT Face and sinus: Yes normal facial exam Mouth: moist mucous membranes Neck Neck: Yes normal visual inspection, Yes full ROM and Yes trachea midline Chest Chest palpation & inspection: normal inspection of the chest Resp Effort & Inspection: normal respiratory effort, able to speak in complete sentences and no respiratory distress GI Inspection: Yes normal to inspection Back/Spine/Pelvis Cervical Spine: normal cervical lordosis Thoracic/Lumbar Spine: thoracic and lumbar spine normal to inspection Skin General skin exam: no rashes or lesions noted Neuro General: patient oriented x3, gait normal, tone normal and moves all extremities Extrem General: Yes normal to inspection and Yes capillary refill normal Office Procedures Post Void Residual Post Residual Void Post Void Residual (PVR): 83 [id number] Void Residual by ultrasound Assessment & Plan Assessment & Plan (1) Bladder instability: Code(s): N32.89 - Other specified disorders of bladder Category: Medical (2) Urinary urgency: Code(s): R39.15 - Urgency of urination Category: Medical (3) Erectile dysfunction: Code(s): N52.9 - Male erectile dysfunction, unspecified Category: Medical Plan Refill prescription Four week follow-up cysto Medications: New tadalafil 5 mg PO DAILY 90 tabs 1RF sexual activity 90 days N32.89 - Other specified disorders of bladder, N52.01 - Erectile dysfunction due to arterial insufficiency, N32.0 - Bladder-neck obstruction Patient Instructions: This note is constructed using voice recognition software. While every effort has been made to ensure accuracy licensed sales assistant errors may have been included. Imaging studies, laboratory and physical exam results were discussed and reviewed in detail. No major barriers to patient understanding were identified. An opportunity to ask questions regarding the treatment plan was provided. All questions were answered. The patient expressed understanding and agreement with the above treatment plan. The patient is aware they should contact our office by phone for worsening of their current condition or the appearance of new urologic symptoms. Compliance is encouraged with any medications and followup testing that is ordered. It is a privilege to participate in the urologic care of your patient. If you have any questions or concerns regarding treatment for the above conditions, or other urologic issues, please do not hesitate to contact me. The office telephone contact is [phone]. Sincerely, Dr Mal Nelson MD, [facility] - Urology Compassionate Specialist Care for the Genitourinary System Coding Level of Care Code Est Pt Level 3 (61423) Diagnoses Bladder instability N32.89 Urinary urgency R39.15 Erectile dysfunction N52.9 CPT Codes Post Residual Void - PVR CPT Code: 39601-Vpso Void Residual by ultrasound ([id number])
--- OUTSIDE RECORDS SUMMARY | 2024-11-04 14:34 | XMS_ITS | Clinical Summary ---
Author Organization [employer] Address [address] [facility] [address] [place] [address] Care Team Providers Care Robot Operator Name Role Phone Name, Terrence YOON Primary Care Provider [phone] Jimmy Lua Unavailable Unavailable Allergies No known [...] EVERY MORNING 90 capsule 1 08/17/2023 Active lithium 300 MG tabletIndication s:Bipolar affective [...] 30 tablet 11 06/03/2024 06/03/20 25 Active hydrALAZINE (Apresoline) 25 MG tablet TAKE 1 TABLET BY MOUTH TWICE DAILY 60 tablet 11 09/21/2024 Active Active Problems Problem Noted Date Diagnosed [...] 3:17 PM EDT): Had been stable on Olmito And Olmito 600 mg daily for a long time, seemed to continue well-controlled with decreased Olmito And Olmito 300 mg. However developed marked insomnia and hypomania. He resumed Olmito And Olmito 300 mg 2 tabs daily but developed tremor. Pt was extremely resistant to change in medications, but did agree to gradual uptaper of Seroquel now 75 mg at bedtime and decreased Olmito And Olmito 300 mg once at bedtime. Pt says the tremor has resolved and his mood is fine. Continue Seroquel 75 mg at bedtime, Olmito And Olmito 300 mg 1 at bedtime. Since this provider will be retiring, he will be transferred to new psychiatric prescriber. Meanwhile, prescriptions were sent for his medications with 1 year of refills. Any issues or concerns, contact [facility]. All his questions were answered. I have wished him well. Pt agrees with the plan. Assessment & Plan (09/22/2023 12:27 PM EDT): Had been stable on Olmito And Olmito 600 mg daily for a long time, seemed to continue well-controlled with decreased Olmito And Olmito 300 mg. However developed marked insomnia and hypomania. He resumed Olmito And Olmito 300 mg 2 tabs daily but developed tremor. Pt was extremely resistant to change in medications, but did agree to gradual uptaper of Seroquel now 75 mg at bedtime and decreased Olmito And Olmito 300 mg once at bedtime. Pt says the tremor has resolved and his mood is fine. Continue Seroquel 75 mg at bedtime, Olmito And Olmito 300 mg 1 at bedtime. On 06/25/2023 provider informed the patient and caregiver that I would be retiring, and we would make every effort to plan smooth transition of care. Meanwhile, F/U with me in 2 months. Pt agrees with the plan. Assessment & Plan (07/28/2023 1:35 PM EST): Had been stable on Olmito And Olmito 600 mg daily for a long time, seemed to continue well-controlled with decreased Olmito And Olmito 300 mg. However developed marked insomnia and hypomania. He resumed Olmito And Olmito 300 mg 2 tabs daily but developed tremor. Pt was extremely resistant to change in medications, but did agree to gradual uptaper of Seroquel now 75 mg at bedtime and decreased Olmito And Olmito 300 mg once at bedtime. Pt says the tremor has resolved and his mood is fine. Continue Seroquel 75 mg at bedtime, Olmito And Olmito 300 mg 1 at bedtime. On 06/25/2023 provider informed the patient and caregiver that I would be retiring, and we would make every effort to plan smooth transition of care. Meanwhile, F/U with me in 6-8 weeks. Pt agrees with the plan. Assessment & Plan (01/26/2023 9:45 AM EDT): Progress Note: Kong is a 62-year-old, Syrian speaking male that was referred for a [...] missed visits with psychopharmacology clinic and PCP. Caar reported that at those times she was out of the country and that Kong has a difficult time managing his schedule without her. Provided psychoeducation around Bipolar diagnosis and the importance of follow up care. Recommended OP therapy and Kong declined at this time. Planned for case consult with [facility] psychopharmacology clinic. Assessment: Patient with history [...] family support PLAN: 1. Follow up with [facility]: Recommended for follow-up: Post [facility] psychopharmacology consult 2. Patient goal is to reengage in medication management services 3. Behavioral Recommendations a. Break tasks down to smaller goals b. Slowly increase goals c. PTSD jed- deep breathing, progressive muscle relaxation Assessment & Plan (10/20/2022 3:33 PM EDT): Had been stable on Olmito And Olmito 600 mg daily for a long time, seemed to continue well-controlled with decreased Olmito And Olmito 300 mg. However developed marked insomnia and hypomania which is now improved with resumption of Olmito And Olmito 300 mg 2 tabs daily. Unfortunately, new [...] 3:11 PM EST): Had been stable on Olmito And Olmito 600 mg daily for a long time, seemed to continue well-controlled with decreased Olmito And Olmito 300 mg. However developed marked insomnia and hypomania which is now improved with resumption of Olmito And Olmito 300 mg 2 tabs daily. Had also been taking Quetiapine 25 mg at bedtime but that was not dispensed by the pharmacy since May and he is still doing well without it, with adequate sleep. Unfortunately has developed tremor of the right hand, which may be a S/E of the lithium. Will do labs arlen for Olmito And Olmito level and metabolic profile. Meanwhile continue medications [...] 11:46 AM EST): Had been stable on Olmito And Olmito 600 mg daily for a long time, seemed to continue well-controlled with decreased Olmito And Olmito 300 mg. However developed marked insomnia and hypomania. He resumed Olmito And Olmito 300 mg 2 tabs daily but developed tremor. Pt was extremely resistant to change in medications, but did agree to gradual uptaper of Seroquel now 75 mg at bedtime and decreased Olmito And Olmito 300 mg once at bedtime. Pt says the tremor has resolved and his mood is fine. His agrees that the tremor is now controlled, and his behavior is fine. Last time mentioned new onset abnormal movements of mouth, but that seems to have resolved. Continue Seroquel 75 mg at bedtime, Olmito And Olmito 300 mg 1 at bedtime. Today 06/25/2023 provider informed the patient and caregiver that I would be retiring in approx 1/2 year. F/U with me in 1 month. Pt and Caregiver agree with plan. Assessment & Plan (05/26/2023 11:33 AM EST): Had been stable on Olmito And Olmito 600 mg daily for a long time, seemed to continue well-controlled with decreased Olmito And Olmito 300 mg. However developed marked insomnia and hypomania. He resumed Olmito And Olmito 300 mg 2 tabs daily but developed tremor. Pt was extremely resistant to change in medications, but did agree to gradual uptaper of Seroquel now 75 mg at bedtime and decreased Olmito And Olmito 300 mg once at bedtime. Pt says [...] now, continue Seroquel 75 mg at bedtime, Olmito And Olmito 300 mg 1 at bedtime. F/U with me in 1 month. Pt and Caregiver agree with plan. Assessment & Plan (03/26/2023 12:08 PM EDT): Had been stable on Olmito And Olmito 600 mg daily for a long time, seemed to continue well-controlled with decreased Olmito And Olmito 300 mg. However developed marked insomnia and hypomania. He resumed Olmito And Olmito 300 mg 2 tabs daily but developed [...] that he will need to stop taking Olmito And Olmito. Will decrease to Olmito And Olmito 300 mg 1 at bedtime. F/U for Neurological evaluation as soon as can be arranged. F/U with me in 3 weeks. Pt and Caregiver agree with plan. Assessment & Plan (03/05/2023 12:35 PM EDT): Had been stable on Olmito And Olmito 600 mg daily for a long time, seemed to continue well-controlled with decreased Olmito And Olmito 300 mg. However developed marked insomnia and hypomania. He resumed Olmito And Olmito 300 mg 2 tabs daily but developed [...] the tremor is almost certainly r/t the Olmito And Olmito, will not stop the Olmito And Olmito until mood is better controlled, so continue Olmito And Olmito 300 mg 2 at bedtime. For any safety concerns call 911. F/U with me in 3 weeks. Pt and Caregiver agree with plan. Assessment & Plan (01/27/2023 3:00 PM EDT): Had been stable on Olmito And Olmito 600 mg daily for a long time, seemed to continue well-controlled with decreased Olmito And Olmito 300 mg. However developed marked insomnia and hypomania. He resumed Olmito And Olmito 300 mg 2 tabs daily but developed tremor, which has persisted. He also has experienced marked worsening of mood with anhedonia, tearfulness, low motivation. Patient's presentation today is markedly incongruent with presentation at various [facility] and ED visits recently, and with reports of his , clinician, and providers. Pt expresses strong desire not to stop Olmito And Olmito. Suspect he is denying symptoms in order to discourage provider from changing his medication. Reviewed with the patient that the tremor was almost certainly a S/E of lithium. Also, his mood was not adequately controlled. In conjunction with patient, developed plan to start new medication: Seroquel 25 mg 1/2 tab at bedtime for a few nights then 1 full tab at bedtime. Continue Olmito And Olmito as usual for now. Expect to titrate up the Seroquel until mood was stable, then we would gradually decrease the Olmito And Olmito. He is agreeable to this plan. It was also reviewed with his . F/U 2-3 weeks. Call sooner as needed. He agrees with the plan. Assessment & Plan (01/25/2023 5:22 PM EDT): ?? Previously following in [facility] Psychopharm clinic with TIFF Lua. Last appt October 2022, pt did not show to appt in November 2022 ?? Continues on lithium 300mg BID ?? Olmito And Olmito level therapeutic during ED visit in December [...] Encounters Date Type Department Care Team Description 10/26/2024 Telephone [facility] [address] [place], [place] [phone] Name, MD Terrence Nurse Triage 10/05/2024 3:00 PM EDT Office Visit [facility] ADULT DENTAL [address] [place] [address] Ulises Saunders DDS Dental caries (Primary Dx) 09/29/2024 4:00 PM EDT Office Visit [facility] [address] [place] [address] Dizziness (Primary Dx); Other fatigue; Other symptoms and signs concerning food and fluid intake; Body mass index (BMI) 31.0-31.9, adult 09/29/2024 Telephone [facility] [address] [place] [phone] Kaity Amador DO Nurse Triage 09/20/2024 Refill [facility] [address] [place] [phone] Terrence Quintanilla MD 09/06/2024 Telephone [facility] [address] [place] [phone] Tracy Wright MA October recalls 09/02/2024 9:30 AM EST Office Visit [facility] ADULT DENTAL [address] [place] [address] Fernandes-Soares, Opal, DDS Full coverage crown needed for root canal-treated tooth (Primary Dx) 08/19/2024 8:00 AM EST Office Visit [facility] ADULT DENT[facility] [address] [place] [address] Fernandes-Soares, Opal, DDS Dental caries (Primary Dx); Full coverage crown needed for root canal-treated tooth from Last 3 Months Immunizations Name Administration [...] Description 12/15/2024 9:45 AM EDT Office Visit [facility] [address] [place] [address] Name, MD Terrence [address] [place] [address] 12/16/2024 3:00 PM EDT Office Visit [facility] ADULT DENT[facility] [address] [place], [place] [phone] Lucille, Aliyah [address] [place], [place] [phone] Health Maintenance Due Date Last Done Comments CT Colonography 1958 FIT DNA/Cologuard 1960 FIT 1960 FOBT 1960 Sigmoidoscopy 1960 COVID-19 Vaccine ( season) 2024 05/22/2021, 11/17/2020, 10/27/2020 Depression Screening 09/21/2024 09/22/2023, 09/22/19 Dental Oral Exam 12/16/2024 06/16/2024, 02/11/2023 Dental Prophylaxis 12/16/2024 06/16/2024, 05/15/2023 SDOH Screening 06/28/2025 06/28/2024 Alcohol/Substance Use Screening 07/05/2025 07/05/2024 Dental X-Ray: Bitewings 09/03/2025 09/02/19 25, 06/16/2024, 04/21/2024, Additional history exists Tobacco Screening 10/05/2025 10/05/2024 Dental X-Ray: Full Mouth 03/21/2026 03/20/2023, 08/2022 [...] coverage crown needed for root canal-treated tooth LIPID PANEL, STANDARD Routine 07/05/2024 10:03 AM [...] Recently Relevant to Health Maintenance Results * (ABNORMAL) Lipid Panel, Standard (07/05/2024 10:03 AM EST) Triglycerides 74 <150 mg/dL [facility] Comment:Desirable Triglyceri de: less than 150 mg/dLBorderline High Triglyceride 150-199 mg/dLHigh Triglyceride: 200-499 mg/dLVery High Triglyceride: greater than or equal to 5OO mg/dL Cholesterol 91 <200 mg/dL [facility] Comment:Desirable Cholestero l: less than 200 mg/dLBorderline High Cholesterol: 200-239 mg/dLHigh Cholesterol: greater than 239 mg/dL LDL Cholesterol Calculated 51 <100 mg/dL [facility] Comment:Desirable LDL: less than 100 mg/dLNear Optimal/Above Optimal LDL: 110- 129 mg/dLBorderline High LDL: 130-159 mg/dLHigh LDL: 160-189 mg/dLVery High LDL: greater than or equal to 190 mg/dL HDL Cholesterol 26(L) >40 mg/dL [facility] Comment:Desirable HDL: great er than 40 mg/dL Note: This HDL assay may give artificially low results in patients with liver disease. Blood Venous blood specimen / Unknown 07/05/2024 10:03 AM EST 07/05/2024 11:02 AM EST Terrence Quintanilla MD LAB BLOOD ORDERABLES Final Resul t Performing Organization Address [facility] Co de Phone Number [facility] [address] [place] [address] [phone] * Hepatitis C Antibody with Reflex to HCV, RNA, Quantitative, Real-Time PCR (04/18/2024 11:12 AM EDT) Hepatitis C Antibody Nonreactive Nonreactive [facility] Comment:Antibodies to HCV no t detected; does not exclude early acuteHCV infection. Blood Venous blood specimen / Unknown 04/18/2024 11:12 AM EDT 04/18/2024 11:17 AM EDT Terrence Quintanilla MD LAB BLOOD ORDERABLES Final Resul t Performing Organization Address City/[facility] Co de Phone Number [facility] [address] [place] [phone] * Hm Colonoscopy (05/08/2019 2:51 PM EDT) Colonoscopy Normal Normal Narrative Airam Delgado - 05/08/2019 2:51 PM EDT Recommended 10 year follow up Historical Provider HEALTH MAINTENANCE Final Result from Last 3 Months or Most Recently Relevant to Health Maintenance [place] [address] [place] [address] STANDARD MEDICARE HSN FULL DENTAL - N FULL (MEDICAID) Care Teams Robot Operator Relationship Specialty Start Date End Date Name, MD Terrence [address] [place], [place] [phone] PCP - General Family Medicine 09/14/15 Jimmy Lua FNP [address] [place] [phone] Nurse Practitioner Family Medicine 05/26/23
--- OUTSIDE RECORDS SUMMARY | 2024-11-04 14:34 | XMS_ITS | Encounter Summary ---
Author Organization [employer] Address [address] [facility] [address] [place] [address] Care Team Providers Care Superintendent Commissary Name Role Phone Name, Terrence YOON Primary Care Provider [phone] Jimmy Lua Unavailable Unavailable Encounter Details Date Type Department Care Team (Late Contact Info) Description 10/01/2022 Orders Only [facility] [address] [place], [place] [phone] Kaity Seymour LPN Social History Tobacco Use [...] Description 12/15/2024 9:45 AM EDT Office Visit [facility] [address] [place], [place] [phone] Name, MD Terrence [address] [place] [phone] 12/16/2024 3:00 PM EDT Office Visit [facility] ADULT DENTAL [address] [place] [address] Aliyah Adkins [address] [place] [address] documented as of this encounter Visit Diagnoses Not on filedocumented in this encounter Additional Health Concerns Assessment Noted Time PHQ-9 Depression Total Score: 0 07/22/19 1:53 PM EST documented as of this encounter Care Teams Superintendent Commissary Relationship Specialty Start Date End Date Name, [place] [address] PCP - General Family Medicine 09/14/15 Jimmy Lua FNP [address] [place] [phone] Nurse Practitioner Family Medicine 05/26/23 documented as of this encounter
--- OUTSIDE RECORDS SUMMARY | 2024-11-04 14:34 | XMS_ITS | Encounter Summary ---
Author Organization [employer] [facility] Address [address] [facility] [address] [place] [address] Care Team Providers Care Retort Unloader Name Role Phone Name, Terrence YOON Primary Care Provider [phone] Jimmy Lua Unavailable Unavailable Encounter Details Date Type Department Care Team (Late st Contact Info) Description 01/06/2023 Orders Only [facility] [address] [place] [phone] Karmen Ulrich LPN Social History Tobacco Use [...] Description 12/15/2024 9:45 AM EDT Office Visit [facility] MED[facility] [address] [place] [address] Name, MD Terrence [address] [place] [address] 12/16/2024 3:00 PM EDT Office Visit [facility] ADULT DENTAL [address] [place] [address] Aliyah Adkins [address] [place] [address] documented as of this encounter Visit Diagnoses Not on filedocumented in this encounter Additional Health Concerns Assessment Noted Time PHQ-9 Depression Total Score: 0 10/21/19 23 2:06 PM EDT documented as of this encounter Care Teams Retort Unloader Relationship Specialty Start Date End Date Name, MD Terrence [address] [place] [address] PCP - General Family Medicine 09/14/15 Jimmy Lua FNP [address] [place] [address] Nurse Practitioner Family Medicine 05/26/23 documented as of this encounter
--- OUTSIDE RECORDS SUMMARY | 2024-11-04 14:34 | XMS_ITS | Encounter Summary ---
Author Organization [employer] Address [address] [place] [address] Care Team Providers Care Special Population Paraprofessional Name Role Phone Name, Terrence YOON Primary Care Provider [phone] Jimmy Lua Unavailable Unavailable Reason for Visit * Reason Comments Med Refill Encounter Details Date Type Department Care Team ([facility] Contact Info) Description 05/29/2023 Refill [facility] MEDICINE [address] [place] [address] Name, MD Terrence [address] [place] [address] Social History Tobacco Use Types Packs/Day Years [...] Description 12/15/2024 9:45 AM EDT Office Visit [facility] MEDICINE [address] [place] [phone] Name, MD Terrence [address] [place] [address] 12/16/2024 3:00 PM EDT Office Visit [facility] ADULT DENTAL [address] [place] [address] Aliyah Adkins [address] [place] [address] documented as of this encounter Visit Diagnoses Not on filedocumented in this encounter Additional Health Concerns Assessment Noted Time PHQ-9 Depression Total Score: 0 05/26/20 23 10:22 AM EST documented as of this encounter Care Teams Special Population Paraprofessional Relationship Specialty Start Date End Date Name, MD Terrence [address] [place] [phone] PCP - General Family Medicine 09/14/15 Jimmy Lua FNP [address] [place] [address] Nurse Practitioner Family Medicine 05/26/23 documented as of this encounter
--- OUTSIDE RECORDS SUMMARY | 2024-11-04 14:34 | XMS_ITS | Encounter Summary ---
Author Organization [employer] Address [address] [facility] 7t [place] [address] Care Team Providers Care Candle Molder Hand Name Role Phone Name, Terrence YOON Primary Care Provider [phone] Jimmy Lua Unavailable Unavailable Reason for Visit * Reason Comments Med Refill Encounter Details Date Type Department Care Team (Late Contact Info) Description 04/07/2023 Refill [facility] [address] [place] [address] Jimmy Lua FNP Bipolar affective disorder in remission (CMS/[facility]) Social History Tobacco Use Types Packs/Day [...] Upcoming Encounters Date Type Department Care Team ([facility] Contact Info) Description 12/15/2024 9:45 AM EDT Office Visit [facility] MEDICINE [address] [place], [place] [phone] Name, MD Terrence [address] [place] [address] 12/16/2024 3:00 PM EDT Office Visit [facility] ADULT DENTAL [address] [place] [address] Aliyah Adkins [address] [place] [address] documented as of this encounter Visit Diagnoses Diagnosis Bipolar affective disorder in remission (CMS/[facility]) documented in this encounter Additional Health Concerns Assessment Noted Time PHQ-9 Depression Total Score: 3 03/26/20 11:40 AM EDT documented as of this encounter Care Teams Candle Molder Hand Relationship Specialty Start Date End Date Name, MD Terrence [address] [place] [address] PCP - General Family Medicine 09/14/15 Jimmy Lua FNP [address] [place] [phone] Nurse Practitioner Family Medicine 05/26/23 documented as of this encounter
--- OUTSIDE RECORDS SUMMARY | 2024-11-04 14:34 | XMS_ITS | Encounter Summary ---
Author Organization [employer] Address [address] [facility] [address] [place] [address] Care Team Providers Care [employer] Advisor Name Role Phone Name, Terrence YOON Primary Care Provider [phone] Jimmy Lua Unavailable Unavailable Reason for Visit * Reason Comments Med Refill Encounter Details Date Type Department Care Team ([facility] Contact Info) Description 06/02/2024 Refill [facility] MEDICINE [address] [place] [address] Name, MD Terrence [address] [place] [address] Cerebrovascular accident (CVA), unspecified mechanism (CMS/HCC) Social [...] Description 12/15/2024 9:45 AM EDT Office Visit [facility] MEDICINE [address] [place] [phone] Name, MD Terrence [address] [place] [address] 12/16/2024 3:00 PM EDT Office Visit [facility] ADULT DENTAL [address] [place] [address] Lucille, Aliyah [address] [place] [address] documented as of this encounter Visit Diagnoses Diagnosis Cerebrovascular accident (CVA), unspecified mechanism (CMS/HCC) documented in this encounter Additional Health Concerns Assessment Noted Time PHQ-9 Depression Total Score: 0 09/22/19 24 11:18 AM EDT documented as of this encounter Care Teams [employer] Advisor Relationship Specialty Start Date End Date Name, MD Terrence [address] [place] [phone] PCP - General Family Medicine 09/14/15 Jimmy Lua FNP [address] [place] [address] Nurse Practitioner Family Medicine 05/26/23 documented as of this encounter
--- OUTSIDE RECORDS SUMMARY | 2024-11-04 14:34 | XMS_ITS | Encounter Summary ---
Author Organization [facility] Address [address] [facility] [address] [place] [address] Care Team Providers Care Laboratory Geneticist Name Role Phone Name, Terrence YOON Primary Care Provider [phone] Jimmy Lua Unavailable Unavailable Encounter Details Date Type Department Care Team (Late st Contact Info) Description 11/28/2022 Abstract [facility] MEDICINE [address] [place] [phone] NameTerrence MD [address] [place] [phone] Social History Tobacco Use Types Packs/Day Years [...] Description 12/15/2024 9:45 AM EDT Office Visit [facility] MEDICINE [address] [place] [address] [phone] Terrence Quintanilla MD [address] [place] [address] [phone] 12/16/2024 3:00 PM EDT Office Visit [facility] ADULT DENTAL [address] [place] [address] [phone] Aliyah Adkins [address] [place] [address] documented as of this encounter Procedures Procedure [...] documented as of this encounter Care Teams Laboratory Geneticist Relationship Specialty Start Date End Date Name, MD Terrence [address] [place] [address] PCP - General Family Medicine 09/14/15 Jimmy Lua FNP [address] [place] [address] Nurse Practitioner Family Medicine 05/26/23 documented as of this encounter
== END 2024-11-04 15:08 | disposition home or self-care (01) ==
LOC: HO.HUSH 13:51
PROVIDERS: PCP Internal Medicine Geriatric Medicine; Visit Provider Urology
DX: N32.89 Other specified disorders of bladder (principal); R39.15 Urgency of urination; N52.9 Male erectile dysfunction, unspecified
CPT/HCPCS: 99213

== ENCOUNTER → 2024-11-04 13:51 | Outpatient (BNVA) | payer MEDICARE, MEDICAID, SELFPAY | PROVIDERS: PCP Internal Medicine Geriatric Medicine; Visit Provider Urology | DX: N32.89 Other specified disorders of bladder (principal); N52.9 Male erectile dysfunction, unspecified; R39.15 Urgency of urination | CPT/HCPCS: 51798; 99212 ==

== ENCOUNTER 2025-01-12 14:44 | Outpatient (AMB) | payer MEDICARE, MEDICAID, SELFPAY ==
[2025-01-12 14:45] VITALS: BP 120/80; PULSE 75; O2SAT 96; BMI 28.2
--- NOTE | 2025-01-12 14:45 | A.OFFVIS_ITS ---
Vital Signs 3 01/12/25 14:45 Height 5 ft 9 in Weight 191 lb 2.252 oz BMI 28.2 BP 120/80 Blood Pressure Location Lt brachial Position Sitting Pulse 75 Pulse Source Pulse Oximeter Pulse Oximetry (%) 96 Oxygen Delivery Method Room Air Intake Visit Reasons: MNG Intake Note: Patient present today for MNG office visit. 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 Accompanied by: Spouse Allergies No Known Allergies Allergy (Verified 01/12/25 14:49) Medication List - Last Reconciled 01/12/25 by Amarilys Baig MD acetaminophen 500 mg PO Q8H PRN amlodipine 10 mg PO DAILY atorvastatin 80 mg PO DAILY cholecalciferol (vitamin D3) 25 mcg PO DAILY 90 days [Citracal D Slow Rel Tab 80 1 tab PO BID] colchicine 0 mg PO fesoterodine ER (Toviaz) 4 mg PO DAILY 90 days hydroxyzine HCl 50 mg PO BEDTIME lisinopril 5 mg PO DAILY lisinopril 5 mg PO DAILY lithium carbonate 300 mg PO DAILY lithium carbonate ER 600 mg PO DAILY methimazole 5 mg PO DAILY omega-3 fatty acids 1,000 mg PO BEDTIME propranolol ER 60 mg PO DAILY quetiapine 25 mg PO BEDTIME tadalafil 5 mg PO DAILY 90 days terazosin 5 mg PO BEDTIME 90 days HPI Comments Details: 64 YO Male with a PMHx of 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 HPI from prior visit He was initially diagnosed with hyperthyroidism in 2015, although his TSH was suppressed since back in 2002. In 2015 he underwent a thyroid uptake and scan with uptake WNL, but a pattern consistent with a toxic MNG. TSH was in the hyperthyroid range at that time. He underwent I131 ablation with 2.85 mCi of I131 on 06/09/2016. Not surprisingly, this was not successful and he remained hyperthyroid since that time, and has continued on daily methimazole daily. He for unknown reasons underwent an additional thyroid uptake and scan in 2017, with results showing homogenously increased uptake of >40% at 24 hours. His TSI, TRAB and TPO antibodies are all negative. Dr. Ledbetter did attempt FNA biopsy of his RLP 2.0 cm thyroid nodule. Notes dont mention what year, This was unsuccessful. Most recent thyroid ultrasound in July 2023 showed increase in the size of the right inferior nodule now measuring 1.9 cm in the maximum dimension up from 1.6 cm in the maximum dimension, status post FNA in November 2023, with benign cytology. He also remains on lithium daily, and did have elevated PTH levels. He was started on Calcium citrate 1 tab PO BID and repeat labs were WNL. Calcium levels most recently 09/05 normal Drinks milk every day, cheese 5 times a week , yogurt no Currently on methimazole 5 mg daily He states he feels well today. Reports some chnage in bowel movements has to defecaye after food . No palpitations. No tremors. Gained 10 lbs since summer 2023 He denies any compressive symptoms. He is tolerating methimazole well without the development of rash, jaundice or frequent infection. Labs 09/29/2024 showed normal thyroid function, showed normal calcium of 9.5, albumin off 4.1, corrected calcium would be 9.4, PTH intact elevated at 107.2, vitamin-D of 42.7. Patient was seen by Dr. Kenisha Garcia at [facility] for surgical evaluation in July 2024, I do not have the visit notes available to me at the time of this visit, have requested them. Per patient he was given the option of surgery versus medical management and at this time he chooses to stay on methimazole and would like to defer surgery. Interval history Accompanied by his today. Continues on methimazole 5 mg daily. Last set of thyroid labs from September 2024 with normal TSH and free T4. In September 2024 he was noted to have an elevated kappa PTH level of 107.2 at our lab, with a calcium of 9.5, albumin of 4.1, corrected calcium would be 9.4, vitamin-D 42.7. Labs repeated at [facility] 10/14/2024 showed normal kidney function with a EGFR of 65, ionized calcium normal at 5.3, PTH normal at 60 cup calcium of 9.4 with albumin of 4.4, corrected calcium would be 9, phosphorus normal at 2.5. No concerns about PTH elevation at this time. Otherwise no loose stools. No palpitations, no tremors. Overall feels well. Physical exam General: sitting comfortably in no acute distress HEENT: normocephalic/atraumatic, EOM intact, moist oral mucosa Neck: supple, Cardiac: normal heart sounds Pulm: normal breath sounds B/L, no added breath sounds Abd: not distended, no tenderness Extremities: no edema, no signs of myxedema Neuro: AAO x3, Speech: normal, no facial droop, moving all 4 extremities Laboratory Tests 08/30/21 08/07/22 06/09/23 10:50 15:43 12:04 Calcium Albumin TSH 0.06 L Free T4 0.98 Free T3 Thyroid Stim Immunoglob <89 <89 Thyroglobulin Antibody <1 <1 Thyroid Peroxidase Ab 1 1 TSH Receptor Ab <1.00 <1.00 06/10/23 08/19/23 12/14/23 14:06 13:51 09:59 Calcium 9.9 D 9.4 Albumin 4.1 TSH 0.11 L Free T4 1.18 Free T3 3.6 Thyroid Stim Immunoglob Thyroglobulin Antibody Thyroid Peroxidase Ab TSH Receptor Ab 04/18/24 11:12 Calcium Albumin TSH 0.84 Free T4 0.89 Free T3 3.4 Thyroid Stim Immunoglob Thyroglobulin Antibody Thyroid Peroxidase Ab TSH Receptor Ab Laboratory Tests 09/29/24 16:25 Calcium 9.5 D Albumin 4.1 25-OH Vitamin D Total 42.7 TSH 0.70 Free T4 0.98 PTH Intact 107.2 H Imaging US THYROID Jul 2023 CLINICAL INFORMATION: Thyrotoxicosis with toxic multinodular goiter without thyrotoxic crisis or storm. COMPARISON: Ultrasound soft tissue head/neck thyroid dated 09/30/2021 and 12/26/2019, 05/31/2018 TECHNIQUE: Linear transducer grayscale and color Doppler examination with attention to the region of the thyroid. FINDINGS: SIZE: Measurements of the thyroid lobes and nodules are given in sagittal, anteroposterior and transverse dimensions respectively. Right Thyroid Lobe: 6.3 x 2.6 x 3.1 cm, volume 26 mL. Previously 6.7 x 2.2 x 2.7 cm, volume 21.1 mL. Parenchyma: The gland echotexture is homogeneous. Thyroid vascularity is normal. Left Thyroid Lobe: 5.5 x 2.7 x 2.7 cm, volume 22 mL. Previously 5.9 x 2.7 x 2.3 cm, volume 19 mL. Parenchyma: The gland echotexture is homogeneous. Thyroid vascularity is normal. Isthmus: 0.4 cm in maximum AP dimension. Previously 0.4 cm. Estimated total number of nodules greater than or equal to 1 cm: 1. Internal Wholesaler nodules are described as follows: 1. Location: Isthmus. Size: 0.8 x 0.4 x 0.8 cm, volume 0.14 mL. Previously: Not seen on the previous study. Nodule characteristics: Composition: Cystic(0). ACR TI-RADS total points: 0 ACR TI-RADS category: 1 2. Location: Right mid. Size: 0.4 x 0.2 x 0.4 cm, volume 0.016 mL. Previously: Not seen on the previous study. Nodule characteristics: Composition: Solid (2). Echogenicity: Isoechoic (1). Shape: Not taller than wide (0). Margins: Ill-defined (0). Echogenic Foci: None (0). ACR TI-RADS total points: 3 ACR TI-RADS category: 3 3. Location: Right inferior. Size: 0.5 x 0.3 x 0.4 cm, volume 0.03 mL. Previously: Not seen on the previous study. Nodule characteristics: Composition: Mixed cystic and solid (1). Echogenicity: Isoechoic (1). Shape: Not taller than wide (0). Margins: Ill-defined (0). Echogenic Foci: None (0). ACR TI-RADS total points: 2 ACR TI-RADS category: 2 4. Location: Right inferior. Size: 1.9 x 1.3 x 1.8 cm, volume 2.4 mL. Previously: 1.6 x 1.5 x 1.7 cm, volume 2.1 mL. This measured 1.6 x 0.9 x 1.6 cm in 2018. Nodule characteristics: Composition: Mixed cystic and solid (1). Echogenicity: Hypoechoic (2). Shape: Not taller than wide (0). Margins: Smooth (0). Echogenic Foci: None (0). ACR TI-RADS total points: 3 ACR TI-RADS category: 3 Significant change in size (>/= 20% in 2 dimensions and minimal increase of 2 mm or 50% or greater increase in volume): Recent prior however increased from remote prior. Change in features: No not when accounting for differences in interobserver variability as previously appeared slightly hypoechoic. NODES: No lymphadenopathy is seen in the tissue surrounding the thyroid gland. US/US thyroid IMPRESSION: A 1.9 cm TR 3 right thyroid nodule is not increased in size from recent prior however is increased in size from remote prior therefore consider one-year follow-up thyroid ultrasound. Thyroid US: 09/30/2021 Right Thyroid Lobe: 6.7 x 2.2 x 2.7 cm, volume 21.1 mL. Previously 6.1 x 2.7 x 2.8 cm, volume 23.9 mL. Parenchyma: The gland echotexture is homogeneous. Thyroid vascularity is normal. Left Thyroid Lobe: 5.9 x 2.7 x 2.3 cm, volume 19.0 mL. Previously 6.0 x 2.4 x 2.8 cm, volume 20.4 mL. Parenchyma: The gland echotexture is homogeneous. Thyroid vascularity is normal. Isthmus: 0.4 cm in maximum AP dimension. Previously 0.6 cm. Estimated total number of nodules greater than or equal to 1 cm: 1. Internal Wholesaler nodules are described as follows: 1.? Location: Right inferior. ?? ? Size: 0.6 x 0.3 x 0.5 cm, volume 0.05 mL. ?? ? Previously: 0.6 x 0.3 x 0.6 cm, volume 0.06 mL. ?? ? Nodule characteristics: ?? ? Composition: Solid (2). ?? ? Echogenicity: Hypoechoic (2). ?? ? Shape: Not taller than wide (0). ?? ? Margins: Ill-defined (0). ?? ? Echogenic Foci: None (0). ? ACR TI-RADS total points: 4 ?? ? ACR TI-RADS category: 4 ? Significant change in size (>/= 20% in 2 dimensions and minimal increase of 2 mm or 50% or greater increase in volume): None ?? ? Change in features: None ?? ? Change in ACR TI-RADS risk category: Not applicable 2.? Location: Right inferior. ?? ? Size: 0.4 x 0.3 x 0.3 cm, volume 0.02 mL. ?? ? Previously: 0.4 x 0.3 x 0.4 cm, volume 0.03 mL. ?? ? Nodule characteristics: ?? ? Composition: Solid (2). ?? ? Echogenicity: Anechoic (0). ?? ? Shape: Not taller than wide (0). ?? ? Margins: Ill-defined (0). ?? ? Echogenic Foci: None (0).? ACR TI-RADS total points: 2 ?? ? ACR TI-RADS category: 2 ? Significant change in size (>/= 20% in 2 dimensions and minimal increase of 2 mm or 50% or greater increase in volume): None ?? ? Change in features: None ?? ? Change in ACR TI-RADS risk category: Not applicable 3.? Location: Right inferior. ?? ? Size: 1.6 x 1.5 x 1.7 cm, volume 2.1 mL. ?? ? Previously: 2.0 x 1.1 x 1.5 cm, volume 1.7 mL. ?? ? Nodule characteristics: ?? ? Composition: Mixed cystic and solid (1). ?? ? Echogenicity: Isoechoic (1). ?? ? Shape: Not taller than wide (0). ?? ? Margins: Smooth (0). ?? ? Echogenic Foci: None (0). ? ACR TI-RADS total points: 2 ?? ? ACR TI-RADS category: 2 ? Significant change in size (>/= 20% in 2 dimensions and minimal increase of 2 mm or 50% or greater increase in volume): None ?? ? Change in features: Not applicable ?? ? Change in ACR TI-RADS risk category: Not applicable 4.? Location: Right inferior. ?? ? Size: 0.7 x 0.5 x 0.6 cm, volume 0.1 mL. ?? ? Previously: 0.4 x 0.5 x 0.6 cm, volume 0.06 mL. ?? ? Nodule characteristics: ?? ? Composition: Cystic(0). ?? ? ACR TI-RADS total points: 0 ?? ? ACR TI-RADS category: 1 ? Significant change in size (>/= 20% in 2 dimensions and minimal increase of 2 mm or 50% or greater increase in volume): None ?? ? Change in features: None ?? ? Change in ACR TI-RADS risk category: Not applicable 5.? Location: Left superior. ?? ? Size: 0.6 x 0.5 x 0.3 cm, volume 0.45 mL. ?? ? Previously: Not documented on the prior study. ?? ? Nodule characteristics: ?? ? Composition: Cystic(0). ?? ? ACR TI-RADS total points: 0 ?? ? ACR TI-RADS category: 1 NODES: No lymphadenopathy is seen in the tissue surrounding the thyroid gland. Thyroid Uptake and Scan: 01/17/2016 FINDINGS: The uptake is 3.9% at 3 hours and 14.1% at 23 hours. The radioiodine uptake is normal. The radio pertechnetate thyroid scintigram shows the thyroid gland to be mildly enlarged approximately 1-1/2 times normal in size. There is marked heterogeneity within the gland, with multiple small rounded foci of relatively increased activity present bilaterally, and was relatively decreased activity present in the regions between these foci. A dominant focus is not present. A single radioiodine image obtained at the time of the 24 hour uptake measurement is similar in appearance to the radio pertechnetate image, but because of the small amount of activity within the gland, detail is not well delineated. IMPRESSION: In the clinical setting of a low TSH, these findings are most consistent with a toxic multinodular goiter (Rogelio's disease). The radioiodine uptake is normal. Thyroid UPTAKE AND sCAN: 11/19/2017 FINDINGS: The uptake is 17.1% at 4 hours and 46.9% at 24 hours. The radioiodine uptake is moderately elevated. The radiopertechnetate thyroid scintigram demonstrates the thyroid gland to be moderately enlarged, approximately 3 times normal in size. There is homogeneous distribution of activity within the gland with minimal heterogeneity present in the upper pole of the left lobe, an equivocal finding. A faint pyramidal lobe is visualized attaching 2 the upper pole of the right lobe. No other focal abnormalities are noted. The trapping function is moderately to markedly increased diffusely. A single anterior radioiodine image obtained at the time of the 24-hour uptake similar in appearance to the radio pertechnetate image. The thyroid ultrasound dated 06/30/2017 shows the gland to be similar in size several nodules present bilaterally, the largest measuring 1.6 x 0.9 x 1.6 cm in the lower pole of the right lobe. This is not delineated on this radionuclide scan. All the other nodules were subcentimeter in size, in which is small to be resolved on this radionuclide scan. IMPRESSION: Moderately enlarged diffuse goiter. The radioiodine uptake is moderately elevated, but in the absence of suppressed TSH levels, this is nonspecific and could be due to Graves' disease or North's thyroiditis. If this patient was recently treated with antithyroid drugs, these findings would be more consistent with Graves' disease. Nodules visualized on the previous ultrasound study are not apparent on these radionuclide images, but only the nodule identified in the right lower pole was large enough to be resolved on this radionuclide scan. [facility] Medical History Hyperbilirubinemia Hyperparathyroidism Hearing problem Frequency of urination Elevated blood pressure reading in office with white coat syndrome, with diagnosis of hypertension Gout Vitamin D deficiency Toxic multinodular goiter Bipolar disorder Erectile dysfunction BPH w/o urinary obs/LUTS Abdominal wall mass Myelopathy Surgical History History of removal of cyst (07/10/23) History of surgery Family History Father Dementia Mother Diabetes Social History Household Members: Family and Children Household Members Other:: , daughters, grand children Alcohol intake: never Patient Tobacco Use Status: Former Tobacco user Assessment & Plan Assessment & Plan (1) Toxic multinodular goiter: Code(s): E05.20 - Thyrotoxicosis with toxic multinodular goiter without thyrotoxic crisis or storm Category: Medical Plan: 64-year-old male with history of toxic multinodular goiter status post iodine 131 therapy 2016 who failed radioactive iodine ablation and subsequently has been on methimazole currently at 5 mg daily. Given he has been on therapy with methimazole for about 8 years now, I discussed with him definitive therapy options radioactive iodine versus surgery. Given that he has failed radioactive iodine ablation in the past, I recommended total thyroidectomy to him. We also discussed the option of continuing on methimazole. He met with Dr. Kenisha Garcia at [facility] on 08/04/2023, I do not have the visit notes available to me at this time, however per patient he would like to defer surgery for now and stay on the medicine. Otherwise he is euthyroid on methimazole 5 mg daily. We will continue for now. Given he is on lithium I also checked his calcium, PTH levels. Status post FNA in November 2023 of right lower pole nodule with benign cytology. This nodule has been biopsied twice now, no need to repeat imaging for this unless patient has any clinical changes. Labs 09/29/2024 showed normal thyroid function, showed normal calcium of 9.5, albumin off 4.1, corrected calcium would be 9.4, PTH intact elevated at 107.2, vitamin-D of 42.7. I have recently noticed some variations in the PTH assay. Given he has normal calcium levels, I would like to verify his PTH level at another lab. In September 2024 he was noted to have an elevated kappa PTH level of 107.2 at our lab, with a calcium of 9.5, albumin of 4.1, corrected calcium would be 9.4, vitamin-D 42.7. Labs repeated at [facility] 10/14/2024 showed normal kidney function with a EGFR of 65, ionized calcium normal at 5.3, PTH normal at 60 cup calcium of 9.4 with albumin of 4.4, corrected calcium would be 9, phosphorus normal at 2.5. No concerns about PTH elevation at this time. The following were discussed as potential side effects of methimazole: - Serious skin rashes - nausea, vomiting, or severe hepatic injury - Agranulocytosis: a rare side effect of methimazole involves a severe decrease in the production of white blood cells. This condition is extremely serious, but affects only one out of every 200 to 500 people who take an antithyroid drug. Agranulocytosis more commonly occurs within the first three months of starting treatment with an antithyroid drug, but can occur at any time. If patient develops a fever (temperature above 100.5F), or other signs or symptoms of infection, she should stop taking the tapazole and immediately have a complete blood count (CBC) done. Serious and potentially life threatening infections, or even , can occur before agranulocytosis resolves. However, once the antithyroid drug is stopped, agranulocytosis usually resolves within a week. - Arthralgias, myalgias - Renal: Nephritis - Fever Patient will stop medication and call our office if these occur. Plan: -obtain office notes from Dr. Kenisha Garcia office visit from July 2024 -continue methimazole 5 mg daily -ordered TSH, free T4 to be done in 2-3 months and then repeat prior to follow up in 8 months -follow up in 8 months Plan See above Orders: Orders 2 Thyroid Stimulating Hormone 2 Months E05.20 - Thyrotoxicosis with toxic multinodular goiter without thyrotoxic crisis or storm Free T4 (Free Thyroxine) 2 Months E05.20 - Thyrotoxicosis with toxic multinodular goiter without thyrotoxic crisis or storm Patient Instructions: Do blood work in 2 months, orders placed Repeat another set of blood work a few days prior to your follow up Continue methimazole 5 mg daily The following were discussed as potential side effects of methimazole: - Serious skin rashes - nausea, vomiting, or severe hepatic injury - Agranulocytosis: a rare side effect of methimazole involves a severe decrease in the production of white blood cells. This condition is extremely serious, but affects only one out of every 200 to 500 people who take an antithyroid drug. Agranulocytosis more commonly occurs within the first three months of starting treatment with an antithyroid drug, but can occur at any time. If patient develops a fever (temperature above 100.5F), or other signs or symptoms of infection, she should stop taking the tapazole and immediately have a complete blood count (CBC) done. Serious and potentially life threatening infections, or even , can occur before agranulocytosis resolves. However, once the antithyroid drug is stopped, agranulocytosis usually resolves within a week. - Arthralgias, myalgias - Renal: Nephritis - Fever Patient will stop medication and call our office if these occur. Realice an?lisis de mariya en 2 meses, seg?n las indicaciones. Repita otra serie de an?lisis de mariya unos d?as antes de willard seguimiento. Contin?e con metimazol 5 mg al d?a. Se comentaron los siguientes efectos secundarios potenciales del metimazol: - Erupciones cut?neas graves - N?useas, v?mitos o da?o hep?peggy grave - Agranulocitosis: un efecto secundario poco com?n del metimazol consiste en mikey disminuci?n grave de la producci?n de gl?bulos blancos. Esta afecci?n es extremadamente grave, patrice afecta solo a mikey de cada 200 a 500 personas que mirtha un medicamento antitiroideo. La agranulocitosis se presenta con mayor frecuencia jamison los primeros miriam meses tras el inicio del tratamiento con un medicamento antitiroideo, patrice puede ocurrir en cualquier momento. Si la paciente presenta fiebre (temperatura superior a 38 ?C) u otros signos o s?ntomas de infecci?n, debe suspender el tapazol y realizarse inmediatamente un hemograma completo. Pueden producirse infecciones graves y potencialmente mortales, o incluso la muerte, antes de que la agranulocitosis se resuelva. Sin embargo, mikey vez suspendido el medicamento antitiroideo, la agranulocitosis suele resolverse en mikey semana. - Artralgias, mialgias - Renal: Nefritis - Fiebre El paciente suspender? la medicaci?n y llamar? a nuestra consulta si se presentan estos s?ntomas. Coding Level of Care Code Est Pt Level 3 (42702) Diagnoses Toxic multinodular goiter E05.20
--- OUTSIDE RECORDS SUMMARY | 2025-01-12 14:46 | XMS_ITS | Clinical Summary ---
Author Organization [employer] Address [address] [facility] [address] [place] [address] Care Team Providers Care Manager File Name Role Phone Name, Terrence YOON Primary Care Provider [phone] Jimmy Lua Unavailable Unavailable Allergies No known active allergies Medications * This document contains information received from the source organization and may not represent a complete record from that organization. Calcium-Magnesi um-Vitamin D (CITRACAL CALCIUM+D PO) Take 1 tablet by mouth in the morning and 1 tablet in the evening. 02/03/20 23 Active oxybutynin XL (Ditropan-XL) 15 MG 24 hr tablet Take 15 mg by mouth Once per day. 01/15/20 23 Active methIMAzole (Tapazole) 5 MG tablet Take 2.5 mg by mouth Once per day. 07/01/20 23 Active Vitamin D High Potency 25 MCG (1000 UT) capsule TAKE 1 CAPSULE BY MOUTH EVERY MORNING 90 capsule 1 08/17/19 24 Active QUEtiapine (SEROquel) 25 MG tablet Take 3 tablets (75 mg) by mouth at bedtime. 270 tablet 3 11/26/19 24 Active atorvastatin (Lipitor) 80 MG tabletIndicatio ns:Cerebrovascu lar accident (CVA), unspecified mechanism (CMS/HCC) Take 1 tablet (80 mg) by mouth Once per day. 30 tablet 11 06/03/20 24 025 Active hydrALAZINE (Apresoline) 25 MG tablet Take 1 tablet (25 mg) by mouth 2 times daily. 60 tablet 11 12/16/19 25 Active acetaminophen (Tylenol 8 Hour) 650 MG ER tablet Take 1 tablet (650 mg) by mouth every 8 (eight) hours if needed for mild pain. Do not crush, chew, or split. 30 tablet 12/17/19 25 Active hydrOXYzine HCl (Atarax) 50 MG tabletIndicatio ns:Bipolar affective disorder, remission status unspecified (CMS/HCC) TAKE 1 TABLET BY MOUTH EVERY DAY AT BEDTIME NEEDED 30 tablet 01/05/20 25 Active lithium 300 MG tabletIndicatio ns:Bipolar affective disorder in remission (CMS/HCC) Take 1 tablet (300 mg) by mouth in the morning. 90 tablet 3 01/05/20 25 Active lithium 300 MG tabletIndicatio ns:Bipolar affective disorder in remission (CMS/HCC) Take 1 tablet (300 mg) by mouth Once daily. 90 tablet 3 11/26/19 24 025 Discontinued(Re order (will not trigger notification to Pharmacy)) hydrALAZINE (Apresoline) 25 MG tablet TAKE 1 TABLET BY MOUTH TWICE DAILY 60 tablet 11 09/22/19 25 025 Discontinued(Re order (will not trigger notification to Pharmacy)) hydrOXYzine HCl (Atarax) 50 MG tabletIndicatio ns:Bipolar affective disorder, remission status unspecified (CMS/HCC) TAKE 1 TABLET BY MOUTH DAILY AT BEDTIME NEEDED 30 tablet 12/07/19 25 025 Discontinued amoxicillin-cla vulanate (Augmentin) 875-125 MG tablet Take 1 tablet by mouth 2 times daily for 7 days. 14 tablet 12/16/19 25 025 Active Problems Problem Noted Date Diagnosed Date Dental abscess 12/16/2024 Pain, dental 12/16/2024 Open fracture of tooth 05/13/2024 Cerebrovascular accident [...] caries 09/29/2022 Bipolar affective disorder in remission 01/10/20 23 Assessment & Plan (11/26/2023 3:17 PM EDT): Had been stable on Villanova 600 mg daily for a long time, seemed to continue well-controlled with decreased Villanova 300 mg. However developed marked insomnia and hypomania. He resumed Villanova 300 mg 2 tabs daily but developed tremor. Pt was extremely resistant to change in medications, but did agree to gradual uptaper of Seroquel now 75 mg at bedtime and decreased Villanova 300 mg once at bedtime. Pt says the tremor has resolved and his mood is fine. Continue Seroquel 75 mg at bedtime, Villanova 300 mg 1 at bedtime. Since this provider will be retiring, he will be transferred to new psychiatric prescriber. Meanwhile, prescriptions were sent for his medications with 1 year of refills. Any issues or concerns, contact [facility]. All his questions were answered. I have wished him well. Pt agrees with the plan. Assessment & Plan (09/22/2023 12:27 PM EDT): Had been stable on Villanova 600 mg daily for a long time, seemed to continue well-controlled with decreased Villanova 300 mg. However developed marked insomnia and hypomania. He resumed Villanova 300 mg 2 tabs daily but developed tremor. Pt was extremely resistant to change in medications, but did agree to gradual uptaper of Seroquel now 75 mg at bedtime and decreased Villanova 300 mg once at bedtime. Pt says the tremor has resolved and his mood is fine. Continue Seroquel 75 mg at bedtime, Villanova 300 mg 1 at bedtime. On 06/25/2023 provider informed the patient and caregiver that I would be retiring, and we would make every effort to plan smooth transition of care. Meanwhile, F/U with me in 2 months. Pt agrees with the plan. Assessment & Plan (07/28/2023 1:35 PM EST): Had been stable on Villanova 600 mg daily for a long time, seemed to continue well-controlled with decreased Villanova 300 mg. However developed marked insomnia and hypomania. He resumed Villanova 300 mg 2 tabs daily but developed tremor. Pt was extremely resistant to change in medications, but did agree to gradual uptaper of Seroquel now 75 mg at bedtime and decreased Villanova 300 mg once at bedtime. Pt says the tremor has resolved and his mood is fine. Continue Seroquel 75 mg at bedtime, Villanova 300 mg 1 at bedtime. On 06/25/2023 provider informed the patient and caregiver that I would be retiring, and we would make every effort to plan smooth transition of care. Meanwhile, F/U with me in 6-8 weeks. Pt agrees with the plan. Assessment & Plan (01/26/2023 9:45 AM EDT): Progress Note: Kong is a 62-year-old, [place] speaking male that was referred for a [...] this time. Planned for case consult with [facility] psychopharmacology clinic. Assessment: Patient with history [...] with [facility]: Recommended for follow-up: Post [facility] psychopharmacology consult 2. Patient goal is to reengage in medication management services 3. Behavioral Recommendations a. Break tasks down to smaller goals b. Slowly increase goals c. PTSD jed- deep breathing, progressive muscle relaxation Assessment & Plan (10/20/2022 3:33 PM EDT): Had been stable on Villanova 600 mg daily for a long time, seemed to continue well-controlled with decreased Villanova 300 mg. However developed marked insomnia and hypomania which is now improved with resumption of Villanova 300 mg 2 tabs daily. Unfortunately, new [...] 3:11 PM EST): Had been stable on Villanova 600 mg daily for a long time, seemed to continue well-controlled with decreased Villanova 300 mg. However developed marked insomnia and hypomania which is now improved with resumption of Villanova 300 mg 2 tabs daily. Had also been taking Quetiapine 25 mg at bedtime but that was not dispensed by the pharmacy since May and he is still doing well without it, with adequate sleep. Unfortunately has developed tremor of the right hand, which may be a S/E of the lithium. Will do labs arlen for Villanova level and metabolic profile. Meanwhile continue medications as usual. F/U 2 months. He agrees with the plan. Hyperparathyroidism 02/19/2022 Hyperthyroidism 02/19/2022 Vitamin D deficiency 06/26/2017 Multinodular goiter 01/08/2016 Essential hypertension 12/21/2015 Assessment & Plan (01/25/2023 5:32 PM EDT): Initial and repeat BP elevation Asymptomatic, no red flag symptoms Consider relationship to current emotional distress Continue with lisinopril 5mg daily Continue with lifestyle interventions Record BP readings at home and call office with 3+ elevations >140/90 mmHg ED/urgent care precautions reviewed Radicular pain 12/12/2015 Erectile dysfunction 10/12/2013 Resolved Problems Problem Noted Date Diagnosed Date Resolved Date Dental calculus 05/15/2023 09/29/2024 Dental abscess 03/20/2023 09/29/2024 Bipolar disorder 09/06/2020 04/21/2024 Assessment & Plan (06/25/2023 11:46 AM EST): Had been stable on Villanova 600 mg daily for a long time, seemed to continue well-controlled with decreased Villanova 300 mg. However developed marked insomnia and hypomania. He resumed Villanova 300 mg 2 tabs daily but developed tremor. Pt was extremely resistant to change in medications, but did agree to gradual uptaper of Seroquel now 75 mg at bedtime and decreased Villanova 300 mg once at bedtime. Pt says the tremor has resolved and his mood is fine. His agrees that the tremor is now controlled, and his behavior is fine. Last time mentioned new onset abnormal movements of mouth, but that seems to have resolved. Continue Seroquel 75 mg at bedtime, Villanova 300 mg 1 at bedtime. Today 06/25/2023 provider informed the patient and caregiver that I would be retiring in approx 1/2 year. F/U with me in 1 month. Pt and Caregiver agree with plan. Assessment & Plan (05/26/2023 11:33 AM EST): Had been stable on Villanova 600 mg daily for a long time, seemed to continue well-controlled with decreased Villanova 300 mg. However developed marked insomnia and hypomania. He resumed Villanova 300 mg 2 tabs daily but developed tremor. Pt was extremely resistant to change in medications, but did agree to gradual uptaper of Seroquel now 75 mg at bedtime and decreased Villanova 300 mg once at bedtime. Pt says [...] now, continue Seroquel 75 mg at bedtime, Villanova 300 mg 1 at bedtime. F/U with me in 1 month. Pt and Caregiver agree with plan. Assessment & Plan (03/26/2023 12:08 PM EDT): Had been stable on Villanova 600 mg daily for a long time, seemed to continue well-controlled with decreased Villanova 300 mg. However developed marked insomnia and hypomania. He resumed Villanova 300 mg 2 tabs daily but developed [...] that he will need to stop taking Villanova. Will decrease to Villanova 300 mg 1 at bedtime. F/U for Neurological evaluation as soon as can be arranged. F/U with me in 3 weeks. Pt and Caregiver agree with plan. Assessment & Plan (03/05/2023 12:35 PM EDT): Had been stable on Villanova 600 mg daily for a long time, seemed to continue well-controlled with decreased Villanova 300 mg. However developed marked insomnia and hypomania. He resumed Villanova 300 mg 2 tabs daily but developed [...] the tremor is almost certainly r/t the Villanova, will not stop the Villanova until mood is better controlled, so continue Villanova 300 mg 2 at bedtime. For any safety concerns call 911. F/U with me in 3 weeks. Pt and Caregiver agree with plan. Assessment & Plan (01/27/2023 3:00 PM EDT): Had been stable on Villanova 600 mg daily for a long time, seemed to continue well-controlled with decreased Villanova 300 mg. However developed marked insomnia and hypomania. He resumed Villanova 300 mg 2 tabs daily but developed tremor, which has persisted. He also has experienced marked worsening of mood with anhedonia, tearfulness, low motivation. Patient's presentation today is markedly incongruent with presentation at various [facility] and ED visits recently, and with reports of his , clinician, and providers. Pt expresses strong desire not to stop Villanova. Suspect he is denying symptoms in order to discourage provider from changing his medication. Reviewed with the patient that the tremor was almost certainly a S/E of lithium. Also, his mood was not adequately controlled. In conjunction with patient, developed plan to start new medication: Seroquel 25 mg 1/2 tab at bedtime for a few nights then 1 full tab at bedtime. Continue Villanova as usual for now. Expect to titrate up the Seroquel until mood was stable, then we would gradually decrease the Villanova. He is agreeable to this plan. It was also reviewed with his . F/U 2-3 weeks. Call sooner as needed. He agrees with the plan. Assessment & Plan (01/25/2023 5:22 PM EDT): Previously following in [facility] Psychopharm clinic with TIFF Lua. Last appt October 2022, pt did not show to appt in November 2022 Continues on lithium 300mg BID Villanova level therapeutic during ED visit in December 2022 Continues hydroxyzine 50mg at bedtime PRN Previously prescribed Seroquel by PCP, No longer taking medication Not currently following with therapist. Declines referral. Denies SI/HI/thoughts of self harm BE conducted prior to today's appt by Britany Keenan, please see documentation for further details Pt interested in re-establishing with [facility], will send a message to RADHA Barry Safety planning reviewed Chronic infective otitis externa 10/16/2017 09/29/2024 Bipolar affective disorder, current episode manic 12/12/2015 09/29/2024 Increased frequency of urination 11/29/2013 09/29/2024 Encounters * This document contains information received from the source organization and may not represent a complete record from that organization. Date Type Department Care Team Description 01/04/2025 Refill [facility] [address] [place] [phone] Terrence Quintanilla MD Bipolar affective disorder, remission status unspecified (CMS/HCC); Bipolar affective disorder in remission (CMS/HCC) 12/26/2024 Telephone [facility] [address] [place] [phone] Tracy Wright MA march recalls 12/16/2024 3:00 PM EDT Office Visit [facility] [address] [place] [phone] Lucille, Aliyah Dental abscess (Primary Dx); Pain, dental 12/15/2024 9:45 AM EDT Office Visit [facility] [address] [place] [phone] Terrence Quintanilla MD Essential hypertension (Primary Dx); Tooth abscess; Bipolar affective disorder in remission (CMS/HCC); Habitual snoring; Daytime sleepiness; Witnessed apneic spells 12/15/2024 Travel 12/14/2024 Telephone [facility] [address] [place] [address] Teresa Nicole MA Chart Prep 12/02/2024 Refill [facility] [address] [place] [address] Terrence Quintanilla MD Bipolar affective disorder, remission status unspecified (CMS/HCC) (Primary Dx) 10/26/2024 Telephone [facility] [address] [place], [place] [phone] Name, MD Terrence Nurse Triage from Last 3 Months Immunizations Immunization Administration Dates Next Due Influenza High-dose Quadriva [...] Answer Date Recorded Patient Health Questionnaire-9 Score 10 12/15/2024 Patient Health Questionnaire-9 Score 10 12/15/2024 Last PHQ-9: Questionnaire Data Not on file 0 12/15/2024 Housing Stability Answer Date Recorded What is [...] Date Recorded Patient Health Questionnaire-2 Score 2 12/15/2024 Internet Access Answer Date Recorded Internet Access [...] Sign Reading Time Taken Comments Blood Pressure 146/78 12/16/2024 2:52 PM EDT Pulse 71 12/15/2024 9:30 AM EDT Temperature 36.1 C (96.9 F) 12/15/2024 9:30 AM EDT Respiratory Rate 12 12/15/2024 9:30 AM EDT Oxygen Saturation 98% 12/15/2024 9:30 AM EDT Inhaled Oxygen Concentration - - Weight 87.2 kg (192 lb 3.2 oz) 12/15/2024 9:30 A M EDT Height 170.2 cm (5' 7 ) 12/15/2024 9:30 AM EDT Body Mass Index 30.1 12/15/2024 9:30 AM EDT Plan of Treatment Upcoming Encounters Date Type Department Care Team (Late st Contact Info) Description 04/04/2025 9:15 AM EDT Office Visit [facility] [address] [place] [phone] Name, MD Terrence [address] [place] [address] Health Maintenance Due Date Last Done Comments CT Colonography 1958 FIT DNA/Cologuard 1958 FIT 1958 FOBT 1960 Sigmoidoscopy 1960 COVID-19 Vaccine ( season) 2024 05/22/2021, 11/17/2020, 10/27/2020 Dental Prophylaxis 12/16/2024 06/16/2024, 05/15/2023 Influenza Vaccine (#1) 2025 , 05/25/2023, 04/19/2021, Additional history exists Depression Monitoring 06/16/2025 12/15/2024, 025 Dental Oral Exam 06/18/2025 12/16/2024, 11/2023, 02/11/2023 SDOH Screening 06/28/2025 06/28/2024 Alcohol/Substance Use Screening 07/05/2025 07/05/2024 Dental X-Ray: Bitewings 09/03/2025 09/02/19 25, 06/16/2024, 04/21/2024, Additional history exists Tobacco Screening 12/16/2025 12/16/2024 Dental X-Ray: Full Mouth 03/21/2026 03/20/2023, 08/2022 DTaP/Tdap/Td Vaccines (2 - Td or Tdap) 03/03/2027 03/03/2017 Colonoscopy 05/08/2029 05/08/2019 Colorectal Cancer Screening 05/08/2029 Lipid Panel 07/05/2029 07/05/2024, 09/18/2021 RSV Patients and Patients Aged 60 years or older (1 - 1-dose 75+ series) 2033 Zoster Vaccines Completed 11/28/2021, 09/12/2021 Pneumococcal Vaccine: 50+ Years Completed 03/28/2024 Hepatitis C Screening Completed 04/18/2024 HIB Vaccines Aged Out No longer eligi [...] patient's age to complete this topic Meningococcal B Vaccine Aged Out No l onger eligible based on patient's age to complete [...] PRESENTATION, DETAILED AND EXTENSIVE TREATMENT PLANNING Routine 12/16/2024 3:00 PM EDT PERIODIC ORAL EVALUATION - ESTABLISHED PATIENT Routine 12/16/2024 3:00 PM EDT 6,7 INTRAORAL - PERIAPICAL EACH ADDITIONAL RADIOGRAPHIC IMAGE Routine 12/16/2024 3:00 PM EDT Dental abscess Pain, dental 5 INTRAORAL - PERIAPICAL FIRST RADIOGRAPHIC IMAGE Routine 12/16/2024 3:00 PM EDT Dental abscess Pain, dental 5 PFM CROWN Routine 12/16/2024 12:00 AM EDT BITEWING - SINGLE RADIOGRAPHIC IMAGE Routine 09/02/2024 9:30 AM EST Full coverage crown needed for root canal-treated tooth LIPID PANEL, STANDARD Routine 07/05/2024 10:03 AM EST On statin therapy PROPHYLAXIS - ADULT Routine 06/16/2024 3 :00 PM EST Dental plaque Localized gingival recession, minimal HEPATITIS C AB W/REFL TO HCV RNA, QN, PCR Routine 04/18/2024 11:12 AM EDT Need for hepatitis C screening test PANORAMIC RADIOGRAPHIC IMAGE Routine 03/20/2023 2:30 PM EDT HM COLONOSCOPY Routine 05/08/2019 2:51 PM EDT from Last 3 Months or Most Recently Relevant to Health Maintenance Results * (ABNORMAL) Lipid Panel, Standard (07/05/2024 10:03 AM EST) Triglycerides 74 <150 mg/dL [facility] Comment:Desirable Triglyceri de: less than 150 mg/dLBorderline High Triglyceride 150-199 mg/dLHigh Triglyceride: 200-499 mg/dLVery High Triglyceride: greater than or equal to 5OO mg/dL Cholesterol 91 <200 mg/dL [facility] Comment:Desirable Cholestero l: less than 200 mg/dLBorderline High Cholesterol: 200-239 mg/dLHigh Cholesterol: greater than 239 mg/dL LDL Cholesterol Calculated 51 <100 mg/dL [facility] Comment:Desirable LDL: less than 100 mg/dLNear Optimal/Above Optimal LDL: 110- 129 mg/dLBorderline High LDL: 130-159 mg/dLHigh LDL: 160-189 mg/dLVery High LDL: greater than or equal to 190 mg/dL HDL Cholesterol 26(L) >40 mg/dL [facility] Comment:Desirable HDL: great er than 40 mg/dL Note: This HDL assay may give artificially low results in patients with liver disease. Blood Venous blood specimen / Unknown 07/05/2024 10:03 AM EST 07/05/2024 11:02 AM EST us Terrence Quintanilla MD LAB BLOOD ORDERABLES Final Resul t Performing Organization Address [facility] Co de Phone Number [facility] [address] [place] [phone] * Hepatitis C Antibody with Reflex to HCV, RNA, Quantitative, Real-Time PCR (04/18/2024 11:12 AM EDT) Hepatitis C Antibody Nonreactive Nonreactive [facility] Comment:Antibodies to HCV no t detected; does not exclude early acuteHCV infection. Blood Venous blood specimen / Unknown 04/18/2024 11:12 AM EDT 04/18/2024 11:17 AM EDT us Terrence Quintanilla MD LAB BLOOD ORDERABLES Final Resul t Performing Organization Address [facility] de Phone Number [facility] [address] [place] [phone] * Hm Colonoscopy (05/08/2019 2:51 PM EDT) Colonoscopy Normal Normal Narrative Airam Delgado - 05/08/2019 2:51 PM EDT Recommended 10 year follow up Historical Provider HEALTH MAINTENANCE Final Result from Last 3 Months or Most Recently Relevant to Health Maintenance Insurance [facility] STANDARD MEDICARE HSN FULL DENTAL - HSN FULL (MEDICAID) Care Teams Manager File Relationship Specialty Start Date End Date Name, MD Terrence [address] [place], [place] [phone] PCP - General Family Medicine 09/14/15 Jimmy Lua FNP [address] [place], [place] [phone] Nurse Practitioner Family Medicine 05/26/23
== END 2025-01-12 15:03 | disposition home or self-care (01) ==
LOC: HO.ENCR 14:44
PROVIDERS: PCP Internal Medicine Geriatric Medicine; Visit Provider Student in an Organized Health Care Education/Training Program
DX: E05.20 Thyrotoxicosis with toxic multinodular goiter without thyrotoxic crisis or storm (principal)
CPT/HCPCS: 99213

== ENCOUNTER → 2025-01-12 14:44 | Outpatient (BNVA) | payer MEDICARE, MEDICAID, SELFPAY | PROVIDERS: PCP Internal Medicine Geriatric Medicine; Visit Provider Student in an Organized Health Care Education/Training Program | DX: E05.20 Thyrotoxicosis with toxic multinodular goiter without thyrotoxic crisis or storm (principal) | CPT/HCPCS: 99212 ==

== ENCOUNTER 2025-02-13 12:53 | Outpatient (AMB) | payer MEDICARE, MEDICAID, SELFPAY ==
--- OUTSIDE RECORDS SUMMARY | 2025-02-13 13:12 | XMS_ITS | Clinical Summary ---
Author Organization [employer] Address [address] [facility] [address] [place] [address] Care Team Providers [employer]er Name Role Phone Name, Terrence YOON Primary Care Provider [phone] Jimmy Lua Unavailable Unavailable Allergies No known [...] MORNING 90 capsule 1 08/17/19 24 Active atorvastatin (Lipitor) 80 MG tabletIndicatio [...] or split. 30 tablet 12/17/19 25 Active lithium 300 MG tabletIndicatio ns:Bipolar affective disorder in remission (CMS/HCC) Take 1 tablet (300 mg) by mouth in the morning. 90 tablet 3 01/05/20 25 Active QUEtiapine (SEROquel) 25 MG tablet Take 3 tablets (75 mg) by mouth at bedtime. 270 tablet 3 01/24/20 25 Active hydrOXYzine HCl (Atarax) 50 MG tabletIndicatio ns:Bipolar affective disorder, remission status unspecified (CMS/HCC) TAKE 1 TABLET BY MOUTH AT BEDTIME NEEDED 30 tablet 02/09/20 25 Active QUEtiapine (SEROquel) 25 MG tablet Take 3 tablets (75 mg) by mouth at bedtime. 270 tablet 3 11/26/19 24 025 Discontinued(Re order (will not trigger notification to Pharmacy)) hydrOXYzine HCl (Atarax) 50 MG tabletIndicatio ns:Bipolar affective disorder, remission status unspecified (CMS/HCC) TAKE 1 TABLET BY MOUTH EVERY DAY AT BEDTIME NEEDED 30 tablet 01/05/20 25 025 Discontinued Active Problems Problem Noted Date [...] 3:17 PM EDT): Had been stable on Sausal 600 mg daily for a long time, seemed to continue well-controlled with decreased Sausal 300 mg. However developed marked insomnia and hypomania. He resumed Sausal 300 mg 2 tabs daily but developed tremor. Pt was extremely resistant to change in medications, but did agree to gradual uptaper of Seroquel now 75 mg at bedtime and decreased Sausal 300 mg once at bedtime. Pt says the tremor has resolved and his mood is fine. Continue Seroquel 75 mg at bedtime, Sausal 300 mg 1 at bedtime. Since this [...] 12:27 PM EDT): Had been stable on Sausal 600 mg daily for a long time, seemed to continue well-controlled with decreased Sausal 300 mg. However developed marked insomnia and hypomania. He resumed Sausal 300 mg 2 tabs daily but developed tremor. Pt was extremely resistant to change in medications, but did agree to gradual uptaper of Seroquel now 75 mg at bedtime and decreased Sausal 300 mg once at bedtime. Pt says the tremor has resolved and his mood is fine. Continue Seroquel 75 mg at bedtime, Sausal 300 mg 1 at bedtime. On 06/25/2023 provider informed the patient and caregiver that I would be retiring, and we would make every effort to plan smooth transition of care. Meanwhile, F/U with me in 2 months. Pt agrees with the plan. Assessment & Plan (07/28/2023 1:35 PM EST): Had been stable on Sausal 600 mg daily for a long time, seemed to continue well-controlled with decreased Sausal 300 mg. However developed marked insomnia and hypomania. He resumed Sausal 300 mg 2 tabs daily but developed tremor. Pt was extremely resistant to change in medications, but did agree to gradual uptaper of Seroquel now 75 mg at bedtime and decreased Sausal 300 mg once at bedtime. Pt says the tremor has resolved and his mood is fine. Continue Seroquel 75 mg at bedtime, Sausal 300 mg 1 at bedtime. On 06/25/2023 provider informed the patient and caregiver that I would be retiring, and we would make every effort to plan smooth transition of care. Meanwhile, F/U with me in 6-8 weeks. Pt agrees with the plan. Assessment & Plan (01/26/2023 9:45 AM EDT): Progress Note: Kong is a 62-year-old, Yakut speaking male that was referred for a [...] with [facility]: Recommended for follow-up: Post [facility] psychopharmacology consult 2. Patient goal is to reengage in medication management services 3. Behavioral Recommendations a. Break tasks down to smaller goals b. Slowly increase goals c. PTSD jed- deep breathing, progressive muscle relaxation Assessment & Plan (10/20/2022 3:33 PM EDT): Had been stable on Sausal 600 mg daily for a long time, seemed to continue well-controlled with decreased Sausal 300 mg. However developed marked insomnia and hypomania which is now improved with resumption of Sausal 300 mg 2 tabs daily. Unfortunately, new [...] 3:11 PM EST): Had been stable on Sausal 600 mg daily for a long time, seemed to continue well-controlled with decreased Sausal 300 mg. However developed marked insomnia and hypomania which is now improved with resumption of Sausal 300 mg 2 tabs daily. Had also been taking Quetiapine 25 mg at bedtime but that was not dispensed by the pharmacy since May and he is still doing well without it, with adequate sleep. Unfortunately has developed tremor of the right hand, which may be a S/E of the lithium. Will do labs arlen for Sausal level and metabolic profile. Meanwhile continue medications [...] 05/15/2023 09/29/2024 Dental abscess 03/20/2023 09/29/2024 Bipolar 1 disorder 09/06/2020 Assessment & Plan (06/25/2023 11:46 AM EST): Had been stable on Sausal 600 mg daily for a long time, seemed to continue well-controlled with decreased Sausal 300 mg. However developed marked insomnia and hypomania. He resumed Sausal 300 mg 2 tabs daily but developed tremor. Pt was extremely resistant to change in medications, but did agree to gradual uptaper of Seroquel now 75 mg at bedtime and decreased Sausal 300 mg once at bedtime. Pt says the tremor has resolved and his mood is fine. His agrees that the tremor is now controlled, and his behavior is fine. Last time mentioned new onset abnormal movements of mouth, but that seems to have resolved. Continue Seroquel 75 mg at bedtime, Sausal 300 mg 1 at bedtime. Today 06/25/2023 provider informed the patient and caregiver that I would be retiring in approx 1/2 year. F/U with me in 1 month. Pt and Caregiver agree with plan. Assessment & Plan (05/26/2023 11:33 AM EST): Had been stable on Sausal 600 mg daily for a long time, seemed to continue well-controlled with decreased Sausal 300 mg. However developed marked insomnia and hypomania. He resumed Sausal 300 mg 2 tabs daily but developed tremor. Pt was extremely resistant to change in medications, but did agree to gradual uptaper of Seroquel now 75 mg at bedtime and decreased Sausal 300 mg once at bedtime. Pt says [...] now, continue Seroquel 75 mg at bedtime, Sausal 300 mg 1 at bedtime. F/U with me in 1 month. Pt and Caregiver agree with plan. Assessment & Plan (03/26/2023 12:08 PM EDT): Had been stable on Sausal 600 mg daily for a long time, seemed to continue well-controlled with decreased Sausal 300 mg. However developed marked insomnia and hypomania. He resumed Sausal 300 mg 2 tabs daily but developed [...] that he will need to stop taking Sausal. Will decrease to Sausal 300 mg 1 at bedtime. F/U for Neurological evaluation as soon as can be arranged. F/U with me in 3 weeks. Pt and Caregiver agree with plan. Assessment & Plan (03/05/2023 12:35 PM EDT): Had been stable on Sausal 600 mg daily for a long time, seemed to continue well-controlled with decreased Sausal 300 mg. However developed marked insomnia and hypomania. He resumed Sausal 300 mg 2 tabs daily but developed [...] the tremor is almost certainly r/t the Sausal, will not stop the Sausal until mood is better controlled, so continue Sausal 300 mg 2 at bedtime. For any safety concerns call 911. F/U with me in 3 weeks. Pt and Caregiver agree with plan. Assessment & Plan (01/27/2023 3:00 PM EDT): Had been stable on Sausal 600 mg daily for a long time, seemed to continue well-controlled with decreased Sausal 300 mg. However developed marked insomnia and hypomania. He resumed Sausal 300 mg 2 tabs daily but developed tremor, which has persisted. He also has experienced marked worsening of mood with anhedonia, tearfulness, low motivation. Patient's presentation today is markedly incongruent with presentation at various [facility] and ED visits recently, and with reports of his , clinician, and providers. Pt expresses strong desire not to stop Sausal. Suspect he is denying symptoms in order to discourage provider from changing his medication. Reviewed with the patient that the tremor was almost certainly a S/E of lithium. Also, his mood was not adequately controlled. In conjunction with patient, developed plan to start new medication: Seroquel 25 mg 1/2 tab at bedtime for a few nights then 1 full tab at bedtime. Continue Sausal as usual for now. Expect to titrate up the Seroquel until mood was stable, then we would gradually decrease the Sausal. He is agreeable to this plan. It was also reviewed with his . F/U 2-3 weeks. Call sooner as needed. He agrees with the plan. Assessment & Plan (01/25/2023 5:22 PM EDT): Previously following in [facility] Psychopharm clinic with TIFF Lua. Last appt October 2022, pt did not show to appt in November 2022 Continues on lithium 300mg BID Sausal level therapeutic during ED visit in December 2022 Continues hydroxyzine 50mg at bedtime PRN Previously prescribed Seroquel by PCP, No longer taking medication Not currently following with therapist. Declines referral. Denies SI/HI/thoughts of self harm BE conducted prior to today's appt by Britany Keenan, please see documentation for further details Pt interested in re-establishing with pyschopharm clinic, [...] organization. Date Type Department Care Team Description 02/08/2025 Refill [facility] [address] [place] [address] Terrence Quintanilla MD Bipolar affective disorder, remission status unspecified (CMS/HCC) 01/23/2025 Refill [facility] [address] [place], [place] [id number] Terrence Quintanilla MD 01/04/2025 Refill [facility] [address] [place] [address] Terrence Quintanilla MD Bipolar affective disorder, remission status unspecified (CMS/HCC); Bipolar affective disorder in remission (CMS/HCC) 12/26/2024 Telephone [facility] [address] [place] [phone] Tracy Wright MA march recalls 12/16/2024 3:00 PM EDT Office Visit [facility] AD[facility] [address] [place] [phone] Lucille, Aliyah Dental abscess (Primary Dx); Pain, dental 12/15/2024 9:45 AM EDT Office Visit [facility] [address] [place] [phone] Terrence Quintanilla MD Essential hypertension (Primary Dx); Tooth abscess; Bipolar affective disorder in remission (CMS/HCC); Habitual snoring; Daytime sleepiness; Witnessed apneic spells 12/15/2024 Travel 12/14/2024 Telephone [facility] [address] [place] [id number] Teresa Nicole MA Chart Prep 12/02/2024 Refill [facility] [address] [place] [address] [phone] Terrence Quintanilla MD Bipolar affective disorder, remission status unspecified (CMS/HCC) (Primary Dx) from Last 3 Months Immunizations Immunization Administration [...] EDT Office Visit [facility] [address] [place] [address] Name, MD Terrence [address] [place] [address] Health Maintenance Due Date Last Done Comments [...] 10:03 AM EST) Triglycerides 74 <150 mg/dL [facility] Comment:Desirable Triglyceri de: less than 150 mg/dLBorderline High Triglyceride 150-199 mg/dLHigh Triglyceride: 200-499 mg/dLVery High Triglyceride: greater than or equal to 5OO mg/dL Cholesterol 91 <200 mg/dL [facility] Comment:Desirable Cholestero l: less than 200 mg/dLBorderline High Cholesterol: 200-239 mg/dLHigh Cholesterol: greater than 239 mg/dL LDL Cholesterol Calculated 51 <100 mg/dL [facility] Comment:Desirable LDL: less than 100 mg/dLNear Optimal/Above Optimal LDL: 110- 129 mg/dLBorderline High LDL: 130-159 mg/dLHigh LDL: 160-189 mg/dLVery High LDL: greater than or equal to 190 mg/dL HDL Cholesterol 26(L) >40 mg/dL [facility] Comment:Desirable HDL: great er than 40 mg/dL Note: This HDL assay may give artificially low results in patients with liver disease. Blood Venous blood specimen / Unknown 07/05/2024 10:03 AM EST 07/05/2024 11:02 AM EST Terrence Quintanilla MD LAB BLOOD ORDERABLES Final Resul t Performing Organization Address [facility] Co de Phone Number [facility] [address] [place] [address] [phone] * Hepatitis C Antibody with Reflex to HCV, RNA, Quantitative, Real-Time PCR (04/18/2024 11:12 AM EDT) Hepatitis C Antibody Nonreactive Nonreactive [facility] Comment:Antibodies to HCV no t detected; does not exclude early acuteHCV infection. Blood Venous blood specimen / Unknown 04/18/2024 11:12 AM EDT 04/18/2024 11:17 AM EDT Terrence Quintanilla MD LAB BLOOD ORDERABLES Final Resul t Performing Organization Address [facility] Co de Phone Number [facility] [address] [place] [phone] * Hm Colonoscopy (05/08/2019 2:51 PM EDT) Colonoscopy Normal Normal Narrative Sandy Airam - 05/08/2019 2:51 PM EDT Recommended 10 year follow up Historical Provider HEALTH MAINTENANCE Final Result from Last 3 Months or Most Recently Relevant to Health Maintenance [place] [address] [place] [address] STANDARD MEDICARE [facility] FULL DENTAL - N FULL (MEDICAID) Care Teams [employer] Relationship Specialty Start Date End Date Name, MD Terrence [address] [place] [address] PCP - General Family Medicine 09/14/15 Jimmy Lua FNP [address] [place] [address] Nurse Practitioner Family Medicine 05/26/23
--- NOTE | 2025-02-13 13:27 | MHC.OFFVIS ---
Vital Signs 02/13/25 13:28 02/13/25 13:48 02/13/25 13:48 Height 5 ft 9 in BP 121/78 127/96 H Position Sitting Standing Pulse 73 72 Intake Visit Reasons: WORSENING SYMPTOMS MZK PATIENT Accompanied by: Spouse Allergies No Known Allergies Allergy (Verified 02/13/25 13:33) Medication List - Last Reconciled 02/13/25 by Kiara Kaufman CNP acetaminophen 500 mg PO Q8H PRN amlodipine 10 mg PO DAILY aspirin 81 mg PO DAILY atorvastatin 80 mg PO DAILY cholecalciferol (vitamin D3) 25 mcg PO DAILY 90 days [Citracal D Slow Rel Tab 80 1 tab PO BID] colchicine 0 mg PO fesoterodine ER (Toviaz) 4 mg PO DAILY 90 days hydroxyzine HCl 50 mg PO BEDTIME lisinopril 5 mg PO DAILY lithium carbonate 300 mg PO DAILY methimazole 5 mg PO DAILY omega-3 fatty acids 1,000 mg PO BEDTIME quetiapine 25 mg PO BEDTIME tadalafil 5 mg PO DAILY 90 days terazosin 5 mg PO BEDTIME 90 days HPI Comments Details: 65-year-old man with HTN, bipolar disorder, and 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 He was here with his . He had an episode last week where he suddenly got sharp pain in head and felt dizzy, and had to sit down for a few minutes until it passed. It lasted a few minutes. He had just come in from sitting outside and took a drink of water when it happened. Afterwards, he went to lay down and slept for about 2 hours. When he woke up, he felt fine. He describes dizziness as feeling like he was going to drop. This had not happened before and no further episodes since. His reports that he complains of some occasional dizziness and she has noted some forgetful over the last few months. Sleep was okay. No falls. [facility] Medical History Hyperbilirubinemia Hyperparathyroidism Hearing problem Frequency of urination Elevated blood pressure reading in office with white coat syndrome, with diagnosis of hypertension Gout Vitamin D deficiency Toxic multinodular goiter Bipolar disorder Erectile dysfunction BPH w/o urinary obs/LUTS Abdominal wall mass Myelopathy Surgical History History of removal of cyst (07/10/23) History of surgery Family History Father Dementia Mother Diabetes Social History Household Members: Family and Children Household Members Other:: , daughters, grand children Alcohol intake: never Patient Tobacco Use Status: Former Tobacco user Review of Systems Const Denies chills, Denies daytime sleepiness, Denies difficulty sleeping, Denies fatigue, Denies fever(s), Denies frequent falls, Denies headache(s), Denies increased appetite, Denies poor appetite, Denies snoring, Denies weakness, Denies weight gain and Denies weight loss Eyes Denies loss of vision ENT Denies vertigo, Reports dizziness and Denies headache(s) Card Denies chest pain at rest, Denies chest pain with activity, Denies syncope, Denies leg edema and Denies palpitations Resp Denies snoring GI Denies constipation, Denies heartburn, Denies diarrhea and Denies nausea Denies urinary frequency, Denies urinary incontinence and Denies urinary urgency Musc Denies abnormal gait, Denies numbness and Denies tingling Skin/Breast Denies dry skin and Denies rash Neuro Denies abnormal gait, Denies vertigo, Reports dizziness, Denies syncope, Denies frequent falls, Denies headache(s), Denies lack of coordination, Denies loss of vision, Denies memory loss, Denies numbness, Denies restless legs, Denies seizure-like activity, Denies tingling, Denies paresthesias, Denies tremor(s) and Denies weakness Psych Denies anxiety, Denies depression, Denies auditory hallucinations, Denies memory loss, Denies visual hallucinations and Denies suicidal ideation Endo Denies fatigue and Denies palpitations Physical Exam Vital Signs: Last Vital Signs Pulse 72 02/13/25 13:48 BP 127/96 H 02/13/25 13:48 Const Other: General Appearance:? normal, in no acute distress. Skin:? no rashes, no significant birthmarks. Heart:? S1, S2 normal, no murmurs. Lungs:? clear anteriorly and posteriorly. Extremities:? no edema. Psych:? alert, oriented, cognitive function intact, cooperative with exam. Neuro Other: Mental Status:?Normal attention, orientation, and affect.? Cranial Nerves:?Pupils are equal, round and reactive to light. External occular muscles are intact. Visual nava are full. Face is symmetrical. Facial sensations are normal. Tongue is midline. Palate elevates symmetrically. Shoulder shrugging is normal. Hearing to bedside conversation is normal. Sensory Exam:?....? Coordination:?No ataxia,?no titubation.? Gait Exam: Within normal limits. Extrapyramidal System:?No tremor, rigidity with normal facial expressions.? Pronator Drift:?Not present.? Involuntary Movements:?No tremors seen.? Speech:?Normal.? Results Reviewed Results Reviewed: [place] at [facility] [place] Jun 20[place]: WNL CTA brain [place] [facility] [place] Jul 2023: R M1 and A1 occlussion with William William pattern, diminished flow in right hemisphere. MRI brain WO at [facility] in Apr 2023: R MCA area scattered embolic looking chronic infarcts with possible R intracavernous ICA stenosis Assessment & Plan Assessment & Plan (1) History of cerebral infarction: Code(s): Z86.73 - Personal history of transient ischemic attack (TIA), and cerebral infarction without residual deficits Category: Medical Plan: Continue low dose aspirin and statin. Reviewed testing ordered. (2) Intracranial atherosclerosis: Code(s): I67.2 - Cerebral atherosclerosis Category: Medical (3) Moyamoya syndrome: Code(s): I67.5 - Moyamoya disease Category: Medical (4) Pre-syncope: Code(s): R55 - Syncope and collapse Category: Medical Plan . Orders: Orders Creatinine Today I67.2 - Cerebral atherosclerosis, I67.5 - Moyamoya disease, R55 - Syncope and collapse EEG electroencephalogram Today R55 - Syncope and collapse CT angio head Today I67.2 - Cerebral atherosclerosis, I67.5 - Moyamoya disease, R55 - Syncope and collapse Blood Urea Nitrogen Today I67.2 - Cerebral atherosclerosis, I67.5 - Moyamoya disease, R55 - Syncope and collapse Coding Level of Care Code Est Pt Level 4 (37583) Diagnoses History of cerebral infarction Z86.73 Intracranial atherosclerosis I67.2 Moyamoya syndrome I67.5 Pre-syncope R55
[2025-02-13 13:48] VITALS: BP 121/78; BP 127/96; PULSE 72; PULSE 73
== END 2025-02-13 14:05 | disposition home or self-care (01) ==
LOC: HO.HSM 12:53
PROVIDERS: PCP Internal Medicine Geriatric Medicine; Visit Provider Registered Nurse
DX: Z86.73 Personal history of transient ischemic attack (TIA), and cerebral infarction without residual deficits (principal); I67.2 Cerebral atherosclerosis; I67.5 Moyamoya disease; R55 Syncope and collapse
CPT/HCPCS: 99214

== ENCOUNTER → 2025-02-13 12:53 | Outpatient (BNVA) | payer MEDICARE, MEDICAID, SELFPAY | PROVIDERS: PCP Internal Medicine Geriatric Medicine; Visit Provider Registered Nurse | DX: I67.2 Cerebral atherosclerosis (principal); I67.5 Moyamoya disease; R55 Syncope and collapse; Z86.73 Personal history of transient ischemic attack (TIA), and cerebral infarction without residual deficits | CPT/HCPCS: 99212 ==

== ENCOUNTER 2025-02-24 10:36 | Outpatient (REF) | payer MEDICARE, MEDICAID, SELFPAY ==
--- OUTSIDE RECORDS SUMMARY | 2025-02-24 10:41 | XMS_ITS | Clinical Summary ---
Author Organization [employer] Address [address] [facility] 7t [place] [address] Care Team Providers Care Waste Collector Name Role Phone Name, Terrence YOON Primary Care Provider [phone] Jimmy Lua Unavailable Unavailable Allergies No known active allergies Medications * This document contains information received from the source organization and may not represent a complete record from that organization. Calcium-Magnesi um-Vitamin D (CITRACAL CALCIUM+D PO) Take 1 tablet by mouth in the morning and 1 tablet in the evening. 3 Active oxybutynin XL (Ditropan-XL) 15 MG 24 hr tablet Take 15 mg by mouth Once per day. 3 Active methIMAzole (Tapazole) 5 MG tablet Take 2.5 mg by mouth Once per day. 3 Active Vitamin D High Potency 25 MCG (1000 UT) capsule TAKE 1 CAPSULE BY MOUTH EVERY MORNING 90 capsule 1 4 Active atorvastatin (Lipitor) 80 MG tabletIndicatio ns:Cerebrovascu lar accident (CVA), unspecified mechanism (CMS/HCC) Take 1 tablet (80 mg) by mouth Once per day. 30 tablet 11 4 025 Active hydrALAZINE (Apresoline) 25 MG tablet Take 1 tablet (25 mg) by mouth 2 times daily. 60 tablet 11 5 Active acetaminophen (Tylenol 8 Hour) 650 MG ER tablet Take 1 tablet (650 mg) by mouth every 8 (eight) hours if needed for mild pain. Do not crush, chew, or split. 30 tablet 5 Active lithium 300 MG tabletIndicatio ns:Bipolar affective disorder in remission (CMS/HCC) Take 1 tablet (300 mg) by mouth in the morning. 90 tablet 3 5 Active QUEtiapine (SEROquel) 25 MG tablet Take 3 tablets (75 mg) by mouth at bedtime. 270 tablet 3 5 Active hydrOXYzine HCl (Atarax) 50 MG tabletIndicatio ns:Bipolar affective disorder, remission status unspecified (CMS/HCC) TAKE 1 TABLET BY MOUTH AT BEDTIME NEEDED 30 tablet 5 Active hydrOXYzine HCl (Atarax) 50 MG tabletIndicatio ns:Bipolar affective disorder, remission status unspecified (CMS/HCC) TAKE 1 TABLET BY MOUTH EVERY DAY AT BEDTIME NEEDED 30 tablet 5 025 Discontinued Active Problems Problem Noted Date [...] 3:17 PM EDT): Had been stable on Car[place] 600 mg daily for a long time, seemed to continue well-controlled with decreased Car[place] 300 mg. However developed marked insomnia and hypomania. He resumed Car[place] 300 mg 2 tabs daily but developed tremor. Pt was extremely resistant to change in medications, but did agree to gradual uptaper of Seroquel now 75 mg at bedtime and decreased [place] 300 mg once at bedtime. Pt says the tremor has resolved and his mood is fine. Continue Seroquel 75 mg at bedtime, Car[place] 300 mg 1 at bedtime. Since this provider will be retiring, he will be transferred to new psychiatric prescriber. Meanwhile, prescriptions were sent for his medications with 1 year of refills. Any issues or concerns, contact [facility]. All his questions were answered. I have wished him well. Pt agrees with the plan. Assessment & Plan (09/22/2023 12:27 PM EDT): Had been stable on Carri[place] Hill 600 mg daily for a long time, seemed to continue well-controlled with decreased [place] 300 mg. However developed marked insomnia and hypomania. He resumed Car[place] 300 mg 2 tabs daily but developed tremor. Pt was extremely resistant to change in medications, but did agree to gradual uptaper of Seroquel now 75 mg at bedtime and decreased [place] 300 mg once at bedtime. Pt says the tremor has resolved and his mood is fine. Continue Seroquel 75 mg at bedtime, Car[place] 300 mg 1 at bedtime. On 06/25/2023 provider informed the patient and caregiver that I would be retiring, and we would make every effort to plan smooth transition of care. Meanwhile, F/U with me in 2 months. Pt agrees with the plan. Assessment & Plan (07/28/2023 1:35 PM EST): Had been stable on Carrizo Hill 600 mg daily for a long time, seemed to continue well-controlled with decreased Car[place] 300 mg. However developed marked insomnia and hypomania. He resumed Car[place] 300 mg 2 tabs daily but developed tremor. Pt was extremely resistant to change in medications, but did agree to gradual uptaper of Seroquel now 75 mg at bedtime and decreased [place] 300 mg once at bedtime. Pt says the tremor has resolved and his mood is fine. Continue Seroquel 75 mg at bedtime, Car[place] 300 mg 1 at bedtime. On 06/25/2023 provider informed the patient and caregiver that I would be retiring, and we would make every effort to plan smooth transition of care. Meanwhile, F/U with me in 6-8 weeks. Pt agrees with the plan. Assessment & Plan (01/26/2023 9:45 AM EDT): Progress Note: Kong is a 62-year-old, [place] Citizen speaking male that was referred for a [...] this time. Planned for case consult with [facility] psychopharmacology clinic. Assessment: Patient with history of [...] [facility]: Recommended for follow-up: Post [facility] psychopharmacology consult 2. Patient goal is to reengage in medication management services 3. Behavioral Recommendations a. Break tasks down to smaller goals b. Slowly increase goals c. PTSD jed- deep breathing, progressive muscle relaxation Assessment & Plan (10/20/2022 3:33 PM EDT): Had been stable on Carrizo Hill 600 mg daily for a long time, seemed to continue well-controlled with decreased [place] 300 mg. However developed marked insomnia and hypomania which is now improved with resumption of Carri[place] Hill 300 mg 2 tabs daily. Unfortunately, new [...] 3:11 PM EST): Had been stable on Car[place] Hill 600 mg daily for a long time, seemed to continue well-controlled with decreased [place] 300 mg. However developed marked insomnia and hypomania which is now improved with resumption of Car[place] Hill 300 mg 2 tabs daily. Had also been taking Quetiapine 25 mg at bedtime but that was not dispensed by the pharmacy since May and he is still doing well without it, with adequate sleep. Unfortunately has developed tremor of the right hand, which may be a S/E of the lithium. Will do labs arlen for Carrizo Hill level and metabolic profile. Meanwhile continue medications [...] 11:46 AM EST): Had been stable on Car[place] Hill 600 mg daily for a long time, seemed to continue well-controlled with decreased [place] 300 mg. However developed marked insomnia and hypomania. He resumed Car[place] 300 mg 2 tabs daily but developed tremor. Pt was extremely resistant to change in medications, but did agree to gradual uptaper of Seroquel now 75 mg at bedtime and decreased [place] 300 mg once at bedtime. Pt says the tremor has resolved and his mood is fine. His agrees that the tremor is now controlled, and his behavior is fine. Last time mentioned new onset abnormal movements of mouth, but that seems to have resolved. Continue Seroquel 75 mg at bedtime, Car[place] 300 mg 1 at bedtime. Today 06/25/2023 provider informed the patient and caregiver that I would be retiring in approx 1/2 year. F/U with me in 1 month. Pt and Caregiver agree with plan. Assessment & Plan (05/26/2023 11:33 AM EST): Had been stable on Carrizo Hill 600 mg daily for a long time, seemed to continue well-controlled with decreased Car[place] 300 mg. However developed marked insomnia and hypomania. He resumed Car[place] 300 mg 2 tabs daily but developed tremor. Pt was extremely resistant to change in medications, but did agree to gradual uptaper of Seroquel now 75 mg at bedtime and decreased [place] 300 mg once at bedtime. Pt says [...] now, continue Seroquel 75 mg at bedtime, Car[place] 300 mg 1 at bedtime. F/U with me in 1 month. Pt and Caregiver agree with plan. Assessment & Plan (03/26/2023 12:08 PM EDT): Had been stable on Carrizo Hill 600 mg daily for a long time, seemed to continue well-controlled with decreased Car[place] 300 mg. However developed marked insomnia and hypomania. He resumed Carrizo Hill 300 mg 2 tabs daily but developed [...] that he will need to stop taking Carrizo Hill. Will decrease to Carrizo Hill 300 mg 1 at bedtime. F/U for Neurological evaluation as soon as can be arranged. F/U with me in 3 weeks. Pt and Caregiver agree with plan. Assessment & Plan (03/05/2023 12:35 PM EDT): Had been stable on Car[place]zo Hill 600 mg daily for a long time, seemed to continue well-controlled with decreased Car[place] 300 mg. However developed marked insomnia and hypomania. He resumed Car[place] 300 mg 2 tabs daily but developed [...] the tremor is almost certainly r/t the Carrizo Hill, will not stop the Carrizo Hill until mood is better controlled, so continue Carrizo Hill 300 mg 2 at bedtime. For any safety concerns call 911. F/U with me in 3 weeks. Pt and Caregiver agree with plan. Assessment & Plan (01/27/2023 3:00 PM EDT): Had been stable on Car[place] Hill 600 mg daily for a long time, seemed to continue well-controlled with decreased Car[place] 300 mg. However developed marked insomnia and hypomania. He resumed Carri[place] Hill 300 mg 2 tabs daily but developed tremor, which has persisted. He also has experienced marked worsening of mood with anhedonia, tearfulness, low motivation. Patient's presentation today is markedly incongruent with presentation at various [facility] and ED visits recently, and with reports of his , clinician, and providers. Pt expresses strong desire not to stop Carrizo Hill. Suspect he is denying symptoms in order to discourage provider from changing his medication. Reviewed with the patient that the tremor was almost certainly a S/E of lithium. Also, his mood was not adequately controlled. In conjunction with patient, developed plan to start new medication: Seroquel 25 mg 1/2 tab at bedtime for a few nights then 1 full tab at bedtime. Continue Carrizo Hill as usual for now. Expect to titrate up the Seroquel until mood was stable, then we would gradually decrease the Carrizo Hill. He is agreeable to this plan. It was also reviewed with his . F/U 2-3 weeks. Call sooner as needed. He agrees with the plan. Assessment & Plan (01/25/2023 5:22 PM EDT): Previously following in [facility] Psychopharm clinic with TIFF Lua. Last appt October 2022, pt did not show to appt in November 2022 Continues on lithium 300mg BID Carrizo Hill level therapeutic during ED visit in December [...] Type Department Care Team Description 02/08/2025 Refill [facility] [address] [place] [address] Terrence Quintanilla MD Bipolar affective disorder, remission status unspecified (CMS/HCC) 01/23/2025 Refill [facility] [address], [place] [phone] Terrence Quintanilla MD 01/04/2025 Refill [facility] [address] [place] [address] Terrence Quintanilla MD Bipolar affective disorder, remission status unspecified (CMS/HCC); Bipolar affective disorder in remission (CMS/HCC) 12/26/2024 Telephone [facility] [address] [place] [phone] Tracy Wright MA march recalls 12/16/2024 3:00 PM EDT Office Visit [facility] [address] [place] [phone] LucilleBrandonAliyah Dental abscess (Primary Dx); Pain, dental 12/15/2024 9:45 AM EDT Office Visit [facility] [address] [place] [phone] Terrence Quintanilla MD Essential hypertension (Primary Dx); Tooth abscess; Bipolar affective disorder in remission (CMS/HCC); Habitual snoring; Daytime sleepiness; Witnessed apneic spells 12/15/2024 Travel 12/14/2024 Telephone [facility] [address] [place] [phone] Teresa Nicole MA Chart Prep 12/02/2024 Refill [facility] [address] [place] [phone] Terrence Quintanilla MD Bipolar affective disorder, remission status unspecified ([facility]/HCC) (Primary Dx) from Last 3 Months Immunizations [...] Description 04/04/2025 9:15 AM EDT Office Visit [facility] [address] [place] [address] Name, MD Terrence [address] [place] [address] Health Maintenance Due Date Last Done Comments [...] 12/16/2024 Dental X-Ray: Full Mouth 03/21/2026 03/20/2023, 0808/2022 [...] 10:03 AM EST) Triglycerides 74 <150 mg/dL [facility] Comment:Desirable Triglyceri de: less than 150 mg/dLBorderline High Triglyceride 150-199 mg/dLHigh Triglyceride: 200-499 mg/dLVery High Triglyceride: greater than or equal to 5OO mg/dL Cholesterol 91 <200 mg/dL [facility] Comment:Desirable Cholestero l: less than 200 mg/dLBorderline High Cholesterol: 200-239 mg/dLHigh Cholesterol: greater than 239 mg/dL LDL Cholesterol Calculated 51 <100 mg/dL [facility] Comment:Desirable LDL: less than 100 mg/dLNear Optimal/Above Optimal LDL: 110- 129 mg/dLBorderline High LDL: 130-159 mg/dLHigh LDL: 160-189 mg/dLVery High LDL: greater than or equal to 190 mg/dL HDL Cholesterol 26(L) >40 mg/dL [facility] Comment:Desirable HDL: great er than 40 mg/dL Note: This HDL assay may give artificially low results in patients with liver disease. Blood Venous blood specimen / Unknown 07/05/2024 10:03 AM EST 07/05/2024 11:02 AM EST us Terrence Name MD LAB BLOOD ORDERABLES Final Resul t Performing Organization Address [facility] Co de Phone Number [facility] [address] [place] [address] [phone] * Hepatitis C Antibody with Reflex to HCV, RNA, Quantitative, Real-Time PCR (04/18/2024 11:12 AM EDT) Hepatitis C Antibody Nonreactive Nonreactive [facility] Comment:Antibodies to HCV no t detected; does not exclude early acuteHCV infection. Blood Venous blood specimen / Unknown 04/18/2024 11:12 AM EDT 04/18/2024 11:17 AM EDT Terrence Quintanilla MD LAB BLOOD ORDERABLES Final Resul t Performing Organization Address [facility] Co de Phone Number [facility] [address] [place] [address] [phone] * Hm Colonoscopy (05/08/2019 2:51 PM EDT) Colonoscopy Normal Normal Narrative Airam Delgado - 05/08/2019 2:51 PM EDT Recommended 10 year follow up [facility] Provider HEALTH MAINTENANCE Final Result from Last 3 Months or Most Recently Relevant to Health Maintenance Insurance [facility] STANDARD MEDICARE HSN FULL DENTAL - HSN FULL (MEDICAID) Care Teams Waste Collector Relationship Specialty Start Date End Date Name, MD Terrence [address] [place] [address] PCP - General Family Medicine 09/14/15 Jimmy Lua FNP [address] [place] [address] Nurse Practitioner Family Medicine 05/26/23
--- NOTE | 2025-02-24 10:48 | EEG_ITS ---
This is a 16 channel EEG with an EKG lead. Patient is reported awake during the tracing. Background EEG rhythm is low to medium amplitude mixed theta beta with no obvious asymmetry or paroxysmal tendency. Photic stimulation does not produce any significant driving. Hyperventilation does not produce any significant changes. Cardiac lead does not reveal any significant abnormality. Impression: Mild generalized slowing with no evidence of seizure disorder. MTDD
== END 2025-02-24 10:37 | disposition home or self-care (01) ==
LOC: HO.NEURO 10:36
PROVIDERS: PCP Internal Medicine Geriatric Medicine; Visit Provider Psychiatry & Neurology Neurology
DX: R55 Syncope and collapse (principal)
CPT/HCPCS: 95816

== ENCOUNTER → 2025-02-24 10:48 | Outpatient (BNV) | payer MEDICARE, MEDICAID, SELFPAY | PROVIDERS: PCP Internal Medicine Geriatric Medicine; Visit Provider Psychiatry & Neurology Neurology | DX: R55 Syncope and collapse (principal) | CPT/HCPCS: 95816 ==

== ENCOUNTER 2025-03-09 14:23 | Outpatient (REF) | payer MEDICARE, MEDICAID, SELFPAY ==
[2025-03-09 14:59] LABS: Hematocrit 48.0 % (42.0-52.0); Hemoglobin 16.3 g/dl (14.0-18.0); Mean Corpuscular HGB Conc 34.0 g/dl (31.0-36.0); Mean Corpuscular Hemoglobin 29.9 pg (27.0-33.0); Mean Corpuscular Volume 88.1 fL (80.0-98.0); NRBC Abs Auto 0.000 X10*3/uL (0.0-0.012); NRBC Pct Auto 0.0 /100WBC (0.0-0.2); Platelet Count 356 X10*3/uL (160-400); Red Blood Count 5.45 X10*6/uL (4.60-5.80); White Blood Count 11.8 X10*3/uL (4.8-10.8)
--- OUTSIDE RECORDS SUMMARY | 2025-03-09 15:08 | XMS_ITS | Encounter Summary ---
Author Organization [employer] Address [address] [facility] 7t [place] [address] Care Team Providers Care Urgent Care Nurse Practitioner Name Role Phone Name, Terrence YOON Primary Care Provider [phone] Jimmy Lua Unavailable Unavailable Reason for Visit * Reason Comments Med Refill Encounter Details Date Type Department Care Team ([facility] Contact Info) Description 06/02/2024 Refill [facility] [address] [place], [place] [phone] Name, MD Terrence [address] [place] [address] Cerebrovascular accident (CVA), unspecified mechanism (CMS/HCC) Social [...] Description 04/04/2025 9:15 AM EDT Office Visit [facility] [address] [place] [address] Name, MD Terrence [address] [place] [phone] documented as of this encounter Visit Diagnoses Diagnosis Cerebrovascular accident (CVA), unspecified mechanism (CMS/HCC) documented in this encounter Additional Health Concerns Assessment Noted Time PHQ-9 Depression Total Score: 0 09/22/19 24 11:18 AM EDT documented as of this encounter Care Teams Urgent Care Nurse Practitioner Relationship Specialty Start Date End Date NameTerrence MD [address] [place] [phone] PCP - General Family Medicine 09/14/15 Jimmy Lua FNP [address] [place] [phone] Nurse Practitioner Family Medicine 05/26/23 documented as of this encounter
--- OUTSIDE RECORDS SUMMARY | 2025-03-09 15:08 | XMS_ITS | Encounter Summary ---
Author Organization [employer] Address [address] [facility] [address] [place] [address] Care Team Providers Care Ordnance Artificer Name Role Phone Name, Terrence YOON Primary Care Provider Jimmy Lua Unavailable Unavailable Reason for Visit * Reason Comments Med Refill Encounter Details Date Type Department Care Team ([facility] Contact Info) Description 05/29/2023 Refill [facility] [address] [place], [place] [phone] Name, MD Terrence [address] [place] [address] Social History Tobacco Use Types Packs/Day Years [...] Description 04/04/2025 9:15 AM EDT Office Visit [facility] [address] [place] [phone] Name, MD Terrence [address] [place] [phone] documented as of this encounter Visit Diagnoses Not on filedocumented in this encounter Additional Health Concerns Assessment Noted Time PHQ-9 Depression Total Score: 0 05/26/20 23 10:22 AM EST documented as of this encounter Care Teams Ordnance Artificer Relationship Specialty Start Date End Date NameTerrence MD [address] [place] [phone] PCP - General Family Medicine 09/14/15 Jimmy Lua FNP [address] [place] [phone] Nurse Practitioner Family Medicine 05/26/23 documented as of this encounter
--- OUTSIDE RECORDS SUMMARY | 2025-03-09 15:08 | XMS_ITS | Encounter Summary ---
Author Organization [employer] Address [address] [place] [address] 7t [place] [address] Care Team Providers Care Platform Power Technician Name Role Phone Name, Terrence YOON Primary Care Provider [phone] Jimmy Lua Unavailable Unavailable Encounter Details Date Type Department Care Team (Late st Contact Info) Description 01/06/2023 Orders Only [facility] [address] [place] [phone] Karmen Ulrich LPN Social History Tobacco Use [...] Description 04/04/2025 9:15 AM EDT Office Visit [facility] [address] [place] [phone] NameTerrence MD [address] [place] [phone] documented as of this encounter Visit Diagnoses Not on filedocumented in this encounter Additional Health Concerns Assessment Noted Time PHQ-9 Depression Total Score: 0 10/21/19 23 2:06 PM EDT documented as of this encounter Care Teams Platform Power Technician Relationship Specialty Start Date End Date NameTerrence MD [address] [place] [address] PCP - General Family Medicine 09/14/15 Jimmy Lua FNP [address] [place] [address] Nurse Practitioner Family Medicine 05/26/23 documented as of this encounter
--- OUTSIDE RECORDS SUMMARY | 2025-03-09 15:08 | XMS_ITS | Encounter Summary ---
Author Organization [employer] Address [address] [facility] [address] [place] [address] Care Team Providers Care Eligibility And Occupancy Interviewer Name Role Phone Name, Terrence YOON Primary Care Provider [phone] Jimmy Lua Unavailable Unavailable Encounter Details Date Type Department Care Team (Late Contact Info) Description 10/01/2022 Orders Only [facility] [address] [place], [place] [phone] Kaity Seymour LPN Social History Tobacco Use [...] Description 04/04/2025 9:15 AM EDT Office Visit [facility] [address] [place], [place] [phone] Name, MD Terrence [address] [place], [place] [phone] documented as of this encounter Visit Diagnoses Not on filedocumented in this encounter Additional Health Concerns Assessment Noted Time PHQ-9 Depression Total Score: 0 07/22/19 1:53 PM EST documented as of this encounter Care Teams Eligibility And Occupancy Interviewer Relationship Specialty Start Date End Date Name, MD Terrence [address] [place] [address] PCP - General Family Medicine 09/14/15 Jimmy Lua FNP [address] [place] [address] Nurse Practitioner Family Medicine 05/26/23 documented as of this encounter
--- OUTSIDE RECORDS SUMMARY | 2025-03-09 15:08 | XMS_ITS | Encounter Summary ---
Author Organization [facility] Address [address] [place] [address] 7[address] [place] [address] Care Team Providers Care Criminal Legal Assistant Name Role Phone Name, Terrence YOON Primary Care Provider [phone] Jimmy Lua Unavailable Unavailable Encounter Details Date Type Department Care Team (Late st Contact Info) Description 11/28/2022 Abstract [facility] [address] [place] [address] [phone] NameTerrence MD [address] [place] [address] [phone] Social History Tobacco Use Types Packs/Day Years [...] Description 04/04/2025 9:15 AM EDT Office Visit [facility] [address] [place] [address] [phone] Terrence Quintanilla MD [address] [place] [address] [phone] documented as of this encounter Procedures Procedure [...] documented as of this encounter Care Teams Criminal Legal Assistant Relationship Specialty Start Date End Date Name, MD Terrence [address] [place] [address] PCP - General Family Medicine 09/14/15 Jimmy Lua FNP [address] [place] [address] Nurse Practitioner Family Medicine 05/26/23 documented as of this encounter
--- OUTSIDE RECORDS SUMMARY | 2025-03-09 15:08 | XMS_ITS | Clinical Summary ---
Author Organization [employer] Address [address] [facility] [address] [place] [address] Care Team Providers Care Artificial Leather Calender Operator Name Role Phone Name, Terrence YOON Primary Care Provider [phone] Jimmy Lua Unavailable Unavailable Allergies No known [...] 3:17 PM EDT): Had been stable on Santiago 600 mg daily for a long time, seemed to continue well-controlled with decreased Santiago 300 mg. However developed marked insomnia and hypomania. He resumed Santiago 300 mg 2 tabs daily but developed tremor. Pt was extremely resistant to change in medications, but did agree to gradual uptaper of Seroquel now 75 mg at bedtime and decreased Santiago 300 mg once at bedtime. Pt says the tremor has resolved and his mood is fine. Continue Seroquel 75 mg at bedtime, Santiago 300 mg 1 at bedtime. Since this provider will be retiring, he will be transferred to new psychiatric prescriber. Meanwhile, prescriptions were sent for his medications with 1 year of refills. Any issues or concerns, contact [facility]. All his questions were answered. I have wished him well. Pt agrees with the plan. Assessment & Plan (09/22/2023 12:27 PM EDT): Had been stable on Santiago 600 mg daily for a long time, seemed to continue well-controlled with decreased Santiago 300 mg. However developed marked insomnia and hypomania. He resumed Santiago 300 mg 2 tabs daily but developed tremor. Pt was extremely resistant to change in medications, but did agree to gradual uptaper of Seroquel now 75 mg at bedtime and decreased Santiago 300 mg once at bedtime. Pt says the tremor has resolved and his mood is fine. Continue Seroquel 75 mg at bedtime, Santiago 300 mg 1 at bedtime. On 06/25/2023 provider informed the patient and caregiver that I would be retiring, and we would make every effort to plan smooth transition of care. Meanwhile, F/U with me in 2 months. Pt agrees with the plan. Assessment & Plan (07/28/2023 1:35 PM EST): Had been stable on Santiago 600 mg daily for a long time, seemed to continue well-controlled with decreased Santiago 300 mg. However developed marked insomnia and hypomania. He resumed Santiago 300 mg 2 tabs daily but developed tremor. Pt was extremely resistant to change in medications, but did agree to gradual uptaper of Seroquel now 75 mg at bedtime and decreased Santiago 300 mg once at bedtime. Pt says the tremor has resolved and his mood is fine. Continue Seroquel 75 mg at bedtime, Santiago 300 mg 1 at bedtime. On 06/25/2023 provider informed the patient and caregiver that I would be retiring, and we would make every effort to plan smooth transition of care. Meanwhile, F/U with me in 6-8 weeks. Pt agrees with the plan. Assessment & Plan (01/26/2023 9:45 AM EDT): Progress Note: Kong is a 62-year-old, Guyanese speaking male that was referred for a [...] this time. Planned for case consult with [facility] psychopharmacology clinic. Assessment: Patient with [...] family support PLAN: 1. Follow up with [facility]: Recommended for follow-up: Post [facility] psychopharmacology consult 2. Patient goal is to reengage in medication management services 3. Behavioral Recommendations a. Break tasks down to smaller goals b. Slowly increase goals c. PTSD jed- deep breathing, progressive muscle relaxation Assessment & Plan (10/20/2022 3:33 PM EDT): Had been stable on Santiago 600 mg daily for a long time, seemed to continue well-controlled with decreased Santiago 300 mg. However developed marked insomnia and hypomania which is now improved with resumption of Santiago 300 mg 2 tabs daily. Unfortunately, new [...] 3:11 PM EST): Had been stable on Santiago 600 mg daily for a long time, seemed to continue well-controlled with decreased Santiago 300 mg. However developed marked insomnia and hypomania which is now improved with resumption of Santiago 300 mg 2 tabs daily. Had also been taking Quetiapine 25 mg at bedtime but that was not dispensed by the pharmacy since May and he is still doing well without it, with adequate sleep. Unfortunately has developed tremor of the right hand, which may be a S/E of the lithium. Will do labs arlen for Santiago level and metabolic profile. Meanwhile continue medications [...] 11:46 AM EST): Had been stable on Santiago 600 mg daily for a long time, seemed to continue well-controlled with decreased Santiago 300 mg. However developed marked insomnia and hypomania. He resumed Santiago 300 mg 2 tabs daily but developed tremor. Pt was extremely resistant to change in medications, but did agree to gradual uptaper of Seroquel now 75 mg at bedtime and decreased Santiago 300 mg once at bedtime. Pt says the tremor has resolved and his mood is fine. His agrees that the tremor is now controlled, and his behavior is fine. Last time mentioned new onset abnormal movements of mouth, but that seems to have resolved. Continue Seroquel 75 mg at bedtime, Santiago 300 mg 1 at bedtime. Today 06/25/2023 provider informed the patient and caregiver that I would be retiring in approx 1/2 year. F/U with me in 1 month. Pt and Caregiver agree with plan. Assessment & Plan (05/26/2023 11:33 AM EST): Had been stable on Santiago 600 mg daily for a long time, seemed to continue well-controlled with decreased Santiago 300 mg. However developed marked insomnia and hypomania. He resumed Santiago 300 mg 2 tabs daily but developed tremor. Pt was extremely resistant to change in medications, but did agree to gradual uptaper of Seroquel now 75 mg at bedtime and decreased Santiago 300 mg once at bedtime. Pt says [...] now, continue Seroquel 75 mg at bedtime, Santiago 300 mg 1 at bedtime. F/U with me in 1 month. Pt and Caregiver agree with plan. Assessment & Plan (03/26/2023 12:08 PM EDT): Had been stable on Santiago 600 mg daily for a long time, seemed to continue well-controlled with decreased Santiago 300 mg. However developed marked insomnia and hypomania. He resumed Santiago 300 mg 2 tabs daily but developed [...] that he will need to stop taking Santiago. Will decrease to Santiago 300 mg 1 at bedtime. F/U for Neurological evaluation as soon as can be arranged. F/U with me in 3 weeks. Pt and Caregiver agree with plan. Assessment & Plan (03/05/2023 12:35 PM EDT): Had been stable on Santiago 600 mg daily for a long time, seemed to continue well-controlled with decreased Santiago 300 mg. However developed marked insomnia and hypomania. He resumed Santiago 300 mg 2 tabs daily but developed [...] the tremor is almost certainly r/t the Santiago, will not stop the Santiago until mood is better controlled, so continue Santiago 300 mg 2 at bedtime. For any safety concerns call 911. F/U with me in 3 weeks. Pt and Caregiver agree with plan. Assessment & Plan (01/27/2023 3:00 PM EDT): Had been stable on Santiago 600 mg daily for a long time, seemed to continue well-controlled with decreased Santiago 300 mg. However developed marked insomnia and hypomania. He resumed Santiago 300 mg 2 tabs daily but developed tremor, which has persisted. He also has experienced marked worsening of mood with anhedonia, tearfulness, low motivation. Patient's presentation today is markedly incongruent with presentation at various [facility] and ED visits recently, and with reports of his , clinician, and providers. Pt expresses strong desire not to stop Santiago. Suspect he is denying symptoms in order to discourage provider from changing his medication. Reviewed with the patient that the tremor was almost certainly a S/E of lithium. Also, his mood was not adequately controlled. In conjunction with patient, developed plan to start new medication: Seroquel 25 mg 1/2 tab at bedtime for a few nights then 1 full tab at bedtime. Continue Santiago as usual for now. Expect to titrate up the Seroquel until mood was stable, then we would gradually decrease the Santiago. He is agreeable to this plan. It was also reviewed with his . F/U 2-3 weeks. Call sooner as needed. He agrees with the plan. Assessment & Plan (01/25/2023 5:22 PM EDT): Previously following in [facility] Psychopharm clinic with TIFF Lua. Last appt October 2022, pt did not show to appt in November 2022 Continues on lithium 300mg BID Santiago level therapeutic during ED visit in December [...] Type Department Care Team Description 02/08/2025 Refill [facility] [address] [place] [address] Terrence Quintanilla MD Bipolar affective disorder, remission status unspecified ([facility]/HCC) 01/23/2025 Refill [facility] [address] [place], [place] [phone] Terrence Quintanilla MD 01/04/2025 Refill [facility] [address] [place] [address] Terrence Quintanilla MD Bipolar affective disorder, remission status unspecified (CMS/HCC); Bipolar affective disorder in remission (CMS/HCC) 12/26/2024 Telephone [facility] [address] [place] [phone] Tracy Wright MA march recalls 12/16/2024 3:00 PM EDT Office Visit [facility] AD[facility] D[facility] [address] [place] [phone] Lucille Aliyah Dental abscess (Primary Dx); Pain, dental 12/15/2024 9:45 AM EDT Office Visit [facility] [address] [place] [phone] Terrence Quintanilla MD Essential hypertension (Primary Dx); Tooth abscess; Bipolar affective disorder in remission ([facility]); Habitual snoring; Daytime sleepiness; Witnessed apneic spells 12/15/2024 Travel 12/14/[address] [phone] Teresa Nicole MA Chart Prep from Last 3 Months Immunizations Immunization Administration [...] Description 04/04/2025 9:15 AM EDT Office Visit [facility] [address] [place] [address] Name, MD Terrence [address] [place] [address] Health Maintenance Due Date Last Done Comments [...] Procedure Name Priority Date/Time Associated Diagnosis Comments CBC Routine 03/09/2025 2:34 PM EDT Dizziness CASE PRESENTATION, DETAILED AND EXTENSIVE TREATMENT PLANNING [...] Relevant to Health Maintenance Results * (ABNORMAL) CBC (03/09/2025 2:34 PM EDT) White Blood Count 11.8(H) 4.8 - 10.8 X10*3/uL [facility] Red Blood Count 5.45 4.60 - 5.80 X10*6/uL [facility] Hemoglobin 16.3 14.0 - 18.0 g/dl [facility] Hematocrit 48.0 42.0 - 52.0 % [facility] Mean Corpuscular Volume 88.1 80.0 - 98.0 fL [facility] Mean Corpuscular Hemoglobin 29.9 27.0 - 33.0 pg [facility] Mean Corpuscular HGB Conc 34.0 31.0 - 36.0 g/dl [facility] Red Cell Distribution Width 13.1 11.0 - 16.0 % [facility] Platelet Count 356 160 - 400 X10*3/uL [facility] Mean Platelet Volume 8.3(L) 9.4 - 12.4 fL [facility] NRBC Pct Auto 0.0 0.0 - 0.2 /100WBC [facility] NRBC Abs Auto 0.000 0.0 - 0.012 X10*3/uL [facility] Blood Venous blood specimen / Unknown 03/09/2025 2:34 PM EDT 03/09/2025 2:34 PM EDT us Kaity Amador DO LAB BLOOD ORDERABLES Final R esult Performing Organization Address [facility] Co de Phone Number [facility] [address] [place] [phone] * (ABNORMAL) Lipid Panel, Standard (07/05/2024 10:03 AM EST) Triglycerides 74 <150 mg/dL [facility] Comment:Desirable Triglyceri de: less than 150 mg/dLBorderline High Triglyceride 150-199 mg/dLHigh Triglyceride: 200-499 mg/dLVery High Triglyceride: greater than or equal to 5OO mg/dL Cholesterol 91 <200 mg/dL [facility] Comment:Desirable Cholestero l: less than 200 mg/dLBorderline High Cholesterol: 200-239 mg/dLHigh Cholesterol: greater than 239 mg/dL LDL Cholesterol Calculated 51 <100 mg/dL [facility] Comment:Desirable LDL: less than 100 mg/dLNear Optimal/Above Optimal LDL: 110- 129 mg/dLBorderline High LDL: 130-159 mg/dLHigh LDL: 160-189 mg/dLVery High LDL: greater than or equal to 190 mg/dL HDL Cholesterol 26(L) >40 mg/dL [facility] Comment:Desirable HDL: great er than 40 mg/dL Note: This HDL assay may give artificially low results in patients with liver disease. Blood Venous blood specimen / Unknown 07/05/2024 10:03 AM EST 07/05/2024 11:02 AM EST Terrence Quintanilla MD LAB BLOOD ORDERABLES Final Resul t Performing Organization Address City/[facility]/ZIP Co de Phone Number [facility] [address] [place] [phone] * Hepatitis C Antibody with Reflex to HCV, RNA, Quantitative, Real-Time PCR (04/18/2024 11:12 AM EDT) Hepatitis C Antibody Nonreactive Nonreactive [facility] Comment:Antibodies to HCV no t detected; does not exclude early acuteHCV infection. Blood Venous blood specimen / Unknown 04/18/2024 11:12 AM EDT 04/18/2024 11:17 AM EDT us Terrence Name LAB BLOOD ORDERABLES Final Resul t [facility] [address] [place] [phone] * Hm Colonoscopy (05/08/2019 2:51 PM EDT) Colonoscopy Normal Normal Narrative Airam Delgado - 05/08/2019 2:51 PM EDT Recommended 10 year follow up Historical Provider HEALTH MAINTENANCE Final Result from Last 3 Months or Most Recently Relevant to Health Maintenance [place] [address] [address] [place] [address] STANDARD MEDICARE [facility] FULL DENTAL - [facility] FULL (MEDICAID) Care Teams Artificial Leather Calender Operator Relationship Specialty Start Date End Date Name, MD Terrence [address] [place] [address] PCP - General Family Medicine 09/14/15 Jimmy Lua FNP [address] [place], [place] Nurse Practitioner Family Medicine 05/26/23
--- OUTSIDE RECORDS SUMMARY | 2025-03-09 15:08 | XMS_ITS | Encounter Summary ---
Author Organization [employer] Address [address] [place] [address] [address] [place] [address] Care Team Providers Care Hand Funnel Coater Name Role Phone Name, Terrence YOON Primary Care Provider [phone] Jimmy Lua Unavailable Unavailable Reason for Visit * Reason Comments Med Refill Encounter Details Date Type Department Care Team (Late Contact Info) Description 04/07/2023 Refill [facility] [address] [place], [place] [phone] Jimmy Lua FNP Bipolar affective disorder in remission (CMS/[facility]) Social History Tobacco Use Types Packs/Day Years [...] Department Care Team (Late Contact Info) Description 04/04/2025 9:15 AM EDT Office Visit [facility] [address] [place], [place] [phone] Name, MD Terrence [address] [place], [place] [phone] documented as of this encounter Visit Diagnoses Diagnosis Bipolar affective disorder in remission (CMS/[facility]) documented in this encounter Additional Health Concerns Assessment Noted Time PHQ-9 Depression Total Score: 3 03/26/20 23 11:40 AM EDT documented as of this encounter Care Teams Hand Funnel Coater Relationship Specialty Start Date End Date Name, MD Terrence [address] [place] [address] PCP - General Family Medicine 09/14/15 Jimmy Lua FNP [address] [place] [address] Nurse Practitioner Family Medicine 05/26/23 documented as of this encounter
[2025-03-09 16:09] LABS: Anion Gap 12 (12-20); Blood Urea Nitrogen 14 mg/dL (9-16); Calcium 9.4 mg/dL (8.4-10.2); Carbon Dioxide 24 mmol/L (22-29); Chloride 106 mmol/L (96-108); Estimated Glomerular Filt Rate 56; Iron 73 mcg/dL (45-160); Percent Iron Saturation 33 % (15-50); Potassium 3.9 mmol/L (3.3-5.1); Sodium 138 mmol/L (135-145); Total Iron Binding Capacity 219 mcg/dL (228-428); Unsaturated Iron Binding 146 ug/dL
[2025-03-09 16:14] LABS: Ferritin 83 ng/mL (20-250); Free T4 (Free Thyroxine) 0.94 ng/dL (0.71-1.85); Thyroid Stimulating Hormone 0.58 uIU/mL (0.32-4.0)
[2025-03-09 16:37] LABS: Folate 9.8 ng/mL (> or = 4.0); Vitamin B12 829 pg/mL (200-900)
== END 2025-03-09 14:24 | disposition home or self-care (01) ==
LOC: HO.LAB 14:23
PROVIDERS: Family Medicine; PCP Internal Medicine Geriatric Medicine; Visit Provider Registered Nurse
DX: R42 Dizziness and giddiness (principal); R53.83 Other fatigue; R63.8 Other symptoms and signs concerning food and fluid intake; Z68.31 Body mass index [BMI] 31.0-31.9, adult; R55 Syncope and collapse; E05.20 Thyrotoxicosis with toxic multinodular goiter without thyrotoxic crisis or storm; I67.2 Cerebral atherosclerosis; I67.5 Moyamoya disease
CPT/HCPCS: 36415; 80048; 82306; 82565; 82607; 82728; 82746; 83540; 84439; 84443; 84520; 85027

== ENCOUNTER 2025-03-10 14:03 | Outpatient (REF) | payer MEDICARE, MEDICAID, SELFPAY ==
--- NOTE | ~2025-03-10 | CT_ITS ---
EXAMINATION: CT ANGIOGRAM BRAIN, HEAD CLINICAL INFORMATION: Cerebral atherosclerosis. COMPARISON: 07/29/2023 CT angiogram head and neck. TECHNIQUE: Noncontrast head CT was performed. Test bolus sequences followed by intravenous administration of 85 mL of Omnipaque 350 intravenous contrast. Helical imaging CTA head was performed in the axial plane from the skull base to the vertex. Delayed postcontrast imaging of the head was also performed. The data was processed at the wood technologist workstation for generation of MIP sequences. Three-dimensional volume rendered reformatted images were also generated at an offline 3-D workstation. The degree of stenosis determined by NASCET criteria. This CT examination was performed using dose optimization techniques as appropriate, variously including the following: *Automated exposure control *Adjustment of mA and/or kV according to patient size (this includes techniques or standardized protocols for targeted exams where dose is matched to indication/reason for exam; i.e. extremities or head) *Use of iterative reconstruction technique FINDINGS: NONCONTRAST HEAD CT: There is no evidence of intracranial hemorrhage or extra-axial fluid collection. There is no mass effect, or edema. No CT evidence of acute territorial infarct. Ventricles, sulci, and cisterns are normal in size and configuration for patient age. No hydrocephalus. No midline shift. Mild to moderate foci of decreased supratentorial white matter attenuation, right hemisphere predominantly, reflecting small vessel ischemic changes. Normal pituitary. Globes and orbital contents image normally. No extracranial soft tissue abnormalities. Moderate mucosal thickening seen throughout both maxillary sinuses. The remainder of the paranasal sinuses, mastoid air cells, and tympanic cavities are normally aerated. No suspicious bony abnormalities. CTA OF THE BRAIN: -INTRACRANIAL INTERNAL CAROTID ARTERIES: Significantly diminished flow related enhancement and caliber of the right internal carotid artery from the skull base to the carotid terminus. Normal flow-related of the left internal carotid artery to the level of the carotid terminus. -RIGHT ANTERIOR CEREBRAL ARTERY: Normal A1 segment. Normal arborization of the distal segments. -LEFT ANTERIOR CEREBRAL ARTERY: Occluded A1 segment. Small collaterals are noted.. The A2 segment and more distal segments appear reconstituted through the anterior communicating artery. -ANTERIOR COMMUNICATING ARTERY: Patent and normal. -RIGHT MIDDLE CEREBRAL ARTERY: Severely diminished flow related enhancement throughout the M1 segment, M2 segment and more distal segments. Right MCA flow appears to be reconstituted predominantly through collateral right NOVELTY CHAIN MAKER branches, and with likely contributions from the right RADHA branches as well. -LEFT MIDDLE CEREBRAL ARTERY: Normal M1 segment of the MCA without focal stenosis or occlusion. Normal bifurcation. Normal arborization of the distal segments. -RIGHT VERTEBRAL ARTERY V4: Normal in course and caliber. Normal PICA branch. -LEFT VERTEBRAL ARTERY V4: Normal in course and caliber. Normal PICA branch. -BASILAR ARTERY: Normal without focal stenosis or occlusion. Normal appearance of the proximal superior cerebellar arteries. Normal basilar tip. -RIGHT POSTERIOR CEREBRAL ARTERY: Normal P1 segment. Normal opacification of the distal NOVELTY CHAIN MAKER segments. Robust distal branches, likely providing collateral flow to the right MCA territory. -LEFT POSTERIOR CEREBRAL ARTERY: The P1 segment is diminutive. origin of the NOVELTY CHAIN MAKER with robust opacification of the posterior communicating artery. Normal opacification of the distal NOVELTY CHAIN MAKER segments. -POSTERIOR COMMUNICATING ARTERIES: Robust left PCOM as detailed above. The right is mildly diminutive although does demonstrate some flow related enhancement. Normal opacification of the superior sagittal, straight, transverse, and sigmoid sinuses. No venous thrombosis. No space-occupying hemorrhage or definite evolving infarct. CT/CT angio head IMPRESSION: NON-CONTRAST HEAD CT: 1. No intracranial hemorrhage or mass effect. No CT evidence of acute territorial infarct. 2. Small vessel ischemic white matter changes predominantly in the right hemisphere, right MCA territory and watershed regions. CTA HEAD: 1. Significantly diminished flow related enhancement within the right ICA extending from the skull base to the carotid terminus. Suspect more proximal stenosis in the cervical ICA. 2. Severely diminished flow related enhancement within the right MCA M1 segment and throughout the entire right MCA territory. Flow in the right MCA territory appears to be provided predominantly through right NOVELTY CHAIN MAKER collaterals. There are likely some contributions from the right RADHA as well. 3. Occluded right A1 segment RADHA with diminutive collaterals present. The right RADHA A2 segment appears to be reconstituted with normal flow related enhancement through the anterior communicating artery. Electronically signed by: Brett King MD 03/10/2025 03:39 PM EDT
[2025-03-10] MEDS: iohexoL 350 MG/ML 100 ML INFUS..BTL IV (15:10)
== END 2025-03-10 14:04 | disposition home or self-care (01) ==
LOC: HO.CT 14:03
PROVIDERS: PCP Internal Medicine Geriatric Medicine; Visit Provider Registered Nurse
DX: I67.2 Cerebral atherosclerosis (principal); I67.5 Moyamoya disease; R55 Syncope and collapse
CPT/HCPCS: 70496; Q9967

== ENCOUNTER → 2025-03-10 14:05 | Outpatient (BNV) | payer MEDICARE, MEDICAID, SELFPAY | PROVIDERS: PCP Internal Medicine Geriatric Medicine; Visit Provider Radiology Diagnostic Radiology | DX: I67.2 Cerebral atherosclerosis (principal) | CPT/HCPCS: 70496 ==

== ENCOUNTER 2025-03-20 10:43 | Outpatient (AMB) | payer MEDICARE, MEDICAID, SELFPAY ==
--- NOTE | 2025-03-20 10:45 | A.OFFVIS_ITS ---
Intake Visit Reasons: after testing Accompanied by: Spouse Allergies No Known Allergies Allergy (Verified 03/20/25 11:08) Medication List - Last Reconciled 03/20/25 by Kiara Kaufman CNP acetaminophen 500 mg PO Q8H PRN amlodipine 10 mg PO DAILY aspirin 81 mg PO DAILY atorvastatin 80 mg PO DAILY cholecalciferol (vitamin D3) 25 mcg PO DAILY 90 days [Citracal D Slow Rel Tab 80 1 tab PO BID] colchicine 0 mg PO fesoterodine ER (Toviaz) 4 mg PO DAILY 90 days hydroxyzine HCl 50 mg PO BEDTIME lisinopril 5 mg PO DAILY lithium carbonate 300 mg PO DAILY methimazole 5 mg PO DAILY omega-3 fatty acids 1,000 mg PO BEDTIME quetiapine 25 mg PO BEDTIME tadalafil 5 mg PO DAILY 90 days terazosin 5 mg PO BEDTIME 90 days HPI Comments Details: 65-year-old man with HTN, bipolar disorder, and 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 He had an episode at the end of 01/2025 where he got a sharp pain in his head and felt dizzy, and had to sit down for a few minutes until it passed. He went to lay down and slept for about 2 hours. When he woke up, he felt fine. He boone cribed the dizziness as feeling like he was going to drop. He was doing okay. No further episodes. No significant dizziness or headaches. No falls. His noted that he was forgetful at times. Sleep was okay. [facility] Medical History Hyperbilirubinemia Hyperparathyroidism Hearing problem Frequency of urination Elevated blood pressure reading in office with white coat syndrome, with diagnosis of hypertension Gout Vitamin D deficiency Toxic multinodular goiter Bipolar disorder Erectile dysfunction BPH w/o urinary obs/LUTS Abdominal wall mass Myelopathy Surgical History History of removal of cyst (07/10/23) History of surgery Family History Father Dementia Mother Diabetes Social History Household Members: Family and Children Household Members Other:: , daughters, grand children Alcohol intake: never Patient Tobacco Use Status: Former Tobacco user Review of Systems Const Denies chills, Denies daytime sleepiness, Denies difficulty sleeping, Denies fa tigue, Denies fever(s), Denies frequent falls, Denies headache(s), Denies increased appetite, Denies poor appetite, Denies snoring, Denies weakness, Denies weight gain and Denies weight loss Eyes Denies loss of vision ENT Denies vertigo, Reports dizziness and Denies headache(s) Card Denies chest pain at rest, Denies chest pain with activity, Denies syncope, Denies leg edema and Denies palpitations Resp Denies snoring GI Denies constipation, Denies heartburn, Denies diarrhea and Denies nausea Denies urinary frequency, Denies urinary incontinence and Denies urinary urgency Musc Denies abnormal gait, Denies numbness and Denies tingling Skin/Breast Denies dry skin and Denies rash Neuro Denies abnormal gait, Denies vertigo, Reports dizziness, Denies syncope, Denies frequent falls, Denies headache(s), Denies lack of coordination, Denies loss of vision, Denies memory loss, Denies numbness, Denies restless legs, Denies seizure-like activity, Denies tingling, Denies paresthesias, Denies tremor(s) and Denies weakness Psych Denies anxiety, Denies depression, Denies auditory hallucinations, Denies memory loss, Denies visual hallucinations and Denies suicidal ideation Endo Denies fatigue and Denies palpitations Physical Exam Const Other: General Appearance:? normal, in no acute distress. Skin:? no rashes, no significant birthmarks. Heart:? S1, S2 normal, no murmurs. Lungs:? clear anteriorly and posteriorly. Extremities:? no edema. Psych:? alert, oriented, cognitive function intact, cooperative with exam. Neuro Other: Mental Status:?Normal attention, orientation, and affect.? Cranial Nerves:?Pupils are equal, round and reactive to light. External occular muscles are intact. Visual nava are full. Face is symmetrical. Facial sensations are normal. Tongue is midline. Palate elevates symmetrically. Shoulder shrugging is normal. Hearing to bedside conversation is normal. Sensory Exam:?....? Coordination:?No ataxia,?no titubation.? Gait Exam: Within normal limits. Extrapyramidal System:?No tremor, rigidity with normal facial expressions.? Pronator Drift:?Not present.? Involuntary Movements:?No tremors seen.? Speech:?Normal.? Results Reviewed Results Reviewed: [address] [address] [address] Scan Report Signed Patient: Kong Hogue MR#: [id number] : 1960 Acct:[id number] Age/Sex: 65 / M ADM Date: 03/10/25 Loc: HO.CT Attending Dr: Kiara Kaufman CNP Ordering Physician: Kiara Kaufman CNP Date of Service: 03/10/25 Procedure(s): CT angio head Accession Number(s): [id number] cc: Name,Terrence YOON; Kiara Kaufman CNP~ Report Number: [id number]: Total DLP = 1409.00 mGy-cm EXAMINATION: CT ANGIOGRAM BRAIN, HEAD CLINICAL INFORMATION: Cerebral atherosclerosis. COMPARISON: 07/29/2023 CT angiogram head and neck. TECHNIQUE: Noncontrast head CT was performed. Test bolus sequences followed by intravenous administration of 85 mL of Omnipaque 350 intravenous contrast. Helical imaging CTA head was performed in the axial plane from the skull base to the vertex. Delayed postcontrast imaging of the head was also performed. The data was processed at the cytotechnologist/histotechnologist workstation for generation of MIP sequences. Three-dimensional volume rendered reformatted images were also generated at an offline 3-D workstation. The degree of stenosis determined by NASCET criteria. This CT examination was performed using dose optimization techniques as appropriate, variously including the following: *Automated exposure control *Adjustment of mA and/or kV according to patient size (this includes techniques or standardized protocols for targeted exams where dose is matched to indication/reason for exam; i.e. extremities or head) *Use of iterative reconstruction technique FINDINGS: NONCONTRAST HEAD CT: There is no evidence of intracranial hemorrhage or extra-axial fluid collection. There is no mass effect, or edema. No CT evidence of acute territorial infarct. Ventricles, sulci, and cisterns are normal in size and configuration for patient age. No hydrocephalus. No midline shift. Mild to moderate foci of decreased supratentorial white matter attenuation, right hemisphere predominantly, reflecting small vessel ischemic changes. Normal pituitary. Globes and orbital contents image normally. No extracranial soft tissue abnormalities. Moderate mucosal thickening seen throughout both maxillary sinuses. The remainder of the paranasal sinuses, mastoid air cells, and tympanic cavities are normally aerated. No suspicious bony abnormalities. CTA OF THE BRAIN: -INTRACRANIAL INTERNAL CAROTID ARTERIES: Significantly diminished flow related enhancement and caliber of the right internal carotid artery from the skull base to the carotid terminus. Normal flow-related of the left internal carotid artery to the level of the carotid terminus. -RIGHT ANTERIOR CEREBRAL ARTERY: Normal A1 segment. Normal arborization of the distal segments. -LEFT ANTERIOR CEREBRAL ARTERY: Occluded A1 segment. Small collaterals are noted.. The A2 segment and more distal segments appear reconstituted through the anterior communicating artery. -ANTERIOR COMMUNICATING ARTERY: Patent and normal. -RIGHT MIDDLE CEREBRAL ARTERY: Severely diminished flow related enhancement throughout the M1 segment, M2 segment and more distal segments. Right MCA flow appears to be reconstituted predominantly through collateral right UNDERWATER HUNTER TRAPPER branches, and with likely contributions from the right RADHA branches as well. -LEFT MIDDLE CEREBRAL ARTERY: Normal M1 segment of the MCA without focal stenosis or occlusion. Normal bifurcation. Normal arborization of the distal segments. -RIGHT VERTEBRAL ARTERY V4: Normal in course and caliber. Normal PICA branch. -LEFT VERTEBRAL ARTERY V4: Normal in course and caliber. Normal PICA branch. -BASILAR ARTERY: Normal without focal stenosis or occlusion. Normal appearance of the proximal superior cerebellar arteries. Normal basilar tip. -RIGHT POSTERIOR CEREBRAL ARTERY: Normal P1 segment. Normal opacification of the distal UNDERWATER HUNTER TRAPPER segments. Robust distal branches, likely providing collateral flow to the right MCA territory. -LEFT POSTERIOR CEREBRAL ARTERY: The P1 segment is diminutive. origin of the UNDERWATER HUNTER TRAPPER with robust opacification of the posterior communicating artery. Normal opacification of the distal UNDERWATER HUNTER TRAPPER segments. -POSTERIOR COMMUNICATING ARTERIES: Robust left PCOM as detailed above. The right is mildly diminutive although does demonstrate some flow related enhancement. Normal opacification of the superior sagittal, straight, transverse, and sigmoid sinuses. No venous thrombosis. No space-occupying hemorrhage or definite evolving infarct. CT/CT angio head IMPRESSION: NON-CONTRAST HEAD CT: 1. No intracranial hemorrhage or mass effect. No CT evidence of acute territorial infarct. 2. Small vessel ischemic white matter changes predominantly in the right hemisphere, right MCA territory and watershed regions. CTA HEAD: 1. Significantly diminished flow related enhancement within the right ICA extending from the skull base to the carotid terminus. Suspect more proximal stenosis in the cervical ICA. 2. Severely diminished flow related enhancement within the right MCA M1 segment and throughout the entire right MCA territory. Flow in the right MCA territory appears to be provided predominantly through right UNDERWATER HUNTER TRAPPER collaterals. There are likely some contributions from the right RADHA as well. 3. Occluded right A1 segment RADHA with diminutive collaterals present. The right RADHA A2 segment appears to be reconstituted with normal flow related enhancement through the anterior communicating artery. Electronically signed by: Brett King MD 03/10/2025 03:39 PM EDT Laboratory Tests 03/09/25 14:34 WBC 11.8 H RBC 5.45 Hgb 16.3 Hct 48.0 MCV 88.1 MCH 29.9 MCHC 34.0 RDW 13.1 Plt Count 356 MPV 8.3 L Absolute Nucleated RBC 0.000 Nucleated RBC % (auto) 0.0 Sodium 138 Potassium 3.9 Chloride 106 Carbon Dioxide 24 Anion Gap 12 BUN 14 Creatinine 1.28 Estimated GFR 56 Random Glucose 144 H Calcium 9.4 Iron 73 TIBC 219 L % Saturation 33 Unsat Iron Binding 146 Ferritin 83 Vitamin B12 829 25-OH Vitamin D Total 50.4 Folate 9.8 TSH 0.58 Free T4 0.94 [place] [address] Electroencephalogram Report Signed Patient: Kong Hogue MR#: [id number] : 1960 Acct:[id number] Age/Sex: 65 / M ADM Date: 02/24/25 Loc: HO.NEURO Attending Dr: Miryam Martines MD Ordering Physician: Kiara Kaufman CNP Date of Service: 02/24/25 Procedure(s): EEG electroencephalogram Accession Number(s): [id number] cc: Name,Terrence YOON~ This is a 16 channel EEG with an EKG lead. Patient is reported awake during the tracing. Background EEG rhythm is low to medium amplitude mixed theta beta with no obvious asymmetry or paroxysmal tendency. Photic stimulation does not produce any significant driving. Hyperventilation does not produce any signific ant changes. Cardiac lead does not reveal any significant abnormality. Impression: Mild generalized slowing with no evidence of seizure disorder. Dictated By: Miryam Martines MD Signed By: <Electronically signed by Miryam Martines MD> -- [place] [facility] [place]: WNL CTA brain at [facility] [place] Jul 2023: R M1 and A1 occlussion with William William pattern, diminished flow in right hemisphere. MRI brain WO at [facility] [place] Apr 2023: R MCA area scattered embolic looking chronic infarcts with possible R intracavernous ICA stenosis Assessment & Plan Assessment & Plan (1) History of cerebral infarction: Code(s): Z86.73 - Personal history of transient ischemic attack (TIA), and cerebral infarction without residual deficits Category: Medical Plan: CTA reviewed, no significant change from prior exam in 07/2023. EEG and lab results reviewed. Continue low dose aspirin and statin. (2) Intracranial atherosclerosis: Code(s): I67.2 - Cerebral atherosclerosis Category: Medical (3) Moyamoya syndrome: Code(s): I67.5 - Moyamoya disease Category: Medical (4) Pre-syncope: Code(s): R55 - Syncope and collapse Category: Medical Plan . Coding Level of Care Code Est Pt Level 4 (42139) Diagnoses History of cerebral infarction Z86.73 Intracranial atherosclerosis I67.2 Moyamoya syndrome I67.5 Pre-syncope R55
--- OUTSIDE RECORDS SUMMARY | 2025-03-20 12:57 | XMS_ITS | Clinical Summary ---
Author Organization [employer] Address [address] [facility] [facility] [address] [place] [address] Care Team Providers Care News Video Editor Name Role Phone Name, Terrence YOON Primary Care Provider Jimmy Lua Unavailable Unavailable Allergies No known active allergies Medications * This document contains information received from the source organization and may not represent a complete record from that organization. Calcium-Magnesiu m-Vitamin D (CITRACAL CALCIUM+D PO) Take 1 tablet by mouth in the morning and 1 tablet in the evening. 02/02/2023 Active oxybutynin XL (Ditropan-XL) 15 MG 24 hr tablet Take 15 mg by mouth Once per day. 01/14/2023 Active methIMAzole (Tapazole) 5 MG tablet Take 2.5 mg by mouth Once per day. 07/01/2023 Active Vitamin D High Potency 25 MCG (1000 UT) capsule TAKE 1 CAPSULE BY MOUTH EVERY MORNING 90 capsule 1 08/17/2023 Active atorvastatin (Lipitor) 80 MG tabletIndication s:Cerebrovascula r accident (CVA), unspecified mechanism (CMS/HCC) Take 1 tablet (80 mg) by mouth Once per day. 30 tablet 11 06/03/2024 06/03/20 25 Active hydrALAZINE (Apresoline) 25 MG tablet Take 1 tablet (25 mg) by mouth 2 times daily. 60 tablet 11 12/15/2024 Active acetaminophen (Tylenol 8 Hour) 650 MG ER tablet Take 1 tablet (650 mg) by mouth every 8 (eight) hours if needed for mild pain. Do not crush, chew, or split. 30 tablet 12/16/2024 Active lithium 300 MG tabletIndication s:Bipolar affective disorder in remission (CMS/HCC) Take 1 tablet (300 mg) by mouth in the morning. 90 tablet 3 01/04/2025 Active QUEtiapine (SEROquel) 25 MG tablet Take 3 tablets (75 mg) by mouth at bedtime. 270 tablet 3 01/23/2025 Active hydrOXYzine HCl (Atarax) 50 MG tabletIndication s:Bipolar affective disorder, remission status unspecified (CMS/HCC) TAKE 1 TABLET BY MOUTH AT BEDTIME NEEDED 30 tablet 02/08/2025 Active Active Problems Problem Noted Date Diagnosed [...] 3:17 PM EDT): Had been stable on [place] 600 mg daily for a long time, seemed to continue well-controlled with decreased [place] 300 mg. However developed marked insomnia and hypomania. He resumed [place] 300 mg 2 tabs daily but developed tremor. Pt was extremely resistant to change in medications, but did agree to gradual uptaper of Seroquel now 75 mg at bedtime and decreased [place] 300 mg once at bedtime. Pt says the tremor has resolved and his mood is fine. Continue Seroquel 75 mg at bedtime, [place] 300 mg 1 at bedtime. Since this provider will be retiring, he will be transferred to new psychiatric prescriber. Meanwhile, prescriptions were sent for his medications with 1 year of refills. Any issues or concerns, contact [facility]. All his questions were answered. I have wished him well. Pt agrees with the plan. Assessment & Plan (09/22/2023 12:27 PM EDT): Had been stable on [place] 600 mg daily for a long time, seemed to continue well-controlled with decreased [place] 300 mg. However developed marked insomnia and hypomania. He resumed [place] 300 mg 2 tabs daily but developed tremor. Pt was extremely resistant to change in medications, but did agree to gradual uptaper of Seroquel now 75 mg at bedtime and decreased [place] 300 mg once at bedtime. Pt says the tremor has resolved and his mood is fine. Continue Seroquel 75 mg at bedtime, [place] 300 mg 1 at bedtime. On 06/25/2023 provider informed the patient and caregiver that I would be retiring, and we would make every effort to plan smooth transition of care. Meanwhile, F/U with me in 2 months. Pt agrees with the plan. Assessment & Plan (07/28/2023 1:35 PM EST): Had been stable on [place] 600 mg daily for a long time, seemed to continue well-controlled with decreased [place] 300 mg. However developed marked insomnia and hypomania. He resumed [place] 300 mg 2 tabs daily but developed tremor. Pt was extremely resistant to change in medications, but did agree to gradual uptaper of Seroquel now 75 mg at bedtime and decreased [place] 300 mg once at bedtime. Pt says the tremor has resolved and his mood is fine. Continue Seroquel 75 mg at bedtime, [place] 300 mg 1 at bedtime. On 06/25/2023 provider informed the patient and caregiver that I would be retiring, and we would make every effort to plan smooth transition of care. Meanwhile, F/U with me in 6-8 weeks. Pt agrees with the plan. Assessment & Plan (01/26/2023 9:45 AM EDT): Progress Note: Kong is a 62-year-old, Togolese speaking male that was referred for a [...] this time. Planned for case consult with [facility] psychopharmacology clinic. Assessment: Patient with [...] family support PLAN: 1. Follow up with [facility] EM[facility]Y [facility]: Recommended for follow-up: Post [facility] psychopharmacology consult 2. Patient goal is to reengage in medication management services 3. Behavioral Recommendations a. Break tasks down to smaller goals b. Slowly increase goals c. PTSD jed- deep breathing, progressive muscle relaxation Assessment & Plan (10/20/2022 3:33 PM EDT): Had been stable on [place] 600 mg daily for a long time, seemed to continue well-controlled with decreased [place] 300 mg. However developed marked insomnia and hypomania which is now improved with resumption of [place] 300 mg 2 tabs daily. Unfortunately, new [...] 3:11 PM EST): Had been stable on [place] 600 mg daily for a long time, seemed to continue well-controlled with decreased [place] 300 mg. However developed marked insomnia and hypomania which is now improved with resumption of [place] 300 mg 2 tabs daily. Had also been taking Quetiapine 25 mg at bedtime but that was not dispensed by the pharmacy since May and he is still doing well without it, with adequate sleep. Unfortunately has developed tremor of the right hand, which may be a S/E of the lithium. Will do labs arlen for [place] level and metabolic profile. Meanwhile continue medications [...] 11:46 AM EST): Had been stable on [place] 600 mg daily for a long time, seemed to continue well-controlled with decreased [place] 300 mg. However developed marked insomnia and hypomania. He resumed [place] 300 mg 2 tabs daily but developed tremor. Pt was extremely resistant to change in medications, but did agree to gradual uptaper of Seroquel now 75 mg at bedtime and decreased [place] 300 mg once at bedtime. Pt says the tremor has resolved and his mood is fine. His agrees that the tremor is now controlled, and his behavior is fine. Last time mentioned new onset abnormal movements of mouth, but that seems to have resolved. Continue Seroquel 75 mg at bedtime, [place] 300 mg 1 at bedtime. Today 06/25/2023 provider informed the patient and caregiver that I would be retiring in approx 1/2 year. F/U with me in 1 month. Pt and Caregiver agree with plan. Assessment & Plan (05/26/2023 11:33 AM EST): Had been stable on [place] 600 mg daily for a long time, seemed to continue well-controlled with decreased [place] 300 mg. However developed marked insomnia and hypomania. He resumed [place] 300 mg 2 tabs daily but developed tremor. Pt was extremely resistant to change in medications, but did agree to gradual uptaper of Seroquel now 75 mg at bedtime and decreased [place] 300 mg once at bedtime. Pt says [...] now, continue Seroquel 75 mg at bedtime, [place] 300 mg 1 at bedtime. F/U with me in 1 month. Pt and Caregiver agree with plan. Assessment & Plan (03/26/2023 12:08 PM EDT): Had been stable on [place] 600 mg daily for a long time, seemed to continue well-controlled with decreased [place] 300 mg. However developed marked insomnia and hypomania. He resumed [place] 300 mg 2 tabs daily but developed [...] that he will need to stop taking [place]. Will decrease to [place] 300 mg 1 at bedtime. F/U for Neurological evaluation as soon as can be arranged. F/U with me in 3 weeks. Pt and Caregiver agree with plan. Assessment & Plan (03/05/2023 12:35 PM EDT): Had been stable on [place] 600 mg daily for a long time, seemed to continue well-controlled with decreased [place] 300 mg. However developed marked insomnia and hypomania. He resumed [place] 300 mg 2 tabs daily but developed [...] the tremor is almost certainly r/t the [place], will not stop the [place] until mood is better controlled, so continue [place] 300 mg 2 at bedtime. For any safety concerns call 911. F/U with me in 3 weeks. Pt and Caregiver agree with plan. Assessment & Plan (01/27/2023 3:00 PM EDT): Had been stable on [place] 600 mg daily for a long time, seemed to continue well-controlled with decreased [place] 300 mg. However developed marked insomnia and hypomania. He resumed [place] 300 mg 2 tabs daily but developed tremor, which has persisted. He also has experienced marked worsening of mood with anhedonia, tearfulness, low motivation. Patient's presentation today is markedly incongruent with presentation at various [facility] and ED visits recently, and with reports of his , clinician, and providers. Pt expresses strong desire not to stop [place]. Suspect he is denying symptoms in order to discourage provider from changing his medication. Reviewed with the patient that the tremor was almost certainly a S/E of lithium. Also, his mood was not adequately controlled. In conjunction with patient, developed plan to start new medication: Seroquel 25 mg 1/2 tab at bedtime for a few nights then 1 full tab at bedtime. Continue [place] as usual for now. Expect to titrate up the Seroquel until mood was stable, then we would gradually decrease the [place]. He is agreeable to this plan. It was also reviewed with his . F/U 2-3 weeks. Call sooner as needed. He agrees with the plan. Assessment & Plan (01/25/2023 5:22 PM EDT): Previously following in [facility] Psychopharm clinic with TIFF Lua. Last appt October 2022, pt did not show to appt in November 2022 Continues on lithium 300mg BID [place] level therapeutic during ED visit in December [...] organization. Date Type Department Care Team Description 03/10/2025 Orders Only [facility] External Provider, [facility] 02/08/2025 Refill [facility] MEDICINE [address] [place] [address] Name, MD Terrence Bipolar affective disorder, remission status unspecified ([facility]) 01/23/2025 Refill [facility] [address] [place] [address] NameTerrence MD 01/04/2025 Refill [facility] [address] [place] [address] Name, MD Terrence Bipolar affective disorder, remission status unspecified ([facility]); Bipolar affective disorder in remission ([facility]) 12/26/2024 Telephone [facility] MED[facility] [address] [place] [address] Tracy Wright MA march recalls from Last 3 Months Immunizations Immunization Administration [...] the past 12 months, has t he [employer] 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, 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 or 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 company threatened to [...] Description 04/04/2025 9:15 AM EDT Office Visit [facility] MED[facility] [address] [place] [address] Name, MD Terrence [address] [place] [address] 06/20/2025 9:00 AM EST Office Visit [facility] ADULT DENTAL [address] [place], [place] [id number] Brandon Adkinsaris [address] [place] [address] Health Maintenance Due Date Last Done Comments CT Colonography 1958 FIT DNA/Cologuard 1960 FIT 1960 FOBT 1960 Sigmoidoscopy 1960 Dental Prophylaxis 12/16/2024 06/16/2024, 05/15/2023 COVID-19 Vaccine ( season) 2025 05/22/2021, 11/17/2020, 10/27/2020 Influenza Vaccine (#1) 2025 , 05/25/2023, 04/19/2021, [...] Procedure Name Priority Date/Time Associated Diagnosis Comments CTA HEAD W AND WO CONTRAST Routine 03/10/2025 2:19 PM EDT IRON AND TOTAL IRON BINDING CAPACITY Routine 03/09/2025 2:34 PM EDT Dizziness Other symptoms and signs concerning food and fluid intake FERRITIN Routine 03/09/2025 2:34 PM EDT Dizziness Other symptoms and signs concerning food and fluid intake VITAMIN B12/FOLATE, SERUM PANEL Routine 03/09/2025 2:34 PM EDT Dizziness BASIC METABOLIC PANEL Routine 03/09/2025 2:34 PM EDT Dizziness CBC Routine 03/09/2025 2:34 PM EDT Dizziness VITAMIN D,25-OH,TOTAL,IA Routine 03/09/2025 2:34 PM EDT Dizziness Body mass index (BMI) 31.0-31.9, adult TSH Routine 03/09/2025 2:34 PM EDT Dizziness Other fatigue T4, FREE Routine 03/09/2025 2:34 PM EDT Dizziness Other fatigue PERIODIC ORAL EVALUATION - ESTABLISHED PATIENT Routine 12/16/2024 3:00 PM EDT BITEWING - SINGLE RADIOGRAPHIC IMAGE Routine [...] Recently Relevant to Health Maintenance Results * CTA Head w/ and w/o Contrast (03/10/2025 2:19 PM EDT) Anatomical Region Laterality Modality Head, Neck Computed Tomogra phy 03/10/2025 2:19 PM EDT Narrative 03/10/2025 3:42 PM EDT [place] [address] [address] Scan Report Signed Patient: Kong Hogue MR#: [id number] 8 : 1960 Acct:[id number] Age/Sex: 65 / M ADM Date: 03/10/25 Loc: HO.CT Attending Dr: Kiara Kaufman CNP Ordering Physician: Kiara Kaufman CNP Date of Service: 03/10/25 Procedure(s): CT angio head Accession Number(s): [id number] cc: Socorro,Terrence YOON; Kaira Kaufman CNP Report Number: [id number]: Total DLP = 1409.00 mGy-cm EXAMINATION: CT ANGIOGRAM BRAIN, HEAD CLINICAL INFORMATION: Cerebral atherosclerosis. COMPARISON: 07/29/2023 CT angiogram head and neck. TECHNIQUE: Noncontrast head CT was performed. Test bolus sequences followed by intravenous administration of 85 mL of Omnipaque 350 intravenous contrast. Helical imaging CTA head was performed in the axial plane from the skull base to the vertex. Delayed postcontrast imaging of the head was also performed. The data was processed at the anesthesiology technologist workstation for generation of MIP sequences. Three-dimensional volume rendered reformatted images were also generated at an offline 3-D workstation. The degree of stenosis determined by NASCET criteria. This CT examination was performed using dose optimization techniques as appropriate, variously including the following: *Automated exposure control *Adjustment of mA and/or kV according to patient size (this includes techniques or standardized protocols for targeted exams where dose is matched to indication/reason for exam; i.e. extremities or head) *Use of iterative reconstruction technique FINDINGS: NONCONTRAST HEAD CT: There is no evidence of intracranial hemorrhage or extra-axial fluid collection. There is no mass effect, or edema. No CT evidence of acute territorial infarct. Ventricles, sulci, and cisterns are normal in size and configuration for patient age. No hydrocephalus. No midline shift. Mild to moderate foci of decreased supratentorial white matter attenuation, right hemisphere predominantly, reflecting small vessel ischemic changes. Normal pituitary. Globes and orbital contents image normally. No extracranial soft tissue abnormalities. Moderate mucosal thickening seen throughout both maxillary sinuses. The remainder of the paranasal sinuses, mastoid air cells, and tympanic cavities are normally aerated. No suspicious bony abnormalities. CTA OF THE BRAIN: -INTRACRANIAL INTERNAL CAROTID ARTERIES: Significantly diminished flow related enhancement and caliber of the right internal carotid artery from the skull base to the carotid terminus. Normal flow-related of the left internal carotid artery to the level of the carotid terminus. -RIGHT ANTERIOR CEREBRAL ARTERY: Normal A1 segment. Normal arborization of the distal segments. -LEFT ANTERIOR CEREBRAL ARTERY: Occluded A1 segment. Small collaterals are noted.. The A2 segment and more distal segments appear reconstituted through the anterior communicating artery. -ANTERIOR COMMUNICATING ARTERY: Patent and normal. -RIGHT MIDDLE CEREBRAL ARTERY: Severely diminished flow related enhancement throughout the M1 segment, M2 segment and more distal segments. Right MCA flow appears to be reconstituted predominantly through collateral right SCREEN CUTTER AND TRIMMER branches, and with likely contributions from the right RADHA branches as well. -LEFT MIDDLE CEREBRAL ARTERY: Normal M1 segment of the MCA without focal stenosis or occlusion. Normal bifurcation. Normal arborization of the distal segments. -RIGHT VERTEBRAL ARTERY V4: Normal in course and caliber. Normal PICA branch. -LEFT VERTEBRAL ARTERY V4: Normal in course and caliber. Normal PICA branch. -BASILAR ARTERY: Normal without focal stenosis or occlusion. Normal appearance of the proximal superior cerebellar arteries. Normal basilar tip. -RIGHT POSTERIOR CEREBRAL ARTERY: Normal P1 segment. Normal opacification of the distal SCREEN CUTTER AND TRIMMER segments. Robust distal branches, likely providing collateral flow to the right MCA territory. -LEFT POSTERIOR CEREBRAL ARTERY: The P1 segment is diminutive. origin of the SCREEN CUTTER AND TRIMMER with robust opacification of the posterior communicating artery. Normal opacification of the distal SCREEN CUTTER AND TRIMMER segments. -POSTERIOR COMMUNICATING ARTERIES: Robust left PCOM as detailed above. The right is mildly diminutive although does demonstrate some flow related enhancement. Normal opacification of the superior sagittal, straight, transverse, and sigmoid sinuses. No venous thrombosis. No space-occupying hemorrhage or definite evolving infarct. CT/CT angio head IMPRESSION: NON-CONTRAST HEAD CT: 1. No intracranial hemorrhage or mass effect. No CT evidence of acute territorial infarct. 2. Small vessel ischemic white matter changes predominantly in the right hemisphere, right MCA territory and watershed regions. CTA HEAD: 1. Significantly diminished flow related enhancement within the right ICA extending from the skull base to the carotid terminus. Suspect more proximal stenosis in the cervical ICA. 2. Severely diminished flow related enhancement within the right MCA M1 segment and throughout the entire right MCA territory. Flow in the right MCA territory appears to be provided predominantly through right SCREEN CUTTER AND TRIMMER collaterals. There are likely some contributions from the right RADHA as well. 3. Occluded right A1 segment RADHA with diminutive collaterals present. The right RADHA A2 segment appears to be reconstituted with normal flow related enhancement through the anterior communicating artery. Electronically signed by: Brett King MD 03/10/2025 03:39 PM EDT Dictated By: Brett King MD Signed By: <Electronically signed by Brett King MD in OV> 03/10/25 1539 DD/ 1419 TD/TT: 03/10/25 1511 Dispatcher Motor Vehicle: Procedure Note Donotuseinterpreter, Image - 03/10/[address] [address] [address] Scan Report Signed Patient: MykelPercyReema#: [id number] 8 : 8Acct:[id number] Age/Sex: 65 / MADM Date: 03/10/25 Loc: HO.CT Attending Dr: Kiara Kaufman CNP Ordering Physician: Kiara Kaufman CNP Date of Service: 03/10/25 Procedure(s): CT angio head Accession Number(s): [id number] cc: Name,Terrence YOON; Kiara Kaufman CNP Report Number: [id number]: Total DLP = 1409.00 mGy-cm EXAMINATION: CT ANGIOGRAM BRAIN, HEAD CLINICAL INFORMATION: Cerebral atherosclerosis. COMPARISON: 07/29/2023 CT angiogram head and neck. TECHNIQUE: Noncontrast head CT was performed. Test bolus sequences followed by intravenous administration of 85 mL of Omnipaque 350 intravenous contrast. Helical imaging CTA head was performed in the axial plane from the skull base to the vertex. Delayed postcontrast imaging of the head was also performed. The data was processed at the anesthesiology technologist workstation for generation of MIP sequences. Three-dimensional volume rendered reformatted images were also generated at an offline 3-D workstation. The degree of stenosis determined by NASCET criteria. This CT examination was performed using dose optimization techniques as appropriate, variously including the following: *Automated exposure control *Adjustment of mA and/or kV according to patient size (this includes techniques or standardized protocols for targeted exams where dose is matched to indication/reason for exam; i.e. extremities or head) *Use of iterative reconstruction technique FINDINGS: NONCONTRAST HEAD CT: There is no evidence of intracranial hemorrhage or extra-axial fluid collection. There is no mass effect, or edema. No CT evidence of acute territorial infarct. Ventricles, sulci, and cisterns are normal in size and configuration for patient age. No hydrocephalus. No midline shift. Mild to moderate foci of decreased supratentorial white matter attenuation, right hemisphere predominantly, reflecting small vessel ischemic changes. Normal pituitary. Globes and orbital contents image normally. No extracranial soft tissue abnormalities. Moderate mucosal thickening seen throughout both maxillary sinuses. The remainder of the paranasal sinuses, mastoid air cells, and tympanic cavities are normally aerated. No suspicious bony abnormalities. CTA OF THE BRAIN: -INTRACRANIAL INTERNAL CAROTID ARTERIES: Significantly diminished flow related enhancement and caliber of the right internal carotid artery from the skull base to the carotid terminus. Normal flow-related of the left internal carotid artery to the level of the carotid terminus. -RIGHT ANTERIOR CEREBRAL ARTERY: Normal A1 segment. Normal arborization of the distal segments. -LEFT ANTERIOR CEREBRAL ARTERY: Occluded A1 segment. Small collaterals are noted.. The A2 segment and more distal segments appear reconstituted through the anterior communicating artery. -ANTERIOR COMMUNICATING ARTERY: Patent and normal. -RIGHT MIDDLE CEREBRAL ARTERY: Severely diminished flow related enhancement throughout the M1 segment, M2 segment and more distal segments. Right MCA flow appears to be reconstituted predominantly through collateral right SCREEN CUTTER AND TRIMMER branches, and with likely contributions from the right RADHA branches as well. -LEFT MIDDLE CEREBRAL ARTERY: Normal M1 segment of the MCA without focal stenosis or occlusion. Normal bifurcation. Normal arborization of the distal segments. -RIGHT VERTEBRAL ARTERY V4: Normal in course and caliber. Normal PICA branch. -LEFT VERTEBRAL ARTERY V4: Normal in course and caliber. Normal PICA branch. -BASILAR ARTERY: Normal without focal stenosis or occlusion. Normal appearance of the proximal superior cerebellar arteries. Normal basilar tip. -RIGHT POSTERIOR CEREBRAL ARTERY: Normal P1 segment. Normal opacification of the distal SCREEN CUTTER AND TRIMMER segments. Robust distal branches, likely providing collateral flow to the right MCA territory. -LEFT POSTERIOR CEREBRAL ARTERY: The P1 segment is diminutive. origin of the SCREEN CUTTER AND TRIMMER with robust opacification of the posterior communicating artery. Normal opacification of the distal SCREEN CUTTER AND TRIMMER segments. -POSTERIOR COMMUNICATING ARTERIES: Robust left PCOM as detailed above. The right is mildly diminutive although does demonstrate some flow related enhancement. Normal opacification of the superior sagittal, straight, transverse, and sigmoid sinuses. No venous thrombosis. No space-occupying hemorrhage or definite evolving infarct. CT/CT angio head IMPRESSION: NON-CONTRAST HEAD CT: 1. No intracranial hemorrhage or mass effect. No CT evidence of acute territorial infarct. 2. Small vessel ischemic white matter changes predominantly in the right hemisphere, right MCA territory and watershed regions. CTA HEAD: 1. Significantly diminished flow related enhancement within the right ICA extending from the skull base to the carotid terminus. Suspect more proximal stenosis in the cervical ICA. 2. Severely diminished flow related enhancement within the right MCA M1 segment and throughout the entire right MCA territory. Flow in the right MCA territory appears to be provided predominantly through right SCREEN CUTTER AND TRIMMER collaterals. There are likely some contributions from the right RADHA as well. 3. Occluded right A1 segment RADHA with diminutive collaterals present. The right RADHA A2 segment appears to be reconstituted with normal flow related enhancement through the anterior communicating artery. Electronically signed by: Brett King MD 03/10/2025 03:39 PM EDT Dictated By: Brett King MD Signed By: <Electronically signed by Brett King MD in OV> 03/10/25 1539 DD/ 1419 TD/TT: 03/10/25 1511 Dispatcher Motor Vehicle: [facility] External Provider IMG CT PROCEDURES Final Result * Vitamin D, 25-Hydroxy, Total, Immunoassay (03/09/2025 2:34 PM EDT) Vitamin D 25-OH Total 50.4 >30 ng/mL [facility] Comment: Health Based Reference Values*< 20 ng/mL Jpfxcunop92-55 ng/mL Insufficient> 30 ng/mL Sufficient*Funmi VUONG. N Engl J Med. 2007;357:266-280There is no well-established upper level of normal vitamin Dlevels. Some laboratories use 50 ng/mL as an upper limit ofnormal. However, toxicity is patient-dependent and may occurat any level. Careful correlation with the patient'spresentation is necessary and, if there is concern forvitamin D toxicity, treatment should be consideredirrespective of the serum level.Care must be taken in interpreting Vitamin D results fromdifferent laboratories and methodologies. Published datademonstrated that results from patients undergoinghemodialysis may show a negative bias when tested withvarious automated 25-OH vitamin D assays when compared toLC-MS/MS.When testing samples from patients whose predominant form ofVitamin D is Vitamin D2, such as patients receiving VitaminD2 supplementation, results that are subtherapeutic shouldbe confirmed with another method such as LC-MS/MS. Blood Venous blood specimen / Unknown 03/09/2025 2:34 PM EDT 03/09/2025 2:34 PM EDT Kaity Amador DO LAB BLOOD ORDERABLES Final R esult [facility] [address] [place] [phone] * Vitamin B12 (Cobalamin) and Folate Panel, Serum (03/09/2025 2:34 PM EDT) Vitamin B12 829 200 - 900 pg/mL [facility] Comment:NORMAL 200-900 PG/ML INDETERMINATE 160-199 PG/ML DEFICIENT < 160 PG/ML Folate 9.8 > or = 4.0 ng/mL [facility] Comment:Reference Values:> o r = 4.0 ng/mL< 4.0 ng/mL suggests folate deficiency Methotrexate, aminopterin and folinic acid(leucovorin) are chemotherapeutic agents whose molecularstructures are similar to folate; therefore, the Architectfolate assay cannot be used for patients using these drugs. Blood 03/09/2025 2:34 PM EDT 03/09/2025 2:34 PM EDT us Kaity Amador [facility] LAB BLOOD ORDERABLES Final R esult Performing Organization Address [facility] Co de Phone Number [facility] [address] [place] [phone] * (ABNORMAL) Iron And Total Iron Binding Capacity (03/09/2025 2:34 PM EDT) Iron 73 45 - 160 mcg/dL [facility] Total Iron Binding Capacity 219(L) 228 - 428 mcg/dL [facility] Percent Iron Saturation 33 15 - 50 % [facility] Unsaturated Iron Binding 146 ug/dL [facility] Blood Venous blood specimen / Unknown 03/09/2025 2:34 PM EDT 03/09/2025 2:34 PM EDT us Kaity Amador LAB BLOOD ORDERABLES Final R esult Performing Organization Address [facility]/ZIP Co de Phone Number [facility] [address] [place] [phone] * (ABNORMAL) CBC (03/09/2025 2:34 PM EDT) White Blood Count 11.8(H) 4.8 - 10.8 X10*3/uL [facility] Red Blood Count 5.45 4.60 - 5.80 X10*6/uL [facility] Hemoglobin 16.3 14.0 - 18.0 g/dl [facility] Hematocrit 48.0 42.0 - 52.0 % [facility] Mean Corpuscular Volume 88.1 80.0 - 98.0 fL [facility] Mean Corpuscular Hemoglobin 29.9 27.0 - 33.0 pg [facility] Mean Corpuscular HGB Conc 34.0 31.0 - 36.0 g/dl [facility] Red Cell Distribution Width 13.1 11.0 - 16.0 % [facility] Platelet Count 356 160 - 400 X10*3/uL [facility] Mean Platelet Volume 8.3(L) 9.4 - 12.4 fL [facility] NRBC Pct Auto 0.0 0.0 - 0.2 /100WBC [facility] NRBC Abs Auto 0.000 0.0 - 0.012 X10*3/uL [facility] Blood Venous blood specimen / Unknown 03/09/2025 2:34 PM EDT 03/09/2025 2:34 PM EDT us Kaity Amador DO LAB BLOOD ORDERABLES Final R esult [facility] [address] [place] [phone] * TSH (03/09/2025 2:34 PM EDT) Thyroid Stimulating Hormone 0.58 0.32 - 4.0 uIU/mL [facility] Comment:TSH 3rd Generation ( [facility]) Blood Venous blood specimen / Unknown 03/09/2025 2:34 PM EDT 03/09/2025 2:34 PM EDT Kaity Amador LAB BLOOD ORDERABLES Final R esult Performing Organization Address City/[facility]/ZIP Co de Phone Number [facility] [address] [place] [phone] * T4, Free (03/09/2025 2:34 PM EDT) Pathologist [facility] Free T4 (Free Thyroxine) 0.94 0.71 - 1.85 ng/dL [facility] Blood Venous blood specimen / Unknown 03/09/2025 2:34 PM EDT 03/09/2025 2:34 PM EDT Kaity Denisesteviecale LAB BLOOD ORDERABLES Final R esult Performing Organization Address City/[facility]/ZIP Co de Phone Number [facility] [address] [place] [phone] * Ferritin (03/09/2025 2:34 PM EDT) Pathologist [facility] Ferritin 83 20 - 250 ng/mL [facility] Blood Venous blood specimen / Unknown 03/09/2025 2:34 PM EDT 03/09/2025 2:34 PM EDT Kaity Amador LAB BLOOD ORDERABLES Final R esult Performing Organization Address [facility]/ZIP Co de Phone Number [facility] [address] [place] [phone] * (ABNORMAL) Basic Metabolic Panel (03/09/2025 2:34 PM EDT) Pathologist [facility] Sodium 138 135 - 145 mmol/L [facility] Potassium 3.9 3.3 - 5.1 mmol/L [facility] Chloride 106 96 - 108 mmol/L [facility] Carbon Dioxide 24 22 - 29 mmol/L [facility] Anion Gap 12 12 - 20 [facility] Urea Nitrogen (BUN) 14 9 - 16 mg/dL [facility] Creatinine, Serum 1.28 0.5 - 1.4 mg/dL [facility] Estimated Glomerular Filt Rate 56 [facility] Comment:Chronic Kidney Disea se: Estimated GFR < 60 mL/min/1.32l0Cptish Kidney Disease: Estimated GFR < 15 mL/min/1.73m2 Glucose 144(H) 60 - 115 mg/dL [facility] Calcium 9.4 8.4 - 10.2 mg/dL [facility] Blood Venous blood specimen / Unknown 03/09/2025 2:34 PM EDT 03/09/2025 2:34 PM EDT us Kaity Amador DO LAB BLOOD ORDERABLES Final R esult [facility] [address] [place] [phone] * (ABNORMAL) Lipid Panel, Standard (07/05/2024 10:03 AM EST) Triglycerides 74 <150 mg/dL [facility] Comment:Desirable Triglyceri de: less than 150 mg/dLBorderline High Triglyceride 150-199 mg/dLHigh Triglyceride: 200-499 mg/dLVery High Triglyceride: greater than or equal to 5OO mg/dL Cholesterol 91 <200 mg/dL [facility] Comment:Desirable Cholestero l: less than 200 mg/dLBorderline High Cholesterol: 200-239 mg/dLHigh Cholesterol: greater than 239 mg/dL LDL Cholesterol Calculated 51 <100 mg/dL [facility] Comment:Desirable LDL: less than 100 mg/dLNear Optimal/Above Optimal LDL: 110- 129 mg/dLBorderline High LDL: 130-159 mg/dLHigh LDL: 160-189 mg/dLVery High LDL: greater than or equal to 190 mg/dL HDL Cholesterol 26(L) >40 mg/dL [facility] Comment:Desirable HDL: great er than 40 mg/dL Note: This HDL assay may give artificially low results in patients with liver disease. Blood Venous blood specimen / Unknown 07/05/2024 10:03 AM EST 07/05/2024 11:02 AM EST Terrence Quintanilla MD LAB BLOOD ORDERABLES Final Resul t Performing Organization Address [facility] Co de Phone Number [facility] [address] [place] [phone] * Hepatitis C Antibody with Reflex to HCV, RNA, Quantitative, Real-Time PCR (04/18/2024 11:12 AM EDT) Hepatitis C Antibody Nonreactive Nonreactive [facility] Comment:Antibodies to HCV no t detected; does not exclude early acuteHCV infection. Blood Venous blood specimen / Unknown 04/18/2024 11:12 AM EDT 04/18/2024 11:17 AM EDT Terrence Quintanilla MD LAB BLOOD ORDERABLES Final Resul t Performing Organization Address [facility] Co de Phone Number [facility] [address] [place] [phone] * Hm Colonoscopy (05/08/2019 2:51 PM EDT) Colonoscopy Normal Normal Narrative Airam Delgado - 05/08/2019 2:51 PM EDT Recommended 10 year follow up Historical Provider HEALTH MAINTENANCE Final Result from Last 3 Months or Most Recently Relevant to Health Maintenance Insurance [facility] STANDARD MEDICARE HSN FULL DENTAL - HSN FULL (MEDICAID) Care Teams News Video Editor Relationship Specialty Start Date End Date Name, MD Terrence [address] [place] [phone] PCP - General Family Medicine 09/14/15 Jimmy Lua FNP [address] [place] [address] Nurse Practitioner Family Medicine 05/26/23
--- OUTSIDE RECORDS SUMMARY | 2025-03-20 12:57 | XMS_ITS | Encounter Summary ---
Author Organization [employer] Address [address] [facility] 7t [place] [address] Care Team Providers Care Button Sawyer Name Role Phone Name, Terrence YOON Primary Care Provider [phone] Jimmy Lua Unavailable Unavailable Reason for Visit * Reason Comments Med Refill Encounter Details Date Type Department Care Team (Late Contact Info) Description 04/07/2023 Refill [facility] [address] [place], [place] [phone] Jimmy Lua FNP Bipolar affective disorder in remission (CMS/HCC) Social History Tobacco Use Types Packs/Day [...] Description 04/04/2025 9:15 AM EDT Office Visit [facility] [address] [place], [place] [phone] Name, MD Terrence [address] [place] [address] 06/20/2025 9:00 AM EST Office Visit [facility] ADULT DENTAL [address] [place] [address] Aliyah Adkins [address] [place] [address] documented as of this encounter Visit Diagnoses Diagnosis Bipolar affective disorder in remission (CMS/HCC) documented in this encounter Additional Health Concerns Assessment Noted Time PHQ-9 Depression Total Score: 3 03/26/20 11:40 AM EDT documented as of this encounter Care Teams Button Sawyer Relationship Specialty Start Date End Date Name, MD Terrence [address] [place] [address] PCP - General Family Medicine 09/14/15 Jimmy Lua FNP [address] [place] [phone] Nurse Practitioner Family Medicine 05/26/23 documented as of this encounter
--- OUTSIDE RECORDS SUMMARY | 2025-03-20 12:57 | XMS_ITS | Encounter Summary ---
Author Organization [employer] Address [address] [facility] 7t [place] [address] Care Team Providers Care Packer Dried Beef Name Role Phone Name, Terrence YOON Primary Care Provider [phone] Jimmy Lua Unavailable Unavailable Encounter Details Date Type Department Care Team (Late Contact Info) Description 10/01/2022 Orders Only [facility] [address] [place], [place] [phone] Kaity Seymour LPN Social History Tobacco Use [...] Description 04/04/2025 9:15 AM EDT Office Visit [facility] [address] [place] [address] [phone] Name, MD Terrence [address] [place] [phone] 06/20/2025 9:00 AM EST Office Visit [facility] ADULT DENT[facility] [address] [place] [address] Aliyah Adkins [address] [place] [address] documented as of this encounter Visit Diagnoses Not on filedocumented in this encounter Additional Health Concerns Assessment Noted Time PHQ-9 Depression Total Score: 0 07/22/19 23 1:53 PM EST documented as of this encounter Care Teams Packer Dried Beef Relationship Specialty Start Date End Date Name, [place] [address] PCP - General Family Medicine 09/14/15 Jimmy [place] [address] Nurse Practitioner Family Medicine 05/26/23 documented as of this encounter
--- OUTSIDE RECORDS SUMMARY | 2025-03-20 12:57 | XMS_ITS | Encounter Summary ---
Author Organization [employer] Address [address] [facility] 7t [place] [address] Care Team Providers Care Otr Van Cdl Truck Driver Name Role Phone Name, Terrence YOON Primary Care Provider [phone] Jimmy Lua Unavailable Unavailable Reason for Visit * Reason Comments Med Refill Encounter Details Date Type Department Care Team ([facility] Contact Info) Description 06/02/2024 Refill [facility] [address] [place], [place] [phone] Name, MD Terrence [address] [place] [address] Cerebrovascular accident (CVA), unspecified mechanism (CMS/HCC) Social [...] Description 04/04/2025 9:15 AM EDT Office Visit [facility] [address] [place] [address] Name, MD Terrence [address] [place] [phone] 06/20/2025 9:00 AM EST Office Visit [facility] ADULT DENTAL [address] [place] [phone] Brandon Adkinsaris [address] [place] [address] documented as of this encounter Visit Diagnoses Diagnosis Cerebrovascular accident (CVA), unspecified mechanism (CMS/HCC) documented in this encounter Additional Health Concerns Assessment Noted Time PHQ-9 Depression Total Score: 0 09/22/19 24 11:18 AM EDT documented as of this encounter Care Teams Otr Van Cdl Truck Driver Relationship Specialty Start Date End Date Name, MD Terrence [address] [place] [address] PCP - General Family Medicine 09/14/15 Jimmy Lua FNP [address] [place] [address] Nurse Practitioner Family Medicine 05/26/23 documented as of this encounter
--- OUTSIDE RECORDS SUMMARY | 2025-03-20 12:57 | XMS_ITS | Encounter Summary ---
Author Organization [employer] Address [address] [facility] [address] 7[address] [place] [address] Care Team Providers Care Table Tender Name Role Phone Name, Terrence YOON Primary Care Provider [phone] Jimmy Lua Unavailable Unavailable Reason for Visit * Reason Comments Med Refill Encounter Details Date Type Department Care Team ([facility] st Contact Info) Description 05/29/2023 Refill [facility] [address] [place], [place] [phone] Name, MD Terrence [address] [place] [address] Social History Tobacco Use Types Packs/Day Years [...] Description 04/04/2025 9:15 AM EDT Office Visit [facility] [address] [place] [address] Name, MD Terrence [address] [place] [phone] 06/20/2025 9:00 AM EST Office Visit [facility] ADULT DENT[facility] [address] [place] [phone] Aliyah Adkins [address] [place] [address] documented as of this encounter Visit Diagnoses Not on filedocumented in this encounter Additional Health Concerns Assessment Noted Time PHQ-9 Depression Total Score: 0 05/26/20 23 10:22 AM EST documented as of this encounter Care Teams Table Tender Relationship Specialty Start Date End Date Name, MD Terrence [address] [place] [phone] PCP - General Family Medicine 09/14/15 Jimmy Lua FNP [address] [place] [phone] Nurse Practitioner Family Medicine 05/26/23 documented as of this encounter
--- OUTSIDE RECORDS SUMMARY | 2025-03-20 12:57 | XMS_ITS | Encounter Summary ---
Author Organization [employer] Address [address] [place] [address] 7t [place] [address] Care Team Providers Care Assistant Guest Services Manager Name Role Phone Name, Terrence YOON Primary Care Provider [phone] Jimmy Lua Unavailable Unavailable Encounter Details Date Type Department Care Team (Late st Contact Info) Description 11/28/2022 Abstract [facility] [address] [place] [phone] NameTerrence MD [address] [place] [address] [phone] Social History Tobacco Use Types Packs/Day Years [...] Description 04/04/2025 9:15 AM EDT Office Visit [facility] [address] [place] [address] [phone] NameTerrence MD [address] [place] [address] [phone] 06/20/2025 9:00 AM EST Office Visit [facility] ADULT DENTAL [address] [place] [address] [phone] Aliyah Adkins [address] [place] [address] documented as of this encounter Procedures Procedure [...] documented as of this encounter Care Teams Assistant Guest Services Manager Relationship Specialty Start Date End Date Name, MD Terrence [address] [place] [address] PCP - General Family Medicine 09/14/15 Jimmy Lua FNP [address] [place] [address] Nurse Practitioner Family Medicine 05/26/23 documented as of this encounter
--- OUTSIDE RECORDS SUMMARY | 2025-03-20 12:57 | XMS_ITS | Encounter Summary ---
Author Organization [employer] [facility] Address [address] [place] [address] 7t [place] [address] Care Team Providers Care Tester [employer] Name Role Phone Name, Terrence YOON Primary Care Provider [phone] Jimmy Lua Unavailable Unavailable Encounter Details Date Type Department Care Team (Late st Contact Info) Description 01/06/2023 Orders Only [facility] [address] [place] [phone] Karmen Ulrich LPN Social History Tobacco Use [...] Description 04/04/2025 9:15 AM EDT Office Visit [facility] [address] [place], [place] [phone] Name, MD Terrence [address] [place] [address] 06/20/2025 9:00 AM EST Office Visit [facility] ADULT DENTAL [address] [place], [place] [phone] Aliyah Adkins [address] [place], [place] [phone] documented as of this encounter Visit Diagnoses Not on filedocumented in this encounter Additional Health Concerns Assessment Noted Time PHQ-9 Depression Total Score: 0 10/21/19 23 2:06 PM EDT documented as of this encounter Care Teams Tester [employer] Pack[employer] Relationship Specialty Start Date End Date Name, MD Terrence [address] [place] [address] PCP - General Family Medicine 09/14/15 Jimmy Lua FNP [address] [place] [address] Nurse Practitioner Family Medicine 05/26/23 documented as of this encounter
== END 2025-03-20 11:21 | disposition home or self-care (01) ==
LOC: HO.HSM 10:43
PROVIDERS: PCP Internal Medicine Geriatric Medicine; Visit Provider Registered Nurse
DX: Z86.73 Personal history of transient ischemic attack (TIA), and cerebral infarction without residual deficits (principal); I67.2 Cerebral atherosclerosis; I67.5 Moyamoya disease; R55 Syncope and collapse
CPT/HCPCS: 99214

== ENCOUNTER → 2025-03-20 10:43 | Outpatient (BNVA) | payer MEDICARE, MEDICAID, SELFPAY | PROVIDERS: PCP Internal Medicine Geriatric Medicine; Visit Provider Registered Nurse | DX: I67.2 Cerebral atherosclerosis (principal); I67.5 Moyamoya disease; Z86.73 Personal history of transient ischemic attack (TIA), and cerebral infarction without residual deficits; R55 Syncope and collapse; Z79.82 Long term (current) use of aspirin; Z87.891 Personal history of nicotine dependence | CPT/HCPCS: 99212 ==

== ENCOUNTER 2025-03-24 09:42 | Outpatient (AMB) | payer MEDICARE, MEDICAID, SELFPAY ==
--- NOTE | 2025-03-24 09:47 | MHC.OFFVIS ---
Intake Visit Reasons: cysto Intake Note: Patient is present for Cystoscopy Urology Medication:TERAZOSIN,FESOTERODINE,TADALAFIL Antibiotic Allergy:NONE Blood Thinner:NONE LAST PVR: 83ML'S Sanitizer Required: No Accompanied by: Self / Same As Patient Allergies No Known Allergies Allergy (Verified 03/24/25 09:48) HPI Comments Details: Kong is a very pleasant male. He is a patient of Dr Quintanilla. He is seen for the following issues - erectile dysfunction - lower urinary tract symptoms - urinary urgency frequency Here for cystoscopy to check bladder emptying Prior PVR 90 cc Had previously been on medications for urinary urgency and frequency Detrusor hyperactivity with impaired contractility Prior good response to Toviaz for urinary urgency and frequency Continue with terazosin and tadalafil for erection and bladder stability Cystoscopy showed open bladder neck from prior procedure Was able to close sphincter Recommend continued bladder floor exercises Erectile dysfunction Effective management with Cialis 5 mg daily Had discussed use of vacuum pump for penile shortening No longer an issue - had cancer Lower urinary tract symptoms Laser procedure on prostate 2016 Did develop urgency frequency Background bipolar with long-term lithium PSA 08/04 1.52 Prior medications oxybutynin 10 mg daily, tolterodine Cystoscopy 2020 open bladder neck with minimal erythema in bladder PFSH Medical History Hyperbilirubinemia Hyperparathyroidism Hearing problem Frequency of urination Elevated blood pressure reading in office with white coat syndrome, with diagnosis of hypertension Gout Vitamin D deficiency Toxic multinodular goiter Bipolar disorder Erectile dysfunction BPH w/o urinary obs/LUTS Abdominal wall mass Myelopathy Surgical History History of removal of cyst (07/10/23) History of surgery Family History Father Dementia Mother Diabetes Social History Household Members: Family and Children Household Members Other:: , daughters, grand children Alcohol intake: never Patient Tobacco Use Status: Former Tobacco user Review of Systems Const Denies chills and Denies fever(s) Card Reports no additional complaints and Denies syncope Resp Denies cough GI Denies abdominal pain and Denies heartburn Reports as per HPI and Denies change in libido Neuro Denies syncope Psych Denies change in libido Endo Denies change in libido Physical Exam Const General: cooperative, healthy appearing, comfortable and no acute distress Orientation/consciousness: patient oriented x3 HEENT Face and sinus: Yes normal facial exam Mouth: moist mucous membranes Neck Neck: Yes normal visual inspection, Yes full ROM and Yes trachea midline Chest Chest palpation & inspection: normal inspection of the chest Resp Effort & Inspection: normal respiratory effort, able to speak in complete sentences and no respiratory distress GI Inspection: Yes normal to inspection Back/Spine/Pelvis Cervical Spine: normal cervical lordosis Thoracic/Lumbar Spine: thoracic and lumbar spine normal to inspection Skin General skin exam: no rashes or lesions noted Neuro General: patient oriented x3, gait normal, tone normal and moves all extremities Extrem General: Yes normal to inspection and Yes capillary refill normal Office Procedures Cystoscopy Consent Discussed risk and benefit or proposed procedure with the patient. Information consent for procedure given to the patient. Discussed technical aspects, risks, benefits and alternatives in full. Addressed all of the patient's questions and concerns regarding the procedure. The patient demonstrated knowledge and understanding. They wish to proceed with this procedure. Preparation The patient was prepped in the usual manner. A commodity broker was present and in the room. Genitalia was prepped with betadine solution in a sterile manner. Lidocaine Jelly 2% was placed into the urethra and 16Fr flexible Olympus cystoscope was inserted into the meatus after adequate lubrication. Procedure Cystoscopy performed using a disposable Urovue digital 16 Gibraltarian cystoscope. Meatus uncircumcised Urethra anterior and posterior urethra normal - able to adequately close external sphincter Prostatic Urethra TURP defect Bladder examination with retroflexion of cystoscope Bladder Orifices normal shape and position Bladder Capacity Normal Trabeculations Grade 0 Cellule Formation None Diverticulum Formation None Mucosal Erythema None Bladder Tumor None [id number] DISPOSABLE SCOPE URO-G FLEXIBLE SCOPE Procedure code (CPT) selection complete Office Meds lidocaine HCl 2 % mucosal jelly in applicator Performing Provider: Mal Nelson MD [place] [facility] [place] [facility] Documented (not given) by: Mal Nelson MD on 03/24/25 10:52 Dose Route Admin Location Dispensed Lot Number Expiration Date [facility] Laboratory Assistant 10 mL intra-urethral mL nitrofurantoin monohydrate/macrocrystals 100 mg capsule Performing Provider: Mal Nelson MD [place]forming [place] [place] [facility] Documented (not given) by: Mal Nelson MD on 03/24/25 10:52 Dose Route Admin Location Dispensed Lot Number Expiration Date [facility] Laboratory Assistant 100 mg PO cap Assessment & Plan Assessment & Plan (1) Male stress incontinence: Code(s): N39.3 - Stress incontinence (female) (male) Category: Medical (2) BPH w/o urinary obs/LUTS: Code(s): N40.0 - Benign prostatic hyperplasia without lower urinary tract symptoms Category: Medical (3) Urinary urgency: Code(s): R39.15 - Urgency of urination Category: Medical (4) Bladder instability: Code(s): N32.89 - Other specified disorders of bladder Category: Medical Plan Pelvic floor exercise Orders: Orders AMB Cystoscopy Today N40.0 - Benign prostatic hyperplasia without lower urinary tract symptoms Medications: New lidocaine HCl 2% 10 mL intra-urethral ONCE 10 mL 0RF N40.0 - Benign prostatic hyperplasia without lower urinary tract symptoms nitrofurantoin monohyd/m-cryst 100 mg 100 mg PO ONCE 1 cap 0RF N40.0 - Benign prostatic hyperplasia without lower urinary tract symptoms Patient Instructions: This note is constructed using voice recognition software. While every effort has been made to ensure accuracy forensic science examiner errors may have been included. Imaging studies, laboratory and physical exam results were discussed and reviewed in detail. No major barriers to patient understanding were identified. An opportunity to ask questions regarding the treatment plan was provided. All questions were answered. The patient expressed understanding and agreement with the above treatment plan. The patient is aware they should contact our office by phone for worsening of their current condition or the appearance of new urologic symptoms. Compliance is encouraged with any medications and followup testing that is ordered. It is a privilege to participate in the urologic care of your patient. If you have any questions or concerns regarding treatment for the above conditions, or other urologic issues, please do not hesitate to contact me. The office telephone contact is [phone]. Sincerely, Dr Mal Nelson MD, [facility] - Urology Compassionate Specialist Care for the Genitourinary System Coding Level of Care Code Est Pt Level 3 (90420) Complex EM visit Add On G2211 Diagnoses Male stress incontinence N39.3 BPH w/o urinary obs/LUTS N40.0 Urinary urgency R39.15 Bladder instability N32.89 CPT Codes Cystoscopy - CPT: [id number] ([id number])
--- OUTSIDE RECORDS SUMMARY | 2025-03-24 10:51 | XMS_ITS | Encounter Summary ---
Author Organization [employer] Address [address] [facility] [place] [address] Care Team Providers Care Technical Associate Name Role Phone Name, Terrence YOON Primary Care Provider [phone] Jimmy Lua Unavailable Unavailable Reason for Visit * Reason Comments Med Refill Encounter Details Date Type Department Care Team ([facility] Contact Info) Description 05/29/2023 Refill [facility] [address] [place], [place] [phone] Name, MD Terrence [address] [place] [address] Social History Tobacco Use Types Packs/Day Years [...] 04/04/2025 9:15 AM EDT Office Visit [facility] [address] [place] [phone] Name, MD Terrence [address] [place] [phone] 06/20/2025 9:00 AM EST Office Visit [facility] ADULT DENTAL [address] [place] [phone] Aliyah Adkins [address] [place] [address] documented as of this encounter Visit Diagnoses Not on filedocumented in this encounter Additional Health Concerns Assessment Noted Time PHQ-9 Depression Total Score: 0 05/26/20 23 10:22 AM EST documented as of this encounter Care Teams Technical Associate Relationship Specialty Start Date End Date Name, MD Terrence [address] [place] [address] PCP - General Family Medicine 09/14/15 Jimmy Lua FNP [address] [place] [address] Nurse Practitioner Family Medicine 05/26/23 documented as of this encounter
--- OUTSIDE RECORDS SUMMARY | 2025-03-24 10:51 | XMS_ITS | Encounter Summary ---
Author Organization [employer] Address [address] [facility] 7t [place] [address] Care Team Providers Care Wader Boot Top Assembler Name Role Phone Name, Terrence YOON Primary Care Provider [phone] Jimmy Lua Unavailable Unavailable Encounter Details Date Type Department Care Team (Late Contact Info) Description 10/01/2022 Orders Only [facility] PEDS [address] [place], [place] [phone] Kaity Seymour LPN Social History Tobacco Use [...] Description 04/04/2025 9:15 AM EDT Office Visit [facility] [address] [place] [address] [phone] Name, MD Terrence [address] [place] [address] 06/20/2025 9:00 AM EST Office Visit [facility] ADULT DENTAL [address] [place] [address] Aliyah Adkins [address] [place] [address] documented as of this encounter Visit Diagnoses Not on filedocumented in this encounter Additional Health Concerns Assessment Noted Time PHQ-9 Depression Total Score: 0 07/22/19 23 1:53 PM EST documented as of this encounter Care Teams Wader Boot Top Assembler Relationship Specialty Start Date End Date Name, [place] [address] PCP - General Family Medicine 09/14/15 [place] [address] Nurse Practitioner Family Medicine 05/26/23 documented as of this encounter
--- OUTSIDE RECORDS SUMMARY | 2025-03-24 10:51 | XMS_ITS | Encounter Summary ---
Author Organization [employer] Address [address] [facility] 7t [place] [address] Care Team Providers Care Fine Dining Server Name Role Phone Name, Terrence YOON Primary Care Provider [phone] Jimmy Lua Unavailable Unavailable Reason for Visit * Reason Comments Med Refill Encounter Details Date Type Department Care Team ([facility] Contact Info) Description 06/02/2024 Refill [facility] [address] [place], [place] [phone] Name, MD Terrence [address] [place] [address] Cerebrovascular accident (CVA), unspecified mechanism (CMS/HCC) Social [...] EDT Office Visit [facility] [address] [place] [phone] Name, MD Terrence [address] [place] [address] 06/20/2025 9:00 AM EST Office Visit [facility] ADULT DENTAL [address] [place] [phone] Brandon Adkinsaris [address] [place] [address] documented as of this encounter Visit Diagnoses Diagnosis Cerebrovascular accident (CVA), unspecified mechanism (CMS/HCC) documented in this encounter Additional Health Concerns Assessment Noted Time PHQ-9 Depression Total Score: 0 09/22/19 24 11:18 AM EDT documented as of this encounter Care Teams Fine Dining Server Relationship Specialty Start Date End Date Name, MD Terrence [address] [place] [address] PCP - General Family Medicine 09/14/15 Jimmy Lua FNP [address] [place] [address] Nurse Practitioner Family Medicine 05/26/23 documented as of this encounter
--- OUTSIDE RECORDS SUMMARY | 2025-03-24 10:51 | XMS_ITS | Encounter Summary ---
Author Organization [employer] Address [address] [facility] 7t [place] [address] Care Team Providers Care Firefighter Type One Name Role Phone Name, Terrence YOON Primary Care Provider [phone] Jimmy Lua Unavailable Unavailable Reason for Visit * Reason Comments Med Refill Encounter Details Date Type Department Care Team (Late Contact Info) Description 04/07/2023 Refill [facility] PEDS [address] [place], [place] [phone] Jimmy Lua FNP Bipolar affective disorder in [...] EDT Office Visit [facility] [address] [place], [place] [phone] Name, MD Terrence [address] [place] [address] 06/20/2025 9:00 AM EST Office Visit [facility] ADULT DENTAL [address] [place] [address] Aliyah Adkins [address] [place] [address] documented as of this encounter Visit Diagnoses Diagnosis Bipolar affective disorder in remission (CMS/HCC) documented in this encounter Additional Health Concerns Assessment Noted Time PHQ-9 Depression Total Score: 3 03/26/20 11:40 AM EDT documented as of this encounter Care Teams Firefighter Type One Relationship Specialty Start Date End Date Name, MD Terrence [address] [place] [address] PCP - General Family Medicine 09/14/15 Jimmy Lua FNP [address] [place] [address] Nurse Practitioner Family Medicine 05/26/23 documented as of this encounter
--- OUTSIDE RECORDS SUMMARY | 2025-03-24 10:51 | XMS_ITS | Encounter Summary ---
Author Organization [employer] [facility] Address [address] [place] [address] [address] [place] [address] Care Team Providers Care Crepe Machine Operator Name Role Phone Name, Terrence YOON Primary Care Provider [phone] Jimmy Lua Unavailable Unavailable Encounter Details Date Type Department Care Team (Late st Contact Info) Description 01/06/2023 Orders Only [facility] [address] [place] [phone] Kamren Ulrich LPN Social History Tobacco Use Types [...] Description 04/04/2025 9:15 AM EDT Office Visit [facility] [address] [place], [place] [phone] Name, MD Terrence [address] [place] [address] 06/20/2025 9:00 AM EST Office Visit [facility] ADULT DENTAL [address] [place], [place] [phone] Aliyah Adkins [address] [place], [place] [phone] documented as of this encounter Visit Diagnoses Not on filedocumented in this encounter Additional Health Concerns Assessment Noted Time PHQ-9 Depression Total Score: 0 10/21/19 23 2:06 PM EDT documented as of this encounter Care Teams Crepe Machine Operator Relationship Specialty Start Date End Date Name, MD Terrence [address] [place] [address] PCP - General Family Medicine 09/14/15 Jimmy Lua FNP [address] [place] [address] Nurse Practitioner Family Medicine 05/26/23 documented as of this encounter
--- OUTSIDE RECORDS SUMMARY | 2025-03-24 10:51 | XMS_ITS | Clinical Summary ---
Author Organization [employer] Address [address] [facility] [address] [place] [address] Care Team Providers Care Bilingual Hr Generalist Name Role Phone Name, Terrence YOON Primary Care Provider [phone] Jimmy Lua Unavailable Unavailable Allergies No known [...] 3:17 PM EDT): Had been stable on Chico 600 mg daily for a long time, seemed to continue well-controlled with decreased Chico 300 mg. However developed marked insomnia and hypomania. He resumed Chico 300 mg 2 tabs daily but developed tremor. Pt was extremely resistant to change in medications, but did agree to gradual uptaper of Seroquel now 75 mg at bedtime and decreased Chico 300 mg once at bedtime. Pt says the tremor has resolved and his mood is fine. Continue Seroquel 75 mg at bedtime, Chico 300 mg 1 at bedtime. Since this provider will be retiring, he will be transferred to new psychiatric prescriber. Meanwhile, prescriptions were sent for his medications with 1 year of refills. Any issues or concerns, contact [facility]. All his questions were answered. I have wished him well. Pt agrees with the plan. Assessment & Plan (09/22/2023 12:27 PM EDT): Had been stable on Chico 600 mg daily for a long time, seemed to continue well-controlled with decreased Chico 300 mg. However developed marked insomnia and hypomania. He resumed Chico 300 mg 2 tabs daily but developed tremor. Pt was extremely resistant to change in medications, but did agree to gradual uptaper of Seroquel now 75 mg at bedtime and decreased Chico 300 mg once at bedtime. Pt says the tremor has resolved and his mood is fine. Continue Seroquel 75 mg at bedtime, Chico 300 mg 1 at bedtime. On 06/25/2023 provider informed the patient and caregiver that I would be retiring, and we would make every effort to plan smooth transition of care. Meanwhile, F/U with me in 2 months. Pt agrees with the plan. Assessment & Plan (07/28/2023 1:35 PM EST): Had been stable on Chico 600 mg daily for a long time, seemed to continue well-controlled with decreased Chico 300 mg. However developed marked insomnia and hypomania. He resumed Chico 300 mg 2 tabs daily but developed tremor. Pt was extremely resistant to change in medications, but did agree to gradual uptaper of Seroquel now 75 mg at bedtime and decreased Chico 300 mg once at bedtime. Pt says the tremor has resolved and his mood is fine. Continue Seroquel 75 mg at bedtime, Chico 300 mg 1 at bedtime. On 06/25/2023 [...] this time. Planned for case consult with [facility] psychopharmacology clinic. Assessment: Patient with history [...] family support PLAN: 1. Follow up with [facility]: Recommended for follow-up: Post [facility] psychopharmacology consult 2. Patient goal is to reengage in medication management services 3. Behavioral Recommendations a. Break tasks down to smaller goals b. Slowly increase goals c. PTSD jed- deep breathing, progressive muscle relaxation Assessment & Plan (10/20/2022 3:33 PM EDT): Had been stable on Chico 600 mg daily for a long time, seemed to continue well-controlled with decreased Chico 300 mg. However developed marked insomnia and hypomania which is now improved with resumption of Chico 300 mg 2 tabs daily. Unfortunately, new [...] 3:11 PM EST): Had been stable on Chico 600 mg daily for a long time, seemed to continue well-controlled with decreased Chico 300 mg. However developed marked insomnia and hypomania which is now improved with resumption of Chico 300 mg 2 tabs daily. Had also been taking Quetiapine 25 mg at bedtime but that was not dispensed by the pharmacy since May and he is still doing well without it, with adequate sleep. Unfortunately has developed tremor of the right hand, which may be a S/E of the lithium. Will do labs arlen for Chico level and metabolic profile. Meanwhile continue medications [...] 11:46 AM EST): Had been stable on Chico 600 mg daily for a long time, seemed to continue well-controlled with decreased Chico 300 mg. However developed marked insomnia and hypomania. He resumed Chico 300 mg 2 tabs daily but developed tremor. Pt was extremely resistant to change in medications, but did agree to gradual uptaper of Seroquel now 75 mg at bedtime and decreased Chico 300 mg once at bedtime. Pt says the tremor has resolved and his mood is fine. His agrees that the tremor is now controlled, and his behavior is fine. Last time mentioned new onset abnormal movements of mouth, but that seems to have resolved. Continue Seroquel 75 mg at bedtime, Chico 300 mg 1 at bedtime. Today 06/25/2023 provider informed the patient and caregiver that I would be retiring in approx 1/2 year. F/U with me in 1 month. Pt and Caregiver agree with plan. Assessment & Plan (05/26/2023 11:33 AM EST): Had been stable on Chico 600 mg daily for a long time, seemed to continue well-controlled with decreased Chico 300 mg. However developed marked insomnia and hypomania. He resumed Chico 300 mg 2 tabs daily but developed tremor. Pt was extremely resistant to change in medications, but did agree to gradual uptaper of Seroquel now 75 mg at bedtime and decreased Chico 300 mg once at bedtime. Pt says [...] now, continue Seroquel 75 mg at bedtime, Chico 300 mg 1 at bedtime. F/U with me in 1 month. Pt and Caregiver agree with plan. Assessment & Plan (03/26/2023 12:08 PM EDT): Had been stable on Chico 600 mg daily for a long time, seemed to continue well-controlled with decreased Chico 300 mg. However developed marked insomnia and hypomania. He resumed Chico 300 mg 2 tabs daily but developed [...] that he will need to stop taking Chico. Will decrease to Chico 300 mg 1 at bedtime. F/U for Neurological evaluation as soon as can be arranged. F/U with me in 3 weeks. Pt and Caregiver agree with plan. Assessment & Plan (03/05/2023 12:35 PM EDT): Had been stable on Chico 600 mg daily for a long time, seemed to continue well-controlled with decreased Chico 300 mg. However developed marked insomnia and hypomania. He resumed Chico 300 mg 2 tabs daily but developed [...] the tremor is almost certainly r/t the Chico, will not stop the Chico until mood is better controlled, so continue Chico 300 mg 2 at bedtime. For any safety concerns call 911. F/U with me in 3 weeks. Pt and Caregiver agree with plan. Assessment & Plan (01/27/2023 3:00 PM EDT): Had been stable on Chico 600 mg daily for a long time, seemed to continue well-controlled with decreased Chico 300 mg. However developed marked insomnia and hypomania. He resumed Chico 300 mg 2 tabs daily but developed tremor, which has persisted. He also has experienced marked worsening of mood with anhedonia, tearfulness, low motivation. Patient's presentation today is markedly incongruent with presentation at various [facility] and ED visits recently, and with reports of his , clinician, and providers. Pt expresses strong desire not to stop Chico. Suspect he is denying symptoms in order to discourage provider from changing his medication. Reviewed with the patient that the tremor was almost certainly a S/E of lithium. Also, his mood was not adequately controlled. In conjunction with patient, developed plan to start new medication: Seroquel 25 mg 1/2 tab at bedtime for a few nights then 1 full tab at bedtime. Continue Chico as usual for now. Expect to titrate up the Seroquel until mood was stable, then we would gradually decrease the Chico. He is agreeable to this plan. It was also reviewed with his . F/U 2-3 weeks. Call sooner as needed. He agrees with the plan. Assessment & Plan (01/25/2023 5:22 PM EDT): Previously following in [facility] Psychopharm clinic with TIFF Lua. Last appt October 2022, pt did not show to appt in November 2022 Continues on lithium 300mg BID Chico level therapeutic during ED visit in December [...] Department Care Team Description 03/10/2025 Orders Only [facility] External Provider, [facility] 02/08/2025 Refill [facility] MEDICINE [address] [place] [address] Name, MD Terrence Bipolar affective disorder, remission status unspecified ([facility]) 01/23/2025 Refill [facility] P[facility] [address] [place] [address] NameTerrence MD 01/04/2025 Refill [facility] MED[facility] [address] [place] [address] Name, MD Terrence Bipolar affective disorder, remission status unspecified ([facility]); Bipolar affective disorder in remission ([facility]) 12/26/2024 Telephone [facility] MED[facility]INE [address] [place] [address] Tracy Wright MA march recalls from Last [...] the past 12 months, has t he [employer], gas, oil or water company threatened to [...] Description 04/04/2025 9:15 AM EDT Office Visit [facility] MEDICINE [address] [place] [address] Name, MD Terrence [address] [place] [address] 06/20/2025 9:00 AM EST Office Visit [facility] ADULT DENTAL [address] [place], [place] [phone] Brandon Adkinsaris [address] [place] [address] Health Maintenance Due Date Last Done Comments [...] PM EDT Narrative 03/10/2025 3:42 PM EDT [place] [address] [address] Scan Report Signed Patient: Kong Hogue MR#: [id number] 8 : 1960 Acct:[id number] Age/Sex: 65 / M ADM Date: 03/10/25 Loc: HO.CT Attending Dr: Kiara Kaufman CNP Ordering Physician: Kiara Kaufman CNP Date of Service: 03/10/25 Procedure(s): CT angio head Accession Number(s): [id number] cc: Socorro,Terrence YOON; Kiara Kaufman CNP Report Number: [id number]: Total DLP = 1409.00 mGy-cm EXAMINATION: CT [...] performed. The data was processed at the seating and mobility technologist workstation for generation of MIP sequences. [...] to be reconstituted predominantly through collateral right MANAGER INTENS[facility] [facility]IT branches, and with likely contributions from the [...] P1 segment. Normal opacification of the distal MANAGER INTENS[facility] [employer] [facility]IT segments. Robust distal branches, likely providing collateral flow to the right MCA territory. -LEFT POSTERIOR CEREBRAL ARTERY: The P1 segment is diminutive. origin of the MANAGER INTENS[employer] C[employer] UNIT with robust opacification of the posterior communicating artery. Normal opacification of the distal MANAGER [employer] [facility] UNIT segments. -POSTERIOR COMMUNICATING ARTERIES: Robust left PCOM [...] appears to be provided predominantly through right MANAGER [employer] UNIT collaterals. There are likely some contributions from [...] 03/10/25 1539 DD/ 1419 TD/TT: 03/10/25 1511 Solar Sales Specialist: Procedure Note Donotuseinterpreter, Image - 03/10/[address] [address] [address] Scan Report Signed Patient: MykelPercyReema#: [id number] 8 : 8Acct:[id number] Age/Sex: 65 / MADM Date: 03/10/25 Loc: HO.CT Attending Dr: Kiara Kaufman CNP Ordering Physician: Kiara Kaufman CNP Date of Service: 03/10/25 Procedure(s): CT angio head Accession Number(s): [id number] cc: Name,Terrence YOON; Kiara Kaufman CNP Report Number: [id number]: Total DLP = 1409.00 mGy-cm EXAMINATION: CT [...] performed. The data was processed at the seating and mobility technologist workstation for generation of MIP sequences. [...] to be reconstituted predominantly through collateral right MANAGER INTENS[facility] C[employer] UNIT branches, and with likely contributions from the [...] P1 segment. Normal opacification of the distal MANAGER INTENS[facility] UNIT segments. Robust distal branches, likely providing collateral flow to the right MCA territory. -LEFT POSTERIOR CEREBRAL ARTERY: The P1 segment is diminutive. origin of the MANAGER INTENSIVE CARE UNIT with robust opacification of the posterior communicating artery. Normal opacification of the distal MANAGER INTENS[facility] UNIT segments. -POSTERIOR COMMUNICATING ARTERIES: Robust left PCOM [...] appears to be provided predominantly through right MANAGER INTENS[facility] C[employer] UNIT collaterals. There are likely some contributions from [...] 03/10/25 1539 DD/ 1419 TD/TT: 03/10/25 1511 Solar Sales Specialist: [facility] External Provider IMG CT PROCEDURES Final Result * Vitamin D, 25-Hydroxy, Total, Immunoassay (03/09/2025 2:34 PM EDT) Vitamin D 25-OH Total 50.4 >30 ng/mL [facility] Comment: Health Based Reference Values*< 20 ng/mL [id number] ng/mL Insufficient> 30 ng/mL Sufficient*Funmi VUONG. N [...] DO LAB BLOOD ORDERABLES Final R esult [facility] [address] [place] [phone] * Vitamin B12 (Cobalamin) and Folate Panel, Serum (03/09/2025 2:34 PM EDT) Vitamin B12 829 200 - 900 pg/mL [facility] Comment:NORMAL 200-900 PG/ML INDETERMINATE 160-199 PG/ML DEFICIENT < 160 PG/ML Folate 9.8 > or = 4.0 ng/mL [facility] Comment:Reference Values:> o r = 4.0 ng/mL< 4.0 ng/mL suggests folate deficiency Methotrexate, aminopterin and folinic acid(leucovorin) are chemotherapeutic agents whose molecularstructures are similar to folate; therefore, the Architectfolate assay cannot be used for patients using these drugs. Blood 03/09/2025 2:34 PM EDT 03/09/2025 2:34 PM EDT us Kaity Amador [employer] LAB BLOOD ORDERABLES Final R esult Performing Organization Address [facility] Co de Phone Number [facility] [address] [place] [phone] * (ABNORMAL) Iron And Total Iron Binding Capacity (03/09/2025 2:34 PM EDT) Iron 73 45 - 160 mcg/dL [facility] Total Iron Binding Capacity 219(L) 228 - 428 mcg/dL [facility] Percent Iron Saturation 33 15 - 50 % [facility] Unsaturated Iron Binding 146 ug/dL [facility] Blood Venous blood specimen / Unknown 03/09/2025 2:34 PM EDT 03/09/2025 2:34 PM EDT us Kaity Amador LAB BLOOD ORDERABLES Final R esult Performing Organization Address [facility]/ZIP Co de Phone Number [facility] [address] [place] [phone] * (ABNORMAL) CBC (03/09/2025 2:34 PM EDT) White Blood Count 11.8(H) 4.8 - 10.8 X10*3/uL [facility] Red Blood Count 5.45 4.60 - 5.80 X10*6/uL [facility] Hemoglobin 16.3 14.0 - 18.0 g/dl [facility] Hematocrit 48.0 42.0 - 52.0 % [facility] Mean Corpuscular Volume 88.1 80.0 - 98.0 fL [facility] Mean Corpuscular Hemoglobin 29.9 27.0 - 33.0 pg [facility] Mean Corpuscular HGB Conc 34.0 31.0 - 36.0 g/dl [facility] Red Cell Distribution Width 13.1 11.0 - 16.0 % [facility] Platelet Count 356 160 - 400 X10*3/uL [facility] Mean Platelet Volume 8.3(L) 9.4 - 12.4 fL [facility] NRBC Pct Auto 0.0 0.0 - 0.2 /100WBC [facility] NRBC Abs Auto 0.000 0.0 - 0.012 X10*3/uL [facility] Blood Venous blood specimen / Unknown 03/09/2025 2:34 PM EDT 03/09/2025 2:34 PM EDT us Kaity Amador DO LAB BLOOD ORDERABLES Final R esult [facility] [address] [place] [phone] * TSH (03/09/2025 2:34 PM EDT) Thyroid Stimulating Hormone 0.58 0.32 - 4.0 uIU/mL [facility] Comment:TSH 3rd Generation ( [facility]) Blood Venous blood specimen / Unknown 03/09/2025 2:34 PM EDT 03/09/2025 2:34 PM EDT Kaity Amador LAB BLOOD ORDERABLES Final R esult Performing Organization Address City/[facility]/ZIP Co de Phone Number [facility] [address] [place] [phone] * T4, Free (03/09/2025 2:34 PM EDT) Pathologist [facility] Free T4 (Free Thyroxine) 0.94 0.71 - 1.85 ng/dL [facility] Blood Venous blood specimen / Unknown 03/09/2025 2:34 PM EDT 03/09/2025 2:34 PM EDT Kaity Denisesteviecale LAB BLOOD ORDERABLES Final R esult Performing Organization Address City/[facility]/ZIP Co de Phone Number [facility] [address] [place] [phone] * Ferritin (03/09/2025 2:34 PM EDT) Pathologist [facility] Ferritin 83 20 - 250 ng/mL [facility] Blood Venous blood specimen / Unknown 03/09/2025 2:34 PM EDT 03/09/2025 2:34 PM EDT Kaity Amador LAB BLOOD ORDERABLES Final R esult Performing Organization Address [facility]/ZIP Co de Phone Number [facility] [address] [place] [phone] * (ABNORMAL) Basic Metabolic Panel (03/09/2025 2:34 PM EDT) Pathologist [facility] Sodium 138 135 - 145 mmol/L [facility] Potassium 3.9 3.3 - 5.1 mmol/L [facility] Chloride 106 96 - 108 mmol/L [facility] Carbon Dioxide 24 22 - 29 mmol/L [facility] Anion Gap 12 12 - 20 [facility] Urea Nitrogen (BUN) 14 9 - 16 mg/dL [facility] Creatinine, Serum 1.28 0.5 - 1.4 mg/dL [facility] Estimated Glomerular Filt Rate 56 [facility] Comment:Chronic Kidney Disea se: Estimated GFR < 60 mL/min/1.69i5Jhoapi Kidney Disease: Estimated GFR < 15 mL/min/1.73m2 Glucose 144(H) 60 - 115 mg/dL [facility] Calcium 9.4 8.4 - 10.2 mg/dL [facility] Blood Venous blood specimen / Unknown 03/09/2025 2:34 PM EDT 03/09/2025 2:34 PM EDT us Kaity Amador DO LAB BLOOD ORDERABLES Final R esult [facility] [address] [place] [phone] * (ABNORMAL) Lipid Panel, Standard (07/05/2024 10:03 AM EST) Triglycerides 74 <150 mg/dL [facility] Comment:Desirable Triglyceri de: less than 150 mg/dLBorderline High Triglyceride 150-199 mg/dLHigh Triglyceride: 200-499 mg/dLVery High Triglyceride: greater than or equal to 5OO mg/dL Cholesterol 91 <200 mg/dL [facility] Comment:Desirable Cholestero l: less than 200 mg/dLBorderline High Cholesterol: 200-239 mg/dLHigh Cholesterol: greater than 239 mg/dL LDL Cholesterol Calculated 51 <100 mg/dL [facility] Comment:Desirable LDL: less than 100 mg/dLNear Optimal/Above Optimal LDL: 110- 129 mg/dLBorderline High LDL: 130-159 mg/dLHigh LDL: 160-189 mg/dLVery High LDL: greater than or equal to 190 mg/dL HDL Cholesterol 26(L) >40 mg/dL [facility] Comment:Desirable HDL: great er than 40 mg/dL Note: This HDL assay may give artificially low results in patients with liver disease. Blood Venous blood specimen / Unknown 07/05/2024 10:03 AM EST 07/05/2024 11:02 AM EST Terrence Quintanilla MD LAB BLOOD ORDERABLES Final Resul t Performing Organization Address [facility] Co de Phone Number [facility] [address] [place] [phone] * Hepatitis C Antibody with Reflex to HCV, RNA, Quantitative, Real-Time PCR (04/18/2024 11:12 AM EDT) Hepatitis C Antibody Nonreactive Nonreactive [facility] Comment:Antibodies to HCV no t detected; does not exclude early acuteHCV infection. Blood Venous blood specimen / Unknown 04/18/2024 11:12 AM EDT 04/18/2024 11:17 AM EDT Terrence Quintanilla MD LAB BLOOD ORDERABLES Final Resul t Performing Organization Address [facility] Co de Phone Number [facility] [address] [place] [phone] * Hm Colonoscopy (05/08/2019 2:51 PM EDT) Colonoscopy Normal Normal Narrative Airam Delgado - 05/08/2019 2:51 PM EDT Recommended 10 year follow up Historical Provider HEALTH MAINTENANCE Final Result from Last 3 Months or Most Recently Relevant to Health Maintenance Insurance [facility] STANDARD MEDICARE HSN FULL DENTAL - HSN FULL (MEDICAID) Care Teams Bilingual Hr Generalist Relationship Specialty Start Date End Date Name, MD Terrence [address] [place] [phone] PCP - General Family Medicine 09/14/15 Jimmy Lua FNP [address] [place] [phone] Nurse Practitioner Family Medicine 05/26/23
--- OUTSIDE RECORDS SUMMARY | 2025-03-24 10:51 | XMS_ITS | Encounter Summary ---
Author Organization [employer] Address [address] [place] [address] [address] [place] [address] Care Team Providers Care Long Term Care Phlebotomist Name Role Phone Name, Terrence YOON Primary Care Provider [phone] Jimmy Lua Unavailable Unavailable Encounter Details Date Type Department Care Team (Late st Contact Info) Description 11/28/2022 Abstract [facility] MEDICINE [address] [place] [phone] NameTerrence MD [address] [place] [address] [phone] Social History Tobacco Use Types Packs/Day Years [...] Description 04/04/2025 9:15 AM EDT Office Visit [facility] [address] [place] [address] [phone] NameTerrence MD [address] [place] [address] [phone] 06/20/2025 9:00 AM EST Office Visit [facility] ADULT DENTAL [address] [place] [address] [phone] Aliyah Adkins [address] [place] [address] documented as of this encounter Procedures Procedure [...] documented as of this encounter Care Teams Long Term Care Phlebotomist Relationship Specialty Start Date End Date Name, MD Terrence [address] [place] [address] PCP - General Family Medicine 09/14/15 Jimmy Lua FNP [address] [place] [address] Nurse Practitioner Family Medicine 05/26/23 documented as of this encounter
== END 2025-03-24 10:18 | disposition home or self-care (01) ==
LOC: HO.HUSH 09:43
PROVIDERS: PCP Internal Medicine Geriatric Medicine; Visit Provider Urology
DX: N39.3 Stress incontinence (female) (male) (principal); N40.0 Benign prostatic hyperplasia without lower urinary tract symptoms; R39.15 Urgency of urination; N32.89 Other specified disorders of bladder; Z13.9 Encounter for screening, unspecified
CPT/HCPCS: 52000; 99213; G2211

== ENCOUNTER → 2025-03-24 09:42 | Outpatient (BNVA) | payer MEDICARE, MEDICAID, SELFPAY | PROVIDERS: PCP Internal Medicine Geriatric Medicine; Visit Provider Urology | DX: N32.89 Other specified disorders of bladder (principal); R39.15 Urgency of urination; N39.3 Stress incontinence (female) (male); Z90.79 Acquired absence of other genital organ(s) | CPT/HCPCS: 52000; 81003; 99212 ==